=== PATIENT | male | born 1945 | race Caucasian/White ===

== ENCOUNTER 2022-12-25 05:25 | Emergency (ER) | payer OTHER, SELFPAY ==
[2022-12-25 05:34] VITALS: BP 155/67; BP 187/79; PULSE 69; PULSE 74; RESP 18; TEMP 36.8; O2SAT 91; O2SAT 98; BMI 43.5
[2022-12-25 06:15] LABS: MANUAL DIFF FLAG NO
[2022-12-25 06:16] LABS: Basophils Percent Auto 0.4 % (0-2); Eosinophils Absolute Auto 0.1 X10*3/uL (0.0-0.4); Eosinophils Percent Auto 1.3 % (0-4); Hematocrit 43.1 % (42.0-52.0); Hemoglobin 13.7 g/dl (14.0-18.0); Imm Gran Abs Auto 0.03 X10*3/uL (0.00-0.03); Imm Gran Pct Auto 0.3 % (0.0-0.4); Lymphocytes Absolute Auto 0.8 X10*3/uL (1.2-4.9); Lymphocytes Percent Auto 8.9 % (20-40); Mean Corpuscular HGB Conc 31.8 g/dl (31.0-36.0); Mean Corpuscular Hemoglobin 29.6 pg (27.0-33.0); Mean Corpuscular Volume 93.1 fL (80.0-98.0); Mean Platelet Volume 8.8 fL (9.4-12.4); Monocytes Percent Auto 11.1 % (2-11); Neutrophils Absolute Auto 7.2 x10*3/uL (2.0-8.3); Platelet Count 263 X10*3/uL (160-400); Red Blood Count 4.63 X10*6/uL (4.60-5.80); Red Cell Distribution Width 14.1 % (11.0-16.0); White Blood Count 9.3 X10*3/uL (4.8-10.8)
[2022-12-25 06:36] LABS: Anion Gap 13 (12-20); Blood Urea Nitrogen 16 mg/dL (9-16); Calcium 8.7 mg/dL (8.4-10.2); Carbon Dioxide 27 mmol/L (22-29); Chloride 107 mmol/L (96-108); Creatinine Clr Calc Pharmacy 120.9; Estimated Glomerular Filt Rate > 60; Glucose Random 105 mg/dL (60-115); Potassium 4.3 mmol/L (3.3-5.1); Sodium 143 mmol/L (135-145)
--- NOTE | 2022-12-25 07:19 | ED_ITS ---
HPI - General Adult General Chief complaint: General Medical Stated complaint: stool incontinence Time Seen by Provider: 12/25/22 07:18 Source: patient and RN notes reviewed Mode of arrival: EMS Limitations: no limitations History of Present Illness HPI narrative: Patient is a 77-year-old male with history of HLD, HTN to ED from [facility] after 1 episode of fecal incontinence. Patient states that he is m edicated with Colace daily, but that the Colace at his facility comes in 2 different forms-one is a white pill, the other a red capsule and he feels that when he receives the right capsule it is more effective as a stool softener than the white pill. Denies any abdominal pain, any additional episodes of incontinence, any fevers, or any other recent sick symptoms. He denies any BRBPR or dark, tarry stools. He states that after the episode his vital signs were assessed and that the nurse and doctor at his facility wanted him evaluated and to have labs checked. Related Data Allergies Allergy/AdvReac Type Severity Reaction Status Date / Time No Known Allergies Allergy Unverified 05/07/20 14:52 Review of Systems Review of Systems: As per HPI Yes all other systems are reviewed and are negative Constitutional: Constitutional: Reports as per HPI [facility] Social History Social History Alcohol intake: current Alcohol intake frequency: 0-2 drinks per day Alcohol type: beer Smoked in Last 30 Days: No Use of substances other than those prescribed or required for medical reasons: No Advance Directives: No Advance Directives Information Provided: Yes Physical Exam ED Vital Signs: Vital Signs - 24 hr 12/25/22 05:34 Temperature 98.2 F Pulse Rate 69 Respiratory Rate 18 Blood Pressure 155/67 H Pulse Oximetry 98 Oxygen Delivery Method Room Air BMI result Body Mass Index 43.5 Const General: cooperative, healthy appearing and no acute distress Orientation/consciousness: oriented to person, oriented to place, oriented to time and patient oriented x3 Limitations: no limitations HENMT Head: Yes normocephalic and Yes atraumatic Ears: external ears normal General nose exam: Normal external nose present Face and sinus: Yes face symmetric Mouth: oropharynx normal and moist mucous membranes Throat: Yes uvula midline Eyes Pupils: Equal, round and reactive pupils present (left; 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) Neck Neck: Yes normal visual inspection and Yes supple Resp Effort & Inspection: normal respiratory effort and able to speak in complete sentences Auscultation: clear to auscultation bilaterally Cardio Rate: regular rate Rhythm: regular rhythm Heart sounds: S1 normal heart sound present and S2 normal heart sound present GI Inspection: Yes normal to inspection, Yes obesity, No visible herniation and No visible pulsation Palpation (GI): Soft to palpation, nontender, no hernias, no masses, no pulsatile masses and No Rebound tenderness present Auscultation: normoactive bowel sounds General: Yes no CVA tenderness Back/Spine/Pelvis Back: no CVA tenderness Skin General skin exam: elasticity normal and turgor normal Neuro General: oriented to person, oriented to place, oriented to time, patient oriented x3, moves all extremities, no focal motor deficits and CN's II-XI intact bilaterally Cranial nerves: Yes Equal, round and reactive pupils present (left; 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 Medical Decision Making Medical Decision Making [facility] Narrative: Patient is a 77-year-old male with history of HLD, HTN to ED from [facility] after one episode of fecal incontinence. On exam patient is non-toxic appearing, vital signs within normal limits, no focal neurological deficits, abdomen soft and nontender, no guarding, no rebound tenderness, no CVA tenderness. Given reported history and physical exam findings, likely related to use of stool softner. Considered, but think unlikely, electrolyte abnormality, diverticulitis, partial SBO, appendicitis, or other intraabdominal infection. Low suspicion for secondary cause such as hyperadrenergic state, adrenal crisis, hyperthyroidism, or sepsis. Unlikely antibiotic associated diarrhea as patient denies any recent treatment with antibiotics. Plan: Check labs, if WNL will d/c home to [facility]. Please refer to course for remaining clinical decision making. Differential Diagnosis Differential Diagnoses: The differential diagnosis associated with the presentation includes As above Lab Data MDM Lab Attestation statement: I reviewed the patient's lab results. 12/25/22 06:10 12/25/22 06:10 Labs: Lab Results 12/25/22 12/25/22 Range/Units 06:10 06:10 WBC 9.3 (4.8-10.8) X10*3/uL RBC 4.63 (4.60-5.80) X10*6/uL Hgb 13.7 L (14.0-18.0) g/dl Hct 43.1 (42.0-52.0) % MCV 93.1 (80.0-98.0) fL MCH 29.6 (27.0-33.0) pg MCHC 31.8 (31.0-36.0) g/dl RDW 14.1 (11.0-16.0) % Plt Count 263 (160-400) X10*3/uL MPV 8.8 L (9.4-12.4) fL Immature Gran % (Auto) 0.3 (0.0-0.4) % Neut % (Auto) 78.0 H (45-73) % Lymph % (Auto) 8.9 L (20-40) % [place] % (Auto) 11.1 H (2-11) % Eos % (Auto) 1.3 (0-4) % Baso % (Auto) 0.4 (0-2) % Lymph # (Auto) 0.8 L (1.2-4.9) X10*3/uL [place] # (Auto) 1.0 (0.1-1.2) X10*3/uL Eos # (Auto) 0.1 (0.0-0.4) X10*3/uL Baso # (Auto) 0.0 (0.0-0.2) X10*3/uL Abs Immat Gran (auto) 0.03 (0.00-0.03) X10*3/uL Absolute Neuts (auto) 7.2 (2.0-8.3) x10*3/uL Absolute Nucleated RBC 0.000 (0.0-0.012) X10*3/uL Nucleated RBC % (auto) 0.0 (0.0-0.2) /100WBC Sodium 143 (135-145) mmol/L Potassium 4.3 (3.3-5.1) mmol/L Chloride 107 (96-108) mmol/L Carbon Dioxide 27 (22-29) mmol/L Anion Gap 13 (12-20) BUN 16 (9-16) mg/dL Creatinine 0.78 (0.5-1.4) mg/dL Estim Creat Clear Calc 120.9 Estimated GFR > 60 Random Glucose 105 (60-115) mg/dL Calcium 8.7 (8.4-10.2) mg/dL External Record Review External record reviewed: Inpatient record, Office record and Outpatient record Chronic Conditions Patient?s care impacted by: Hypertension Discharge Plan Discharge Clinical Impression: Fecal incontinence Patient Disposition: [facility] Additional Instructions: You were evaluated in the emergency department today for one episode of fecal incontinence. Your evaluation suggests that your symptoms are most likely due to use of a stool softener. Your exam and labs were reassuring and your evaluation has shown no sign of medical conditions requiring emergent intervention at this time. Please follow up with the primary care provider at your facility. Return to the emergency department if you experience worsening or uncontrolled pain, further episodes of fecal incontinence, fevers 100.4 or greater, recurrent vomiting, inability to tolerate food or fluids by mouth, bloody stools or vomit, black or tarry stools, or any other concerning symptoms.
[2022-12-25 08:00] VITALS: BP 140/58; O2SAT 98
== END 2022-12-25 10:44 ==
PROVIDERS: Emergency Provider Emergency Medicine
DX: R15.9 Full incontinence of feces (principal); Z79.899 Other long term (current) drug therapy
CPT/HCPCS: 36415; 80048; 85025; 99284

== ENCOUNTER 2023-01-04 03:57 | Inpatient (IN) | payer OTHER, SELFPAY ==
[2023-01-04] VITALS (11 sets, daily range): BP systolic 145–189; BP diastolic 57–116; PULSE 52–64; RESP 17–20; TEMP 35.8–37.1; O2SAT 92–98; BMI 43.7; BMI 44.0; BMI 30.6
--- NOTE | ~2023-01-04 | XR_ITS ---
EXAMINATION: XR CHEST CLINICAL INFORMATION: Dyspnea. Rule out pneumonia. COMPARISON: 11.27.2015 TECHNIQUE: 2 views of the chest were obtained. FINDINGS: Normal symmetric lung volumes. No parenchymal consolidation. No pleural effusion. No pneumothorax. Cardiomediastinal silhouette and pulmonary vascularity are within normal limits. No acute osseous abnormalities. Healed right-sided rib fractures. XR/XR chest 2V IMPRESSION: No acute findings
--- NOTE | ~2023-01-04 | US_ITS ---
EXAMINATION: US VENOUS ULTRASOUND WITH DOPPLER LOWER EXTREMITY, BILATERAL CLINICAL INFORMATION: Bilateral lower extremity pain and swelling COMPARISON: None available. TECHNIQUE: Ultrasound of the deep veins is performed from the hip to the calf with compression sonography and color and pulse Doppler assessment. Spectral analysis with color-flow imaging is performed. FINDINGS: RIGHT: There is nonocclusive thrombus present in the popliteal vein. The remainder of the right lower extremity is unremarkable with normal venous compression and respiratory variation and augmented flow. The visualized common femoral vein, superficial femoral vein, profunda femoral vein and the trifurcation region shows no evidence of deep venous thrombosis. There is no significant popliteal fossa cyst. LEFT: There is normal venous compression and respiratory variation and augmented flow. The visualized common femoral vein, superficial femoral vein, profunda femoral vein, popliteal vein, and the trifurcation region shows no evidence of deep venous thrombosis. There is no significant popliteal fossa cyst. US/US venous duplex LE BI IMPRESSION: DVT present in the right popliteal vein. The left leg is normal.
--- NOTE | 2023-01-04 04:32 | PC.NURSE ---
pt with oxygen saturation of 86% on room air while awake and resting. Placed on 2L per nasal cannula with good effect to 95-98%
--- NOTE | 2023-01-04 04:35 | ECG_ITS ---
Test Reason : SWELLING Blood Pressure : / mmHG Vent. Rate : 059 BPM Atrial Rate : 059 BPM P-R Int : 160 ms QRS Dur : 086 ms QT Int : 418 ms P-R-T Axes : -09 -05 012 degrees QTc Int : 413 ms Sinus bradycardia Low voltage QRS Cannot rule out Inferior infarct , age undetermined Abnormal ECG When compared with ECG of 27-NOV-2015 16:29, No significant change was found Referred By: Marc Mejia Electronically Signed By:Elia Atkins
--- NOTE | 2023-01-04 04:58 | ED.GENADULT ---
HPI - General Adult General Chief complaint: Wound/Laceration Stated complaint: Fall/ Lac Time Seen by Provider: 01/04/23 04:48 Source: patient Mode of arrival: EMS Limitations: no limitations History of Present Illness HPI narrative: 77-year-old male who presents emergency department for evaluation of bleeding from his left lower extremity. The patient lives at [facility]. He states that he called for his nurse since he had to go to the bathroom. The nurse found the patient lying in his bed with blood coming from his left leg. Patient states that over the last 2-3 days he has had increased swelling of his left lower extremity secondary to edema. He states he has also had pain in the left lower extremity. Patient's left lower extremity is edematous and erythematous and he states he has had cellulitis multiple times in his left leg. He does not recount any injury to his leg but he states that he often weeks fluid from his legs secondary to his edema. He denied fever, chills, rhinorrhea, sore throat, cough. He denied chest pain or shortness of breath. He denied nausea, vomiting or diarrhea. He denied fatigue or weakness. The patient was hypoxic with an O2 saturation of 82% on room air and on 2 L his O2 saturation improved to 92%. Related Data Home Medications Medication Instructions Recorded Confirmed acetaminophen 325 mg tablet 650 mg PO Q4H PRN Pain 01/04/23 01/04/23 amlodipine 5 mg tablet 5 mg PO DAILY 01/04/23 01/04/23 ammonium lactate 12 % topical cream 1 appl topical BID 01/04/23 01/04/23 aspirin 81 mg chewable tablet 81 mg PO DAILY 01/04/23 01/04/23 docusate sodium 100 mg capsule 100 mg PO BID 01/04/23 01/04/23 folic acid 400 mcg tablet 0.4 mg PO DAILY 01/04/23 01/04/23 guaifenesin 100 mg/5 mL oral liquid 200 mg PO Q4H PRN Cough 01/04/23 01/04/23 lactulose 10 gram/15 mL oral 30 ml PO DAILY PRN Constipation 01/04/23 01/04/23 solution lisinopril 10 mg tablet 10 mg PO DAILY 01/04/23 01/04/23 Allergies Allergy/AdvReac Type Severity Reaction Status Date / Time No Known Allergies Allergy Verified 01/04/23 04:36 Review of Systems Review of Systems: Yes all other systems are reviewed and are negative [facility] Past Medical History [facility] Narrative: Past medical history: Hypertension, hyperlipidemia. He denies COPD, asthma, obstructive sleep apnea or coronary artery disease. Social history: He is a resident of a long-term nursing facility. He denies tobacco and alcohol use. Medical History Dyslipidemia Hypertension Surgical History History of enucleation of right eyeball Social History Social History Alcohol intake: never Smoked in Last 30 Days: No Use of substances other than those prescribed or required for medical reasons: No Advance Directives: No Advance Directives Information Provided: No Physical Exam ED Vital Signs: Vital Signs - 24 hr 01/04/23 04:05 01/04/23 06:41 01/04/23 07:12 Temperature 98.8 F 97.6 F Pulse Rate 64 53 57 Respiratory Rate 20 19 18 Blood Pressure 171/81 H 152/67 H 152/68 H Pulse Oximetry 92 97 92 Oxygen Delivery Method Room Air Nasal Cannula Room Air Oxygen Flow Rate 2 01/04/23 08:18 Temperature 97.6 F Pulse Rate 58 Respiratory Rate 18 Blood Pressure 153/64 H Pulse Oximetry Oxygen Delivery Method Room Air Oxygen Flow Rate BMI result Body Mass Index 44.0 Const Other: Awake, alert, male patient, pleasant, cooperative in no distress, answers all questions appropriately [facility] Head: Yes normal to inspection, Yes normocephalic and Yes atraumatic Ears: external ears normal General nose exam: Normal external nose present Face and sinus: Yes normal facial exam Mouth: Normal oral and palatal mucosa present Throat: Yes posterior oropharynx normal Eyes Other: Left eye pupil 4 mm reactive sclera normal, right eye-glass prosthesis Neck Neck: Yes normal visual inspection, Yes no lymphadenopathy, Yes trachea midline and Yes supple Chest Chest palpation & inspection: normal inspection of the chest and normal palpation of entire chest wall Resp Effort & Inspection: normal respiratory effort and able to speak in complete sentences Auscultation: clear to auscultation bilaterally Cardio Rate: regular rate Rhythm: regular rhythm Heart sounds: S1 normal heart sound present, S2 normal heart sound present and no murmurs GI Inspection: Yes normal to inspection Palpation (GI): Soft to palpation, nontender and no guarding Auscultation: normal bowel sounds General: Yes no CVA tenderness Back/Spine/Pelvis Back: no CVA tenderness Skin General skin exam: no rashes or lesions noted Neuro Cranial nerves: Yes CN's II-XII intact bilaterally Cognition (Neuro): normal cognition Motor exam (neuro): 5/5 motor strength present throughout Extrem Other: Patient has 2+ pitting edema of the left lower extremity with patches of dry, crusted, hyperkeratosis, yellow skin, patient has erythema from his ankle to just below his knee, the erythema is warm to the touch. On the posterior aspect of the patient's calf there is a chronic appearing wound which is draining serosanguineous fluid. Psych Appearance: grossly normal Speech and movement: Normal speech and movement present Affect: normal affect Attitude: cooperative Thought process: Normal thought process present Thought content: Normal thought content present Medications Administered Generic Name Dose Route Start Last Admin Trade Name Freq PRN Reason Stop Dose Admin Vancomycin HCl 2,000 mg in 500 mls @ 250 mls/hr 01/04/23 08:15 01/04/23 08:30 Vancomycin/Ns IV 01/04/23 10:14 250 mls/hr ONCE ONE Administration Discontinued Medications Generic Name Dose Route Start Last Admin Trade Name Freq PRN Reason Stop Dose Admin Cefazolin Sodium/Dextrose 2 gm in 50 mls @ 100 mls/hr 01/04/23 05:12 01/04/23 06:17 Ancef IV 01/04/23 05:41 Infused ONCE ONE Infusion Medical Decision Making Medical Decision Making [facility] Narrative: 77-year-old male who was sent to the emergency department for evaluation of bleeding from his left lower extremity. On examination the patient has significant pitting edema to his left lower extremity erythema consistent with cellulitis pain. Patient has a chronic small triangular wound on the posterior calf which is draining serosanguineous fluid. Patient was found to be hypoxic with an O2 saturation of 88% on room air and on 2 L his O2 saturation came up to 94%. I ordered a CBC, CMP, lipase, PT/INR, PTT, BNP, lactic acid, blood cultures x2, chest x-ray two view. EKG will be obtained. I did order Ancef 2 g IV to treat his cellulitis. 0702: My independent interpretation patient's laboratory evaluation as follows: WBCs elevated 11,100. Platelet count elevated 454,000. Bicarb elevated 31 ALT elevated 42. COVID-19 negative. Troponin was detectable but not elevated at 9.2. Chest x-ray revealed no acute disease. 12 EKG was unremarkable. 0729: The patient was taken off oxygen his O2 saturation did decline down to 88% therefore he was placed back on oxygen 2 L via nasal cannula. I did add a D-dimer and bilateral ultrasounds to rule out DVT. 0934: D-dimer was elevated at 753. Ultrasound of the right lower extremity did reveal a right popliteal vein DVT. Differential Diagnosis Differential diagnosis includes was not limited to cellulitis, peripheral edema, congestive heart failure, pneumonia, electrolyte abnormalities, anemia Admission/Observation Consideration of admission/observation: Escalation of care including admission/observation considered Consult Healthcare Provider Management of the patient was discussed with: Hospitalist Lab Data [facility] Lab Attestation statement: I reviewed the patient's lab results. See MDM 01/04/23 05:08 01/04/23 05:08 Labs: Lab Results 01/04/23 01/04/23 01/04/23 Range/Units 05:08 05:08 05:08 WBC 11.1 H (4.8-10.8) X10*3/uL RBC 4.38 L (4.60-5.80) X10*6/uL Hgb 12.9 L (14.0-18.0) g/dl Hct 40.3 L (42.0-52.0) % MCV 92.0 (80.0-98.0) fL MCH 29.5 (27.0-33.0) pg MCHC 32.0 (31.0-36.0) g/dl RDW 13.8 (11.0-16.0) % Plt Count 454 H D (160-400) X10*3/uL MPV 8.7 L (9.4-12.4) fL Immature Gran % (Auto) 0.3 (0.0-0.4) % Neut % (Auto) 82.6 H (45-73) % Lymph % (Auto) 6.7 L (20-40) % [place] % (Auto) 8.4 (2-11) % Eos % (Auto) 1.7 (0-4) % Baso % (Auto) 0.3 (0-2) % Lymph # (Auto) 0.8 L (1.2-4.9) X10*3/uL [place] # (Auto) 0.9 (0.1-1.2) X10*3/uL Eos # (Auto) 0.2 (0.0-0.4) X10*3/uL Baso # (Auto) 0.0 (0.0-0.2) X10*3/uL Abs Immat Gran (auto) 0.03 (0.00-0.03) X10*3/uL Absolute Neuts (auto) 9.2 H (2.0-8.3) x10*3/uL Absolute Nucleated RBC 0.000 (0.0-0.012) X10*3/uL Nucleated RBC % (auto) 0.0 (0.0-0.2) /100WBC PT (10.0-13.1) SEC INR (0.9-1.1) APTT (26.0-36.4) SEC D-Dimer High Sensitivty NG/ML Sodium 145 (135-145) mmol/L Potassium 4.2 (3.3-5.1) mmol/L Chloride 107 (96-108) mmol/L Carbon Dioxide 31 H (22-29) mmol/L Anion Gap 11 L (12-20) BUN 15 (9-16) mg/dL Creatinine 0.77 (0.5-1.4) mg/dL Estim Creat Clear Calc 122.7 Estimated GFR > 60 Random Glucose 105 (60-115) mg/dL Lactic Acid 0.9 (0.5-2.0) mmol/L Calcium 8.8 (8.4-10.2) mg/dL Total Bilirubin 0.6 (0.0-1.0) mg/dL AST 31 (5-37) U/L ALT 42 H (0-40) U/L Alkaline Phosphatase 105 (39-117) U/L Troponin I High Sens (<3.5-35.0) ng/L C-Reactive Protein 15.33 H (< or = 0.50) mg/dL B-Natriuretic Peptide (<100) pg/mL Total Protein 6.1 L (6.5-8.0) g/dL Albumin 3.3 L (3.5-5.0) g/dL Lipase 19 (8-78) U/L COVID-19 ([facility]) (Negative) COVID-19 Clin Com 01/04/23 01/04/23 01/04/23 Range/Units 05:08 05:08 05:08 WBC (4.8-10.8) X10*3/uL RBC (4.60-5.80) X10*6/uL Hgb (14.0-18.0) g/dl Hct (42.0-52.0) % MCV (80.0-98.0) fL MCH (27.0-33.0) pg MCHC (31.0-36.0) g/dl RDW (11.0-16.0) % Plt Count (160-400) X10*3/uL MPV (9.4-12.4) fL Immature Gran % (Auto) (0.0-0.4) % Neut % (Auto) (45-73) % Lymph % (Auto) (20-40) % [place] % (Auto) (2-11) % Eos % (Auto) (0-4) % Baso % (Auto) (0-2) % Lymph # (Auto) (1.2-4.9) X10*3/uL [place] # (Auto) (0.1-1.2) X10*3/uL Eos # (Auto) (0.0-0.4) X10*3/uL Baso # (Auto) (0.0-0.2) X10*3/uL Abs Immat Gran (auto) (0.00-0.03) X10*3/uL Absolute Neuts (auto) (2.0-8.3) x10*3/uL Absolute Nucleated RBC (0.0-0.012) X10*3/uL Nucleated RBC % (auto) (0.0-0.2) /100WBC PT (10.0-13.1) SEC INR (0.9-1.1) APTT (26.0-36.4) SEC D-Dimer High Sensitivty NG/ML Sodium (135-145) mmol/L Potassium (3.3-5.1) mmol/L Chloride (96-108) mmol/L Carbon Dioxide (22-29) mmol/L Anion Gap (12-20) BUN (9-16) mg/dL Creatinine (0.5-1.4) mg/dL Estim Creat Clear Calc Estimated GFR Random Glucose (60-115) mg/dL Lactic Acid (0.5-2.0) mmol/L Calcium (8.4-10.2) mg/dL Total Bilirubin (0.0-1.0) mg/dL AST (5-37) U/L ALT (0-40) U/L Alkaline Phosphatase (39-117) U/L Troponin I High Sens 9.2 (<3.5-35.0) ng/L C-Reactive Protein (< or = 0.50) mg/dL B-Natriuretic Peptide 98 (<100) pg/mL Total Protein (6.5-8.0) g/dL Albumin (3.5-5.0) g/dL Lipase (8-78) U/L COVID-19 ([facility]) Negative (Negative) COVID-19 Clin Com See Note 01/04/23 Range/Units 05:31 WBC (4.8-10.8) X10*3/uL RBC (4.60-5.80) X10*6/uL Hgb (14.0-18.0) g/dl Hct (42.0-52.0) % MCV (80.0-98.0) fL MCH (27.0-33.0) pg MCHC (31.0-36.0) g/dl RDW (11.0-16.0) % Plt Count (160-400) X10*3/uL MPV (9.4-12.4) fL Immature Gran % (Auto) (0.0-0.4) % Neut % (Auto) (45-73) % Lymph % (Auto) (20-40) % [place] % (Auto) (2-11) % Eos % (Auto) (0-4) % Baso % (Auto) (0-2) % Lymph # (Auto) (1.2-4.9) X10*3/uL [place] # (Auto) (0.1-1.2) X10*3/uL Eos # (Auto) (0.0-0.4) X10*3/uL Baso # (Auto) (0.0-0.2) X10*3/uL Abs Immat Gran (auto) (0.00-0.03) X10*3/uL Absolute Neuts (auto) (2.0-8.3) x10*3/uL Absolute Nucleated RBC (0.0-0.012) X10*3/uL Nucleated RBC % (auto) (0.0-0.2) /100WBC PT 13.3 H (10.0-13.1) SEC INR 1.2 H (0.9-1.1) APTT 26.8 (26.0-36.4) SEC D-Dimer High Sensitivty 753 NG/ML Sodium (135-145) mmol/L Potassium (3.3-5.1) mmol/L Chloride (96-108) mmol/L Carbon Dioxide (22-29) mmol/L Anion Gap (12-20) BUN (9-16) mg/dL Creatinine (0.5-1.4) mg/dL Estim Creat Clear Calc Estimated GFR Random Glucose (60-115) mg/dL Lactic Acid (0.5-2.0) mmol/L Calcium (8.4-10.2) mg/dL Total Bilirubin (0.0-1.0) mg/dL AST (5-37) U/L ALT (0-40) U/L Alkaline Phosphatase (39-117) U/L Troponin I High Sens (<3.5-35.0) ng/L C-Reactive Protein (< or = 0.50) mg/dL B-Natriuretic Peptide (<100) pg/mL Total Protein (6.5-8.0) g/dL Albumin (3.5-5.0) g/dL Lipase (8-78) U/L COVID-19 ([facility]) (Negative) COVID-19 Clin Com Independent Interpretation I performed an independent interpretation of an: EKG Interpretation: My interpretation of the patient's 12 EKG done at 05:05 hours is as follows: Sinus bradycardia with a rate of 59, inverted T-wave in lead 3, no ST segment elevation, no ST segment depression, no significant T-wave abnormalities, no PACs, no PVCs Radiology Impression Discussion of test interpretation with radiology: I have reviewed the radiologist's reading. Radiologist Impression: XR chest 2V IMPRESSION: No acute findings Dictated By:Erick Cruz MD US venous duplex LE BI IMPRESSION: DVT present in the right popliteal vein. The left leg is normal. Dictated By:Chicho Mckeon MD Discharge Plan Discharge Clinical Impression: Cellulitis of left lower extremity, Leg edema, left, Hypoxia, Deep vein thrombosis of right lower extremity Patient Disposition: Admitted As Inpatient
[2023-01-04 05:20] LABS: MANUAL DIFF FLAG NO
[2023-01-04 05:21] LABS: Basophils Percent Auto 0.3 % (0-2); Eosinophils Absolute Auto 0.2 X10*3/uL (0.0-0.4); Eosinophils Percent Auto 1.7 % (0-4); Hematocrit 40.3 % (42.0-52.0); Hemoglobin 12.9 g/dl (14.0-18.0); Imm Gran Abs Auto 0.03 X10*3/uL (0.00-0.03); Imm Gran Pct Auto 0.3 % (0.0-0.4); Lymphocytes Absolute Auto 0.8 X10*3/uL (1.2-4.9); Lymphocytes Percent Auto 6.7 % (20-40); Mean Corpuscular Hemoglobin 29.5 pg (27.0-33.0); Mean Platelet Volume 8.7 fL (9.4-12.4); Monocytes Absolute Auto 0.9 X10*3/uL (0.1-1.2); Monocytes Percent Auto 8.4 % (2-11); Neutrophils Absolute Auto 9.2 x10*3/uL (2.0-8.3); Neutrophils Percent Auto 82.6 % (45-73); Platelet Count 454 X10*3/uL (160-400); Red Blood Count 4.38 X10*6/uL (4.60-5.80); Red Cell Distribution Width 13.8 % (11.0-16.0); White Blood Count 11.1 X10*3/uL (4.8-10.8)
[2023-01-04 05:31] LABS: COVID-19 Test Negative (Negative); IDNOW Serial# 6674DD1D
[2023-01-04] MEDS: ceFAZolin Sodium/Dextrose,Iso 2 GM/50 ML PIGGYBACK IV ×3 (05:31→21:46)
[2023-01-04 05:33] LABS: Lactic Acid 0.9 mmol/L (0.5-2.0)
[2023-01-04 05:38] LABS: Alanine Aminotransferase 42 U/L (0-40); Albumin Level 3.3 g/dL (3.5-5.0); Alkaline Phosphatase 105 U/L (39-117); Anion Gap 11 (12-20); Aspartate Amino Transferase 31 U/L (5-37); Bilirubin Total 0.6 mg/dL (0.0-1.0); Blood Urea Nitrogen 15 mg/dL (9-16); Calcium 8.8 mg/dL (8.4-10.2); Carbon Dioxide 31 mmol/L (22-29); Chloride 107 mmol/L (96-108); Creatinine Clr Calc Pharmacy 122.7; Estimated Glomerular Filt Rate > 60; Glucose Random 105 mg/dL (60-115); Lipase 19 U/L (8-78); Potassium 4.2 mmol/L (3.3-5.1); Sodium 145 mmol/L (135-145); Total Protein 6.1 g/dL (6.5-8.0)
[2023-01-04 05:42] LABS: B Type Natriuretic Peptide 98 pg/mL (<100); Troponin-I High Sensitivity 9.2 ng/L (<3.5-35.0)
[2023-01-04 05:43] LABS: INTERNATIONAL NORM RATIO 1.2 (0.9-1.1); Prothrombin Time 13.3 SEC (10.0-13.1)
[2023-01-04 05:46] LABS: Partial Thromboplastin Time 26.8 SEC (26.0-36.4)
--- NOTE | 2023-01-04 07:00 | CA_ITS ---
Transthoracic Echocardiogram Patient (Last, First, Middle): Erick Deleon K Gender: Male Date of : 1945 Age: 77 Procedure Date: 01/04/2023 Procedure Type: Transthoracic Echocardiogram Location: [place] Height: 182.88 cm Weight: 151.05 kg BSA: 2.65 m2 Heart Rate: bpm BP: 153 / 64 mmHg Psychiatric Mental Health Nurse: Referring MD: Almita Lovell MD Symptoms: possib PE check for R heart strain. Leg swelling Study Quality: Fair w Contrast ECG Rhythm: Sinus Conclusions: - Normal left ventricular size and systolic function. There is mildly increased left ventricular wall thickness. The visually estimated ejection fraction is between 55-60%. - There is moderately decreased right ventricular systolic function. RV is mild to moderately dilated. Findings Left Ventricle Normal left ventricular size and systolic function. There is mildly increased left ventricular wall thickness. The visually estimated ejection fraction is between 55-60%. There is no evidence of regional wall motion abnormalities. Diastolic function is indeterminate on the basis of available data. Spectral Doppler is indicative of a pseudonormal filling pattern. E/E prime ratio is between 8 and 15 consistent with indeterminate filling pressures. Right Ventricle There is moderately decreased right ventricular systolic function. RV is mild to moderately dilated. Atria The left atrium is mildly dilated. Aortic Valve Normal aortic valve structure and function. There is no aortic valve stenosis. There is no aortic valve regurgitation. Mitral Valve Normal mitral valve structure and function. There is no mitral valve regurgitation. There is no mitral valve stenosis. Pulmonic Valve The pulmonic valve was not well visualized. Tricuspid Valve Likely normal tricuspid valve structure and function. Tricuspid regurgitation envelope is inadequate for calculation of right ventricular systolic pressure. Indeterminate right atrial pressure. Great Vessels The pulmonary artery was not well visualized. There is mild dilatation of the ascending aorta measuring 3.70 cm. Venous The inferior vena cava was not well visualized. Pericardium/Pleural There is no evidence of pericardial effusion. Prior Study Comparison No prior study available for comparison. Measurements 2D Linear Measurements IVSd: 1.23 0.6-0.9/0.6-1.0 cm LVIDd: 4.65 3.9-5.3/4.2-5.9 cm LVIDd Index: 1.75 2.4-3.2/2.2-3.1 cm/m2 LVIDs: 3.09 2.0-3.6 cm LVPWd: 1.26 0.7-1.1 cm Ao Root: 3.50 2.1-3.5 cm LA Diam: 4.90 2.7-3.8/3.0-4.0 cm LAIDs Index: 1.85 1.5-2.3 cm/m2 LV Mass: 273.99 67-162/88-224 g LV Mass Index: 103.39 43-95/49-115 g/m2 LVOT Diam: 2.10 3.0+(-)1.3 cm Mitral Valve MV Pk E: 0.67 MV PK A: 0.68 MV Decel Time: 155.00 E/A: 1.00 E'Lateral: 4.90 E/E' Lat: 13.70 PHT: 45.00 MVA PHT: 4.89 Decel Bell: 4.33 Aortic Valve AoV Pk Cas: 1.10 AoV Mn Cas: 0.75 AoV VTI: 0.32 AoV Pk Grad: 5.00 Aov Mn Grad: 3.00 SAIMA Cont.VTI: 1.80 LVOT LVOT Pk Cas: 0.59 LVOT Mn Cas: 0.36 LVOT VTI: 0.17 LVOT Pk Grad: 1.00 LVOT Mn Grad: 1.00 LVOT Diam: 2.10 LVOT Area: 3.46 Diastolic Function MV Pk E: 0.67 MV Pk A: 0.68 E/A: 1.00 E' Laterial: 4.90 E/E' Lat: 13.70 Tricuspid Valve TR Pk Cas: 2.00 TR Pk Grad: 16.00 Great Vessels Aorta Ao Root-2D: 3.50 2.0-3.7 cm Ao Asc: 3.70 2.1-3.4 cm Pulmonary Valve PV Pk Cas: 0.90 Peak PV Grad: 3.00 Updated in Other Vendor System with Status of Final Elia Atkins MD electronically signed on 01/06/2023 9:24:18 PM with status of Final
--- NOTE | 2023-01-04 07:43 | PC.NURSE ---
bedside ultrasound is being done.
[2023-01-04 07:45] LABS: D Dimer High Sensitivity 753 NG/ML
[2023-01-04] MEDS: vancomycin/NS 2,000 MG/500 ML PLAST..BAG 250 MG IV (08:30)
--- NOTE | 2023-01-04 08:32 | PC.NURSE ---
2L O2 applied, sats between 89-92% on RA
--- NOTE | 2023-01-04 08:52 | PHA.MEDREC ---
Pharmacy Consult ? Medication Reconciliation Pharmacy has completed the medication reconciliation.
--- NOTE | 2023-01-04 08:53 | PHA.PROG ---
Admission Date/Time: Indication: Cellulitis Weight in k.2 kg Adjusted body weight in K.42 kg Cucumber body weight in K.9 kg Obesity Dosing Indication % IBW: 189% Serum Creatinine - Last 168 Hours 01/04/23 05:08 Creatinine 0.77 Estimated CrCl and GFR - Last 168 Hours 01/04/23 05:08 Estim Creat Clear Calc 122.7 Estimated GFR > 60 Vancomycin Loading Dose: 2000 mg Current Vancomycin Dosing Regimen: 1250 mg Q12H Date and Time for next Vancomycin Level to be drawn: 01/05 @ 1900 Pharmacist Comments on Vancomycin Plan: Patient is morbidly obese therefore vancomycin needs to be carefully monitored due to high volume of distribution Pharmacy received an adequate loading dose on 01/04 @ 0830. Maintenance dose vancomycin 1250 mg Q12H is scheduled to start 01/04 @ 2100. Expected AUC 555 with a trough of 15.5 Level is scheduled for prior to 4th dose Pharmacy will monitor renal function daily. Karen Alex PharmD Vancomycin dosing will take advantage of [employer] as a clinical decision support tool that uses Bayesian modeling to calculate individual patient's pharmacokinetic parameters and forecast the patient's drug concentration time course with the target goal AUC 24 range of 400 - 600 mg/L/hr.
--- NOTE | 2023-01-04 09:13 | PC.NURSE ---
doctor erin at bedside, pt aware he is being admitted.
--- NOTE | 2023-01-04 09:23 | PC.NURSE ---
Pt with extensive skin changes to lower extremities. L lower leg and ankle with very barky skin, weeping serosanguinous drainage, no breakdown to heel. R lower leg with barky skin as well, no drainage, no heel breakdown.
[2023-01-04 09:29] LABS: C Reactive Protein 15.33 mg/dL (< or = 0.50)
--- NOTE | 2023-01-04 09:41 | PM.IMHP ---
History of Present Illness Date of Service: 01/04/23 Chief Complaint: left leg swelling + drainage 77yo long-term resident of [facility] with history of HTN + HLD + morbid obesity with chronic leg swelling with draining wound on left calf who presents with 3 days of worsening pain, redness, and swelling of the left leg below the knee. The wound was draining bloody and clear fluid. No fever, chills, dyspnea, chest pain, nausea, vomiting, abdominal pain, or diarrhea. In the ED he was found to have leukocytosis with WBCs of 11.1 [82% PMNs]. Hs-D-dimer as 753. Duplex US was positive for DVT in the RIGHT popliteal vein. Initial SaO2 was 98% on room air but dropped to 88%, so he was placed on 2L O2 via NC with recovery to 92%. He was given 2g of IV cefazolin. Review of Systems Review of Systems: Yes all other systems are reviewed and are negative [facility] Medical History Dyslipidemia Hypertension Surgical History History of enucleation of right eyeball Social History Alcohol intake: never Smoked in Last 30 Days: No Use of substances other than those prescribed or required for medical reasons: No Advance Directives: No Advance Directives Information Provided: No Meds Allergies Allergy/AdvReac Type Severity Reaction Status Date / Time No Known Allergies Allergy Verified 01/04/23 04:36 Active Medications: Current Medications Docusate Sodium (Docusate Sodium 100 Mg Capsule) 100 mg PO BID JESSICA Enoxaparin Sodium (Enoxaparin Sodium 150 Mg/Ml Syringe) 150 mg 1 mg/kg (150 mg) SUBCUT Q12H JESSICA Guaifenesin (Guaifenesin 100 Mg/5 Ml Liquid) ml PO Q4H PRN PRN Reason: Cough Vancomycin HCl (Vancomycin/Ns) 2,000 mg in 500 mls @ 250 mls/hr IV ONCE ONE Stop: 01/04/23 10:14 Last Admin: 01/04/23 08:30 Dose: 250 mls/hr Vancomycin HCl 1,250 mg/ (Sodium Chloride) 250 mls @ 166.667 mls/hr IV Q12H [facility] Lactulose (Lactulose 20 Gm/30 Ml Solution) 20 gm PO DAILY PRN PRN Reason: Constipation Lisinopril (Lisinopril 10 Mg Tablet) 10 mg PO DAILY [facility]; Protocol Non-Formulary Medication (Folic Acid) 0.4 mg PO DAILY [facility] Pharmacy Consult (Consult Rx Vancomycin Dosing) 1 each MISCELLANE DAILY PRN PRN Reason: Consult order Home Medications Medication Instructions Recorded Confirmed Last Taken Type acetaminophen 325 mg tablet 650 mg PO Q4H PRN Pain 01/04/23 01/04/23 Unknown History amlodipine 5 mg tablet 5 mg PO DAILY 01/04/23 01/04/23 Unknown History ammonium lactate 12 % topical cream 1 appl topical BID 01/04/23 01/04/23 Unknown History aspirin 81 mg chewable tablet 81 mg PO DAILY 01/04/23 01/04/23 Unknown History docusate sodium 100 mg capsule 100 mg PO BID 01/04/23 01/04/23 Unknown History folic acid 400 mcg tablet 0.4 mg PO DAILY 01/04/23 01/04/23 Unknown History guaifenesin 100 mg/5 mL oral liquid 200 mg PO Q4H PRN Cough 01/04/23 01/04/23 Unknown History lactulose 10 gram/15 mL oral 30 ml PO DAILY PRN Constipation 01/04/23 01/04/23 Unknown History solution lisinopril 10 mg tablet 10 mg PO DAILY 01/04/23 01/04/23 Unknown History Physical Exam Vital Signs and Narrative: Vital Signs: Last Vital Signs Temp 97.6 F 01/04/23 08:18 Pulse 58 01/04/23 08:18 Resp 18 01/04/23 08:18 BP 153/64 H 01/04/23 08:18 Pulse Ox 92 01/04/23 07:12 O2 Del Method Room Air 01/04/23 08:18 O2 Flow Rate 2 01/04/23 06:41 BMI result Body Mass Index 44.0 Gen: in no acute distress HEENT: 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 On the L calf is a chronic wound draining a large amount of serosanguinous fluid. Neuro: alert and oriented x3, no focal findings Psych: appropriate affect Results Labs 01/04/23 05:08 01/04/23 05:08 Labs: Laboratory Results - last 24 hr 01/04/23 01/04/23 01/04/23 05:08 05:08 05:08 MCV 92.0 MCH 29.5 MCHC 32.0 RDW 13.8 Plt Count 454 H D MPV 8.7 L Immature Gran % (Auto) 0.3 Neut % (Auto) 82.6 H Lymph % (Auto) 6.7 L [place] % (Auto) 8.4 Eos % (Auto) 1.7 Baso % (Auto) 0.3 Lymph # (Auto) 0.8 L [place] # (Auto) 0.9 Eos # (Auto) 0.2 Baso # (Auto) 0.0 Abs Immat Gran (auto) 0.03 Absolute Neuts (auto) 9.2 H Absolute Nucleated RBC 0.000 Nucleated RBC % (auto) 0.0 PT INR APTT D-Dimer High Sensitivty Anion Gap 11 L Estim Creat Clear Calc 122.7 Estimated GFR > 60 Random Glucose 105 Lactic Acid 0.9 Calcium 8.8 Total Bilirubin 0.6 AST 31 ALT 42 H Alkaline Phosphatase 105 Troponin I High Sens C-Reactive Protein 15.33 H B-Natriuretic Peptide Total Protein 6.1 L Albumin 3.3 L Lipase 19 COVID-19 ([facility]) COVID-19 Clin Com 01/04/23 01/04/23 01/04/23 05:08 05:08 05:08 MCV MCH MCHC RDW Plt Count MPV Immature Gran % (Auto) Neut % (Auto) Lymph % (Auto) [place] % (Auto) Eos % (Auto) Baso % (Auto) Lymph # (Auto) [place] # (Auto) Eos # (Auto) Baso # (Auto) Abs Immat Gran (auto) Absolute Neuts (auto) Absolute Nucleated RBC Nucleated RBC % (auto) PT INR APTT D-Dimer High Sensitivty Anion Gap Estim Creat Clear Calc Estimated GFR Random Glucose Lactic Acid Calcium Total Bilirubin AST ALT Alkaline Phosphatase Troponin I High Sens 9.2 C-Reactive Protein B-Natriuretic Peptide 98 Total Protein Albumin Lipase COVID-19 ([facility]) Negative COVID-19 Clin Com See Note 01/04/23 05:31 MCV MCH MCHC RDW Plt Count MPV Immature Gran % (Auto) Neut % (Auto) Lymph % (Auto) [place] % (Auto) Eos % (Auto) Baso % (Auto) Lymph # (Auto) [place] # (Auto) Eos # (Auto) Baso # (Auto) Abs Immat Gran (auto) Absolute Neuts (auto) Absolute Nucleated RBC Nucleated RBC % (auto) PT 13.3 H INR 1.2 H APTT 26.8 D-Dimer High Sensitivty 753 Anion Gap Estim Creat Clear Calc Estimated GFR Random Glucose Lactic Acid Calcium Total Bilirubin AST ALT Alkaline Phosphatase Troponin I High Sens C-Reactive Protein B-Natriuretic Peptide Total Protein Albumin Lipase COVID-19 ([facility]) COVID-19 Clin Com Imaging Radiologist's Impressions: Impressions Chest X-Ray 01/04/23 04:45 IMPRESSION: No acute findings Venous Duplex 01/04/23 08:30 IMPRESSION: DVT present in the right popliteal vein. The left leg is normal. Assessment and Plan (1) Cellulitis of left lower extremity: Status: Acute (2) Leg edema, left: Status: Acute (3) Hypoxia: Status: Acute Plan 77yo M long-term SN[facility] resident [[facility] with HTN + HLD + morbid obesity + chronic leg swelling presenting with acute worsening of LLE swelling with redness and pain around chronic draining wound concerning for cellulitis. Not septic. Hypoxic and found to have a RLE DVT. # RLE DVT - admit to [facility], give therapeutic enoxaparin, eventual transition to PO apixaban - hypoxia could be due to PE; will spare CT radiation + contrast since would not change anticoagulation but will check TTE to r/o signs of R heart strain; also assess for CHF given chronic edema though BNP only 98 # LLE cellulitis - will continue cefazolin and add vancomycin given long-term care resident status conferring risk of MRSA - wound care consultation regarding management of chronic wound # acute hypoxic resp failure - wean O2 as tolerated; possibility of underlying ASHLEY, will do overnight oximetry # HTN - d/c amlodipine given potential contribution to edema; continue lisinopril and titrate dose as needed # VTE prophylaxis: LMWH # code status: DNR/DNI per [facility], confirmed by pt I anticipate that the patient will stay at least 2 midnights as an inpatient in the hospital due to the above reasons. It is neither reasonable nor safe to care for them in a less acute setting. Time Spent With Patient Time: Total time managing care of this patient today ____ minutes. Quality Stroke Does the patient have a stroke diagnosis?: No VTE Prior VTE?: No VTE Risk Level:: Medical - moderate - high VTE Device Contraindication: N/A - Device Ordered VTE Drug Contraindication: N/A - Med Ordered
--- NOTE | 2023-01-04 09:49 | PC.NURSE ---
incontinent care provided, linens changed. pt repositioned for comfort, cannot tolerate laying on his side due to body habitus
--- NOTE | 2023-01-04 10:01 | MHC.EDTECH ---
Pt changed over and given fresh bedding
[2023-01-04 10:51] LABS: Estimated Average Glucose 108 mg/dL; Hemoglobin A1c % 5.4 %
[2023-01-04 10:51] LABS: INTERNATIONAL NORM RATIO 1.1 (0.9-1.1); Prothrombin Time 12.8 SEC (10.0-13.1)
--- NOTE | 2023-01-04 10:51 | HE.PHANOTE ---
Patient was ordered Lovenox 150 mg (1mg/kg) Q12H. Since patient has BMI of 44, it is recommended to decrease dose of lovenox to 0.7 mg/kg/dose. Discussed with Dr. Lovell. He agreed and dose was decreased to lovenox 100 mg Q12H. Karen Alex, MaydaD
[2023-01-04] MEDS: Enoxaparin Sodium 100 MG/ML SYRINGE SUBCUT ×2 (10:56→23:46)
--- NOTE | 2023-01-04 10:59 | PC.NURSE ---
pt has jennifer area to under katherine breasts and abd fold. aware.
--- NOTE | 2023-01-04 12:45 | PC.NURSE ---
twila (associate spa director for [facility] on [address], ) called [facility] [place] and was updated on pt status.
--- NOTE | 2023-01-04 12:53 | PC.NURSE ---
ATTEMPT TO CALL REPORT AT [phone]
--- NOTE | 2023-01-04 13:15 | PC.NURSE ---
rn to rn report given to logan. pt aware of plan of care for transfer to room 473.
--- NOTE | 2023-01-04 18:20 | PC.NURSE ---
Patient arrived from ED on stretcher slide to bed with staff assist. Oriented to room, call [facility] system and staff. A&OX4 speech clear. SALDIVAR to command BLE generalized weakness. +edema to BLE 2+, left leg calf wound with moderate amount serosanguineous drainage on pad. Seen by wound care on arrival to unit. Denies headache or dizziness. Right eye with prosthesis per patient has not removed for extended period of time. Light green discharge noted surrounding right eye. Dr Lovell notified on unit to see patient new order for eye ointment. LS clear denies shortness of breath or chest pain, SB on tele in 50's. BS+X4 abdomen soft non-tender incontinent of small amount hard stool. Voiding in urinal with assist. Echo completed at bedside this afternoon. HCP at bedside updated on plan. Will continue to monitor and report changes
[2023-01-04] MEDS: Docusate Sodium 100 MG CAPSULE PO (21:46)
[2023-01-04] MEDS: Erythromycin Base 0.5% Oph Oin 1 GM TUBE 1 CM EYE-RIGHT (21:46)
[2023-01-04] MEDS: Nystatin Powder 15 GM BOTTLE 1 APPL TOPICAL (21:46)
[2023-01-04] MEDS: vancomycin HCL 1,250 MG in 0.9 % Sodium Chloride 250 ML 166.67 MG IV (22:31)
[2023-01-04] MEDS: 0.9 % Sodium Chloride Flush 3 ML SYRINGE IVFLUSH (23:44)
[2023-01-05] VITALS (8 sets, daily range): BP systolic 153–190; BP diastolic 59–83; PULSE 53–72; RESP 18–20; TEMP 36.3–37.1; O2SAT 92–97
[2023-01-05] MEDS: lisinopriL 10 MG TABLET PO ×2 (03:32→07:42)
--- NOTE | 2023-01-05 03:38 | PC.NURSE ---
CARE ASSUMED 23;15..AWKE..ALERT..ORIENTED X 2-3..OCASSIONAL VAGUE RESPONSES OR COMMENTS...RESPIRATIONS EASY ON ROOM AIR...PULSE OX STUDY INPROGRESS OVERNIGHT PER RT...SINUS BRADYCARDIA HR 50'S...ASYMPTOMATIC AND MD PREVIOUSLY AWARE PER SHIFT REPORT....BP ELEVATED..190/72...ASYMPTOMATIC...ADMIT 01/05..DID NOT RECEIVE DAILY ZESTRIL 01/05 D/T TIMING OF ADMISSION...DR SUBRAMANIAN UPDATED....AM ZESTRIL GIVEN NOW PER MD...RESTFUL..DENIES/OFFERS NO COMPLAINTS...DRESSING LEFT LOWER LEG PLACED BY WOUND RN 3-11 SHIFT DRY/INTACT
[2023-01-05 05:14] LABS: ABG Base Excess 7.4 mmol/L; ABG HCO3 33 mmol/L (22-26); ABG pCO2 51 mmHg (32-45); ABG pH 7.41 (7.35-7.45); ABG pO2 63 mmHg (83-108)
[2023-01-05] MEDS: ceFAZolin Sodium/Dextrose,Iso 2 GM/50 ML PIGGYBACK IV ×3 (05:17→20:23)
[2023-01-05 05:22] LABS: ABG Refer to POC result
[2023-01-05] MEDS: hydrALAZINE HCl 20 MG/ML VIAL 5 MG IVPUSH (06:20)
[2023-01-05 07:00] LABS: Hematocrit 38.6 % (42.0-52.0); Hemoglobin 12.4 g/dl (14.0-18.0); Mean Corpuscular HGB Conc 32.1 g/dl (31.0-36.0); Mean Corpuscular Hemoglobin 29.7 pg (27.0-33.0); Mean Corpuscular Volume 92.6 fL (80.0-98.0); Mean Platelet Volume 8.9 fL (9.4-12.4); Platelet Count 441 X10*3/uL (160-400); Red Blood Count 4.17 X10*6/uL (4.60-5.80); Red Cell Distribution Width 13.5 % (11.0-16.0); White Blood Count 6.5 X10*3/uL (4.8-10.8)
[2023-01-05 07:28] LABS: Anion Gap 11 (12-20); Blood Urea Nitrogen 16 mg/dL (9-16); Calcium 8.6 mg/dL (8.4-10.2); Carbon Dioxide 26 mmol/L (22-29); Chloride 110 mmol/L (96-108); Creatinine Clr Calc Pharmacy 112.5; Estimated Glomerular Filt Rate > 60; Glucose Random 85 mg/dL (60-115); Potassium 4.4 mmol/L (3.3-5.1); Sodium 143 mmol/L (135-145)
[2023-01-05] MEDS: Erythromycin Base 0.5% Oph Oin 1 GM TUBE 1 CM EYE-RIGHT ×2 (07:42→20:24)
[2023-01-05] MEDS: Docusate Sodium 100 MG CAPSULE PO ×2 (07:42→20:24)
[2023-01-05] MEDS: Folic Acid 1 MG TABLET 0.5 MG PO (07:42)
[2023-01-05] MEDS: 0.9 % Sodium Chloride Flush 3 ML SYRINGE IVFLUSH ×2 (07:43→15:50)
[2023-01-05] MEDS: Nystatin Powder 15 GM BOTTLE 1 APPL TOPICAL ×2 (07:44→15:47)
[2023-01-05] MEDS: vancomycin HCL 1,250 MG in 0.9 % Sodium Chloride 250 ML 166.67 MG IV ×2 (07:57→20:24)
--- NOTE | 2023-01-05 08:12 | HO.WOUND ---
Wound Care Consult Reason for consult: Left posterior calf wound Patient has a wound on the left posterior calf. Wound was open to air at the time of visit. Wound bed appearance was hard to visualize due to wound location, but from what was seen was a deep red, burgundy tissue. Wound edges seemed to be attached. No undermining or tunneling was noted. Surrounding tissue was warm and indurated, no redness. On the anterior aspect of the leg, there was a good amount of dry, plaque build up on the skin. A large amount of thicker serosangineous drainage was expressed from the wound. No odor noted. Wound measured 0.8cm x 0.4cm x 2.3cm. Patients leg was washed down with soap and water to help loosen any of the skin plaque and stock lotion was applied. Wound then was irrigated well with Normal saline. Lightly wicked the wound with a strip of alginate ag. Covered with gauze and secured with bryce wrap and tape. Did ask the patient if he remembered hitting his leg on anything given the appearnace of the wound, he did state he might of when getting out of the bed from the facility he resides in but he did state they looked at the bed rails, but nothing seemed sharp. Recommendation: Wash legs daily with soap and water. If ammonium lactate lotion 12% is available, would apply this daily to lower legs to help with the plaque build up, if not stock lotion would be fine. For the wound irrigate well with normal saline or the Sea cl[place] wound wash, cut strip of alginate ag and lightly pack into depth of wound making sure to leave a cm tail sticking out. Cover with gauze and bryce wrap. Change daily due to the amount of drainage seen. If drainage decreases, can change frequency to every other day.
--- NOTE | 2023-01-05 08:44 | P.CONWO_ITS ---
History of Present Illness Data of Consult Service Date: 01/04/23 Requesting physician: Louie Sahw Primary Care Provider: Arturo Hall MD [facility] Reason for consult: Left leg wound Patient is a 77-year-old male multiple medical problems who comes in from a long care facility with a left leg wound and cellulitis. Workup reveals right-sided DVT not left-sided DVT. He is being treated with IV antibiotics for the cellulitis PMFSH Medical History Dyslipidemia Hypertension Surgical History History of enucleation of right eyeball Social History Household Members: Other Housing: Senior Living Housing Other:: Lives in long-term care Do you presently have visiting nurse or other home services: No Alcohol intake: never Patient Tobacco Use Status: Never used Tobacco e-Cigarette/Vaping Use: Never Used Second Hand Smoke Exposure: No Meds Allergies Allergy/AdvReac Type Severity Reaction Status Date / Time No Known Allergies Allergy Verified 01/04/23 04:36 Active Medications: Current Medications Acetaminophen (Acetaminophen 325 Mg Tablet) 650 mg PO Q6H PRN PRN Reason: Pain, Mild (Pain Scale 1-3) Docusate Sodium (Docusate Sodium 100 Mg Capsule) 100 mg PO BID [facility] Last Admin: 01/05/23 07:42 Dose: 100 mg Enoxaparin Sodium (Enoxaparin Sodium 100 Mg/Ml Syringe) 100 mg SUBCUT Q12H [facility] Last Admin: 01/04/23 23:46 Dose: 100 mg Erythromycin (Erythromycin Base 0.5% Oph Oin 1 Gm Tube) 1 cm EYE-RIGHT BID [facility] Last Admin: 01/05/23 07:42 Dose: 1 cm Folic Acid (Folic Acid 1 Mg Tablet) 0.5 mg PO DAILY [facility] Last Admin: 01/05/23 07:42 Dose: 0.5 mg Guaifenesin (Guaifenesin 100 Mg/5 Ml Liquid) 10 ml PO Q4H PRN PRN Reason: Cough Vancomycin HCl 1,250 mg/ (Sodium Chloride) 250 mls @ 166.667 mls/hr IV Q12H [facility] Last Admin: 01/05/23 07:57 Dose: 166.67 mls/hr Cefazolin Sodium/Dextrose (Ancef) 2 gm in 50 mls @ 100 mls/hr IV Q8H [facility] Last Infusion: 01/05/23 05:55 Dose: Infused Lactulose (Lactulose 20 Gm/30 Ml Solution) 20 gm PO DAILY PRN PRN Reason: Constipation Lisinopril (Lisinopril 10 Mg Tablet) 10 mg PO DAILY [facility]; Protocol Last Admin: 01/05/23 07:42 Dose: 10 mg Nystatin (Nystatin Powder 15 Gm Bottle) 1 appl TOPICAL TID [facility]; Protocol Last Admin: 01/05/23 07:44 Dose: 1 appl Ondansetron HCl (Ondansetron Hcl 4 Mg/2 Ml Vial) 4 mg IVPUSH Q8H PRN PRN Reason: Nausea and Vomiting Oxycodone HCl (Oxycodone Hcl Immed Release 5 Mg Tablet) 5 mg PO Q6H PRN PRN Reason: Pain, Severe (Pain Scale 7-10) Pharmacy Consult (Consult Rx Vancomycin Dosing) 1 each MISCELLANE DAILY PRN PRN Reason: Consult order Sodium Chloride (0.9 % Sodium Chloride Flush 3 Ml Syringe) [address] [facility] Last Admin: 01/05/23 07:43 Dose: 3 ml Home Medications Medication Instructions Recorded Confirmed Last Taken Type acetaminophen 325 mg tablet 650 mg PO Q4H PRN Pain 01/04/23 01/04/23 Unknown History amlodipine 5 mg tablet 5 mg PO DAILY 01/04/23 01/04/23 Unknown History ammonium lactate 12 % topical cream 1 appl topical BID 01/04/23 01/04/23 Unknown History aspirin 81 mg chewable tablet 81 mg PO DAILY 01/04/23 01/04/23 Unknown History docusate sodium 100 mg capsule 100 mg PO BID 01/04/23 01/04/23 Unknown History folic acid 400 mcg tablet 0.4 mg PO DAILY 01/04/23 01/04/23 Unknown History guaifenesin 100 mg/5 mL oral liquid 200 mg PO Q4H PRN Cough 01/04/23 01/04/23 Unknown History lactulose 10 gram/15 mL oral 30 ml PO DAILY PRN Constipation 01/04/23 01/04/23 Unknown History solution lisinopril 10 mg tablet 10 mg PO DAILY 01/04/23 01/04/23 Unknown History Physical Exam Vital Signs and Narrative: Vital Signs: Last Vital Signs Temp 97.9 F 01/05/23 07:28 Pulse 60 01/05/23 07:28 Resp 20 01/05/23 07:28 BP 178/60 H 01/05/23 07:28 Pulse Ox 92 01/05/23 07:28 O2 Del Method Room Air 01/05/23 07:28 O2 Flow Rate 2 01/04/23 14:00 BMI result Body Mass Index 30.6 Skin: Other: Patient has bilateral lower leg edema right side looks maybe worse than the left side. Left posterior calf open wound is present but not as much erythematous changes as described. Patient has palpable left-sided pedal pulse. Results Labs 01/05/23 06:44 01/05/23 06:44 Labs: Laboratory Results - last 24 hr 01/04/23 01/04/23 01/04/23 05:08 05:08 10:20 MCV MCH MCHC RDW Plt Count MPV Absolute Nucleated RBC Nucleated RBC % (auto) PT 12.8 INR 1.1 O2 Saturation ABG pH at Pt Temp ABG pCO2 at Pt Temp ABG pO2 at Pt Temp ABG HCO3 ABG Base Excess (Actual) Anion Gap Estim Creat Clear Calc Estimated GFR Random Glucose Estimat Average Glucose 108 Hemoglobin A1c % 5.4 Calcium C-Reactive Protein 15.33 H 01/05/23 01/05/23 01/05/23 05:04 06:44 06:44 MCV 92.6 MCH 29.7 MCHC 32.1 RDW 13.5 Plt Count 441 H MPV 8.9 L Absolute Nucleated RBC 0.000 Nucleated RBC % (auto) 0.0 PT INR O2 Saturation 90.0 ABG pH at Pt Temp 7.41 ABG pCO2 at Pt Temp 51 H ABG pO2 at Pt Temp 63 L ABG HCO3 33 H ABG Base Excess (Actual) 7.4 Anion Gap 11 L Estim Creat Clear Calc 112.5 Estimated GFR > 60 Random Glucose 85 Estimat Average Glucose Hemoglobin A1c % Calcium 8.6 C-Reactive Protein Imaging Radiologist's Impressions: Impressions Venous Duplex 01/04/23 08:30 IMPRESSION: DVT present in the right popliteal vein. The left leg is normal. Assessment and Plan (1) Cellulitis of left lower extremity: Status: Acute Plan Left lower leg wound in setting probable venous hypertension. Patient with rig ht-sided DVT. Plan to do alginate dressings every other day and p.r.n. to the left lower leg and Jerrell bandage for compression. Eventually the patient should be wearing daily compression at least to the left leg and to the right leg after treatment of DVT as per medical team Time Spent With Patient Time: Total time managing care of this patient today ____ minutes.
[2023-01-05] MEDS: Enoxaparin Sodium 100 MG/ML SYRINGE SUBCUT (11:53)
--- NOTE | 2023-01-05 15:23 | HO.PM.IMPN ---
Subjective Subjective Date of Service: 01/05/23 Interval History: seen and examined this morning follow up for DVT, cellulitis denies sob, chest pain Review of Systems Review of Systems: Yes all other systems are reviewed and are negative Constitutional Constitutional: Denies chills and Denies fever(s) Cardiovascular Cardiovascular: Denies chest pain, Denies palpitations and Denies dyspnea Respiratory Respiratory: Denies cough and Denies dyspnea Gastrointestinal Gastrointestinal: Denies abdominal pain Endocrine Endocrine: Denies palpitations Physical Exam Vital Signs: Vital Signs: Last Vital Signs Temp 98.6 F 01/05/23 15:19 Pulse 61 01/05/23 15:19 Resp 18 01/05/23 15:19 BP 156/69 H 01/05/23 15:19 Pulse Ox 93 01/05/23 15:19 O2 Del Method Room Air 01/05/23 15:19 O2 Flow Rate 2 01/04/23 14:00 BMI result Body Mass Index 30.6 Const: General: cooperative, comfortable, no acute distress, alert and awake Nutritional Appearance: overweight Orientation/consciousness: patient oriented x3 Eyes: Other: s/p right eye enucleation Resp: Effort & Inspection: normal respiratory effort and able to speak in complete sentences Auscultation: not clear to auscultation bilaterally Cardio: Rate: regular rate Heart sounds: S1 normal heart sound present and S2 normal heart sound present GI: Inspection: No distended Palpation (GI): Soft to palpation and nontender Neuro: General: patient oriented x3 Extrem: Other: Objective Data Active Medications Acetaminophen (Acetaminophen 325 Mg Tablet) 650 mg PO Q6H PRN PRN Reason: Pain, Mild (Pain Scale 1-3) Apixaban (Apixaban 5 Mg Tablet) 10 mg PO BID [facility] Stop: 01/11/23 09:01 Docusate Sodium (Docusate Sodium 100 Mg Capsule) 100 mg PO BID [facility] Last Admin: 01/05/23 07:42 Dose: 100 mg Documented By: NAZARIO Erythromycin (Erythromycin Base 0.5% Oph Oin 1 Gm Tube) 1 cm EYE-RIGHT BID [facility] Last Admin: 01/05/23 07:42 Dose: 1 cm Documented By: NAZARIO Folic Acid (Folic Acid 1 Mg Tablet) 0.5 mg PO DAILY [facility] Last Admin: 01/05/23 07:42 Dose: 0.5 mg Documented By: NAZARIO Guaifenesin (Guaifenesin 100 Mg/5 Ml Liquid) 10 ml PO Q4H PRN PRN Reason: Cough Vancomycin HCl 1,250 mg/ (Sodium Chloride) 250 mls @ 166.667 mls/hr IV Q12H [facility] Last Infusion: 01/05/23 09:30 Dose: 0 mls/hr Documented By: NAZARIO Cefazolin Sodium/Dextrose (Ancef) 2 gm in 50 mls @ 100 mls/hr IV Q8H [facility] Last Infusion: 01/05/23 12:30 Dose: 0 mls/hr Documented By: NAZARIO Lactic Acid (Ammonium Lactate 12 % Cream 140 Gm Tube) 1 appl TOPICAL DAILY PRN; Protocol PRN Reason: Dry Skin Lactulose (Lactulose 20 Gm/30 Ml Solution) 20 gm PO DAILY PRN PRN Reason: Constipation Lisinopril (Lisinopril 20 Mg Tablet) 20 mg PO DAILY [facility]; Protocol Nystatin (Nystatin Powder 15 Gm Bottle) 1 appl TOPICAL TID [facility]; Protocol Last Admin: 01/05/23 07:44 Dose: 1 appl Documented By: NAZARIO Ondansetron HCl (Ondansetron Hcl 4 Mg/2 Ml Vial) 4 mg IVPUSH Q8H PRN PRN Reason: Nausea and Vomiting Oxycodone HCl (Oxycodone Hcl Immed Release 5 Mg Tablet) 5 mg PO Q6H PRN PRN Reason: Pain, Severe (Pain Scale 7-10) Pharmacy Consult (Consult Rx Vancomycin Dosing) 1 each MISCELLANE DAILY PRN PRN Reason: Consult order Sodium Chloride (0.9 % Sodium Chloride Flush 3 Ml Syringe) 3 ml IVFLUSH QSHIFT [facility] Last Admin: 01/05/23 07:43 Dose: 3 ml Documented By: NAZARIO Labs 01/05/23 06:44 01/05/23 06:44 Labs: Laboratory Results - last 24 hr 01/05/23 01/05/23 01/05/23 05:04 06:44 06:44 MCV 92.6 MCH 29.7 MCHC 32.1 RDW 13.5 Plt Count 441 H MPV 8.9 L Absolute Nucleated RBC 0.000 Nucleated RBC % (auto) 0.0 O2 Saturation 90.0 ABG pH at Pt Temp 7.41 ABG pCO2 at Pt Temp 51 H ABG pO2 at Pt Temp 63 L ABG HCO3 33 H ABG Base Excess (Actual) 7.4 Anion Gap 11 L Estim Creat Clear Calc 112.5 Estimated GFR > 60 Random Glucose 85 Calcium 8.6 Microbiology Microbiology Results: Microbiology 01/04/23 05:08 Blood Culture - Preliminary Blood - Venous No growth after 24 hours. 01/04/23 05:08 Blood Culture - Preliminary Blood - Venous No growth after 24 hours. Assessment and Plan (1) Deep vein thrombosis of right lower extremity: Status: Acute (2) Cellulitis of left lower extremity: Status: Acute Plan 77yo M long-term SNF resident [[facility]] with HTN + HLD + morbid obesity + chronic leg swelling presenting with acute worsening of LLE swelling with redness and pain around chronic draining wound concerning for cellulitis. Not septic. Hypoxic and found to have a RLE DVT. # Acute RLE DVT initially treated with therapeutic enoxaparin, will transition to Eliquis 10 bid x 6 days, then 5 bid - hypoxia could be due to PE; will spare CT radiation + contrast since would not change anticoagulation but will check TTE to r/o signs of R heart strain; also assess for CHF given chronic edema though BNP only 98 # LLE cellulitis - will continue cefazolin and add vancomycin given long-term care resident status conferring risk of MRSA - seen by wound care consultation regarding management of chronic wound - alginate dressings every other day and prn and ankush bandage for compression Blood cultures negative to date # acute hypoxic resp failure weaned to room air -possibility of underlying ASHLEY, overnight oximetry done - qualifies for noctural oxygen -rec outpatient sleep study # HTN - d/c amlodipine given potential contribution to edema BP elevated increase lisinopril to 20 mg daily # VTE prophylaxis: LMWH # code status: DNR/DNI per [facility], confirmed by pt attending - Dr. Murcia patient requires ongoing inpatient hospitalization for IV antibiotics, blood pressure monitoring, echo Time Spent With Patient Time: Total time managing care of this patient today ____ minutes. Quality Stroke Does the patient have a stroke diagnosis?: No VTE Prior VTE?: No VTE Risk Level:: Medical - moderate - high VTE Device Contraindication: N/A - Device Ordered VTE Drug Contraindication: N/A - Med Ordered
--- NOTE | 2023-01-05 19:34 | HE.PHANOTE ---
vanco trough = 15, auc = 503. keep same dose
[2023-01-05] MEDS: Apixaban 5 MG TABLET 10 MG PO (20:23)
[2023-01-06 03:15] VITALS: BP 150/72; PULSE 59; RESP 20; TEMP 36.6; O2SAT 91
[2023-01-06] MEDS: ceFAZolin Sodium/Dextrose,Iso 2 GM/50 ML PIGGYBACK IV ×3 (06:02→23:03)
[2023-01-06 06:59] LABS: Creatinine Clr Calc Pharmacy 109.3; Estimated Glomerular Filt Rate > 60
[2023-01-06 07:33] VITALS: BP 170/60; PULSE 51; RESP 20; TEMP 36.8; O2SAT 93
--- NOTE | 2023-01-06 07:45 | HE.PHANOTE ---
Vancomycin Dosing Addendum Patient has level due tomorrow 01/07 @0700. Renal function remains stable.
[2023-01-06] MEDS: lisinopriL 20 MG TABLET PO (07:50)
[2023-01-06] MEDS: Apixaban 5 MG TABLET 10 MG PO ×2 (07:50→23:03)
[2023-01-06] MEDS: Erythromycin Base 0.5% Oph Oin 1 GM TUBE 1 CM EYE-RIGHT ×2 (07:51→23:04)
[2023-01-06] MEDS: Folic Acid 1 MG TABLET 0.5 MG PO (07:51)
[2023-01-06] MEDS: Docusate Sodium 100 MG CAPSULE PO ×2 (07:51→23:03)
[2023-01-06] MEDS: Nystatin Powder 15 GM BOTTLE 1 APPL TOPICAL ×3 (07:54→23:04)
[2023-01-06] MEDS: vancomycin HCL 1,250 MG in 0.9 % Sodium Chloride 250 ML 166.67 MG IV (07:58)
[2023-01-06] MEDS: 0.9 % Sodium Chloride Flush 3 ML SYRINGE IVFLUSH ×3 (07:58→23:04)
--- NOTE | 2023-01-06 09:17 | MHC.CM.PN ---
LATE ENTRY FOR 01/05/23 AT [facility] 12:30PM. EMR REVIEWED, CM MET W/PT WHO IS A&O, REPORTS HE LIVES AT [facility] AND WAS RECENTLY TRANSFERRED TO [facility] FOR 10DAYS D/T BEING COVID +, PT REPORTS HE TYPICALLY USES [facility] FOR AMBULATION, [facility] FOR LONG DISTANCE AND A W/C FOR APPT'S, [facility]. PER RESPIRATORY PT WILL NEED O2 AT [facility] AND [facility] HAS BEEN UPDATED VIA [employer]. PT REPORTS HE IS FULLY [facility] FOR COVID 19, HCP AND [facility] ON FILE AND PCP IS ERMA MERRILL. D/C PLAN: RETURN TO LTC AT [facility]
--- NOTE | 2023-01-06 10:43 | MHC.CM.PN ---
PER HOSPITALIST PT MAY BE CLEARED FOR D/C BACK TO LTC AT [facility] LATER TODAY PENDING ECHO, SNF HAS BEEN UPDATED AND CLINICALS SENT, CM TO SET UP TRANSPORT [facility] ONCE DC CONFIRMED.
[2023-01-06 11:14] VITALS: BP 168/70; PULSE 52; RESP 20; TEMP 36.8; O2SAT 93
[2023-01-06 16:00] VITALS: BP 170/60; PULSE 51; RESP 20; TEMP 36.6; O2SAT 93
--- NOTE | 2023-01-06 16:10 | P.PNIM_ITS ---
Subjective Subjective Date of Service: 01/06/23 Interval History: seen and examined this morning follow up for cellulitis/acute DVT pain improving no chest pain, sob Review of Systems Review of Systems: Yes all other systems are reviewed and are negative Constitutional Constitutional: Denies chills and Denies fever(s) ENT Ears, Nose, Mouth, and Throat: Denies dizziness Cardiovascular Cardiovascular: Denies chest pain and Denies dyspnea Respiratory Respiratory: Denies dyspnea Gastrointestinal Gastrointestinal: Denies abdominal pain Neurologic Neurologic: Denies dizziness Physical Exam Vital Signs: Vital Signs: Last Vital Signs Temp 98 F 01/06/23 16:00 Pulse 51 01/06/23 16:00 Resp 20 01/06/23 16:00 BP 170/60 H 01/06/23 16:00 Pulse Ox 93 01/06/23 16:00 O2 Del Method Room Air 01/06/23 16:00 O2 Flow Rate 2 01/04/23 14:00 BMI result Body Mass Index 30.6 Const: General: cooperative, comfortable, no acute distress, alert and awake Nutritional Appearance: overweight Orientation/consciousness: patient oriented x3 Eyes: Other: s/p right eye enucleation Resp: Effort & Inspection: normal respiratory effort and able to speak in complete sentences Auscultation: not clear to auscultation bilaterally Cardio: Rate: regular rate Heart sounds: S1 normal heart sound present and S2 normal heart sound present GI: Inspection: No distended Palpation (GI): Soft to palpation and nontender Neuro: General: patient oriented x3 Extrem: Other: LLE dry scaly skin, erythema improving Objective Data Active Medications Acetaminophen (Acetaminophen 325 Mg Tablet) 650 mg PO Q6H PRN PRN Reason: Pain, Mild (Pain Scale 1-3) Apixaban (Apixaban 5 Mg Tablet) 10 mg PO BID [facility] Stop: 01/11/23 09:01 Last Admin: 01/06/23 07:50 Dose: 10 mg Documented By: NAZARIO Docusate Sodium (Docusate Sodium 100 Mg Capsule) 100 mg PO BID [facility] Last Admin: 01/06/23 07:51 Dose: 100 mg Documented By: NAZARIO Erythromycin (Erythromycin Base 0.5% Oph Oin 1 Gm Tube) 1 cm EYE-RIGHT BID [facility] Last Admin: 01/06/23 07:51 Dose: 1 cm Documented By: NAZARIO Folic Acid (Folic Acid 1 Mg Tablet) 0.5 mg PO DAILY [facility] Last Admin: 01/06/23 07:51 Dose: 0.5 mg Documented By: NAZARIO Guaifenesin (Guaifenesin 100 Mg/5 Ml Liquid) 10 ml PO Q4H PRN PRN Reason: Cough Vancomycin HCl 1,250 mg/ (Sodium Chloride) 250 mls @ 166.667 mls/hr IV Q12H [facility] Last Infusion: 01/06/23 09:30 Dose: 0 mls/hr Documented By: NAZARIO Cefazolin Sodium/Dextrose (Ancef) 2 gm in 50 mls @ 100 mls/hr IV Q8H [facility] Last Infusion: 01/06/23 13:57 Dose: 0 mls/hr Documented By: NAZARIO Lactic Acid (Ammonium Lactate 12 % Cream 140 Gm Tube) 1 appl TOPICAL DAILY PRN; Protocol PRN Reason: Dry Skin Lactulose (Lactulose 20 Gm/30 Ml Solution) 20 gm PO DAILY PRN PRN Reason: Constipation Lisinopril (Lisinopril 20 Mg Tablet) 20 mg PO DAILY [facility]; Protocol Last Admin: 01/06/23 07:50 Dose: 20 mg Documented By: NAZARIO Nystatin (Nystatin Powder 15 Gm Bottle) 1 appl TOPICAL TID [facility]; Protocol Last Admin: 01/06/23 15:56 Dose: 1 appl Documented By: NAZARIO Ondansetron HCl (Ondansetron Hcl 4 Mg/2 Ml Vial) 4 mg IVPUSH Q8H PRN PRN Reason: Nausea and Vomiting Oxycodone HCl (Oxycodone Hcl Immed Release 5 Mg Tablet) 5 mg PO Q6H PRN PRN Reason: Pain, Severe (Pain Scale 7-10) Pharmacy Consult (Consult Rx Vancomycin Dosing) 1 each MISCELLANE DAILY PRN PRN Reason: Consult order Sodium Chloride (0.9 % Sodium Chloride Flush 3 Ml Syringe) [facility] Last Admin: 01/06/23 15:56 Dose: 3 ml Documented By: NAZARIO Labs 01/05/23 06:44 01/06/23 06:10 Labs: Laboratory Results - last 24 hr 01/05/23 01/06/23 18:56 06:10 Estim Creat Clear Calc 109.3 Estimated GFR > 60 Vancomycin Trough 15.0 Microbiology Microbiology Results: Microbiology 01/04/23 05:08 Blood Culture - Preliminary Blood - Venous No growth after 48 hours. 01/04/23 05:08 Blood Culture - Preliminary Blood - Venous No growth after 48 hours. Assessment and Plan (1) Deep vein thrombosis of right lower extremity: Status: Acute (2) Cellulitis of left lower extremity: Status: Acute Plan 77yo M long-term SNF resident [[facility]] with HTN + HLD + morbid obesity + chronic leg swelling presenting with acute worsening of LLE swelling with redness and pain around chronic draining wound concerning for cellulitis. Not septic. Hypoxic and found to have a RLE DVT. # Acute RLE DVT initially treated with therapeutic enoxaparin, will transition to Eliquis 10 bid x 6 days, then 5 bid - hypoxia could be due to PE; will spare CT radiation + contrast since would not change anticoagulation but will check TTE to r/o signs of R heart strain; also assess for CHF given chronic edema though BNP only 98 # LLE cellulitis - will continue cefazolin and add vancomycin given long-term care resident status conferring risk of MRSA- likely d/c on po doxycycline - seen by wound care consultation regarding management of chronic wound - alginate dressings every other day and prn and ankush bandage for compression Blood cultures negative to date # acute hypoxic resp failure weaned to room air -possibility of underlying ASHLEY, overnight oximetry done - qualifies for noctural oxygen -rec outpatient sleep study echo pending # HTN - d/c amlodipine given potential contribution to edema BP elevated increase lisinopril to 20 mg daily # VTE prophylaxis: Eliquis # code status: DNR/DNI per [facility], confirmed by pt attending - Dr. Rodriges patient requires ongoing inpatient hospitalization for IV antibiotics, blood pressure monitoring, echo Time Spent With Patient Time: Total time managing care of this patient today ____ minutes. Quality Stroke Does the patient have a stroke diagnosis?: No VTE Prior VTE?: No VTE Risk Level:: Medical - moderate - high VTE Device Contraindication: N/A - Device Ordered VTE Drug Contraindication: N/A - Med Ordered
--- NOTE | 2023-01-06 16:26 | P.CDIM_ITS ---
PROVIDER RESPONSE TEXT: To clarify, the appropriate diagnosis supported by the clinical indicators: Other (explain): unable to determine QUERY TEXT: PHYSICIAN'S DOCUMENTATION REQUEST Date of Query: 01/06/2023 08:55 AM EDT Patient Name: Erick Deleon Admit Date: 01/04/2023 Dear Danyelle Lira, A review of the medical record indicates additional documentation may be needed. Please review below and update the documentation accordingly. Clinical Indicators: Diagnosis: Left lower extremity Cellulitis The following diagnoses or signs and symptoms were noted in the patient record: Per Hospitalist Progress note 01/05/23: seen by wound care consultation regarding management of chronic wound - alginate dressings every othe r day and prn and ankush bandage for compression Based on the above, could you clarify the type of wound that supports the above abnormalities and add itional evaluation, monitoring, and/or treatment rendered: Arterial wound Venous wound Condition 3 (please specify) Pressure wound traumatic wound Other (explain)Clinically unable to determine (explain)Thank you, Katerina Vines RN Use of terms such as suspected, likely, concern for, or probable (associated with a specific diagnosi s that is being evaluated, monitored, or treated as if it exists) are acceptable and can be coded in the inpatient se tting, when documented at the time of discharge. Please use your independent medical judgment in providing your response. THIS QUERY IS PART OF THE PERMANENT MEDICAL RECORD
[2023-01-06 19:42] VITALS: BP 170/60; PULSE 52; RESP 20; TEMP 36.6; O2SAT 92
[2023-01-06 23:34] VITALS: BP 160/72; PULSE 58; RESP 20; TEMP 36.7; O2SAT 94
[2023-01-07 03:56] VITALS: BP 142/86; PULSE 87; RESP 20; TEMP 36.8; O2SAT 94
[2023-01-07] MEDS: ceFAZolin Sodium/Dextrose,Iso 2 GM/50 ML PIGGYBACK IV ×2 (04:31→12:28)
[2023-01-07 06:49] LABS: Creatinine Clr Calc Pharmacy 106.4; Estimated Glomerular Filt Rate > 60
[2023-01-07 06:57] LABS: Vancomycin Trough 11.4 mcg/mL (10.0-20.0)
[2023-01-07 07:21] VITALS: BP 170/70; PULSE 52; RESP 20; TEMP 36.6; O2SAT 92
[2023-01-07] MEDS: Apixaban 5 MG TABLET 10 MG PO (08:24)
[2023-01-07] MEDS: lisinopriL 20 MG TABLET PO (08:24)
[2023-01-07] MEDS: 0.9 % Sodium Chloride Flush 3 ML SYRINGE IVFLUSH (08:24)
[2023-01-07] MEDS: Erythromycin Base 0.5% Oph Oin 1 GM TUBE 1 CM EYE-RIGHT (08:25)
[2023-01-07] MEDS: Docusate Sodium 100 MG CAPSULE PO (08:25)
[2023-01-07] MEDS: Folic Acid 1 MG TABLET 0.5 MG PO (08:25)
[2023-01-07] MEDS: Nystatin Powder 15 GM BOTTLE 1 APPL TOPICAL (08:31)
[2023-01-07] MEDS: Furosemide 20 MG TABLET PO (10:08)
--- NOTE | 2023-01-07 10:15 | MHC.CM.PN ---
Per Fariha, Patient is medically cleared for dc to LTC today. Patient will return to LTC @ [facility] today at 2PM via a [place] contracted transportation provider (per [place] [facility] @ [phone],Ext. [phone]).
--- NOTE | 2023-01-07 10:19 | PM.DS ---
DS: Providers Provider Date of Service: 01/07/23 Date of admission: 01/04/23 09:38 Date of discharge: 01/07/23 Primary care physician: Arturo Hall MD Consults: 01/04/23 09:48 Consult to Wound Care Routine Consulting Provider: [facility] [place] Management Reason for consultation: chronic wound L calf with cellulitis Attending physician on discharge: Nelda Macedo Discharging clinician: Danyelle Lira DS: Diagnosis Discharge Diagnosis (1) Deep vein thrombosis of right lower extremity: Status: Acute (2) Cellulitis of left lower extremity: Status: Acute DS: Summary Hospital Course Hospital Course: From H&P on day of admission 77yo long-term resident of [facility] with history of HTN + HLD + morbid obesity with chronic leg swelling with draining wound on left calf who presents with 3 days of worsening pain, redness, and swelling of the left leg below the knee.? The wound was draining bloody and clear fluid. ? No fever, chills, dyspnea, chest pain, nausea, vomiting, abdominal pain, or diarrhea. In the ED he was found to have leukocytosis with WBCs of 11.1 [82% PMNs].? Hs-D-dimer as 753.? Duplex US was positive for DVT in the RIGHT popliteal vein.? Initial SaO2 was 98% on room air but dropped to 88%, so he was placed on 2L O2 via NC with recovery to 92%.? He was given 2g of IV cefazolin. Acute RLE DVT. initially treated with therapeutic enoxaparin, transitioned to Eliquis 10 bid for 5 more days, then 5 bid. hypoxia could be due to PE; will spare CT radiation + contrast since would not change anticoagulation. TTE with right side dysfunction. no overt fluid overload. DVt possibly related to sedentary lifestyle, pt states he walks short distances with cane/walking but otherwise gets around with wheelchair. consider outpatient age appropriate malignancy screening. LLE cellulitis. treated with cefazolin and vancomycin given long-term care resident status. will d/c to complete 7 day course of antibiotics. seen by wound care consultation regarding management of chronic wound - alginate dressings every other day and prn and ankush bandage for compression. outpatient follow-up in Wound Care Clinic recommended. Blood cultures negative to date. acute hypoxic resp failure. initially required NC for borderline oxygen saturation. weaned to room air. possibility of underlying ASHLEY, overnight oximetry done - qualifies for noctural oxygen. rec outpatient sleep study to eval for ASHLEY. Right heart dysfunction echo - Normal left ventricular size and systolic function. There is ?mildly increased left ventricular wall thickness.? The visually?estimated ejection fraction is between 55-60%. - There is moderately decreased right ventricular systolic function.? RV is mild to moderately dilated. No overt heart failure. starting low dose lasix for next one week to assist with leg edema. repeat BMP and determine need to continue. recommend outaptient cardiology evaluation. HTN amlodipine discontinued given potential contribution to edema. lisinopril dose increased to 20 mg daily. monitor blood pressure closely Time Spent with Patient Time attestation: Total time managing care of this patient today ____ minutes. Discharge coordination time: Greater than 30 minutes Quality: Safe Use of Opioids Does Pt have an Active Cancer Diagnosis on the Problem List?: No Quality: Stroke Does the patient have a stroke diagnosis?: No Physical Exam Vital Signs: Vital Signs: Last Vital Signs Temp 97.9 F 01/07/23 07:21 Pulse 52 01/07/23 07:21 Resp 20 01/07/23 07:21 BP 170/70 H 01/07/23 07:21 Pulse Ox 92 01/07/23 07:21 O2 Del Method Room Air 01/07/23 07:21 O2 Flow Rate 2 01/07/23 03:56 BMI result Body Mass Index 30.6 Const: General: cooperative, comfortable, no acute distress, alert and awake Nutritional Appearance: overweight Orientation/consciousness: patient oriented x3 Eyes: Other: s/p right eye enucleation Resp: Effort & Inspection: normal respiratory effort and able to speak in complete sentences Auscultation: clear to auscultation bilaterally Cardio: Rate: regular rate Heart sounds: S1 normal heart sound present and S2 normal heart sound present GI: Inspection: No distended Palpation (GI): Soft to palpation and nontender Skin: Other: dry scaly skin LLE Neuro: General: patient oriented x3 Extrem: Other: b/l leg edema 1+ DS: Data Data Completed and Pending Labs on day of discharge: Laboratory Results - last 24 hr 01/07/23 01/07/23 06:25 06:25 Creatinine 0.74 Estim Creat Clear Calc 106.4 Estimated GFR > 60 Vancomycin Trough 11.4 Preliminary micro results at discharge 01/04/23 05:08 Blood Culture - Preliminary Blood - Venous No growth after 48 hours. 01/04/23 05:08 Blood Culture - Preliminary Blood - Venous No growth after 48 hours. Imaging Venous US: Radiologist's impression: ITS Impressions Chest X-Ray 01/04/23 04:45 IMPRESSION: No acute findings Venous Duplex 01/04/23 08:30 IMPRESSION: DVT present in the right popliteal vein. The left leg is normal. Discharge Plan Discharge Anticipated Discharge Date/Time: 01/07/23 15:00 Patient Disposition: Xfer [facility] Discharge Diagnosis: RLE DVT LLE cellulitis Referrals: [facility] [place] [Outside] - 1 Day ([facility]) [facility] [place] [Outside] - 1 Week Arturo Hall MD [Primary Care Provider] - 1 Week Hoa Franco MD [Physician] - 2 Weeks Discharge Medications: New Eliquis 5 mg Tablet 10 mg PO BID Qty: 80 0RF Rx Instructions: take two tabs twice daily for 5 days and then 1 tab twice daily after that lisinopril 20 mg Tablet 20 mg PO DAILY 30 Days Qty: 30 0RF Protocol: Hold for SBP< HOLD for SBP < : 90 furosemide [Lasix] 20 mg tablet 20 mg PO DAILY 7 Days Qty: 7 0RF doxycycline hyclate 100 mg tablet 100 mg PO BID 4 Days Qty: 8 0RF Continued acetaminophen 325 mg Tablet 650 mg PO Q4H PRN (Reason: Pain) folic acid 400 mcg Tablet 0.4 mg PO DAILY guaifenesin 100 mg/5 mL Liquid 200 mg PO Q4H PRN (Reason: Cough) docusate sodium 100 mg Capsule 100 mg PO BID aspirin 81 mg Tablet,Chewable 81 mg PO DAILY ammonium lactate 12 % Cream 1 appl TOPICAL BID lactulose 10 gram/15 mL Solution 30 ml PO DAILY PRN (Reason: Constipation) Discontinued amlodipine 5 mg Tablet 5 mg PO DAILY lisinopril 10 mg Tablet 10 mg PO DAILY Discharge Orders: Discharge Order (Routine); Ordered 01/07/23 Ordered By: Danyelle Lira Activity on Discharge: As tolerated Stand Alone Forms: Patient Portal Discharge page Care Plan Goals: see below Health Concerns: right lower extremity DVT left lower extremity cellulitis/chronic wound Plan of Treatment: stop taking norvasc as it may be contributing to leg edema for elevated blood pressure, dose of lisinopril was increased to 20 mg daily for acute DVT, started on eliquis - loading dose 10 mg bid for 5 more days and then 5mg bid possibly related to sedentary lifestyle. consider age appropriate malignancy screening. take lasix for the next 7 days for leg edema, recheck BNP and then determine need to continue lasix. consider cardiology evaluation left leg: wound care rec - alginate dressings every other day and prn for left leg and ankush bandage for compression. follow up in wound care clinic. keep leg elevated when possible. qualifies for noctural oxygen, 2L overnight - recommend formal sleep study to evaluate for ASHLEY call to schedule follow-up appointment with PCP, Cardiology, Wound Care Clinic Assessment: see discharge summary
[2023-01-07 11:06] LABS: COVID-19 Test Negative (Negative); IDNOW Serial# BCCEAD1C
[2023-01-07 11:14] VITALS: BP 170/60; PULSE 53; RESP 20; TEMP 36.4; O2SAT 96
== END 2023-01-07 14:04 | DRG 299 ==
LOC: HO.ED 07:52 → HO.EDOVER 09:43 → HO.IMC 12:10
PROVIDERS: Admitting Provider Family Medicine; Emergency Provider Emergency Medicine Emergency Medical Services; PCP Internal Medicine; Visit Provider Physician Assistant Medical
DX: I82.431 Acute embolism and thrombosis of right popliteal vein (principal); J96.01 Acute respiratory failure with hypoxia; L03.116 Cellulitis of left lower limb; Z68.41 Body mass index [BMI] 40.0-44.9, adult; I87.312 Chronic venous hypertension (idiopathic) with ulcer of left lower extremity; G47.33 Obstructive sleep apnea (adult) (pediatric); Z66 Do not resuscitate; I11.9 Hypertensive heart disease without heart failure; E66.01 Morbid (severe) obesity due to excess calories; E78.5 Hyperlipidemia, unspecified; I10 Essential (primary) hypertension; Z20.822 Contact with and (suspected) exposure to COVID-19; Z79.82 Long term (current) use of aspirin; Z79.899 Other long term (current) drug therapy
CPT/HCPCS: 36415; 36600; 71046; 80048; 80053; 80202; 82565; 82803; 83036; 83605; 83690; 83880; 84484; 85025; 85027; 85379; 85610; 85730; 86140; 87040; 87635; 93005; 93306; 93970; 99285; J0690; J1650; J3370; J3371; Q9957

== ENCOUNTER 2023-09-13 14:15 | Inpatient (IN) | payer OTHER, SELFPAY ==
[2023-09-13] VITALS (7 sets, daily range): BP systolic 83–133; BP diastolic 34–58; PULSE 47–70; RESP 12–18; TEMP 33.4–35.4; O2SAT 92–98; BMI 53.2
--- NOTE | ~2023-09-13 | CT_ITS ---
EXAMINATION: CT HEAD WITHOUT CONTRAST CLINICAL INFORMATION: Mental status change. COMPARISON: CT scan of the head 10/22/2015. TECHNIQUE: Contiguous axial imaging was performed from the skull base to vertex without intravenous administration of contrast. This CT examination was performed using dose optimization techniques as appropriate, variously including the following: *Automated exposure control *Adjustment of mA and/or kV according to patient size (this includes techniques or standardized protocols for targeted exams where dose is matched to indication/reason for exam; i.e. extremities or head) *Use of iterative reconstruction technique DLP: 1986 mGy-cm FINDINGS: Image quality is degraded by patient factors. The diagnostic accuracy of this examination is therefore somewhat limited. The ventricular volumes are relatively enlarged and there is effacement of the sulcal spaces particularly at the vertex with associated narrowing of the callosal angle. These findings may indicate the presence of underlying normal pressure hydrocephalus. There is no acute intracranial hemorrhage or abnormal extra-axial collection. No intracranial mass effect or midline shift. Scattered nonspecific foci of hypoattenuation visualized within the periventricular white matter. Bennett-white matter differentiation is otherwise preserved and there is no evidence of acute territorial infarct. There are chronic posttraumatic changes. The skull base is grossly intact. Small left mastoid effusion. No active paranasal sinus disease. CT/CT head/brain wo IV con IMPRESSION: Image quality is degraded by patient factors. The diagnostic accuracy of this examination is therefore somewhat limited. There are anatomic characterization indicate the possibility of underlying normal pressure hydrocephalus. Scattered chronic small vessel ischemic changes visualized within the periventricular white matter. Grossly no evidence of acute territorial infarct or hemorrhage.
--- NOTE | ~2023-09-13 | US_ITS ---
EXAMINATION: US VENOUS WITH DOPPLER UPPER EXTREMITY, LEFT CLINICAL INFORMATION: Swelling and erythema. COMPARISON: None available. TECHNIQUE: Ultrasound of the upper extremity is performed using compression sonography and color and pulse Doppler flow with assessment of augmentation of flow. There is also imaging and Doppler assessment of the jugular and subclavian veins. Spectral analysis with color-flow imaging is performed. FINDINGS: Nonocclusive superficial venous thrombosis in the distal aspect of the left cephalic vein. The visualize left internal jugular, axillary, brachial and radial veins demonstrate normal flow and compressibility. The left subclavian, basilic and ulnar veins were not well seen due to overlying subcutaneous swelling. US/US venous duplex UE LT IMPRESSION: 1. Nonocclusive superficial venous thrombosis in the distal aspect of the left cephalic vein. 2. No evidence of left upper extremity deep venous thrombosis with the caveat that the subclavian, basilic and ulnar veins were not well seen due to overlying subcutaneous swelling. If the patient's symptoms progress, a followup ultrasound in 5-7 days might be of value to exclude proximal propagation from a nonvisualized vein.
--- NOTE | ~2023-09-13 | XR_ITS ---
EXAMINATION: XR CHEST CLINICAL INFORMATION: Mental status changes COMPARISON: 01/04/2023 TECHNIQUE: Frontal view of the chest was obtained. FINDINGS: Lungs grossly clear given patient rotation. The left apex is obscured due to the patient's chin. Heart size borderline with normal caliber pulmonary vessels. Old right-sided rib fractures are noted. No change. XR/XR chest 1V IMPRESSION: Limited exam but within normal limits given technical limitations.
--- NOTE | ~2023-09-13 | CT_ITS ---
EXAMINATION: CT ANGIOGRAM OF THE CHEST WITH AND WITHOUT CONTRAST (CT PULMONARY ANGIOGRAM FOR PE) CLINICAL INFORMATION: Reason for Exam Hypoxia COMPARISON: None available. TECHNIQUE: Prior to contrast administration, noncontrast localization images were obtained. Subsequently, multidetector volumetric imaging was performed from the thoracic inlet to below the diaphragms following the administration of 80 mL Omnipaque 350 intravenous contrast. No contrast reaction reported Sagittal, coronal, and MIP oblique sagittal reformatted images were obtained on the CT workstation, uploaded to PACS, and reviewed. This CT examination was performed using dose optimization techniques as appropriate, variously including the following: *Automated exposure control *Adjustment of mA and/or kV according to patient size (this includes techniques or standardized protocols for targeted exams where dose is matched to indication/reason for exam; i.e. extremities or head) *Use of iterative reconstruction technique Total exam dose-length product 341 mGy-cm FINDINGS: QUALITY OF STUDY/CONTRAST BOLUS: Satisfactory. PULMONARY ARTERIES: There is good opacification of pulmonary arteries without any intraluminal filling defect. THORACIC AORTA: There is no evidence of aneurysm or dissection. LUNG: There is compressive atelectatic changes in both lung bases. PLEURA: There are small bilateral pleural effusions minimally larger on the right. MEDIASTINUM: The heart size is mildly enlarged. There is no pericardial effusion suspected. No abnormal size mediastinal or hilar lymph nodes seen. Thyroid gland is not well visualized. No evidence of septal bowing or right heart strain. CORONARY ARTERY CALCIFICATION: None visualized on this study. CHEST WALL/AXILLA: No axillary or internal mammary lymphadenopathy. OSSEOUS STRUCTURES: No aggressive lytic or sclerotic process seen. UPPER ABDOMEN: Visualized liver, spleen, pancreas and bilateral adrenal glands unremarkable. Large radiopaque gallstone is seen. No reflux of contrast into the hepatic veins to suggest elevated right heart pressures. CT/CT angio chest PE protocol IMPRESSION: 1. No evidence of PE. 2. No evidence of aortic dissection or aneurysm. 3. Small bilateral pleural effusions with compressive atelectasis in both lung bases. 4. Cholelithiasis. VTE: negative.
--- NOTE | ~2023-09-13 | XR_ITS ---
EXAMINATION: XR CHEST CLINICAL INFORMATION: Hypothermia COMPARISON: Previous chest x-ray and chest CTA 09/13/2023 TECHNIQUE: Frontal view of the chest was obtained. FINDINGS: The cardiac silhouette is upper normal in size and similar to previous exam. The lung volumes are low. There may be pulmonary venous redistribution. There is increasing loss of left hemidiaphragm questionable for increasing atelectasis or consolidation. Bilateral layering pleural effusions, left greater than right. No pneumothorax. Multiple old right rib fractures. XR/XR chest 1V IMPRESSION: Loss of the left hemidiaphragm questionable for increasing left lower lobe atelectasis/consolidation.
--- NOTE | 2023-09-13 14:35 | ECG_ITS ---
Test Reason : AMS Blood Pressure : / mmHG Vent. Rate : 058 BPM Atrial Rate : 058 BPM P-R Int : 154 ms QRS Dur : 120 ms QT Int : 464 ms P-R-T Axes : 073 173 176 degrees QTc Int : 455 ms suspect limb leads reversal Sinus bradycardia with occasional , and consecutive Premature ventricular complexes Low voltage QRS Left posterior fascicular block Abnormal ECG When compared with ECG of 04-JAN-2023 05:05, Limb leads reversed Referred By: Jayne Krishna Electronically Signed By:Elia Atkins
--- NOTE | 2023-09-13 14:42 | ED.GENADULT ---
HPI - General Adult General Chief complaint: Altered Mental Status Stated complaint: ams,hallucinating,low hr 40's,84 no s/p atropine Time Seen by Provider: 09/13/23 14:26 Source: patient and EMS Mode of arrival: EMS Limitations: no limitations History of Present Illness HPI narrative: This is a 78-year-old male brought in from [facility] with a history of HTN, HLD, morbid obesity, with chronic bilateral leg lymphedema with drainage, patient mostly a wheelchair-bound able to transfer himself from the chair this morning patient could not transfer himself because of generalized weakness patient was sent to the hospital for further evaluation, as reported nursing staff patient is been having change of mental status, patient is able to answer all the questions appropriately during the interview. As reported by EMS patient had a heart rate of 40s was given 1 mg of atropine by EMS patient in room with normal heart rate. Declined any headache, no fever, no chills, no CP, no SOB, no abdominal pain, no nausea, no vomiting. Patient was found to be hypothermic. Related Data Home Medications Medication Instructions Recorded Confirmed acetaminophen 325 mg tablet 650 mg PO Q4H PRN Pain 01/04/23 09/13/23 ammonium lactate 12 % topical cream 1 appl topical BID 01/04/23 09/13/23 aspirin 81 mg chewable tablet 81 mg PO DAILY 01/04/23 09/13/23 docusate sodium 100 mg capsule 100 mg PO BID 01/04/23 09/13/23 guaifenesin 100 mg/5 mL oral liquid 200 mg PO Q4H PRN Cough 01/04/23 09/13/23 lactulose 10 gram/15 mL oral 30 ml PO DAILY PRN Constipation 01/04/23 09/13/23 solution aluminum-mag hydroxide-simethicone 30 ml PO Q6H PRN Heartburn 09/13/23 09/13/23 225 mg-200 mg-25 mg/5 mL oral susp amlodipine 5 mg tablet 5 mg PO DAILY 09/13/23 09/13/23 apixaban 5 mg tablet (Eliquis) 5 mg PO BID 09/13/23 09/13/23 atorvastatin 10 mg tablet 10 mg PO DAILY 09/13/23 09/13/23 folic acid 1 mg tablet 1 mg PO DAILY 09/13/23 09/13/23 lisinopril 10 mg tablet 10 mg PO DAILY 09/13/23 09/13/23 omeprazole 20 mg tablet,delayed 20 mg PO DAILY 09/13/23 09/13/23 release white petrolatum-mineral oil 1 appl topical BEDTIME 09/13/23 09/13/23 topical cream Allergies Allergy/AdvReac Type Severity Reaction Status Date / Time No Known Allergies Allergy Verified 01/04/23 04:36 Review of Systems Review of Systems: All other systems are reviewed and are negative Constitutional: Reports as per HPI and Reports no additional constitutional complaints Eyes: Reports as per HPI and Reports no additional eye complaints Reports system reviewed and no additional complaints, except as documented Cardiovascular: Reports as per HPI and Reports no additional cardiovascular complaints Respiratory: Reports as per HPI and Reports no additional respiratory complaints Gastrointestinal: Reports as per HPI and Reports no additional gastrointestinal complaints Genitourinary: Reports no additional female genitourinary complaints Musculoskeletal: Reports no additional musculoskeletal complaints Skin/Breast: Reports system reviewed and no additional complaints, except as docu Psychiatric: Reports no additional psychiatric complaints Endocrine: Reports no additional endocrine complaints Hematologic/Lymphatic: Reports no additional hematologic/lymphatic complaints Allergic/Immunologic: Reports no additional allergic/immunologic complaints Reports system reviewed and no additional complaints, except as documented and Reports Abnormal speech present [facility] Past Medical History Medical History Dyslipidemia Hypertension Surgical History History of enucleation of right eyeball Social History Social History Household Members: Other Housing: [facility] Housing Other:: 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 Do you presently have visiting nurse or other home services: No Alcohol intake: current Alcohol intake frequency: 0-2 drinks per day Alcohol type: beer Patient Tobacco Use Status: Never used Tobacco Smoked in Last 30 Days: No e-Cigarette/Vaping Use: Never Used Second Hand Smoke Exposure: No Advance Directives: Yes Advance Directives on File: Yes Advance Directives Date on File: 12/26/22 service: No Current occupational status: disabled Physical Exam ED Vital Signs: Vital Signs - 24 hr 09/13/23 14:25 09/13/23 16:07 01/24/24 17:00 Temperature 92.5 F L 92.1 F L 92.1 F L Pulse Rate 67 59 51 Respiratory Rate 16 15 12 Blood Pressure 105/46 L 99/42 L 83/34 L Pulse Oximetry 93 92 96 Oxygen Delivery Method Room Air Room Air Room Air Oxygen Flow Rate 09/13/23 17:35 09/13/23 18:51 09/13/23 19:17 Temperature 92.7 F L 93.7 F L 93.9 F L Pulse Rate 50 47 L 51 Respiratory Rate 12 14 18 Blood Pressure 112/42 L 94/58 L 103/35 L Pulse Oximetry 94 96 98 Oxygen Delivery Method Room Air Room Air Nasal Cannula Oxygen Flow Rate 2 BMI result Body Mass Index 53.2 Vital signs have been reviewed and appear to be correct. Blood pressure elevated. Heart rate normal. Respiratory rate normal. Temperature normal. Oxygen saturation normal. Appearance: Alert. Oriented X2 place and person. No acute distress. Head: Normal external exam. Normocephalic. Atraumatic. No Landa signs noted. No raccoon eyes noted Eyes: PERRLA. EOMI. Conjunctiva and sclera normal. Eyelids normal. ENT: TM's Normal. Pharynx normal. Uvula midline. Moist mucous membranes. No trismus noted. No drooling noted. No muffled voice noted. Neck: Normal inspection. Neck supple. FROM. No adenopathy. Thyroid Normal. No meningeal signs. No neck mass noted. CVS: Normal heart rate and rhythm. Heart sound normal. No murmurs noted. Pulses normal throughout. Respiratory: No respiratory distress. Painless inspiration. Breath sounds normal. No wheezes/rales/rhonchi noted. Chest nontender. No accessory muscle usage noted or decreased air movement noted. Abdomen: Soft and nontender. Bowel sounds normal in all 4 quadrants. No distention noted. No organomegaly noted. No visible injury noted. Back: No CVA tenderness. Full range of motion noted. Skin: Skin warm and dry. Normal skin color. Normal skin turgor. No rashes/lesions/lacerations noted. Extremities: +4 bilateral lower extremity edema. No redness, no hotness, no evidence of cellulitis. Neuro: Oriented X 2. Cranial nerve exam: II-XII are grossly intact No motor deficit. No sensory deficit. Reflexes normal. Medications Administered Discontinued Medications Generic Name Dose Route Start Last Admin Trade Name Freq PRN Reason Stop Dose Admin Sodium Chloride 1,000 mls @ 500 mls/hr 09/13/23 16:55 09/13/23 19:00 Ns IV 09/13/23 18:54 Infused .Q2H ONE Infusion Piperacillin Sod/Tazobactam 50 mls @ 100 mls/hr 09/13/23 16:55 09/13/23 19:00 Sod 3.375 gm/ Sodium Chloride IV 09/13/23 17:24 Infused ONCE ONE Infusion Sodium Chloride 1,000 mls @ 500 mls/hr 09/13/23 18:55 09/13/23 19:15 Ns IV 09/13/23 20:54 500 mls/hr .Q2H ONE Administration Iohexol 100 ml 09/13/23 21:21 09/13/23 21:21 Iohexol 350 Mg/Ml 100 Ml Infus..Btl IV 09/13/23 21:22 100 ml ONCE ONE Administration Medical Decision Making Medical Decision Making [facility] Narrative: This is a 78-year-old male came in from correction for change mental status, patient found to be hypothermic in the emergency department, patient was given 1 mg of atropine by EMS for bradycardia, patient had 1 time hypotension that improved after 500 cc of normal saline. Continue with Dread Hugger external warming, prophylactic Zosyn antibiotic (unclear source of infection). No pneumonia, no UTI, no clinical evidence of cellulitis. Patient became hypoxic on room air patient at risk for pulmonary embolism has a CTA which shows no acute pulmonary embolism. Will admit and continue with the above management. Differential Diagnosis Differential Diagnoses: The differential diagnosis associated with the presentation includes (Hypothermia, intracranial pathology, ACS, UTI, electrolyte abnormality, severe anemia, pneumonia, adrenal insufficiency.) Admission/Observation Consideration of admission/observation: Escalation of care including admission/observation considered Lab Data [facility] Lab Attestation statement: I reviewed the patient's lab results. 09/13/23 15:30 09/13/23 15:29 Labs: Lab Results 09/13/23 09/13/23 09/13/23 Range/Units 15:28 15:29 15:30 WBC 6.2 (4.8-10.8) X10*3/uL RBC 3.54 L (4.60-5.80) X10*6/uL Hgb 10.5 L (14.0-18.0) g/dl Hct 33.2 L (42.0-52.0) % MCV 93.8 (80.0-98.0) fL MCH 29.7 (27.0-33.0) pg MCHC 31.6 (31.0-36.0) g/dl RDW 18.3 H (11.0-16.0) % Plt Count 209 D (160-400) X10*3/uL MPV 10.7 (9.4-12.4) fL Immature Gran % (Auto) 0.5 H (0.0-0.4) % Neut % (Auto) 79.7 H (45-73) % Lymph % (Auto) 8.1 L (20-40) % [place] % (Auto) 7.2 (2-11) % Eos % (Auto) 4.2 H (0-4) % Baso % (Auto) 0.3 (0-2) % Lymph # (Auto) 0.5 L (1.2-4.9) X10*3/uL [place] # (Auto) 0.4 (0.1-1.2) X10*3/uL Eos # (Auto) 0.3 (0.0-0.4) X10*3/uL Baso # (Auto) 0.0 (0.0-0.2) X10*3/uL Abs Immat Gran (auto) 0.03 (0.00-0.03) X10*3/uL Absolute Neuts (auto) 4.9 (2.0-8.3) x10*3/uL Absolute Nucleated RBC 0.020 H (0.0-0.012) X10*3/uL Nucleated RBC % (auto) 0.3 H (0.0-0.2) /100WBC Sodium 148 H (135-145) mmol/L Potassium 4.6 (3.3-5.1) mmol/L Chloride 111 H (96-108) mmol/L Carbon Dioxide 29 (22-29) mmol/L Anion Gap 13 (12-20) BUN 24 H (9-16) mg/dL Creatinine 0.91 (0.5-1.4) mg/dL Estim Creat Clear Calc 98.8 Estimated GFR > 60 Random Glucose 83 (60-115) mg/dL Lactic Acid 1.2 (0.5-2.0) mmol/L Calcium 9.3 D (8.4-10.2) mg/dL Total Bilirubin 0.4 (0.0-1.0) mg/dL Direct Bilirubin 0.2 (0.0-0.5) mg/dL AST 27 (5-37) U/L ALT 20 (0-40) U/L Alkaline Phosphatase 125 H (39-117) U/L Troponin I High Sens 5.2 (<3.5-35.0) ng/L B-Natriuretic Peptide 279 H (<100) pg/mL Total Protein 6.3 L (6.5-8.0) g/dL Albumin 3.2 L (3.5-5.0) g/dL Lipase 31 (8-78) U/L Random Cortisol 11.2 ug/dL Urine Color Yellow Urine Appearance Clear Urine pH 6.0 (5.0-9.0) Ur Specific [place] 1.020 (1.005-1.025) Urine Protein Negative (Neg-Trace) mg/dL Urine Glucose (UA) Negative (Negative) mg/dL Urine Ketones Negative (Negative) mg/dL Urine Blood Negative (Negative) Urine Nitrite Negative (Negative) Ur Leukocyte Esterase Negative (Negative) Influenza Type A (PCR) NEGATIVE (Negative) Influenza Type B (PCR) NEGATIVE (Negative) RSV RNA Qual (PCR) NEGATIVE (Negative) SARS-CoV-2 RNA (RT-PCR) NEGATIVE (Negative) Independent Interpretation I performed an independent interpretation of an: CT Scan (CT angio of the chest:1. No evidence of PE. 2. No evidence of aortic dissection or aneurysm. 3. Small bilateral pleural effusions with compressive atelectasis in both lung bases. 4. Cholelithiasis. VTE:) Radiology Impression Discussion of test interpretation with radiology: I have reviewed the radiologist's reading. Discharge Plan Discharge Clinical Impression: Hypothermia, Acute hypotension, Hypoxia Patient Disposition: Admitted As Inpatient
--- NOTE | 2023-09-13 15:21 | PC.NURSE ---
patient presented to ED with acute altered mental status from snf, patient temp rectal 92.4. placed temp sensing banda patient temp reading 91.8 core. patient had 400ml output of clear yellow urine. patient tolerated well
[2023-09-13 15:38] LABS: MANUAL DIFF FLAG NO
[2023-09-13 15:42] LABS: Appearance Urine Clear; Color Urine Yellow; Glucose Urine UA Negative (Negative); Leukocyte Esterase Urine Negative (Negative); Nitrite Urine Negative (Negative); Urine Blood Negative (Negative); Urine Ketones Negative (Negative); Urine Protein Negative (Neg-Trace)
[2023-09-13 15:44] LABS: Basophils Percent Auto 0.3 % (0-2); Eosinophils Absolute Auto 0.3 X10*3/uL (0.0-0.4); Eosinophils Percent Auto 4.2 % (0-4); Hematocrit 33.2 % (42.0-52.0); Hemoglobin 10.5 g/dl (14.0-18.0); Imm Gran Abs Auto 0.03 X10*3/uL (0.00-0.03); Imm Gran Pct Auto 0.5 % (0.0-0.4); Lymphocytes Absolute Auto 0.5 X10*3/uL (1.2-4.9); Lymphocytes Percent Auto 8.1 % (20-40); Mean Corpuscular HGB Conc 31.6 g/dl (31.0-36.0); Mean Corpuscular Hemoglobin 29.7 pg (27.0-33.0); Mean Corpuscular Volume 93.8 fL (80.0-98.0); Mean Platelet Volume 10.7 fL (9.4-12.4); Monocytes Absolute Auto 0.4 X10*3/uL (0.1-1.2); Monocytes Percent Auto 7.2 % (2-11); NRBC Pct Auto 0.3 /100WBC (0.0-0.2); Neutrophils Absolute Auto 4.9 x10*3/uL (2.0-8.3); Neutrophils Percent Auto 79.7 % (45-73); Platelet Count 209 X10*3/uL (160-400); Red Blood Count 3.54 X10*6/uL (4.60-5.80); Red Cell Distribution Width 18.3 % (11.0-16.0); White Blood Count 6.2 X10*3/uL (4.8-10.8)
[2023-09-13 15:54] LABS: Lactic Acid 1.2 mmol/L (0.5-2.0)
[2023-09-13 16:01] LABS: Alanine Aminotransferase 20 U/L (0-40); Albumin Level 3.2 g/dL (3.5-5.0); Alkaline Phosphatase 125 U/L (39-117); Anion Gap 13 (12-20); Aspartate Amino Transferase 27 U/L (5-37); Bilirubin Direct 0.2 mg/dL (0.0-0.5); Bilirubin Total 0.4 mg/dL (0.0-1.0); Blood Urea Nitrogen 24 mg/dL (9-16); Calcium 9.3 mg/dL (8.4-10.2); Carbon Dioxide 29 mmol/L (22-29); Chloride 111 mmol/L (96-108); Creatinine Clr Calc Pharmacy 98.8; Estimated Glomerular Filt Rate > 60; Glucose Random 83 mg/dL (60-115); Lipase 31 U/L (8-78); Potassium 4.6 mmol/L (3.3-5.1); Sodium 148 mmol/L (135-145); Total Protein 6.3 g/dL (6.5-8.0)
[2023-09-13 16:04] LABS: B Type Natriuretic Peptide 279 pg/mL (<100)
[2023-09-13 16:08] LABS: Troponin-I High Sensitivity 5.2 ng/L (<3.5-35.0)
--- NOTE | 2023-09-13 16:08 | PC.NURSE ---
patient placed on bare hugger, current temp is 92.1 core per banda sensor. patient is awake and alert, respirations equal and unlabored.
[2023-09-13 16:15] LABS: Influenza A PCR NEGATIVE (Negative); Influenza B PCR NEGATIVE (Negative); Resp Syncy Virus RNA Qual PCR NEGATIVE (Negative); SARS COV2 PCR INHOUSE NEGATIVE (Negative)
[2023-09-13] MEDS: 0.9 % Sodium Chloride 1,000 ML 500 ML IV ×2 (17:02→19:15)
[2023-09-13] MEDS: Piperacillin Sodium/Tazobactam 3.375 GM in 0.9 % Sodium Chloride 50 ML IV (17:15)
--- NOTE | 2023-09-13 18:37 | PHA.MEDREC ---
Pharmacy Consult ? Medication Reconciliation Pharmacy has completed the medication reconciliation. Patient came from [facility] with med list. Karen Alex, MaydaD
[2023-09-13 18:40] LABS: Cortisol Random 11.2 ug/dL
--- NOTE | 2023-09-13 18:47 | PM.IMHP ---
History of Present Illness Date of Service: 09/13/23 Attending physician on admission: Matteo Vazquez Chief Complaint: Genearlized weakness, AMS Pt is a 78-year-old male with a PMH significant for?HTN, HLD, chronic bilateral leg lymphedema with drainage, RLE DVT in 2022, and morbid obesity who presents to the ED from [facility] for evaluation of altered mental status?and generalized weakness. Pt is mostly wheelchair-bound but capable of transferring himself at baseline. This morning patient had generalized weakness and was unable to transfer from his wheelchair. SNF staff also note patient had change in mental status, active was lethargic than normal. EMS upon arrival found patient with HR in 40s and was given 1 mg of atropine with improvement to HR. When patient arrived to the ED was found to be hypothermic as low as 92.1, placed in a Dread Hugger. Patient himself is found to be seemingly back to baseline with mentation, answering all questions appropriately, and AOx4. Patient himself with difficulty speaking at baseline, but is able to be understood. States he feels ?okay? and denies any pain. Patient denies lightheadedness or dizziness. No increase in fatigue. Denies chest pain/pressure, palpitations. No shortness of breath. Denies fever, chills, nausea, vomiting, abdominal pain. In the ED pt was hypothermic as low as 92.1, bradycardic as low as 47, and soft BP as low as 83/34, satting at 93% on RA. Labs were significant for H&H 10.5/33.2, sodium 148, chloride 111, alk-phos 125, BNP elevated at 279. No leukocytosis. Tested negative for influenza type a and B, RSV, COVID. CXR without any noted acute cardiopulmonary findings. CT?of head with degraded image quality, however with grossly no evidence of acute territorial infarct or hemorrhage Neurology, but with scattered chronic small-vessel ischemic changes and possible underlying normal pressure hydrocephalus. EKG demonstrated sinus bradycardia with occasional PVCs. Pt was treated with IVF and Zosyn. Pt will be admitted to the hospital for treatment and further evaluation of bradycardia, hypothermia, and hypotension. Review of Systems Review of Systems: Pain denies any acute medical complaints at this time, saying he feels ?fine? [facility] Medical History Dyslipidemia Hypertension Surgical History History of enucleation of right eyeball Social History Household Members: Other Housing: [facility] Other:: Lives in penitentiary care Do you presently have visiting nurse or other home services: No Alcohol intake: current Alcohol intake frequency: 0-2 drinks per day Alcohol type: beer Patient Tobacco Use Status: Never used Tobacco Smoked in Last 30 Days: No e-Cigarette/Vaping Use: Never Used Second Hand Smoke Exposure: No Advance Directives: Yes Advance Directives on File: Yes Advance Directives Date on File: 12/26/22 service: No Current occupational status: disabled Meds Allergies Allergy/AdvReac Type Severity Reaction Status Date / Time No Known Allergies Allergy Verified 01/04/23 04:36 Active Medications: Current Medications Sodium Chloride (Ns) 1,000 mls @ 500 mls/hr IV .Q2H ONE Stop: 09/13/23 18:54 Last Admin: 09/13/23 17:02 Dose: 500 mls/hr Home Medications Medication Instructions Recorded Confirmed Last Taken Type acetaminophen 325 mg tablet 650 mg PO Q4H PRN Pain 01/04/23 09/13/23 Unknown History ammonium lactate 12 % topical cream 1 appl topical BID 01/04/23 09/13/23 Unknown History aspirin 81 mg chewable tablet 81 mg PO DAILY 01/04/23 09/13/23 Unknown History docusate sodium 100 mg capsule 100 mg PO BID 01/04/23 09/13/23 Unknown History guaifenesin 100 mg/5 mL oral liquid 200 mg PO Q4H PRN Cough 01/04/23 09/13/23 Unknown History lactulose 10 gram/15 mL oral 30 ml PO DAILY PRN Constipation 01/04/23 09/13/23 Unknown History solution aluminum-mag hydroxide-simethicone 30 ml PO Q6H PRN Heartburn 09/13/23 09/13/23 Unknown History 225 mg-200 mg-25 mg/5 mL oral susp amlodipine 5 mg tablet 5 mg PO DAILY 09/13/23 09/13/23 Unknown History apixaban 5 mg tablet (Eliquis) 5 mg PO BID 09/13/23 09/13/23 Unknown History atorvastatin 10 mg tablet 10 mg PO DAILY 09/13/23 09/13/23 Unknown History folic acid 1 mg tablet 1 mg PO DAILY 09/13/23 09/13/23 Unknown History lisinopril 10 mg tablet 10 mg PO DAILY 09/13/23 09/13/23 Unknown History omeprazole 20 mg tablet,delayed 20 mg PO DAILY 09/13/23 09/13/23 Unknown History release white petrolatum-mineral oil 1 appl topical BEDTIME 09/13/23 09/13/23 Unknown History topical cream Physical Exam Vital Signs and Narrative: Vital Signs: Last Vital Signs Temp 92.7 F L 09/13/23 17:35 Pulse 50 09/13/23 17:35 Resp 12 09/13/23 17:35 BP 112/42 L 09/13/23 17:35 Pulse Ox 94 09/13/23 17:35 O2 Del Method Room Air 09/13/23 17:35 BMI result Body Mass Index 53.2 Constitutional: Alert, answering appropriately, some dysarthria but capable of being understood. In no acute distress. Mental Status: Oriented to person, place and time. Eyes: S/P right eye enucleation with prosthetic in place Ear, Nose, and Throat: Oropharynx clear, mucous membranes moist. Ears and nose without deformities. Trachea midline. Respiratory: Clear to auscultation bilaterally. No wheezing, rales, or rhonchi. Cardiovascular: S1, S2 regular. No murmurs, rubs, or gallops. Gastrointestinal: Abdomen soft, non-tender, non-distended. Normal bowel sounds. Neurologic: Cranial nerves II-XII are grossly intact bilaterally. No focal neurological deficits. Moves all extremities spontaneously. Skin: Yellow crusted patches on lower legs bilaterally. No erythema or signs of acute infection. Musculoskeletal: No cyanosis or clubbing. Extremities: 3+ bilateral lower leg pitting edema. Psychiatric: Normal mood and affect. Results Labs 09/13/23 15:30 09/13/23 15:29 Labs: Laboratory Results - last 24 hr 09/13/23 09/13/23 09/13/23 15:28 15:29 15:30 MCV 93.8 MCH 29.7 MCHC 31.6 RDW 18.3 H Plt Count 209 D MPV 10.7 Immature Gran % (Auto) 0.5 H Neut % (Auto) 79.7 H Lymph % (Auto) 8.1 L [place] % (Auto) 7.2 Eos % (Auto) 4.2 H Baso % (Auto) 0.3 Lymph # (Auto) 0.5 L [place] # (Auto) 0.4 Eos # (Auto) 0.3 Baso # (Auto) 0.0 Abs Immat Gran (auto) 0.03 Absolute Neuts (auto) 4.9 Absolute Nucleated RBC 0.020 H Nucleated RBC % (auto) 0.3 H Anion Gap 13 Estim Creat Clear Calc 98.8 Estimated GFR > 60 Random Glucose 83 Lactic Acid 1.2 Calcium 9.3 D Total Bilirubin 0.4 Direct Bilirubin 0.2 AST 27 ALT 20 Alkaline Phosphatase 125 H B-Natriuretic Peptide 279 H Total Protein 6.3 L Albumin 3.2 L Lipase 31 Random Cortisol 11.2 Urine Color Yellow Urine Appearance Clear Urine pH 6.0 Ur Specific [place] 1.020 Urine Protein Negative Urine Glucose (UA) Negative Urine Ketones Negative Urine Blood Negative Urine Nitrite Negative Ur Leukocyte Esterase Negative Influenza Type A (PCR) NEGATIVE Influenza Type B (PCR) NEGATIVE RSV RNA Qual (PCR) NEGATIVE SARS-CoV-2 RNA (RT-PCR) NEGATIVE Imaging Radiologist's Impressions: Impressions Chest X-Ray 09/13/23 14:55 IMPRESSION: Limited exam but within normal limits given technical limitations. Head CT 09/13/23 15:54 IMPRESSION: Image quality is degraded by patient factors. The diagnostic accuracy of this examination is therefore somewhat limited. There are anatomic characterization indicate the possibility of underlying normal pressure hydrocephalus. Scattered chronic small vessel ischemic changes visualized within the periventricular white matter. Grossly no evidence of acute territorial infarct or hemorrhage. Assessment and Plan (1) Hypothermia: Status: Acute Plan Pt is a 78-year-old male with a PMH significant for?HTN, HLD, chronic bilateral leg lymphedema with drainage, RLE DVT in 2022, and morbid obesity who presents to the ED from [facility] for evaluation of altered mental status?and generalized weakness. Pt will be admitted to the hospital for treatment and further evaluation of bradycardia, hypothermia, and hypotension. Hypothermia Pt's temperature as low as 92.1 Pt placed in a Dread Hugger with slow improvement to 96.4 Unclear etiology Will follow vitals Bradycardia HR as low as 47 in ED Pt asymptomatic: Denies acute fatigue, lightheadedness, or dizziness Patient not on beta-blockers Will monitor on telemetry Hypotension Pt's BP as low as 83/34 Given IVF in ED with improvement to BP Patient asymptomatic, denies lightheadedness or dizziness Will place on maintenance fluids Hold anti-hypetensives Will follow vitals Hypernatremia Patient's sodium mildly elevated at [address] patient D5 half saline @ 80mls/hr Acute encephalopathy, resolved Patient with apparent AMS at [facility] Currently answering appropriately, AO x4, apparently back to baseline Likely in the setting of hypothermia, hypotension, and bradycardia, not due to sepsis; CT of head negative for acute intracranial pathology No clear source of bacterial infection: UA negative, CXR negative, no leukocytosis, abdominal exam benign Patient given Zosyn in the ED Will hold off on additional antibiotics at this time Follow cultures Hx of DVT Continue Eliquis HLD Continue statin, aspirin GERD Continue PPI Full Code; pt was previously DNR/DNI but signed a new MOLST form in 12/2022 Attending:?Dr. Mayen DVT Prophylaxis: On Eliquis Pt will require a hospitalization of at least two nights for treatment and further evaluation of bradycardia and hypothermia. Given patient's severe comorbidities, patient requires hospital care for close monitoring of labs and vitals to ensure patient is stable enough to return to his shelter facility. Quality Stroke Does the patient have a stroke diagnosis?: No VTE Prior VTE?: Yes Approximate Date of Prior VTE: 01/04/23 VTE Risk Level:: Medical - moderate - high VTE Device Contraindication: Treatment Not Indicated VTE Drug Contraindication: N/A - Med Ordered
--- NOTE | 2023-09-13 19:15 | PC.NURSE ---
patient falling asleep in bed, would desat to 84-88% on room air, patient placed on 2lNC, patient sats now up to 96%
[2023-09-13] MEDS: iohexoL 350 MG/ML 100 ML INFUS..BTL IV (21:21)
[2023-09-13] MEDS: Dextrose 5 % and 0.45 % NaCl 1,000 ML 80 ML IVCONT (22:05)
[2023-09-13 23:11] LABS: Cortisol Random 9.1 ug/dL
[2023-09-14] MEDS: 0.9 % Sodium Chloride Flush 3 ML SYRINGE IVFLUSH (00:06)
[2023-09-14 05:17] VITALS: BP 137/40; PULSE 57; RESP 16; TEMP 35.9; O2SAT 96
--- NOTE | 2023-09-14 05:39 | PC.NURSE ---
Pt moved into hospital bed. Noted urine color change from yellow to [id number] in color. MD Felipe notified and ordered UA. Tech sent UA.
[2023-09-14 05:40] LABS: Appearance Urine Turbid; Glucose Urine UA Negative (Negative); Leukocyte Esterase Urine Trace (Negative); Nitrite Urine Negative (Negative); PH 5.5 (5.0-9.0); Specific Gravity - Urine >= 1.030 (1.005-1.025); UMIC TRIGGER UA YES; Urine Blood Large (3+) (Negative); Urine Ketones Negative (Negative); Urine Protein 30 (1+) mg/dL (Neg-Trace)
[2023-09-14 05:41] LABS: Bacteria Urine None Seen (None Seen); Color Urine Brown; Hyaline Casts Urine 0-2 /LPF (0-2); RBC Urine >20 /HPF (0-2); Squamous Epithelial Cell Urine 0-2 /HPF (0-2)
[2023-09-14 07:01] VITALS: BMI 51.4
[2023-09-14 07:02] LABS: Hematocrit 31.1 % (42.0-52.0); Hemoglobin 9.7 g/dl (14.0-18.0); Mean Corpuscular HGB Conc 31.2 g/dl (31.0-36.0); Mean Corpuscular Hemoglobin 29.3 pg (27.0-33.0); Mean Platelet Volume 11.2 fL (9.4-12.4); NRBC Pct Auto 0.5 /100WBC (0.0-0.2); Platelet Count 217 X10*3/uL (160-400); Red Blood Count 3.31 X10*6/uL (4.60-5.80); Red Cell Distribution Width 18.6 % (11.0-16.0); White Blood Count 4.3 X10*3/uL (4.8-10.8)
[2023-09-14 07:12] LABS: Anion Gap 10 (12-20); Blood Urea Nitrogen 21 mg/dL (9-16); Calcium 8.7 mg/dL (8.4-10.2); Carbon Dioxide 28 mmol/L (22-29); Chloride 114 mmol/L (96-108); Creatinine Clr Calc Pharmacy 96.8; Estimated Glomerular Filt Rate > 60; Glucose Random 74 mg/dL (60-115); Potassium 3.9 mmol/L (3.3-5.1); Sodium 148 mmol/L (135-145)
[2023-09-14 07:30] VITALS: BP 122/59; PULSE 56; RESP 22; TEMP 36.6; O2SAT 94
--- NOTE | 2023-09-14 08:41 | MHC.CM.PN ---
Goal is for Patient to return to [facility]. HCP is Leilani and a copy of the HCP is on the chart.
--- NOTE | 2023-09-14 08:45 | MHC.CM.PN ---
Patient is LTC @ [facility] and [facility] bed [facility].
[2023-09-14 12:09] VITALS: TEMP 36.4
[2023-09-14 13:13] VITALS: BP 151/67; PULSE 68; RESP 18; O2SAT 94
[2023-09-14] MEDS: Dextrose 5 % and 0.45 % NaCl 1,000 ML 80 ML IVCONT (13:46)
--- NOTE | 2023-09-14 14:58 | HO.PM.IMPN ---
Subjective Subjective Date of Service: 09/14/23 Interval History: Seen and evaluated this morning Denies any fever, feels warm now denies any chest pain or palpitations Tele overnight showed Harris but no pauses No other events Review of Systems Review of Systems: Yes all other systems are reviewed and are negative Physical Exam Vital Signs: Vital Signs: Last Vital Signs Temp 97.5 F 09/14/23 12:09 Pulse 68 09/14/23 13:13 Resp 18 09/14/23 13:13 BP 151/67 H 09/14/23 13:13 Pulse Ox 94 09/14/23 13:13 O2 Del Method Nasal Cannula 09/14/23 13:13 O2 Flow Rate 2 09/14/23 13:13 BMI result Body Mass Index 51.4 Const: Other: Constitutional : Awake, interactive, obese, not in distress Neck : Normal inspection, Supple Cardiovascular : RRR, no JVP, no lower extremity edema Respiratory : good bilateral air entry, no crackles, wheezes or rhonchi Gastrointestinal: soft, lax, Normal bowel sounds, Non tender Skin : Warm, Dry skin in lower extremities with scaling Neurological : Alert & oriented x3, No focal deficit , Objective Data Active Medications Acetaminophen (Acetaminophen 325 Mg Tablet) 650 mg PO Q6H PRN PRN Reason: Pain, Mild (Pain Scale 1-3) Apixaban (Apixaban 5 Mg Tablet) 5 mg PO BID [facility] Last Admin: 09/14/23 11:04 Dose: Not Given Documented By: DONNA Non-Admin Reason: Patient Refused Aspirin (Aspirin 81 Mg Tab.Chew) 81 mg PO DAILY [facility] Atorvastatin Calcium (Atorvastatin Calcium 10 Mg Tablet) 10 mg PO DAILY [facility] Benzonatate (Benzonatate 100 Mg Capsule) 100 mg PO TID PRN PRN Reason: Cough Docusate Sodium (Docusate Sodium 100 Mg Capsule) 100 mg PO DAILY PRN PRN Reason: Constipation Docusate Sodium (Docusate Sodium 100 Mg Capsule) 100 mg PO BID [facility] Folic Acid (Folic Acid 1 Mg Tablet) 1 mg PO DAILY [facility] Guaifenesin (Guaifenesin 100 Mg/5 Ml Liquid) 5 ml PO Q4H PRN PRN Reason: Cough Dextrose/Sodium Chloride (D51/2ns) 1,000 mls @ 80 mls/hr IVCONT .[id number] [facility] Last Admin: 09/14/23 13:46 Dose: 80 mls/hr Documented By: DONNA Lactic Acid (Ammonium Lactate 12 % Lotion 226 Gm Bottle) 1 appl TOPICAL BID JESSICA; Protocol Last Admin: 09/14/23 10:58 Dose: Not Given Documented By: DONNA Non-Admin Reason: Patient Refused Lactulose (Lactulose 20 Gm/30 Ml Solution) 20 gm PO DAILY PRN PRN Reason: Constipation Lisinopril (Lisinopril 10 Mg Tablet) 10 mg PO DAILY [facility]; Protocol Melatonin (Melatonin 3 Mg Tablet) 6 mg PO BEDTIME PRN PRN Reason: Insomnia Omeprazole (Omeprazole 20 Mg Capsule.Dr) 20 mg PO DAILY@0630 JESSICA Ondansetron HCl (Ondansetron Hcl 4 Mg/2 Ml Vial) 4 mg IVPUSH Q8H PRN PRN Reason: Nausea and Vomiting Sodium Chloride (0.9 % Sodium Chloride Flush 3 Ml Syringe) 3 ml IVFLUSH QSHIFT JESSICA Last Admin: 09/14/23 10:37 Dose: Not Given Documented By: DONNA Non-Admin Reason: continuous IVF Labs 09/14/23 05:45 09/14/23 05:45 Labs: Laboratory Results - last 24 hr 09/13/23 09/13/23 09/13/23 15:28 15:29 15:30 MCV 93.8 MCH 29.7 MCHC 31.6 RDW 18.3 H Plt Count 209 D MPV 10.7 Immature Gran % (Auto) 0.5 H Neut % (Auto) 79.7 H Lymph % (Auto) 8.1 L Millard % (Auto) 7.2 Eos % (Auto) 4.2 H Baso % (Auto) 0.3 Lymph # (Auto) 0.5 L Millard # (Auto) 0.4 Eos # (Auto) 0.3 Baso # (Auto) 0.0 Abs Immat Gran (auto) 0.03 Absolute Neuts (auto) 4.9 Absolute Nucleated RBC 0.020 H Nucleated RBC % (auto) 0.3 H Anion Gap 13 Estim Creat Clear Calc 98.8 Estimated GFR > 60 Random Glucose 83 Lactic Acid 1.2 Calcium 9.3 D Total Bilirubin 0.4 Direct Bilirubin 0.2 AST 27 ALT 20 Alkaline Phosphatase 125 H B-Natriuretic Peptide 279 H Total Protein 6.3 L Albumin 3.2 L Lipase 31 Random Cortisol 11.2 Urine Color Yellow Urine Appearance Clear Urine pH 6.0 Ur Specific [place] 1.020 Urine Protein Negative Urine Glucose (UA) Negative Urine Ketones Negative Urine Blood Negative Urine Nitrite Negative Ur Leukocyte Esterase Negative Urine RBC Urine WBC Ur Squamous Epith Cells Urine Bacteria Hyaline Casts Influenza Type A (PCR) NEGATIVE Influenza Type B (PCR) NEGATIVE RSV RNA Qual (PCR) NEGATIVE SARS-CoV-2 RNA (RT-PCR) NEGATIVE 09/13/23 09/14/23 09/14/23 22:24 05:32 05:45 MCV 94.0 MCH 29.3 MCHC 31.2 RDW 18.6 H Plt Count 217 MPV 11.2 Immature Gran % (Auto) Neut % (Auto) Lymph % (Auto) Millard % (Auto) Eos % (Auto) Baso % (Auto) Lymph # (Auto) Millard # (Auto) Eos # (Auto) Baso # (Auto) Abs Immat Gran (auto) Absolute Neuts (auto) Absolute Nucleated RBC 0.020 H Nucleated RBC % (auto) 0.5 H Anion Gap 10 L Estim Creat Clear Calc 96.8 Estimated GFR > 60 Random Glucose 74 Lactic Acid Calcium 8.7 D Total Bilirubin Direct Bilirubin AST ALT Alkaline Phosphatase B-Natriuretic Peptide Total Protein Albumin Lipase Random Cortisol 9.1 Urine Color Brown A Urine Appearance Turbid Urine pH 5.5 Ur Specific [place] >= 1.030 H Urine Protein 30 (1+) H Urine Glucose (UA) Negative Urine Ketones Negative Urine Blood Large (3+) H Urine Nitrite Negative Ur Leukocyte Esterase Trace H Urine RBC >20 H Urine WBC 6-10 H Ur Squamous Epith Cells 0-2 Urine Bacteria None Seen Hyaline Casts 0-2 Influenza Type A (PCR) Influenza Type B (PCR) RSV RNA Qual (PCR) SARS-CoV-2 RNA (RT-PCR) Assessment and Plan (1) Hypoxia: Status: Acute (2) Acute hypotension: Status: Acute (3) Hypothermia: Status: Acute (4) Acute hypernatremia: Status: Acute Plan Pt is a 78-year-old male with a PMH significant for?HTN, HLD, chronic bilateral leg lymphedema with drainage, RLE DVT in 2022, and morbid obesity who presents to the ED from [facility] for evaluation of altered mental status?and generalized weakness. Pt will be admitted to the hospital for treatment and further evaluation of bradycardia, hypothermia, and hypotension. Hypothermia resolved from Unclear etiology REsolved by using Bear hugger cultures pending Negative Flu\RSV\Covid Bradycardia Improved bu still on the lower end. Patient Asymptomatic Likely 2/2 hypothermia Patient not on beta-blockers monitor on telemetry Hypotension not due to sepsis Resolved by IVF and hold BP meds normal Cortisol level follow vitals Acute Hypernatremia sodium elevated at [address] patient D5W follow BMP Acute encephalopathy, resolved Likely in the setting of hypothermia, hypotension, and bradycardia, not due to sepsis CT of head negative for acute intracranial pathology No clear source of infection: UA negative, CXR negative, no leukocytosis hold off on additional antibiotics Follow cultures Hx of DVT Continue Eliquis HLD Continue statin, aspirin GERD Continue PPI Full Code; pt was previously DNR/DNI but signed a new MOLST form in 12/2022 DVT Prophylaxis: On Eliquis Pt will require a hospitalization overnight for monitoring and evaluation of bradycardia and hypothermia. Given patient's severe comorbidities, patient requires hospital care for close monitoring of labs and vitals to ensure patient is stable enough to return to [facility]. Quality Stroke Does the patient have a stroke diagnosis?: No VTE Prior VTE?: Yes Approximate Date of Prior VTE: 01/04/23 VTE Risk Level:: Medical - moderate - high VTE Device Contraindication: Treatment Not Indicated VTE Drug Contraindication: N/A - Med Ordered
[2023-09-14 15:25] VITALS: BP 150/67; PULSE 58; RESP 20; TEMP 36.2; O2SAT 91
[2023-09-14] MEDS: Dextrose 5 % 1,000 ML 100 ML IVCONT (16:55)
[2023-09-14 19:32] VITALS: BP 144/65; PULSE 55; RESP 20; TEMP 36.1; O2SAT 94
--- NOTE | 2023-09-14 19:48 | PC.NURSE ---
Patient noted to be alert and oriented this am, calm and cooperative on first assessment. Around 1030 am after visit from friend, patient became very agitated and restless. He pulled off his monitoring manager and refused to put it back on. 3 or 4 staff members responded to help him and he was yelling for us to get away and not to touch him that he knew his rights. We we unsuccessful to deesculate the situation but patient was safe in bed. MD was notified and instructed to give him some time and reassess. Patient continued to be agitated for a few more hours, refusing care and medications. Later on in the shift he allowed me to take some vitals, O2 86% on room air. 2 liters nasal cannula applied. Left arm IV seemed to be infiltrated, removed IV and elevated on pillow. Patient allowed a left hand IV to be placed. Through out shift patient became more compliant with care. Friend revisited in the evening and stated that his mental status was much better. D5W infusing at 100 ml/hr. No further behavioral issues. hypothermia and hypotension has resolved. Report given to night RN.
[2023-09-14] MEDS: Apixaban 5 MG TABLET PO (20:15)
[2023-09-14] MEDS: Docusate Sodium 100 MG CAPSULE PO (20:15)
[2023-09-14] MEDS: Ammonium Lactate 12 % Lotion 226 GM BOTTLE 1 APPL TOPICAL (20:15)
[2023-09-15] VITALS (13 sets, daily range): BP systolic 119–164; BP diastolic 58–79; PULSE 51–67; RESP 14–22; TEMP 34.7–38; O2SAT 88–93
[2023-09-15] MEDS: Dextrose 5 % 1,000 ML 100 ML IVCONT ×3 (02:39→22:14)
[2023-09-15 07:59] LABS: Anion Gap 11 (12-20); Blood Urea Nitrogen 18 mg/dL (9-16); Calcium 9.1 mg/dL (8.4-10.2); Carbon Dioxide 28 mmol/L (22-29); Chloride 112 mmol/L (96-108); Creatinine Clr Calc Pharmacy 106.2; Estimated Glomerular Filt Rate > 60; Glucose Random 76 mg/dL (60-115); Potassium 3.8 mmol/L (3.3-5.1); Sodium 147 mmol/L (135-145)
[2023-09-15] MEDS: Apixaban 5 MG TABLET PO ×2 (09:56→22:14)
[2023-09-15] MEDS: Omeprazole 20 MG CAPSULE.DR PO (09:56)
[2023-09-15] MEDS: lisinopriL 10 MG TABLET PO (09:56)
[2023-09-15] MEDS: 0.9 % Sodium Chloride Flush 3 ML SYRINGE IVFLUSH ×2 (09:56→15:20)
[2023-09-15] MEDS: Aspirin 81 MG TAB.CHEW PO (09:56)
[2023-09-15] MEDS: Folic Acid 1 MG TABLET PO (09:56)
[2023-09-15] MEDS: Atorvastatin Calcium 10 MG TABLET PO (09:56)
[2023-09-15] MEDS: Docusate Sodium 100 MG CAPSULE PO ×2 (09:57→22:14)
[2023-09-15] MEDS: Ammonium Lactate 12 % Lotion 226 GM BOTTLE 1 APPL TOPICAL ×2 (10:03→21:00)
--- NOTE | 2023-09-15 11:20 | P.PNIM_ITS ---
Subjective Subjective Date of Service: 09/15/23 Interval History: Seen and evaluated this morning Denies any fever, was injury/safety hazard assessment the morning, developed incident of kris and hypothermia before noon time denies any chest pain or palpitations Tele showed Kris but no pauses No other events Review of Systems Review of Systems: Yes all other systems are reviewed and are negative Physical Exam 2 Vital Signs: Vital Signs: Last Vital Signs Temp 94.5 F L 09/15/23 10:50 Pulse 51 09/15/23 10:50 Resp 14 09/15/23 10:50 BP 119/73 09/15/23 10:50 Pulse Ox 91 L 09/15/23 11:19 O2 Del Method Nasal Cannula 09/15/23 11:19 O2 Flow Rate 2 09/15/23 11:19 BMI result Body Mass Index 51.4 Const: Other: Constitutional : Awake, interactive, obese, not in distress Neck : Normal inspection, Supple Cardiovascular : RRR, no JVP, no lower extremity edema Respiratory : good bilateral air entry, no crackles, wheezes or rhonchi Gastrointestinal: soft, lax, Normal bowel sounds, Non tender Skin : Warm, Dry skin in lower extremities with scaling Neurological : Alert & oriented x3, No focal deficit , Objective Data Active Medications Acetaminophen (Acetaminophen 325 Mg Tablet) 650 mg PO Q6H PRN PRN Reason: Pain, Mild (Pain Scale 1-3) Apixaban (Apixaban 5 Mg Tablet) 5 mg PO BID [facility] Last Admin: 09/15/23 09:56 Dose: 5 mg Documented By: URSZULA Aspirin (Aspirin 81 Mg Tab.Chew) 81 mg PO DAILY [facility] Last Admin: 09/15/23 09:56 Dose: 81 mg Documented By: URSZULA Atorvastatin Calcium (Atorvastatin Calcium 10 Mg Tablet) 10 mg PO DAILY [facility] Last Admin: 09/15/23 09:56 Dose: 10 mg Documented By: URSZULA Benzonatate (Benzonatate 100 Mg Capsule) 100 mg PO TID PRN PRN Reason: Cough Docusate Sodium (Docusate Sodium 100 Mg Capsule) 100 mg PO DAILY PRN PRN Reason: Constipation Docusate Sodium (Docusate Sodium 100 Mg Capsule) 100 mg PO BID [facility] Last Admin: 09/15/23 09:57 Dose: 100 mg Documented By: URSZULA Folic Acid (Folic Acid 1 Mg Tablet) 1 mg PO DAILY [facility] Last Admin: 09/15/23 09:56 Dose: 1 mg Documented By: URSZULA Guaifenesin (Guaifenesin 100 Mg/5 Ml Liquid) 5 ml PO Q4H PRN PRN Reason: Cough Dextrose (D5w) 1,000 mls @ 100 mls/hr IVCONT .Q10H [facility] Last Admin: 09/15/23 02:39 Dose: 100 mls/hr Documented By: SIMIN Ceftriaxone Sodium 1 gm/ (Sodium Chloride) 50 mls @ 100 mls/hr IV Q24H [facility] Doxycycline Hyclate 100 mg/ (Sodium Chloride) 250 mls @ 166.67 mls/hr IV Q12H [facility] Lactic Acid (Ammonium Lactate 12 % Lotion 226 Gm Bottle) 1 appl TOPICAL BID [facility]; Protocol Last Admin: 09/15/23 10:03 Dose: 1 appl Documented By: URSZULA Lactulose (Lactulose 20 Gm/30 Ml Solution) 20 gm PO DAILY PRN PRN Reason: Constipation Lisinopril (Lisinopril 10 Mg Tablet) 10 mg PO DAILY [facility]; Protocol Last Admin: 09/15/23 09:56 Dose: 10 mg Documented By: URSZUAL Melatonin (Melatonin 3 Mg Tablet) 6 mg PO BEDTIME PRN PRN Reason: Insomnia Omeprazole (Omeprazole 20 Mg Capsule.Dr) 20 mg PO DAILY@0630 [facility] Last Admin: 09/15/23 09:56 Dose: 20 mg Documented By: URSZULA Ondansetron HCl (Ondansetron Hcl 4 Mg/2 Ml Vial) 4 mg IVPUSH Q8H PRN PRN Reason: Nausea and Vomiting Sodium Chloride (0.9 % Sodium Chloride Flush 3 Ml Syringe) 3 ml IVFLUSH QSHIFT [facility] Last Admin: 09/15/23 09:56 Dose: 3 ml Documented By: URSZULA Labs 09/14/23 05:45 09/15/23 06:21 Labs: Laboratory Results - last 24 hr 09/15/23 06:21 Hold Purple Top SEE NOTE Anion Gap 11 L Estim Creat Clear Calc 106.2 Estimated GFR > 60 Random Glucose 76 Calcium 9.1 TSH 5.50 H Microbiology Microbiology Results: Microbiology 09/14/23 Unknown Urine Culture - Final Urine clean catch - Urine strauss top No growth. 09/13/23 15:28 Blood Culture - Preliminary Blood - Venous No growth after 24 hours. 09/13/23 15:28 Blood Culture - Preliminary Blood - Venous No growth after 24 hours. Assessment and Plan (1) Acute hypernatremia: Status: Acute (2) Hypoxia: Status: Acute (3) Acute hypotension: Status: Acute (4) Hypothermia: Status: Acute Plan Pt is a 78-year-old male with a PMH significant for?HTN, HLD, chronic bilateral leg lymphedema with drainage, RLE DVT in 2022, and morbid obesity who presents to the ED from [facility] for evaluation of altered mental status?and generalized weakness. Pt will be admitted to the hospital for treatment and further evaluation of bradycardia, hypothermia, and hypotension. Hypothermia likely a result of infection, work up on admission was negative, developed 2nd incident of hypothermia today place a Bear hugger cultures pending Negative Flu\RSV\Covid check Resp Panel , UA, CXR start empirical Abx of Doxy and Ceftriaxone monitor response Bradycardia Improved, Asymptomatic Likely 2/2 hypothermia Patient not on beta-blockers monitor on telemetry Hypotension not due to sepsis, Resolved by IVF and holding BP meds normal Cortisol level follow vitals Acute Hypernatremia sodium elevated at 147 Continue D5W follow BMP Acute encephalopathy, resolved Likely in the setting of hypothermia, hypotension, and bradycardia CT of head negative for acute intracranial pathology Follow cultures Hx of DVT Continue Eliquis HLD Continue statin, aspirin GERD Continue PPI Full Code; pt was previously DNR/DNI but signed a new MOLST form in 12/2022 DVT Prophylaxis: On Eliquis Pt will require a hospitalization overnight for monitoring and evaluation of bradycardia and hypothermia. Given patient's severe comorbidities, patient requires hospital care for close monitoring of labs and vitals to ensure patient is stable enough to return to his [facility] facility. Quality Stroke Does the patient have a stroke diagnosis?: No VTE Prior VTE?: Yes Approximate Date of Prior VTE: 01/04/23 VTE Risk Level:: Medical - moderate - high VTE Device Contraindication: Treatment Not Indicated VTE Drug Contraindication: N/A - Med Ordered
[2023-09-15] MEDS: cefTRIAXone sodium 1 GM in 0.9 % Sodium Chloride 50 ML IV (11:22)
[2023-09-15] MEDS: Doxycycline Hyclate 100 MG in 0.9 % Sodium Chloride 250 ML 166.67 MG IV ×2 (11:44→23:56)
[2023-09-15 15:01] LABS: T4 Thyroxine 7.6 ug/dL (4.5-12.0)
[2023-09-15 15:50] LABS: Appearance Urine Turbid; Color Urine Orange; Glucose Urine UA Negative (Negative); Leukocyte Esterase Urine Small (1+) (Negative); Nitrite Urine Negative (Negative); Specific Gravity - Urine 1.025 (1.005-1.025); UMIC TRIGGER UACC YES; Urine Blood Large (3+) (Negative); Urine Ketones Negative (Negative); Urine Protein 100 (2+) mg/dL (Neg-Trace)
[2023-09-15 15:51] LABS: Bacteria Urine None Seen (None Seen); Hyaline Casts Urine 0-2 /LPF (0-2); RBC Urine >20 /HPF (0-2); Squamous Epithelial Cell Urine 0-2 /HPF (0-2); UACC Culture Trigger YES
--- NOTE | 2023-09-15 18:36 | PC.NURSE ---
Assumed care of patient 0700 Pt A+Ox4, restless at times, mostly calm and cooperative. Pt has avasys tele sitter and high fall precautions in place. 10:34 Pt had more frequent sinus bradycardia on tele. Temperature checked - axillary 94.4F LOW 10:50 RN and HEAD OF ETHICS AND COMPLIANCE checked rectal temp for pt. Temp 94.5 F LOW. MD notified of bradycardia on tele as low as HR 35, decreased temperature, concern for sepsis criteria. New orders for IV ceftriaxone, IV Doxycycline, contine D5W @100. 12:00 T 94.6F, HR 52 13:00 patient became very agitated, throwing food tray, aggressive, hitting and kicking staff. notified of mental status change. MD to bedside. per okay to use b/l soft wrist restraints for IV line pulling. new orders for prn zyprexa.
[2023-09-16] VITALS (13 sets, daily range): BP systolic 100–144; BP diastolic 42–64; PULSE 65–88; RESP 17–20; TEMP 35.8–36.8; O2SAT 91–97
--- NOTE | 2023-09-16 03:22 | ECG_ITS ---
Test Reason : ?afib Blood Pressure : / mmHG Vent. Rate : 088 BPM Atrial Rate : 000 BPM P-R Int : 000 ms QRS Dur : 094 ms QT Int : 364 ms P-R-T Axes : 000 007 002 degrees QTc Int : 440 ms Atrial fibrillation Low voltage QRS Cannot rule out Anterior infarct (cited on or before 16-SEP-2023) Abnormal ECG When compared with ECG of 13-SEP-2023 15:06, Atrial fibrillation has replaced Sinus rhythm Vent. rate has increased BY 30 BPM Left posterior fascicular block is no longer Present Criteria for Inferior infarct are no longer Present Serial changes of Anterior infarct Present Referred By: Matteo Vazquez Electronically Signed By:Elia Atkins
--- NOTE | 2023-09-16 05:28 | PM.EVENT ---
Event Note Date of Service: 09/16/23 Event Note: 3:15 AM - contacted to notified patient's telemetry showing atrial fibrillation with seems to be new for the patient. EKG done and confirmed atrial fibrillation with normal heart rate. His temperature was found to be 96.2 (96.6 rectally). Blood pressure is normal. Patient was evaluated. He is in no distress. Alert x3. Cooperative. Denies acute symptoms. Indwelling Ngo catheter in place (urine in bag is dark, bloody urine noted inside the tubing). Sitter stated that patient was pulling his urinary catheter before. He was in restraints. Left forearm noted to be swollen and erythematous. Not convinced this a DVT. Patient on Eliquis and aspirin as well as antibiotics. Recommend elevate extremities. Time Spent With Patient Time: Total time managing care of this patient today ____ minutes.
[2023-09-16] MEDS: Omeprazole 20 MG CAPSULE.DR PO (06:08)
--- NOTE | 2023-09-16 07:00 | CA_ITS ---
Transthoracic Echocardiogram Patient (Last, First, Middle): Erick Deleon K Gender: Male Date of : 1945 Age: 78 Procedure Date: 09/16/2023 Procedure Type: Transthoracic E[place]ocardi[place] [facility] [place]: 172.72 cm Weight: 153.32 kg BSA: 2.55 m2 Heart Rate: 59 bpm BP: 116 / 51 mmHg Special Diet Cook: CATHERINE Referring MD: Nelda Macedo MD Symptoms: New onset A.Fib Study Quality: Technically Difficult ECG Rhythm: Atrial Fibrillation Conclusions: - Very limited study technically. - Normal left ventricular size and systolic function. There is mildly increased left ventricular wall thickness. The visually estimated ejection fraction is between 55-60%. Findings Procedure Information Contrast agent, definity, is being given per protocol without apparent complications. The quality of the study was technically difficult. The study quality is limited by patients body habitus. Left Ventricle Normal left ventricular size and systolic function. There is mildly increased left ventricular wall thickness. The visually estimated ejection fraction is between 55-60%. There is no evidence of regional wall motion abnormalities. Diastolic function is indeterminate on the basis of available data. Right Ventricle The right ventricle was not well visualized. Atria The left atrium was not well visualized. The right atrium was not well visualized. Aortic Valve Normal aortic valve structure and function. There is no aortic valve stenosis. Mitral Valve The mitral valve was not well visualized. Pulmonic Valve The pulmonic valve was not well visualized. Tricuspid Valve Normal tricuspid valve structure. There is no tricuspid valve regurgitation. Tricuspid regurgitation envelope is inadequate for calculation of right ventricular systolic pressure. Normal right atrial pressure. Great Vessels All visible segments of the aorta are normal in size. Venous The inferior vena cava was not well visualized. Pericardium/Pleural The pericardium was not well visualized. Measurements 2D Linear Measurements IVSd: 1.18 0.6-0.9/0.6-1.0 cm LVIDd: 5.02 3.9-5.3/4.2-5.9 cm LVIDd Index: 1.97 2.4-3.2/2.2-3.1 cm/m2 LVIDs: 2.90 2.0-3.6 cm LVPWd: 1.05 0.7-1.1 cm LA Diam: 4.70 2.7-3.8/3.0-4.0 cm LAIDs Index: 1.84 1.5-2.3 cm/m2 LV Mass: 264.76 67-162/88-224 g LV Mass Index: 103.83 43-95/49-115 g/m2 LVOT Diam: 2.10 3.0+(-)1.3 cm 2D Systolic Function EF 4C: 53.20 >55% EF 2C: 51.50 >55% EF BiP: 49.90 >55% Mitral Valve MV Pk E: 1.07 MV Decel Time: 147.00 PHT: 43.00 MVA PHT: 5.12 Decel Cuming: 7.38 Aortic Valve AoV Pk Cas: 1.18 AoV Mn Cas: 0.85 AoV VTI: 0.27 AoV Pk Grad: 6.00 Aov Mn Grad: 3.00 SAIMA Cont.VTI: 2.09 LVOT LVOT Pk Cas: 0.72 LVOT Mn Cas: 0.51 LVOT VTI: 0.16 LVOT Pk Grad: 2.00 LVOT Mn Grad: 1.00 LVOT Diam: 2.10 LVOT Area: 3.46 Diastolic Function MV Pk E: 1.07 Right Ventricle TVS' Cas: 9.25 Tricuspid Valve TR Pk Cas: 1.59 TR Pk Grad: 10.00 Great Vessels Aorta Sinus of Valsalva: 3.50 2.0-3.5 cm Ao Asc: 3.40 2.1-3.4 cm Pulmonary Valve PV Pk Cas: 0.75 Peak PV Grad: 2.00 Updated in Other Vendor System with Status of Final Elia Atkins MD electronically signed on 09/16/2023 6:17:39 PM with status of Final
[2023-09-16] MEDS: Dextrose 5 % 1,000 ML 100 ML IVCONT ×2 (08:49→18:50)
[2023-09-16] MEDS: Ammonium Lactate 12 % Lotion 226 GM BOTTLE 1 APPL TOPICAL ×2 (08:50→20:21)
[2023-09-16] MEDS: lisinopriL 10 MG TABLET PO (08:50)
[2023-09-16] MEDS: Folic Acid 1 MG TABLET PO (08:50)
[2023-09-16] MEDS: Apixaban 5 MG TABLET PO ×2 (08:50→20:20)
[2023-09-16] MEDS: Docusate Sodium 100 MG CAPSULE PO ×2 (08:51→20:20)
[2023-09-16] MEDS: Atorvastatin Calcium 10 MG TABLET PO (08:51)
[2023-09-16] MEDS: Aspirin 81 MG TAB.CHEW PO (08:51)
--- NOTE | 2023-09-16 08:56 | HO.PM.IMPN ---
Subjective Subjective Date of Service: 09/16/23 Interval History: Seen and evaluated this morning developed incident of kris and hypothermia later yesterday, resolved overnight Became also confused and agitated , now calm and cooperative denies any chest pain or palpitations No other events Review of Systems Review of Systems: Yes all other systems are reviewed and are negative Physical Exam Vital Signs: Vital Signs: Last Vital Signs Temp 97.9 F 09/16/23 07:23 Pulse 75 09/16/23 07:23 Resp 18 09/16/23 07:23 BP 124/60 09/16/23 07:23 Pulse Ox 94 09/16/23 07:23 O2 Del Method Nasal Cannula 09/16/23 07:23 O2 Flow Rate 2 09/16/23 07:23 BMI result Body Mass Index 51.4 Const: Other: Constitutional : Awake, interactive, obese, not in distress Neck : Normal inspection, Supple Cardiovascular : RRR, no JVP, no lower extremity edema Respiratory : good bilateral air entry, no crackles, wheezes or rhonchi Gastrointestinal: soft, lax, Normal bowel sounds, Non tender Skin : Warm, Dry skin in lower extremities with scaling Neurological : Alert & oriented x3, No focal deficit Objective Data Active Medications Acetaminophen (Acetaminophen 325 Mg Tablet) 650 mg PO Q6H PRN PRN Reason: Pain, Mild (Pain Scale 1-3) Apixaban (Apixaban 5 Mg Tablet) 5 mg PO BID [facility] Last Admin: 09/15/23 22:14 Dose: 5 mg Documented By: IZA Aspirin (Aspirin 81 Mg Tab.Chew) 81 mg PO DAILY [facility] Last Admin: 09/15/23 09:56 Dose: 81 mg Documented By: URSZULA Atorvastatin Calcium (Atorvastatin Calcium 10 Mg Tablet) 10 mg PO DAILY [facility] Last Admin: 09/15/23 09:56 Dose: 10 mg Documented By: URSZULA Benzonatate (Benzonatate 100 Mg Capsule) 100 mg PO TID PRN PRN Reason: Cough Docusate Sodium (Docusate Sodium 100 Mg Capsule) 100 mg PO DAILY PRN PRN Reason: Constipation Docusate Sodium (Docusate Sodium 100 Mg Capsule) 100 mg PO BID [facility] Last Admin: 09/15/23 22:14 Dose: 100 mg Documented By: IZA Folic Acid (Folic Acid 1 Mg Tablet) 1 mg PO DAILY [facility] Last Admin: 09/15/23 09:56 Dose: 1 mg Documented By: URSZULA Guaifenesin (Guaifenesin 100 Mg/5 Ml Liquid) 5 ml PO Q4H PRN PRN Reason: Cough Dextrose (D5w) 1,000 mls @ 100 mls/hr IVCONT .Q10H [facility] Last Admin: 09/15/23 22:14 Dose: 100 mls/hr Documented By: IZA Ceftriaxone Sodium 1 gm/ (Sodium Chloride) 50 mls @ 100 mls/hr IV Q24H [facility] Last Infusion: 09/15/23 12:23 Dose: Infused Documented By: URSZULA Doxycycline Hyclate 100 mg/ (Sodium Chloride) 250 mls @ 166.67 mls/hr IV Q12H [facility] Last Infusion: 09/16/23 01:57 Dose: Infused Documented By: IZA Lactic Acid (Ammonium Lactate 12 % Lotion 226 Gm Bottle) 1 appl TOPICAL BID [facility]; Protocol Last Admin: 09/15/23 21:00 Dose: 1 appl Documented By: IZA Lactulose (Lactulose 20 Gm/30 Ml Solution) 20 gm PO DAILY PRN PRN Reason: Constipation Lisinopril (Lisinopril 10 Mg Tablet) 10 mg PO DAILY [facility]; Protocol Last Admin: 09/15/23 09:56 Dose: 10 mg Documented By: URSZULA Melatonin (Melatonin 3 Mg Tablet) 6 mg PO BEDTIME PRN PRN Reason: Insomnia Olanzapine (Olanzapine 10 Mg Vial) 5 mg IM ONCE PRN PRN Reason: anxiety/restlessness Omeprazole (Omeprazole 20 Mg Capsule.Dr) 20 mg PO DAILY@0630 [facility] Last Admin: 09/16/23 06:08 Dose: 20 mg Documented By: IZA Ondansetron HCl (Ondansetron Hcl 4 Mg/2 Ml Vial) 4 mg IVPUSH Q8H PRN PRN Reason: Nausea and Vomiting Sodium Chloride (0.9 % Sodium Chloride Flush 3 Ml Syringe) 3 ml IVFLUSH QSHIFT [facility] Last Admin: 09/16/23 03:49 Dose: Not Given Documented By: IZA Non-Admin Reason: IV Running Labs 09/14/23 05:45 09/15/23 06:21 Labs: Laboratory Results - last 24 hr 09/15/23 09/15/23 06:21 15:30 Thyroxine (T4) 7.6 Urine Color [place] A Urine Appearance Turbid Urine pH 5.0 Ur Specific [place] 1.025 Urine Protein 100 (2+) H Urine Glucose (UA) Negative Urine Ketones Negative Urine Blood Large (3+) H Urine Nitrite Negative Ur Leukocyte Esterase Small (1+) H Urine RBC >20 H Urine WBC 6-10 H Ur Squamous Epith Cells 0-2 Urine Bacteria None Seen Hyaline Casts 0-2 Microbiology Microbiology Results: Microbiology 09/13/23 15:28 Blood Culture - Preliminary Blood - Venous No growth after 48 hours. 09/13/23 15:28 Blood Culture - Preliminary Blood - Venous No growth after 48 hours. 09/14/23 Unknown Urine Culture - Final Urine clean catch - Urine strauss top No growth. Assessment and Plan (1) Acute hypernatremia: Status: Acute (2) Hypoxia: Status: Acute (3) Acute hypotension: Status: Acute Plan Pt is a 78-year-old male with a PMH significant for?HTN, HLD, chronic bilateral leg lymphedema with drainage, RLE DVT in 2022, and morbid obesity who presents to the ED from [facility] for evaluation of altered mental status?and generalized weakness. Pt will be admitted to the hospital for treatment and further evaluation of bradycardia, hypothermia, and hypotension. Hypothermia likely a result of infection, work up on admission was negative, developed 2nd incident of hypothermia yesterday cultures pending , negative at 48 hours TSH and T4 acceptable, Cortisol normal Negative Flu\RSV\Covid, pending check Resp Panel Negative UA CXR concerning for possible Pneumonia LLL Continuel Abx of Doxy and Ceftriaxone monitor response Bradycardia Improved, Asymptomatic Likely 2/2 hypothermia, no pauses Patient not on beta-blockers monitor on telemetry Hypotension not due to sepsis, Resolved by IVF and holding BP meds normal Cortisol level follow vitals Acute Hypernatremia sodium elevated at 146 Continue D5W follow BMP Acute encephalopathy, resolved Likely in the setting of hypothermia, hypotension, and bradycardia CT of head negative for acute intracranial pathology Follow cultures Hx of DVT Continue Eliquis HLD Continue statin, aspirin GERD Continue PPI Full Code; pt was previously DNR/DNI but signed a new MOLST form in 12/2022 DVT Prophylaxis: On Eliquis Pt will require a hospitalization overnight for monitoring and evaluation of bradycardia and hypothermia. Given patient's severe comorbidities, patient requires hospital care for close monitoring of labs and vitals to ensure patient is stable enough to return to his custodial facility. Quality Stroke Does the patient have a stroke diagnosis?: No VTE Prior VTE?: Yes Approximate Date of Prior VTE: 01/04/23 VTE Risk Level:: Medical - moderate - high VTE Device Contraindication: Treatment Not Indicated VTE Drug Contraindication: N/A - Med Ordered
[2023-09-16] MEDS: 0.9 % Sodium Chloride Flush 3 ML SYRINGE IVFLUSH ×2 (09:03→23:27)
[2023-09-16 09:14] LABS: Hematocrit 31.7 % (42.0-52.0); Hemoglobin 10.3 g/dl (14.0-18.0); Mean Corpuscular HGB Conc 32.5 g/dl (31.0-36.0); Mean Corpuscular Hemoglobin 30.2 pg (27.0-33.0); Mean Platelet Volume 10.6 fL (9.4-12.4); Platelet Count 240 X10*3/uL (160-400); Red Blood Count 3.41 X10*6/uL (4.60-5.80); Red Cell Distribution Width 18.6 % (11.0-16.0)
[2023-09-16 09:25] LABS: Anion Gap 13 (12-20); Blood Urea Nitrogen 14 mg/dL (9-16); Calcium 8.7 mg/dL (8.4-10.2); Carbon Dioxide 27 mmol/L (22-29); Chloride 110 mmol/L (96-108); Creatinine Clr Calc Pharmacy 101.3; Estimated Glomerular Filt Rate > 60; Glucose Random 95 mg/dL (60-115); Potassium 3.7 mmol/L (3.3-5.1); Sodium 146 mmol/L (135-145)
[2023-09-16] MEDS: cefTRIAXone sodium 1 GM in 0.9 % Sodium Chloride 50 ML IV (11:22)
[2023-09-16] MEDS: Doxycycline Hyclate 100 MG in 0.9 % Sodium Chloride 250 ML 166.67 MG IV (11:26)
[2023-09-16 12:10] LABS: Adenovirus PCR Not Detected (Not Detect.); Bordetella parapertussis PCR Not Detected (Not Detect.); Bordetella pertussis PCR Not Detected (Not Detect.); Chlamydia pneumoniae PCR Not Detected (Not Detect.); Coronavirus 229E PCR Not Detected (Not Detect.); Coronavirus HKU1 PCR Not Detected (Not Detect.); Coronavirus NL63 PCR Not Detected (Not Detect.); Coronavirus OC43 PCR Not Detected (Not Detect.); Human metapneumovirus PCR Not Detected (Not Detect.); Influenza A PCR Not Detected (Not Detect.); Influenza B PCR Not Detected (Not Detect.); Mycoplasma pneumoniae PCR Not Detected (Not Detect.); Parainfluenza 1 PCR Not Detected (Not Detect.); Parainfluenza 2 PCR Not Detected (Not Detect.); Parainfluenza 3 PCR Not Detected (Not Detect.); Parainfluenza 4 PCR Not Detected (Not Detect.); RSV PCR Not Detected (Not Detect.); Rhino/Enterovirus PCR Not Detected (Not Detect.)
[2023-09-16 12:26] LABS: SARS-CoV-2 PCR Not Detected (Not Detect.)
--- NOTE | 2023-09-16 13:14 | PM.CNCAR ---
History of Present Illness History of Present Illness Date of Service: 09/16/23 Requesting physician: Nelda Macedo Chief complaint: Bradycardia,hypothermia Narrative: 78-year-old gentleman who has been asked to see for bradycardia leading to presenting with change in mental status. He has been noticed to be hypothermic. He was initially in sinus rhythm but currently in atrial fibrillation with slow ventricular response. The patient is quite somnolent and is unable to answer any questions currently. History is very limited. Reviewing telemetry has been atrial fibrillation. Also clearly has sleep apnea. It appears he is on Eliquis at home. Workup for hypothermia so far has been negative. He is on empiric antibiotics. 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 Do you presently have visiting nurse or other home services: No Alcohol intake: current Alcohol intake frequency: 0-2 drinks per day Alcohol type: beer Comment: 1:1 sitter Patient Tobacco Use Status: Never used Tobacco e-Cigarette/Vaping Use: Never Used Second Hand Smoke Exposure: No Advance Directives Date on File: 12/26/22 service: Yes Current occupational status: disabled Meds Allergies Allergy/AdvReac Type Severity Reaction Status Date / Time No Known Allergies Allergy Verified 01/04/23 04:36 Active Medications: Current Medications Acetaminophen (Acetaminophen 325 Mg Tablet) 650 mg PO Q6H PRN PRN Reason: Pain, Mild (Pain Scale 1-3) Apixaban (Apixaban 5 Mg Tablet) 5 mg PO BID [facility] Last Admin: 09/16/23 08:50 Dose: 5 mg Aspirin (Aspirin 81 Mg Tab.Chew) 81 mg PO DAILY [facility] Last Admin: 09/16/23 08:51 Dose: 81 mg Atorvastatin Calcium (Atorvastatin Calcium 10 Mg Tablet) 10 mg PO DAILY [facility] Last Admin: 09/16/23 08:51 Dose: 10 mg Benzonatate (Benzonatate 100 Mg Capsule) 100 mg PO TID PRN PRN Reason: Cough Docusate Sodium (Docusate Sodium 100 Mg Capsule) 100 mg PO DAILY PRN PRN Reason: Constipation Docusate Sodium (Docusate Sodium 100 Mg Capsule) 100 mg PO BID [facility] Last Admin: 09/16/23 08:51 Dose: 100 mg Folic Acid (Folic Acid 1 Mg Tablet) 1 mg PO DAILY [facility] Last Admin: 09/16/23 08:50 Dose: 1 mg Guaifenesin (Guaifenesin 100 Mg/5 Ml Liquid) 5 ml PO Q4H PRN PRN Reason: Cough Dextrose (D5w) 1,000 mls @ 100 mls/hr IVCONT .Q10H [facility] Last Admin: 09/16/23 08:49 Dose: 100 mls/hr Ceftriaxone Sodium 1 gm/ (Sodium Chloride) 50 mls @ 100 mls/hr IV Q24H [facility] Last Infusion: 09/16/23 11:51 Dose: Infused Doxycycline Hyclate 100 mg/ (Sodium Chloride) 250 mls @ 166.67 mls/hr IV Q12H [facility] Last Infusion: 09/16/23 13:00 Dose: Infused Lactic Acid (Ammonium Lactate 12 % Lotion 226 Gm Bottle) 1 appl TOPICAL BID [facility]; Protocol Last Admin: 09/16/23 08:50 Dose: 1 appl Lactulose (Lactulose 20 Gm/30 Ml Solution) 20 gm PO DAILY PRN PRN Reason: Constipation Lisinopril (Lisinopril 10 Mg Tablet) 10 mg PO DAILY [facility]; Protocol Last Admin: 09/16/23 08:50 Dose: 10 mg Melatonin (Melatonin 3 Mg Tablet) 6 mg PO BEDTIME PRN PRN Reason: Insomnia Olanzapine (Olanzapine 10 Mg Vial) 5 mg IM ONCE PRN PRN Reason: anxiety/restlessness Omeprazole (Omeprazole 20 Mg Capsule.Dr) 20 mg PO DAILY@0630 [facility] Last Admin: 09/16/23 06:08 Dose: 20 mg Ondansetron HCl (Ondansetron Hcl 4 Mg/2 Ml Vial) 4 mg IVPUSH Q8H PRN PRN Reason: Nausea and Vomiting Sodium Chloride (0.9 % Sodium Chloride Flush 3 Ml Syringe) 3 ml IVFLUSH QSHIFT [facility] Last Admin: 09/16/23 09:03 Dose: 3 ml Home Medications Medication Instructions Recorded Confirmed Last Taken Type acetaminophen 325 mg tablet 650 mg PO Q4H PRN Pain 01/04/23 09/13/23 Unknown History ammonium lactate 12 % topical cream 1 appl topical BID 01/04/23 09/13/23 Unknown History aspirin 81 mg chewable tablet 81 mg PO DAILY 01/04/23 09/13/23 Unknown History docusate sodium 100 mg capsule 100 mg PO BID 01/04/23 09/13/23 Unknown History guaifenesin 100 mg/5 mL oral liquid 200 mg PO Q4H PRN Cough 01/04/23 09/13/23 Unknown History lactulose 10 gram/15 mL oral 30 ml PO DAILY PRN Constipation 01/04/23 09/13/23 Unknown History solution aluminum-mag hydroxide-simethicone 30 ml PO Q6H PRN Heartburn 09/13/23 09/13/23 Unknown History 225 mg-200 mg-25 mg/5 mL oral susp amlodipine 5 mg tablet 5 mg PO DAILY 09/13/23 09/13/23 Unknown History apixaban 5 mg tablet (Eliquis) 5 mg PO BID 09/13/23 09/13/23 Unknown History atorvastatin 10 mg tablet 10 mg PO DAILY 09/13/23 09/13/23 Unknown History folic acid 1 mg tablet 1 mg PO DAILY 09/13/23 09/13/23 Unknown History lisinopril 10 mg tablet 10 mg PO DAILY 09/13/23 09/13/23 Unknown History omeprazole 20 mg tablet,delayed 20 mg PO DAILY 09/13/23 09/13/23 Unknown History release white petrolatum-mineral oil 1 appl topical BEDTIME 09/13/23 09/13/23 Unknown History topical cream Physical Exam Vital Signs: Vital Signs: Last Vital Signs Temp 96.9 F 09/16/23 10:00 Pulse 65 09/16/23 10:00 Resp 18 09/16/23 10:00 BP 126/58 L 09/16/23 10:00 Pulse Ox 97 09/16/23 10:00 O2 Del Method Room Air 09/16/23 10:00 O2 Flow Rate 2 09/16/23 07:23 BMI result Body Mass Index 51.4 GENERAL APPEARANCE: Morbidly obese, somnolent. SKIN: no suspicious lesions, warm and dry. HEART: no murmurs, irregular rate and rhythm. LUNGS: clear to auscultation anteriorly. ABDOMEN: soft, nontender. EXTREMITIES: no edema. PERIPHERAL PULSES: equal. NEUROLOGIC: Somnolent. Objective Labs and Meds 09/16/23 08:40 09/16/23 08:40 Lab results: Laboratory Results - last 24 hr 09/15/23 09/15/23 09/16/23 06:21 15:30 08:40 WBC 6.0 RBC 3.41 L Hgb 10.3 L Hct 31.7 L MCV 93.0 MCH 30.2 MCHC 32.5 RDW 18.6 H Plt Count 240 MPV 10.6 Absolute Nucleated RBC 0.000 Nucleated RBC % (auto) 0.0 Sodium 146 H Potassium 3.7 Chloride 110 H Carbon Dioxide 27 Anion Gap 13 BUN 14 Creatinine 0.87 Estim Creat Clear Calc 101.3 Estimated GFR > 60 Random Glucose 95 Calcium 8.7 Thyroxine (T4) 7.6 Urine Color [place] A Urine Appearance Turbid Urine pH 5.0 Ur Specific [place] 1.025 Urine Protein 100 (2+) H Urine Glucose (UA) Negative Urine Ketones Negative Urine Blood Large (3+) H Urine Nitrite Negative Ur Leukocyte Esterase Small (1+) H Urine RBC >20 H Urine WBC 6-10 H Ur Squamous Epith Cells 0-2 Urine Bacteria None Seen Hyaline Casts 0-2 Respiratory Panel [place] See Note Adenovirus (Rapid PCR) Not Detected B.pert (TEM-PCR) Not Detected B.parapertussis DNA PCR Not Detected C. pneumoniae DNA (PCR) Not Detected Coronavirus OC43 (PCR) Not Detected Coronavirus HKU1 (PCR) Not Detected Coronavirus 229E (PCR) Not Detected Coronavirus NL63 (PCR) Not Detected Human Metapneumovir PCR Not Detected Influenza A (RT-PCR) Not Detected Influenza B (RT-PCR) Not Detected M. pneumoniae (PCR) Not Detected Parainfluenza 1 (PCR) Not Detected Parainfluenza 2 (PCR) Not Detected Parainfluenza 3 (PCR) Not Detected Parainfluenza 4 (PCR) Not Detected RSV (PCR) Not Detected Entero/Rhino (PCR) Not Detected SARS-CoV-2 RNA (RT-PCR) Not Detected Assessment and Plan (1) Hypothermia: Status: Acute (2) Bradycardia: Status: Acute (3) Atrial fibrillation: Status: Acute Plan 78-year-old gentleman presenting his somnolence and confusion. He has been noticed to be hypothermic and bradycardic. Hypothermia will lead to bradycardia. Workup for underlying cause for hypothermia has not revealed any cause so far. On empiric antibiotics. On apixaban for atrial fibrillation. Currently he is in AFib and is rate controlled. He is somnolent and sleepy and has sleep apnea. With sleep apnea, he probably will have a higher vagal tone is see which can lead bradycardic episodes. Currently no indication for pacemaker placement or any aggressive measures. Thank you for allowing me to participate in the care of your patient. Please feel free to contact me if you have any questions. Procedures Date of Service Date of Service: 09/16/23
--- NOTE | 2023-09-16 15:03 | PC.NURSE ---
1315- Pt has episode of bradycardia. A fib with rate in the 30s for less than 30 seconds with self resolution. pt was sleeping, a symptomatic. vss by time of assessment. temp 97.4 Provider made aware.
[2023-09-16] MEDS: Doxycycline Hyclate 100 MG in 0.9 % Sodium Chloride 250 ML 166.7 MG IV (23:19)
[2023-09-17] VITALS (7 sets, daily range): BP systolic 99–132; BP diastolic 55–76; PULSE 57–78; RESP 16–94; TEMP 34.3–36.2; O2SAT 92–97
[2023-09-17] MEDS: Omeprazole 20 MG CAPSULE.DR PO (05:58)
[2023-09-17] MEDS: Dextrose 5 % 1,000 ML 100 ML IVCONT ×2 (05:59→15:56)
[2023-09-17 06:47] LABS: Anion Gap 14 (12-20); Blood Urea Nitrogen 13 mg/dL (9-16); Calcium 9.2 mg/dL (8.4-10.2); Carbon Dioxide 25 mmol/L (22-29); Chloride 108 mmol/L (96-108); Creatinine Clr Calc Pharmacy 110.2; Estimated Glomerular Filt Rate > 60; Glucose Random 78 mg/dL (60-115); Potassium 3.7 mmol/L (3.3-5.1); Sodium 143 mmol/L (135-145)
[2023-09-17] MEDS: Docusate Sodium 100 MG CAPSULE PO ×2 (09:19→21:11)
[2023-09-17] MEDS: Aspirin 81 MG TAB.CHEW PO (09:19)
[2023-09-17] MEDS: Folic Acid 1 MG TABLET PO (09:20)
[2023-09-17] MEDS: lisinopriL 10 MG TABLET PO (09:20)
[2023-09-17] MEDS: Atorvastatin Calcium 10 MG TABLET PO (09:20)
[2023-09-17] MEDS: Apixaban 5 MG TABLET PO ×2 (09:20→21:11)
[2023-09-17] MEDS: Ammonium Lactate 12 % Lotion 226 GM BOTTLE 1 APPL TOPICAL ×2 (09:25→21:12)
--- NOTE | 2023-09-17 11:06 | P.DS_ITS ---
DS: Providers Provider Date of admission: 09/13/23 20:41 Primary care physician: Arturo Hall MD Consults: 09/16/23 07:16 Consult to Cardiology Routine Consulting Provider: [facility] [place] Cardiovascular Services Reason for consultation: New onset Afib, Episodes of bradycardia DS: Diagnosis Discharge Diagnosis (1) Hypothermia: Status: Acute (2) Bradycardia: Status: Acute (3) Atrial fibrillation: Status: Acute (4) Acute hypernatremia: Status: Acute (5) Acute hypotension: Status: Acute (6) Pneumonia: Status: Acute DS: Summary Hospital Course Hospital Course: Admission note HPI Pt is a 78-year-old male with a PMH significant for?HTN, HLD, chronic bilateral leg lymphedema with drainage, RLE DVT in 2022, and morbid obesity who presents to the ED from [facility] for evaluation of altered mental status?and generalized weakness. Pt is mostly wheelchair-bound but capable of transferring himself at baseline. This morning patient had generalized weakness and was unable to transfer from his wheelchair. SNF staff also note patient had change in mental status, active was lethargic than normal. EMS upon arrival found patient with HR in 40s and was given 1 mg of atropine with improvement to HR. When patient arrived to the ED was found to be hypothermic as low as 92.1, placed in a Dread Hugger. Patient himself is found to be seemingly back to baseline with mentation, answering all questions appropriately, and AOx4. Patient himself with difficulty speaking at baseline, but is able to be understood. States he feels ?okay? and denies any pain. Patient denies lightheadedness or dizziness. No increase in fatigue. Denies chest pain/pressure, palpitations. No shortness of breath. Denies fever, chills, nausea, vomiting, abdominal pain. In the ED pt was hypothermic as low as 92.1, bradycardic as low as 47, and soft BP as low as 83/34, satting at 93% on RA. Labs were significant for H&H 10.5/33.2, sodium 148, chloride 111, alk-phos 125, BNP elevated at 279. No leukocytosis. Tested negative for influenza type a and B, RSV, COVID. CXR without any noted acute cardiopulmonary findings. CT?of head with degraded image quality, however with grossly no evidence of acute territorial infarct or hemorrhage Neurology, but with scattered chronic small-vessel ischemic changes and possible underlying normal pressure hydrocephalus. EKG demonstrated sinus bradycardia with occasional PVCs. Pt was treated with IVF and Zosyn. Pt will be admitted to the hospital for treatment and further evaluation of bradycardia, hypothermia, and hypotension. Hospital course The patient presented with Altered mentation in the setting of Hypothermia associated with bradycardia. likely a result of infection, work up on admission was negative, developed 2nd incident of hypothermia with repeated CXR and UA showing evidence of pneumonia in LLL. blood cultures negative at 48 hours. TSH and T4 acceptable, Cortisol normal. Negative Flu\RSV\Covid, negative Resp Panel. Negative UA. CXR concerning for possible Pneumonia LLL . Treated with IV Abx of Doxy and Ceftriaxone. to be discharged on Doxycycline and Ceftine for [address] of head negative for acute intracranial pathology as his mental status improved back to baseline. Bradycardia was evaluated by EKG showing slow Afib which is a new dagnosis. evaluation by Planer Tailer who felt it is related to hypothermia and increased vagal stimulation. he is on blood thinners. to follow outpatient with dr Atkins as needed. He was monitored on telemetry with no evidence of pauses or other arrythmias. Hypotension believed to be a result of HTN medications and decrease PO intake along with bradycardia. improved with IVF and holding BP meds. Acute Hypernatremia was treated with D5W with good response as Sodium normalized prior to discharge and his oral intake improved. Noted to have LUE swelling. Duplex US was done showing partial superficial vein thrombosis. he is on Eliquis. To keep LUE elevated and apply warm compressors. To repeat US in 1 week to assess progression. Continue antibiotics for 1 more week Will need to repeat US duplex of Left upper extremity in 1 week to rule out any transformation to DVT Keep left arm elevated, apply warm compressors Physical Exam Vital Signs: Vital Signs: Last Vital Signs Temp 96.8 F 09/17/23 08:00 Pulse 57 09/17/23 08:00 Resp 18 09/17/23 08:00 BP 126/57 L 09/17/23 08:00 Pulse Ox 95 09/17/23 08:00 O2 Del Method Room Air 09/17/23 08:00 O2 Flow Rate 2 09/17/23 04:00 BMI result Body Mass Index 51.4 Const: Other: Constitutional : Awake, interactive, morbidly obese, not in distress Neck : Normal inspection, Supple, Cardiovascular : RRR, no JVP, no lower extremity edema Respiratory : good bilateral air entry, no crackles, wheezes or rhonchi Gastrointestinal: soft, lax, Normal bowel sounds, Non tender Skin : Warm, Dry skin in lower extremities with scaling , LUE swollen with erythema and mild warmth. no tenderness Neurological : Alert & oriented to self and place otherwise easily distracted DS: Data Data Completed and Pending Labs on day of discharge: Laboratory Results - last 24 hr 09/15/23 09/17/23 15:30 05:36 Hold Purple Top SEE NOTE Sodium 143 Potassium 3.7 Chloride 108 Carbon Dioxide 25 Anion Gap 14 BUN 13 Creatinine 0.80 Estim Creat Clear Calc 110.2 Estimated GFR > 60 Random Glucose 78 Calcium 9.2 Respiratory Panel [place] See Note Adenovirus (Rapid PCR) Not Detected B.pert (TEM-PCR) Not Detected B.parapertussis DNA PCR Not Detected C. pneumoniae DNA (PCR) Not Detected Coronavirus OC43 (PCR) Not Detected Coronavirus HKU1 (PCR) Not Detected Coronavirus 229E (PCR) Not Detected Coronavirus NL63 (PCR) Not Detected Human Metapneumovir PCR Not Detected Influenza A (RT-PCR) Not Detected Influenza B (RT-PCR) Not Detected M. pneumoniae (PCR) Not Detected Parainfluenza 1 (PCR) Not Detected Parainfluenza 2 (PCR) Not Detected Parainfluenza 3 (PCR) Not Detected Parainfluenza 4 (PCR) Not Detected RSV (PCR) Not Detected Entero/Rhino (PCR) Not Detected SARS-CoV-2 RNA (RT-PCR) Not Detected Preliminary micro results at discharge 09/13/23 15:28 Blood Culture - Preliminary Blood - Venous No growth after 48 hours. 09/13/23 15:28 Blood Culture - Preliminary Blood - Venous No growth after 48 hours. Imaging Chest x-ray: Radiologist's impression: ITS Impressions Chest X-Ray 09/13/23 14:55 IMPRESSION: Limited exam but within normal limits given technical limitations. Head CT 09/13/23 15:54 IMPRESSION: Image quality is degraded by patient factors. The diagnostic accuracy of this examination is therefore somewhat limited. There are anatomic characterization indicate the possibility of underlying normal pressure hydrocephalus. Scattered chronic small vessel ischemic changes visualized within the periventricular white matter. Grossly no evidence of acute territorial infarct or hemorrhage. Chest CTA 09/13/23 21:23 IMPRESSION: 1. No evidence of PE. 2. No evidence of aortic dissection or aneurysm. 3. Small bilateral pleural effusions with compressive atelectasis in both lung bases. 4. Cholelithiasis. VTE: negative. Chest X-Ray 09/15/23 12:00 IMPRESSION: Loss of the left hemidiaphragm questionable for increasing left lower lobe atelectasis/consolidation. Venous Duplex 09/17/23 10:31 IMPRESSION: 1. Nonocclusive superficial venous thrombosis in the distal aspect of the left cephalic vein. 2. No evidence of left upper extremity deep venous thrombosis with the caveat that the subclavian, basilic and ulnar veins were not well seen due to overlying subcutaneous swelling. If the patient's symptoms progress, a followup ultrasound in 5-7 days might be of value to exclude proximal propagation from a nonvisualized vein. Discharge Plan Discharge Anticipated Discharge Date/Time: 09/17/23 11:00 Patient Disposition: [facility] Discharge Diagnosis: Pneumonia Superficial vein thrombosis Left arm Atrial fibrillation Referrals: Physician,Unknown J [Physician] - 1 Week Discharge Medications: New doxycycline monohydrate 100 mg capsule 100 mg PO BID Qty: 14 0RF cefuroxime axetil 500 mg tablet 500 mg PO BID Qty: 14 0RF Continued acetaminophen 325 mg Tablet 650 mg PO Q4H PRN (Reason: Pain) guaifenesin 100 mg/5 mL Liquid 200 mg PO Q4H PRN (Reason: Cough) docusate sodium 100 mg Capsule 100 mg PO BID aspirin 81 mg Tablet,Chewable 81 mg PO DAILY ammonium lactate 12 % Cream 1 appl TOPICAL BID lactulose 10 gram/15 mL Solution 30 ml PO DAILY PRN (Reason: Constipation) alum-mag hydroxide-simeth 225-200-25 mg/5 mL Suspension 30 ml PO Q6H PRN (Reason: Heartburn) atorvastatin 10 mg Tablet 10 mg PO DAILY lisinopril 10 mg Tablet 10 mg PO DAILY folic acid 1 mg Tablet 1 mg PO DAILY white petrolatum-mineral oil Cream 1 appl TOPICAL BEDTIME omeprazole 20 mg Tablet,Delayed Release (Dr/Ec) 20 mg PO DAILY Eliquis 5 mg tablet 5 mg PO BID Held amlodipine 5 mg Tablet 5 mg PO DAILY Hold Instructions: Monitor blood pressure for 1 week and then decide if needed to restart or not Discharge Orders: Discharge Order (Routine); Ordered 09/17/23 Ordered By: Nelda Macedo Diet: Advance to usual diet Activity on Discharge: As tolerated Stand Alone Forms: Patient Portal Discharge page Care Plan Goals: Read below Health Concerns: Read below Plan of Treatment: Read below Assessment: You presented with low blood pressure, tempreture and slow heart. found to have an evidence of pneumonia and superficial vein thrombosis. Evaluated by machine operator general for new onset atrial fibrillation. Continue antibiotics for 1 more week Will need to repeat US duplex of Left upper extremity in 1 week to rule out any transformation to DVT Keep left arm elevated, apply warm compressors
[2023-09-17] MEDS: cefTRIAXone sodium 1 GM in 0.9 % Sodium Chloride 50 ML IV (11:46)
[2023-09-17] MEDS: Doxycycline Hyclate 100 MG in 0.9 % Sodium Chloride 250 ML 166.67 MG IV ×2 (12:44→23:22)
--- NOTE | 2023-09-17 15:10 | HO.PM.IMPN ---
Subjective Subjective Date of Service: 09/17/23 Interval History: Seen and evaluated this morning alert and interactive calm and cooperative denies any chest pain or palpitations No other events Review of Systems Review of Systems: Yes all other systems are reviewed and are negative Physical Exam Vital Signs: Vital Signs: Last Vital Signs Temp 96.8 F 09/17/23 11:56 Pulse 58 09/17/23 11:56 Resp 18 09/17/23 11:56 BP 120/67 09/17/23 11:56 Pulse Ox 92 09/17/23 11:56 O2 Del Method Room Air 09/17/23 11:56 O2 Flow Rate 2 09/17/23 04:00 BMI result Body Mass Index 51.4 Const: Other: Constitutional : Awake, interactive, morbidly obese, not in distress Neck : Normal inspection, Supple, Cardiovascular : RRR, no JVP, no lower extremity edema Respiratory : good bilateral air entry, no crackles, wheezes or rhonchi Gastrointestinal: soft, lax, Normal bowel sounds, Non tender Skin : Warm, Dry skin in lower extremities with scaling , LUE swollen with erythema and mild warmth. no tenderness Neurological : Alert & oriented to self and place otherwise easily distracted Objective Data Active Medications Acetaminophen (Acetaminophen 325 Mg Tablet) 650 mg PO Q6H PRN PRN Reason: Pain, Mild (Pain Scale 1-3) Apixaban (Apixaban 5 Mg Tablet) 5 mg PO BID [facility] Last Admin: 09/17/23 09:20 Dose: 5 mg Documented By: RAGHAV Aspirin (Aspirin 81 Mg Tab.Chew) 81 mg PO DAILY [facility] Last Admin: 09/17/23 09:19 Dose: 81 mg Documented By: RAGHAV Atorvastatin Calcium (Atorvastatin Calcium 10 Mg Tablet) 10 mg PO DAILY [facility] Last Admin: 09/17/23 09:20 Dose: 10 mg Documented By: RAGHAV Benzonatate (Benzonatate 100 Mg Capsule) 100 mg PO TID PRN PRN Reason: Cough Docusate Sodium (Docusate Sodium 100 Mg Capsule) 100 mg PO DAILY PRN PRN Reason: Constipation Docusate Sodium (Docusate Sodium 100 Mg Capsule) 100 mg PO BID [facility] Last Admin: 09/17/23 09:19 Dose: 100 mg Documented By: RAGHAV Folic Acid (Folic Acid 1 Mg Tablet) 1 mg PO DAILY [facility] Last Admin: 09/17/23 09:20 Dose: 1 mg Documented By: RAGHAV Guaifenesin (Guaifenesin 100 Mg/5 Ml Liquid) 5 ml PO Q4H PRN PRN Reason: Cough Dextrose (D5w) 1,000 mls @ 100 mls/hr IVCONT .Q10H [facility] Last Admin: 09/17/23 05:59 Dose: 100 mls/hr Documented By: CHRISTI Ceftriaxone Sodium 1 gm/ (Sodium Chloride) 50 mls @ 100 mls/hr IV Q24H [facility] Last Infusion: 09/17/23 12:16 Dose: Infused Documented By: RAGHAV Doxycycline Hyclate 100 mg/ (Sodium Chloride) 250 mls @ 166.67 mls/hr IV Q12H [facility] Last Infusion: 09/17/23 14:16 Dose: Infused Documented By: RAGHAV Lactic Acid (Ammonium Lactate 12 % Lotion 226 Gm Bottle) 1 appl TOPICAL BID [facility]; Protocol Last Admin: 09/17/23 09:25 Dose: 1 appl Documented By: RAGHAV Lactulose (Lactulose 20 Gm/30 Ml Solution) 20 gm PO DAILY PRN PRN Reason: Constipation Lisinopril (Lisinopril 10 Mg Tablet) 10 mg PO DAILY [facility]; Protocol Last Admin: 09/17/23 09:20 Dose: 10 mg Documented By: RAGHAV Melatonin (Melatonin 3 Mg Tablet) 6 mg PO BEDTIME PRN PRN Reason: Insomnia Olanzapine (Olanzapine 10 Mg Vial) 5 mg IM ONCE PRN PRN Reason: anxiety/restlessness Omeprazole (Omeprazole 20 Mg Capsule.Dr) 20 mg PO DAILY@0630 [facility] Last Admin: 09/17/23 05:58 Dose: 20 mg Documented By: CHRISTI Ondansetron HCl (Ondansetron Hcl 4 Mg/2 Ml Vial) 4 mg IVPUSH Q8H PRN PRN Reason: Nausea and Vomiting Sodium Chloride (0.9 % Sodium Chloride Flush 3 Ml Syringe) 3 ml IVFLUSH QSHIFT [facility] Last Admin: 09/17/23 07:40 Dose: Not Given Documented By: RAGHAV Non-Admin Reason: IV Running Labs 09/16/23 08:40 09/17/23 05:36 Labs: Laboratory Results - last 24 hr 09/17/23 05:36 Hold Purple Top SEE NOTE Anion Gap 14 Estim Creat Clear Calc 110.2 Estimated GFR > 60 Random Glucose 78 Calcium 9.2 Assessment and Plan (1) Pneumonia: Status: Acute (2) Atrial fibrillation: Status: Acute (3) Bradycardia: Status: Acute (4) Acute hypernatremia: Status: Acute Plan Pt is a 78-year-old male with a PMH significant for?HTN, HLD, chronic bilateral leg lymphedema with drainage, RLE DVT in 2022, and morbid obesity who presents to the ED from [facility] for evaluation of altered mental status?and generalized weakness. Pt will be admitted to the hospital for treatment and further evaluation of bradycardia, hypothermia, and hypotension. Hypothermia 2/2 Pneumonia CXR concerning for possible Pneumonia LLL cultures negative at 48 hours TSH and T4 acceptable, Cortisol normal Negative Flu\RSV\Covid, pending check Resp Panel Negative UA Continuel Abx of Doxy and Ceftriaxone monitor response LUE superficial DVT US duplex showed partial cephalic v thrombosis on Eliquis repeat study in 1 week Bradycardia Improved, Asymptomatic Likely 2/2 hypothermia, no pauses Patient not on beta-blockers monitor on telemetry Hypotension resolved normal Cortisol level follow vitals Acute Hypernatremia resolved follow BMP Acute encephalopathy, resolved Likely in the setting of hypothermia, hypotension, and bradycardia CT of head negative for acute intracranial pathology Follow cultures Hx of DVT Continue Eliquis HLD Continue statin, aspirin GERD Continue PPI Full Code; pt was previously DNR/DNI but signed a new MOLST form in 12/2022 DVT Prophylaxis: On Eliquis Pt will require a hospitalization overnight for monitoring and evaluation of bradycardia and hypothermia. Given patient's severe comorbidities, patient requires hospital care for close monitoring of labs and vitals to ensure patient is stable enough to return to his [facility] facility. Quality Stroke Does the patient have a stroke diagnosis?: No VTE Prior VTE?: Yes Approximate Date of Prior VTE: 01/04/23 VTE Risk Level:: Medical - moderate - high VTE Device Contraindication: Treatment Not Indicated VTE Drug Contraindication: N/A - Med Ordered
--- NOTE | 2023-09-17 15:23 | MHC.CM.PN ---
PT MEDICALLY CLEARED TO DC BACK TO [facility] TODAY HOWEVER SNF HAS REQUESTED PT BE HELD UNTIL TOMORROW DUE TO RESTRAINTS ENDING ON 09/16/23 AND PTS CURRENT TEMP PT WILL DC BACK TO [facility] TOMORROW MORNING VIA AMBULANCE
[2023-09-17] MEDS: 0.9 % Sodium Chloride Flush 3 ML SYRINGE IVFLUSH (20:54)
[2023-09-17 23:15] LABS: MANUAL DIFF FLAG NO
[2023-09-17 23:16] LABS: Basophils Percent Auto 0.3 % (0-2); Eosinophils Absolute Auto 0.6 X10*3/uL (0.0-0.4); Eosinophils Percent Auto 16.8 % (0-4); Hematocrit 30.2 % (42.0-52.0); Hemoglobin 9.7 g/dl (14.0-18.0); Imm Gran Abs Auto 0.01 X10*3/uL (0.00-0.03); Imm Gran Pct Auto 0.3 % (0.0-0.4); Lymphocytes Absolute Auto 0.6 X10*3/uL (1.2-4.9); Lymphocytes Percent Auto 15.1 % (20-40); Mean Corpuscular HGB Conc 32.1 g/dl (31.0-36.0); Mean Corpuscular Hemoglobin 29.9 pg (27.0-33.0); Mean Corpuscular Volume 93.2 fL (80.0-98.0); Mean Platelet Volume 10.2 fL (9.4-12.4); Monocytes Absolute Auto 0.4 X10*3/uL (0.1-1.2); Monocytes Percent Auto 11.6 % (2-11); Neutrophils Absolute Auto 2.1 x10*3/uL (2.0-8.3); Neutrophils Percent Auto 55.9 % (45-73); Platelet Count 240 X10*3/uL (160-400); Red Blood Count 3.24 X10*6/uL (4.60-5.80); Red Cell Distribution Width 18.5 % (11.0-16.0); White Blood Count 3.7 X10*3/uL (4.8-10.8)
[2023-09-17 23:40] LABS: B Type Natriuretic Peptide 455 pg/mL (<100); Troponin-I High Sensitivity 3.6 ng/L (<3.5-35.0)
[2023-09-17 23:41] LABS: Alanine Aminotransferase 12 U/L (0-40); Albumin Level 2.4 g/dL (3.5-5.0); Alkaline Phosphatase 94 U/L (39-117); Anion Gap 8 (12-20); Aspartate Amino Transferase 18 U/L (5-37); Bilirubin Total 0.3 mg/dL (0.0-1.0); Blood Urea Nitrogen 14 mg/dL (9-16); Calcium 8.2 mg/dL (8.4-10.2); Carbon Dioxide 27 mmol/L (22-29); Chloride 110 mmol/L (96-108); Creatinine Clr Calc Pharmacy 111.6; Estimated Glomerular Filt Rate > 60; Glucose Random 108 mg/dL (60-115); Lipase 22 U/L (8-78); Magnesium 1.7 mg/dL (1.6-2.6); Phosphorus 2.8 mg/dL (2.7-4.5); Potassium 3.8 mmol/L (3.3-5.1); Sodium 141 mmol/L (135-145); Total Protein 4.8 g/dL (6.5-8.0)
[2023-09-17 23:54] LABS: Cortisol Random 4.6 ug/dL; TSH reflex Free T4 5.46 uIU/mL (0.32-4.0)
[2023-09-18] VITALS (9 sets, daily range): BP systolic 105–137; BP diastolic 55–64; PULSE 28–81; RESP 18–23; TEMP 33.9–37.1; O2SAT 93–97
[2023-09-18 01:23] LABS: Lactic Acid 0.7 mmol/L (0.5-2.0)
[2023-09-18] MEDS: Omeprazole 20 MG CAPSULE.DR PO (05:33)
--- NOTE | 2023-09-18 06:38 | PC.NURSE ---
Assumed care of patient at 19:00 (09/17). Remains in afib. HR primarily 50-60's which frequent short dips into 30's and 40's in the evening. RN to bedside. Pt denied dizziness and chest pain. Mentation maintained. Pt skin was noted to be cool to the touch. Temp obtained 93.8 t-min. Bairhugger applied and covering Dr. Faheem Vazquez notified. Stat labs ordered, results discussed with MD; D5W D/C'd as Na now back WNL; bnp elevated. Pt HR improved with Temp improvemnt, now normothermic and HR 60-70's. Continues on 2L nc to maintain spo2. MD order is in place. Breathing is even and unlabored without distress. Denies sob. F/c remains patent, pericare provided. See shift assessments for full details. In room camera in place, high falls measures in place. Handoff report given 06:45.
[2023-09-18 08:15] LABS: C Reactive Protein 2.29 mg/dL (< or = 0.50)
[2023-09-18 08:24] LABS: Lactate Dehydrogenase 190 U/L (118-273)
[2023-09-18] MEDS: 0.9 % Sodium Chloride Flush 3 ML SYRINGE IVFLUSH ×3 (08:40→22:33)
[2023-09-18] MEDS: Ammonium Lactate 12 % Lotion 226 GM BOTTLE 1 APPL TOPICAL (08:41)
[2023-09-18] MEDS: lisinopriL 10 MG TABLET PO (08:41)
[2023-09-18] MEDS: Aspirin 81 MG TAB.CHEW PO (08:41)
[2023-09-18] MEDS: Apixaban 5 MG TABLET PO ×2 (08:41→22:32)
[2023-09-18] MEDS: Docusate Sodium 100 MG CAPSULE PO ×2 (08:41→22:33)
[2023-09-18] MEDS: Folic Acid 1 MG TABLET PO (08:41)
[2023-09-18] MEDS: Atorvastatin Calcium 10 MG TABLET PO (08:41)
[2023-09-18 09:03] LABS: Erythrocyte Sedimentation Rate 37 MM/HR (0-15)
--- NOTE | 2023-09-18 11:02 | MHC.CM.PN ---
Per ROUNDS discussion, Patient had a brief episode of Hypothermia last night and is not yet medically cleared today to return to LTC at [facility]. CM will follow.
[2023-09-18] MEDS: cefTRIAXone sodium 1 GM in 0.9 % Sodium Chloride 50 ML IV (12:11)
[2023-09-18] MEDS: Doxycycline Hyclate 100 MG in 0.9 % Sodium Chloride 250 ML 166.67 MG IV (12:38)
--- NOTE | 2023-09-18 12:39 | HO.PM.IMPN ---
Subjective Subjective Date of Service: 09/18/23 Interval History: Seen and evaluated this morning alert and interactive Had hypothermia event overnight responded quickly to Dread pickering No other events Review of Systems Review of Systems: Yes all other systems are reviewed and are negative Physical Exam Vital Signs: Vital Signs: Last Vital Signs Temp 97.0 F 09/18/23 11:44 Pulse 76 09/18/23 11:44 Resp 19 09/18/23 11:44 BP 137/60 09/18/23 11:44 Pulse Ox 94 09/18/23 11:44 O2 Del Method Nasal Cannula 09/18/23 11:44 O2 Flow Rate 2 09/18/23 03:27 BMI result Body Mass Index 51.4 Const: Other: Constitutional : Awake, interactive, morbidly obese, not in distress Neck : Normal inspection, Supple, Cardiovascular : RRR, no JVP, no lower extremity edema Respiratory : good bilateral air entry, no crackles, wheezes or rhonchi Gastrointestinal: soft, lax, Normal bowel sounds, Non tender Skin : Warm, Dry skin in lower extremities with scaling , LUE swollen with erythema and mild warmth. no tenderness Neurological : Alert & oriented to self and place otherwise easily distracted Objective Data Active Medications Acetaminophen (Acetaminophen 325 Mg Tablet) 650 mg PO Q6H PRN PRN Reason: Pain, Mild (Pain Scale 1-3) Apixaban (Apixaban 5 Mg Tablet) 5 mg PO BID [facility] Last Admin: 09/18/23 08:41 Dose: 5 mg Documented By: DURAN Aspirin (Aspirin 81 Mg Tab.Chew) 81 mg PO DAILY [facility] Last Admin: 09/18/23 08:41 Dose: 81 mg Documented By: DURAN Atorvastatin Calcium (Atorvastatin Calcium 10 Mg Tablet) 10 mg PO DAILY [facility] Last Admin: 09/18/23 08:41 Dose: 10 mg Documented By: DURAN Benzonatate (Benzonatate 100 Mg Capsule) 100 mg PO TID PRN PRN Reason: Cough Docusate Sodium (Docusate Sodium 100 Mg Capsule) 100 mg PO DAILY PRN PRN Reason: Constipation Docusate Sodium (Docusate Sodium 100 Mg Capsule) 100 mg PO BID [facility] Last Admin: 09/18/23 08:41 Dose: 100 mg Documented By: DURAN Folic Acid (Folic Acid 1 Mg Tablet) 1 mg PO DAILY [facility] Last Admin: 09/18/23 08:41 Dose: 1 mg Documented By: DURAN Guaifenesin (Guaifenesin 100 Mg/5 Ml Liquid) 5 ml PO Q4H PRN PRN Reason: Cough Ceftriaxone Sodium 1 gm/ (Sodium Chloride) 50 mls @ 100 mls/hr IV Q24H [facility] Last Admin: 09/18/23 12:11 Dose: 100 mls/hr Documented By: DURAN Doxycycline Hyclate 100 mg/ (Sodium Chloride) 250 mls @ 166.67 mls/hr IV Q12H [facility] Last Admin: 09/18/23 12:38 Dose: 166.67 mls/hr Documented By: JAMISON Lactic Acid (Ammonium Lactate 12 % Lotion 226 Gm Bottle) 1 appl TOPICAL BID [facility]; Protocol Last Admin: 09/18/23 08:41 Dose: 1 appl Documented By: DURAN Lactulose (Lactulose 20 Gm/30 Ml Solution) 20 gm PO DAILY PRN PRN Reason: Constipation Lisinopril (Lisinopril 10 Mg Tablet) 10 mg PO DAILY [facility]; Protocol Last Admin: 09/18/23 08:41 Dose: 10 mg Documented By: DURAN Melatonin (Melatonin 3 Mg Tablet) 6 mg PO BEDTIME PRN PRN Reason: Insomnia Olanzapine (Olanzapine 10 Mg Vial) 5 mg IM ONCE PRN PRN Reason: anxiety/restlessness Omeprazole (Omeprazole 20 Mg Capsule.Dr) 20 mg PO DAILY@0630 [facility] Last Admin: 09/18/23 05:33 Dose: 20 mg Documented By: MANOLO Ondansetron HCl (Ondansetron Hcl 4 Mg/2 Ml Vial) 4 mg IVPUSH Q8H PRN PRN Reason: Nausea and Vomiting Sodium Chloride (0.9 % Sodium Chloride Flush 3 Ml Syringe) 3 ml IVFLUSH QSHIFT [facility] Last Admin: 09/18/23 08:40 Dose: 3 ml Documented By: DURAN Labs 09/17/23 23:01 09/17/23 23:01 Labs: Laboratory Results - last 24 hr 09/17/23 09/17/23 09/18/23 23:01 23:03 01:07 MCV 93.2 MCH 29.9 MCHC 32.1 RDW 18.5 H Plt Count 240 MPV 10.2 Immature Gran % (Auto) 0.3 Neut % (Auto) 55.9 Lymph % (Auto) 15.1 L [place] % (Auto) 11.6 H Eos % (Auto) 16.8 H Baso % (Auto) 0.3 Lymph # (Auto) 0.6 L [place] # (Auto) 0.4 Eos # (Auto) 0.6 H Baso # (Auto) 0.0 Abs Immat Gran (auto) 0.01 Absolute Neuts (auto) 2.1 Absolute Nucleated RBC 0.000 Nucleated RBC % (auto) 0.0 ESR 37 H Anion Gap 8 L Estim Creat Clear Calc 111.6 Estimated GFR > 60 Random Glucose 108 Lactic Acid 0.7 Calcium 8.2 L D Phosphorus 2.8 Magnesium 1.7 Total Bilirubin 0.3 AST 18 ALT 12 Alkaline Phosphatase 94 Lactate Dehydrogenase 190 Total Creatine Kinase 60 C-Reactive Protein 2.29 H B-Natriuretic Peptide 455 H Total Protein 4.8 L Albumin 2.4 L Lipase 22 Cancelled TSH 5.46 H Free T4 0.90 Random Cortisol 4.6 Assessment and Plan (1) Pneumonia: Status: Acute (2) Acute hypernatremia: Status: Acute (3) Acute hypotension: Status: Acute (4) Hypothermia: Status: Acute Plan Pt is a 78-year-old male with a PMH significant for?HTN, HLD, chronic bilateral leg lymphedema with drainage, RLE DVT in 2022, and morbid obesity who presents to the ED from [facility] for evaluation of altered mental status?and generalized weakness. Pt will be admitted to the hospital for treatment and further evaluation of bradycardia, hypothermia, and hypotension. Hypothermia 2/2 Pneumonia Not septic CXR concerning for possible Pneumonia LLL cultures negative at 48 hours TSH and T4 acceptable, Cortisol normal Negative Flu\RSV\Covid, pending check Resp Panel , Negative UA Elevated CRP, ESR Continue Abx of Doxy and Ceftriaxone Keep room warm night time, monitor response LUE superficial DVT US duplex showed partial cephalic v thrombosis on Eliquis repeat study in 1 week Bradycardia Improved, Asymptomatic Likely 2/2 hypothermia, no pauses Patient not on beta-blockers monitor on telemetry Hypotension resolved normal Cortisol level follow vitals Acute Hypernatremia resolved follow BMP Acute encephalopathy, resolved Likely in the setting of hypothermia, hypotension, and bradycardia CT of head negative for acute intracranial pathology Follow cultures Hx of DVT Continue Eliquis HLD Continue statin, aspirin GERD Continue PPI Full Code; pt was previously DNR/DNI but signed a new MOLST form in 12/2022 DVT Prophylaxis: On Eliquis Pt will require a hospitalization overnight for monitoring and evaluation of bradycardia and hypothermia. Given patient's severe comorbidities, patient requires hospital care for close monitoring of labs and vitals to ensure patient is stable enough to return to his [facility] facility. Quality Stroke Does the patient have a stroke diagnosis?: No VTE Prior VTE?: Yes Approximate Date of Prior VTE: 01/04/23 VTE Risk Level:: Medical - moderate - high VTE Device Contraindication: Treatment Not Indicated VTE Drug Contraindication: N/A - Med Ordered
--- NOTE | 2023-09-18 12:42 | HE.PHANOTE ---
CHANGED DOXYCYCLINE IV TO PO PER POLICY OK WITH DR SALOMON
--- NOTE | 2023-09-18 13:08 | P.CDIM_ITS ---
PROVIDER RESPONSE TEXT: To clarify, the appropriate diagnosis supported by the clinical indicators: Metabolic QUERY TEXT: PHYSICIAN'S DOCUMENTATION REQUEST Date of Query: 09/15/2023 01:49 PM EST Patient Name: Erick Deleon Admit Date: 09/14/2023 Dear Nelda Macedo, A review of the medical record indicates additional documentation may be needed. Please review below and update the documentation accordingly. Clinical Indicators: Per Hospitalist progress note 09/15/23: Acute encephalopathy, resolved Likely in the setting of hypothermia, hypotension, and bradycardia CT of head negative for acute intracranial pathology Follow cultures Based on the above, please further specify, in the Progress Notes, the known or suspected type of the documented encephalopathy: Metabolic Toxic Toxic metabolic Other (explain) Clinically unable to determine (explain) Thank you, Katerina Vines RN Use of terms such as suspected, likely, concern for, or probable (associated with a specific diagnosi s that is being evaluated, monitored, or treated as if it exists) are acceptable and can be coded in the inpatient se tting, when documented at the time of discharge. Please use your independent medical judgment in providing your response. THIS QUERY IS PART OF THE PERMANENT MEDICAL RECORD
[2023-09-18] MEDS: Furosemide 20 MG/2 ML VIAL IVPUSH (15:56)
[2023-09-18] MEDS: Doxycycline Monohydrate 100 MG CAPSULE PO (22:32)
[2023-09-19 03:22] VITALS: BP 108/53; PULSE 81; RESP 19; TEMP 36.7; O2SAT 96
[2023-09-19] MEDS: Omeprazole 20 MG CAPSULE.DR PO (05:51)
--- NOTE | 2023-09-19 06:38 | PC.NURSE ---
CARE ASSUMED 7PM..ALERT...CONVERSES..VAGUE RESPONSES AT TIMES..ATRIAL FIB WITH CONTROLLED HR...TEMPERATURE REMAINS STABLE...WARMING BLANKET D/C'D...JEFFRIES LORETTA URINE...DENIES DISCOMFORT
[2023-09-19 07:12] VITALS: BP 111/53; PULSE 73; RESP 20; TEMP 36.7; O2SAT 94
[2023-09-19] MEDS: Docusate Sodium 100 MG CAPSULE PO ×2 (09:01→21:19)
[2023-09-19] MEDS: 0.9 % Sodium Chloride Flush 3 ML SYRINGE IVFLUSH ×3 (09:02→21:19)
[2023-09-19] MEDS: Apixaban 5 MG TABLET PO ×2 (09:02→21:19)
[2023-09-19] MEDS: lisinopriL 10 MG TABLET PO (09:02)
[2023-09-19] MEDS: Aspirin 81 MG TAB.CHEW PO (09:02)
[2023-09-19] MEDS: Atorvastatin Calcium 10 MG TABLET PO (09:02)
[2023-09-19] MEDS: Folic Acid 1 MG TABLET PO (09:02)
[2023-09-19] MEDS: Ammonium Lactate 12 % Lotion 226 GM BOTTLE 1 APPL TOPICAL ×2 (09:03→21:19)
--- NOTE | 2023-09-19 10:33 | P.PNIM_ITS ---
Subjective Subjective Date of Service: 09/19/23 Interval History: no complaints, was hypothermic again yesterday afternoon Physical Exam 2 Vital Signs: Vital Signs: Last Vital Signs Temp 98.1 F 09/19/23 07:12 Pulse 73 09/19/23 07:12 Resp 20 09/19/23 07:12 BP 111/53 L 09/19/23 07:12 Pulse Ox 94 09/19/23 07:12 O2 Del Method Nasal Cannula 09/19/23 07:12 O2 Flow Rate 2 09/19/23 03:22 BMI result Body Mass Index 51.4 Const: Other: Constitutional : Awake, interactive, morbidly obese, not in distress Neck : Normal inspection, Supple, Cardiovascular : RRR, no JVP, no lower extremity edema Respiratory : good bilateral air entry, no crackles, wheezes or rhonchi Gastrointestinal: soft, lax, Normal bowel sounds, Non tender Skin : Warm, Dry skin in lower extremities with scaling , LUE swollen with erythema and mild warmth. no tenderness Neurological : Alert & oriented to self and place otherwise easily distracted Objective Data Active Medications Acetaminophen (Acetaminophen 325 Mg Tablet) 650 mg PO Q6H PRN PRN Reason: Pain, Mild (Pain Scale 1-3) Apixaban (Apixaban 5 Mg Tablet) 5 mg PO BID [facility] Last Admin: 09/19/23 09:02 Dose: 5 mg Documented By: ARTUR Aspirin (Aspirin 81 Mg Tab.Chew) 81 mg PO DAILY [facility] Last Admin: 09/19/23 09:02 Dose: 81 mg Documented By: ARTUR Atorvastatin Calcium (Atorvastatin Calcium 10 Mg Tablet) 10 mg PO DAILY [facility] Last Admin: 09/19/23 09:02 Dose: 10 mg Documented By: ARTUR Benzonatate (Benzonatate 100 Mg Capsule) 100 mg PO TID PRN PRN Reason: Cough Docusate Sodium (Docusate Sodium 100 Mg Capsule) 100 mg PO DAILY PRN PRN Reason: Constipation Docusate Sodium (Docusate Sodium 100 Mg Capsule) 100 mg PO BID [facility] Last Admin: 09/19/23 09:01 Dose: 100 mg Documented By: ARTUR Doxycycline Monohydrate (Doxycycline Monohydrate 100 Mg Capsule) 100 mg PO Q12H [facility] Last Admin: 09/18/23 22:32 Dose: 100 mg Documented By: DEONTE Folic Acid (Folic Acid 1 Mg Tablet) 1 mg PO DAILY [facility] Last Admin: 09/19/23 09:02 Dose: 1 mg Documented By: ARTUR Guaifenesin (Guaifenesin 100 Mg/5 Ml Liquid) 5 ml PO Q4H PRN PRN Reason: Cough Ceftriaxone Sodium 1 gm/ (Sodium Chloride) 50 mls @ 100 mls/hr IV Q24H [facility] Last Infusion: 09/18/23 12:56 Dose: Infused Documented By: JAMISON Lactic Acid (Ammonium Lactate 12 % Lotion 226 Gm Bottle) 1 appl TOPICAL BID [facility]; Protocol Last Admin: 09/19/23 09:03 Dose: 1 appl Documented By: ARTUR Lactulose (Lactulose 20 Gm/30 Ml Solution) 20 gm PO DAILY PRN PRN Reason: Constipation Lisinopril (Lisinopril 10 Mg Tablet) 10 mg PO DAILY [facility]; Protocol Last Admin: 09/19/23 09:02 Dose: 10 mg Documented By: ARTUR Melatonin (Melatonin 3 Mg Tablet) 6 mg PO BEDTIME PRN PRN Reason: Insomnia Olanzapine (Olanzapine 10 Mg Vial) 5 mg IM ONCE PRN PRN Reason: anxiety/restlessness Omeprazole (Omeprazole 20 Mg Capsule.Dr) 20 mg PO DAILY@0630 [facility] Last Admin: 09/19/23 05:51 Dose: 20 mg Documented By: DEONTE Ondansetron HCl (Ondansetron Hcl 4 Mg/2 Ml Vial) 4 mg IVPUSH Q8H PRN PRN Reason: Nausea and Vomiting Sodium Chloride (0.9 % Sodium Chloride Flush 3 Ml Syringe) 3 ml IVFLUSH QSHIFT [facility] Last Admin: 09/19/23 09:02 Dose: 3 ml Documented By: ARTUR Labs 09/17/23 23:01 09/17/23 23:01 Microbiology Microbiology Results: Microbiology 09/13/23 15:28 Blood Culture - Final Blood - Venous No growth after 5 days. 09/13/23 15:28 Blood Culture - Final Blood - Venous No growth after 5 days. Assessment and Plan (1) Pneumonia: Status: Acute (2) Acute hypernatremia: Status: Acute (3) Acute hypotension: Status: Acute (4) Hypothermia: Status: Acute Plan 78M PMH HTN, HLD, chronic bilateral leg lymphedema with drainage, RLE DVT in 2022, and morbid obesity who presented to the ED from [facility] for evaluation of altered mental status?and generalized weakness. found to have episodic bradycardia, hypothermia, and hypotension. episodic, transient Hypothermia, bradycardia, hpyotension Not septic no evidence of adrenal insuffiency no evidence of cva ? thermodysregulation ? discrete aspiration events continue to monitor COLUMNIST eval CXR concerning for possible Pneumonia LLL cultures negative at 48 hours Continue Abx of Doxy and Ceftriaxone LUE superficial DVT US duplex showed partial cephalic v thrombosis on Eliquis repeat study in 1 week Acute Hypernatremia resolved follow BMP Acute metabolic encephalopathy, resolved Likely in the setting of hypothermia, hypotension, and bradycardia CT of head negative for acute intracranial pathology Follow cultures Hx of DVT Continue Eliquis HLD Continue statin, aspirin GERD Continue PPI Full Code; pt was previously DNR/DNI but signed a new MOLST form in 12/2022 DVT Prophylaxis: On Eliquis reason for continued hospitalization:monitor for recurrent hypothermia episodes Quality Stroke Does the patient have a stroke diagnosis?: No VTE Prior VTE?: Yes Approximate Date of Prior VTE: 01/04/23 VTE Risk Level:: Medical - moderate - high VTE Device Contraindication: Treatment Not Indicated VTE Drug Contraindication: N/A - Med Ordered
[2023-09-19] MEDS: cefTRIAXone sodium 1 GM in 0.9 % Sodium Chloride 50 ML IV (11:05)
[2023-09-19] MEDS: Doxycycline Monohydrate 100 MG CAPSULE PO (11:05)
[2023-09-19 11:34] VITALS: BP 119/56; PULSE 68; RESP 19; TEMP 36.2; O2SAT 96
--- NOTE | 2023-09-19 14:02 | MHC.SL.SWA ---
Speech Pathologist Impression: Risk of Aspiration Due to: Reduced Cognition Dysphasia Diet Status: Liquid Consistency and Strategies for Safe Swallow: Liquid Intake Recommendation: Thin Liquid Intake Strategies: Unrestricted Solid Food Consistency: Dietary Recommendations: Chopped/Advanced (NDD3) Additional Modifications to Solid Foods: Oral Medication Intake: Whole with Puree Please contact the pharmacy regarding appropriate crushable or liquid drug formulations that are available whenever modified delivery is recommended. Compensatory Strategies and Precautions to be Taken for Safe Swallow: Sitting Upright (90 deg) Small Bites and Sips Alternate Liquids/Solids Rate of Ingestion Change Oral Check Supervision While Eating and Drinking for Safe Swallow: Total Assistance (1:1) Foods to Avoid: Swallowing Recommended Treatments: Compens. Strategy Educat. Recommendation for Speech: Inpatient Speech Therapy Comment: Frequency/Duration: x1-2 follow-up Date Range for Service Req: Timeline to reassess: PRN Laserist Clinican/Clinical Fellow: No Supervisory Statement: I have reviewed and agree with the student/clinical fellow's documentation: N/A Speech Language Pathologist: Bertram Santos M.A., CCC-GI TECHNICIAN
[2023-09-19 15:37] VITALS: BP 130/61; PULSE 61; RESP 20; TEMP 36.2; O2SAT 97
[2023-09-19 19:37] VITALS: BP 110/56; PULSE 55; RESP 21; TEMP 35.9; O2SAT 98
--- NOTE | 2023-09-19 23:16 | PC.RT ---
Pt placed on overnight sleep study 3551, sats 95% on room air. RN aware
[2023-09-20] VITALS: BP 131/62; PULSE 66; RESP 16; TEMP 35.9; O2SAT 93
[2023-09-20] MEDS: Doxycycline Monohydrate 100 MG CAPSULE PO ×2 (00:33→11:35)
[2023-09-20 03:20] VITALS: BP 141/61; PULSE 82; RESP 17; TEMP 36.1; O2SAT 93
[2023-09-20] MEDS: Omeprazole 20 MG CAPSULE.DR PO (05:29)
[2023-09-20 07:26] VITALS: BP 121/77; PULSE 70; RESP 18; TEMP 36; O2SAT 97
--- NOTE | 2023-09-20 08:49 | P.DS_ITS ---
DS: Providers Provider Date of Service: 09/20/23 Date of admission: 09/13/23 20:41 Primary care physician: Arturo Hall MD Consults: 09/16/23 07:16 Consult to Cardiology Routine Consulting Provider[place] [facility] Reason for consultation: New onset Afib, Episodes of bradycardia 09/18/23 07:56 Consult to Infectious Diseases Routine Consulting Provider: [facility] Reason for consultation: HYpothermia, bradycardia DS: Diagnosis Discharge Diagnosis (1) Pneumonia: Status: Acute (2) Acute hypernatremia: Status: Acute (3) Acute hypotension: Status: Acute (4) Hypothermia: Status: Acute DS: Summary Hospital Course Hospital Course: Admission note HPI Pt is a 78-year-old male with a PMH significant for?HTN, HLD, chronic bilateral leg lymphedema with drainage, RLE DVT in 2022, and morbid obesity who presents to the ED from [facility] for evaluation of altered mental status?and generalized weakness. Pt is mostly wheelchair-bound but capable of transferring himself at baseline. This morning patient had generalized weakness and was unable to transfer from his wheelchair. SNF staff also note patient had change in mental status, active was lethargic than normal. EMS upon arrival found patient with HR in 40s and was given 1 mg of atropine with improvement to HR. When patient arrived to the ED was found to be hypothermic as low as 92.1, placed in a Dread Hugger. Patient himself is found to be seemingly back to baseline with mentation, answering all questions appropriately, and AOx4. Patient himself with difficulty speaking at baseline, but is able to be understood. States he feels ?okay? and denies any pain. Patient denies lightheadedness or dizziness. No increase in fatigue. Denies chest pain/pressure, palpitations. No shortness of breath. Denies fever, chills, nausea, vomiting, abdominal pain. In the ED pt was hypothermic as low as 92.1, bradycardic as low as 47, and soft BP as low as 83/34, satting at 93% on RA. Labs were significant for H&H 10.5/33.2, sodium 148, chloride 111, alk-phos 125, BNP elevated at 279. No leukocytosis. Tested negative for influenza type a and B, RSV, COVID. CXR without any noted acute cardiopulmonary findings. CT?of head with degraded image quality, however with grossly no evidence of acute territorial infarct or hemorrhage Neurology, but with scattered chronic small-vessel ischemic changes and possible underlying normal pressure hydrocephalus. EKG demonstrated sinus bradycardia with occasional PVCs. Pt was treated with IVF and Zosyn. Pt will be admitted to the hospital for treatment and further evaluation of bradycardia, hypothermia, and hypotension. Hospital course The patient presented with Altered mentation in the setting of Hypothermia associated with bradycardia. likely a result of infection, work up on admission was negative, developed 2nd incident of hypothermia with repeated CXR and UA showing evidence of pneumonia in LLL. blood cultures negative at 48 hours. TSH and T4 acceptable, Cortisol normal. Negative Flu\RSV\Covid, negative Resp Panel. Negative UA. CXR concerning for possible Pneumonia LLL . Treated with IV Abx of Doxy and Ceftriaxone. to be discharged on Doxycycline and Ceftine for [address] of head negative for acute intracranial pathology as his mental status improved back to baseline. Bradycardia was evaluated by EKG showing slow Afib which is a new dagnosis. evaluation by Relay Dispatcher who felt it is related to hypothermia and increased vagal stimulation. he is on blood thinners. to follow outpatient with dr Atkins as needed. He was monitored on telemetry with no evidence of pauses or other arrythmias. Hypotension believed to be a result of HTN medications and decrease PO intake along with bradycardia. improved with IVF and holding BP meds. Acute Hypernatremia was treated with D5W with good response as Sodium normalized prior to discharge and his oral intake improved. Noted to have LUE swelling. Duplex US was done showing partial superficial vein thrombosis. he is on Eliquis. To keep LUE elevated and apply warm compressors. To repeat US in 1 week to assess progression. Continue antibiotics for 1 more week Will need to repeat US duplex of Left upper extremity in 1 week to rule out any transformation to DVT Keep left arm elevated, apply warm compressors Time Attestation Discharge coordination time: Greater than 30 minutes Quality: Safe Use of Opioids Does Pt have an Active Cancer Diagnosis on the Problem List?: No Quality: Stroke Does the patient have a stroke diagnosis?: No Physical Exam Vital Signs: Vital Signs: Last Vital Signs Temp 96.8 F 09/20/23 07:26 Pulse 70 09/20/23 07:26 Resp 18 09/20/23 07:26 BP 121/77 09/20/23 07:26 Pulse Ox 97 09/20/23 07:26 O2 Del Method Nasal Cannula 09/20/23 07:26 O2 Flow Rate 2 09/20/23 07:26 BMI result Body Mass Index 51.4 Const: Other: Constitutional : Awake, interactive, morbidly obese, not in distress Neck : Normal inspection, Supple, Cardiovascular : RRR, no JVP, no lower extremity edema Respiratory : good bilateral air entry, no crackles, wheezes or rhonchi Gastrointestinal: soft, lax, Normal bowel sounds, Non tender Skin : Warm, Dry skin in lower extremities with scaling , LUE swollen with erythema and mild warmth. no tenderness Neurological : Alert & oriented to self and place otherwise easily distracted Discharge Plan Discharge Patient Disposition: [facility] Discharge Diagnosis: Pneumonia Superficial vein thrombosis Left arm Atrial fibrillation Referrals: Miladys [facility] [place] [Outside] - 1 Week Physician,Unknown J [Physician] - 1 Week Discharge Medications: New doxycycline monohydrate 100 mg capsule 100 mg PO BID Qty: 14 0RF cefuroxime axetil 500 mg tablet 500 mg PO BID Qty: 14 0RF Continued acetaminophen 325 mg Tablet 650 mg PO Q4H PRN (Reason: Pain) guaifenesin 100 mg/5 mL Liquid 200 mg PO Q4H PRN (Reason: Cough) docusate sodium 100 mg Capsule 100 mg PO BID aspirin 81 mg Tablet,Chewable 81 mg PO DAILY ammonium lactate 12 % Cream 1 appl TOPICAL BID lactulose 10 gram/15 mL Solution 30 ml PO DAILY PRN (Reason: Constipation) alum-mag hydroxide-simeth 225-200-25 mg/5 mL Suspension 30 ml PO Q6H PRN (Reason: Heartburn) atorvastatin 10 mg Tablet 10 mg PO DAILY lisinopril 10 mg Tablet 10 mg PO DAILY folic acid 1 mg Tablet 1 mg PO DAILY white petrolatum-mineral oil Cream 1 appl TOPICAL BEDTIME omeprazole 20 mg Tablet,Delayed Release (Dr/Ec) 20 mg PO DAILY Eliquis 5 mg tablet 5 mg PO BID Held amlodipine 5 mg Tablet 5 mg PO DAILY Hold Instructions: Monitor blood pressure for 1 week and then decide if needed to restart or not Discharge Orders: Discharge Order (Routine); Ordered 09/17/23 Ordered By: Nelda Macedo Diet: NDD3 solids Activity on Discharge: As tolerated Stand Alone Forms: Patient Portal Discharge page Care Plan Goals: Read below Health Concerns: Read below Plan of Treatment: Read below Assessment: You presented with low blood pressure, tempreture and slow heart. found to have an evidence of pneumonia and superficial vein thrombosis. Evaluated by optometric technician for new onset atrial fibrillation. Continue antibiotics for 1 more week Will need to repeat US duplex of Left upper extremity in 1 week to rule out any transformation to DVT Keep left arm elevated, apply warm compressors
[2023-09-20] MEDS: Ammonium Lactate 12 % Lotion 226 GM BOTTLE 1 APPL TOPICAL (09:09)
[2023-09-20] MEDS: Aspirin 81 MG TAB.CHEW PO (09:09)
[2023-09-20] MEDS: Apixaban 5 MG TABLET PO (09:09)
[2023-09-20] MEDS: Atorvastatin Calcium 10 MG TABLET PO (09:09)
[2023-09-20] MEDS: Docusate Sodium 100 MG CAPSULE PO (09:09)
[2023-09-20] MEDS: Folic Acid 1 MG TABLET PO (09:09)
[2023-09-20] MEDS: 0.9 % Sodium Chloride Flush 3 ML SYRINGE IVFLUSH (09:09)
[2023-09-20] MEDS: lisinopriL 10 MG TABLET PO (09:10)
[2023-09-20 10:04] LABS: Hematocrit 34.1 % (42.0-52.0); Hemoglobin 11.1 g/dl (14.0-18.0); Mean Corpuscular HGB Conc 32.6 g/dl (31.0-36.0); Mean Corpuscular Hemoglobin 30.2 pg (27.0-33.0); Mean Corpuscular Volume 92.9 fL (80.0-98.0); Mean Platelet Volume 10.1 fL (9.4-12.4); Platelet Count 325 X10*3/uL (160-400); Red Blood Count 3.67 X10*6/uL (4.60-5.80); Red Cell Distribution Width 18.9 % (11.0-16.0); White Blood Count 6.3 X10*3/uL (4.8-10.8)
[2023-09-20 10:22] LABS: Anion Gap 10 (12-20); Blood Urea Nitrogen 21 mg/dL (9-16); Calcium 8.6 mg/dL (8.4-10.2); Carbon Dioxide 25 mmol/L (22-29); Chloride 112 mmol/L (96-108); Creatinine Clr Calc Pharmacy 117.5; Estimated Glomerular Filt Rate > 60; Glucose Fasting 107 mg/dL (60-99); Potassium 4.2 mmol/L (3.3-5.1); Sodium 143 mmol/L (135-145)
[2023-09-20 11:23] VITALS: BP 126/64; PULSE 73; RESP 18; TEMP 36.2; O2SAT 92
[2023-09-20] MEDS: cefTRIAXone sodium 1 GM in 0.9 % Sodium Chloride 50 ML IV (11:35)
--- NOTE | 2023-09-20 11:57 | MHC.CM.PN ---
Patient has been medically cleared for dc to return to LT @ [facility] today at 1PM, via [facility] at 1 PM ([facility]anged by [facility]).
--- NOTE | 2023-09-20 12:21 | PC.NURSE ---
Ngo removed today at 1000. Due to Void at 1600. Pt is being DC and returning SNF. Per Dr Shaw pt is ok to leave before voiding time is due. This Rn called Miladys Andersen [facility] [place] and notified the recieving RN of the voiding trial time, today 09/20/2023 at 1600.
[2023-09-22 17:43] LABS: Vitamin B1 <6 nmol/L (8-30)
[2023-09-25 13:54] LABS: Cortisol, Free 0.28 mcg/dL
== END 2023-09-20 13:28 | DRG 947 ==
LOC: HO.ED 17:47 → HO.EDOVER 20:46 → HO.IMC 09-14 05:53
PROVIDERS: Internal Medicine; Student in an Organized Health Care Education/Training Program; Admitting Provider Student in an Organized Health Care Education/Training Program; Emergency Provider Emergency Medicine; PCP Internal Medicine; Referring Provider Internal Medicine; Visit Provider Internal Medicine
DX: R68.0 Hypothermia, not associated with low environmental temperature (principal); G93.41 Metabolic encephalopathy; J18.9 Pneumonia, unspecified organism; Z68.43 Body mass index [BMI] 50.0-59.9, adult; E87.0 Hyperosmolality and hypernatremia; I82.612 Acute embolism and thrombosis of superficial veins of left upper extremity; I95.2 Hypotension due to drugs; T46.5X5A Adverse effect of other antihypertensive drugs, initial encounter; E78.5 Hyperlipidemia, unspecified; R00.1 Bradycardia, unspecified; E66.01 Morbid (severe) obesity due to excess calories; Z99.3 Dependence on wheelchair; Z20.822 Contact with and (suspected) exposure to COVID-19; Z86.718 Personal history of other venous thrombosis and embolism; Z79.82 Long term (current) use of aspirin; Z79.01 Long term (current) use of anticoagulants; Z79.899 Other long term (current) drug therapy
CPT/HCPCS: 0241U; 36415; 70450; 71045; 71275; 80048; 80053; 80076; 81001; 81003; 82530; 82533; 82550; 83605; 83615; 83690; 83735; 83880; 84100; 84425; 84436; 84439; 84443; 84484; 85025; 85027; 85652; 86140; 87040; 87086; 87633; 92610; 93005; 93306; 93971; 99285; C1758; J0696; J1940; J2543; Q9957; Q9967

== ENCOUNTER → 2023-09-13 14:35 | Outpatient (BNV) | payer OTHER, SELFPAY | PROVIDERS: Admitting Provider Student in an Organized Health Care Education/Training Program; Emergency Provider Emergency Medicine; PCP Internal Medicine; Visit Provider Internal Medicine Cardiovascular Disease | DX: R00.1 Bradycardia, unspecified (principal); I44.7 Left bundle-branch block, unspecified | CPT/HCPCS: 93010 ==

== ENCOUNTER 2023-09-13 20:41 | Outpatient (BNV) | payer OTHER, SELFPAY | END 2023-09-16 07:00 | PROVIDERS: Admitting Provider Student in an Organized Health Care Education/Training Program; Emergency Provider Emergency Medicine; PCP Internal Medicine; Visit Provider Internal Medicine Cardiovascular Disease | DX: I48.91 Unspecified atrial fibrillation (principal); R94.31 Abnormal electrocardiogram [ECG] [EKG] | CPT/HCPCS: 93010; 93306 ==

== ENCOUNTER → 2023-09-13 20:41 | Outpatient (BNV) | payer OTHER, SELFPAY | PROVIDERS: Admitting Provider Student in an Organized Health Care Education/Training Program; Emergency Provider Emergency Medicine; PCP Internal Medicine; Visit Provider Internal Medicine Cardiovascular Disease | DX: T68.XXXA Hypothermia, initial encounter (principal); R00.1 Bradycardia, unspecified; I48.91 Unspecified atrial fibrillation | CPT/HCPCS: 99222 ==

== ENCOUNTER → 2023-09-13 20:41 | Outpatient (BNV) | payer OTHER, SELFPAY | PROVIDERS: Admitting Provider Student in an Organized Health Care Education/Training Program; Emergency Provider Emergency Medicine; Visit Provider Student in an Organized Health Care Education/Training Program | DX: J18.9 Pneumonia, unspecified organism (principal); E87.0 Hyperosmolality and hypernatremia; I95.9 Hypotension, unspecified; T68.XXXA Hypothermia, initial encounter | CPT/HCPCS: 99223; 99232; 99233; 99239; 99499 ==

== ENCOUNTER 2023-10-14 22:27 | Inpatient (IN) | payer OTHER, SELFPAY ==
--- NOTE | ~2023-10-14 | XR_ITS ---
EXAMINATION: XR CHEST CLINICAL INFORMATION: Shortness of breath COMPARISON: CT chest from 10/14/2023 TECHNIQUE: Frontal view of the chest was obtained. FINDINGS: Heart is enlarged. Central vascular congestion with bilateral groundglass airspace opacities are seen. More dense consolidation/opacity seen in the left lung base. This appears increased compared to the prior exam. XR/XR chest 1V IMPRESSION: Increasing diffuse groundglass opacities and dense consolidation in the left lower lobe
--- NOTE | ~2023-10-14 | CT_ITS ---
EXAMINATION: CT CHEST WITHOUT CONTRAST CLINICAL INFORMATION: Cough. Shortness of breath. Hypoxia. COMPARISON: 09/13/2023 TECHNIQUE: Multidetector volumetric CT imaging of the chest was done. Axial MIP volume rendering provided. Sagittal and coronal reformatted images were obtained. This CT examination was performed using dose optimization techniques as appropriate, variously including the following: *Automated exposure control *Adjustment of mA and/or kV according to patient size (this includes techniques or standardized protocols for targeted exams where dose is matched to indication/reason for exam; i.e. extremities or head) *Use of iterative reconstruction technique DLP: 762 mGy-cm FINDINGS: LUNGS: There is increased airspace consolidation in the left lower lobe posteriorly with air bronchograms, potentially corresponding to pneumonia. Volume loss is also present in this region, indicating a significant degree of atelectasis. Patchy consolidation or atelectasis are also present within the right lower lobe. Pulmonary assessment is somewhat limited by motion artifact. Additional foci of perihilar atelectasis are noted in the upper lobes, including the lingula, and in the right middle lobe. No focal mass lesions are identified on these images. The central airways are clear. MEDIASTINUM: Mild cardiomegaly. No appreciable mediastinal adenopathy. No pericardial effusion. There are vascular is normal in caliber. Minimal calcific atherosclerosis in the thoracic aorta. CORONARY ARTERY CALCIFICATION: None visualized on this study. PLEURA: Small to moderate-sized bilateral pleural effusions are not significantly changed as compared to prior. AXILLA: No lymphadenopathy. UPPER ABDOMEN: Cholelithiasis. Multiple hepatic hypodensities are not well assessed on these images, favored to correspond to simple hepatic cysts or hemangiomas. No acute abnormalities are identified in the upper abdomen. OSSEOUS STRUCTURES: Diffuse ankylosis in the thoracic spine with hyperkyphosis. Degenerative spondylosis is also present in the cervical spine. No acute fractures are identified. CT/CT chest wo IV con IMPRESSION: 1. Increased airspace consolidation in the left lower lobe with associated volume loss, potentially corresponding to pneumonia. Additional foci of atelectasis are present in the perihilar regions of the upper lobes and right middle lobe. 2. Small to moderate-sized bilateral pleural effusions are not significantly changed as compared to prior. 3. Mild cardiomegaly. 4. Cholelithiasis without evidence of acute cholecystitis. Fleischner guidelines were followed.
--- NOTE | ~2023-10-14 | US_ITS ---
EXAMINATION: US VENOUS WITH DOPPLER UPPER EXTREMITY, LEFT CLINICAL INFORMATION: Left upper extremity pain and swelling COMPARISON: None available. TECHNIQUE: Ultrasound of the upper extremity is performed using compression sonography and color and pulse Doppler flow with assessment of augmentation of flow. There is also imaging and Doppler assessment of the jugular and subclavian veins. Spectral analysis with color-flow imaging is performed. FINDINGS: Respiratory variation, normal compression, and augmented flow are noted throughout the upper extremity including the axillary, brachial, cubital, and radial and ulnar veins. There is normal flow in the internal jugular and subclavian veins. There is no visible deep or superficial thrombophlebitis. If the patient's symptoms progress, a followup ultrasound in 5 -7 days might be of value to exclude proximal propagation from a nonvisualized distal arm vein. US/US venous duplex UE LT IMPRESSION: No DVT demonstrated in the left upper extremity with limitations due to limited technique.
--- NOTE | ~2023-10-14 | US_ITS ---
EXAMINATION: US VENOUS WITH DOPPLER UPPER EXTREMITY, LEFT CLINICAL INFORMATION: Left upper extremity swelling COMPARISON: Ultrasound from 10/15/2023 TECHNIQUE: Ultrasound of the upper extremity is performed using compression sonography and color and pulse Doppler flow with assessment of augmentation of flow. There is also imaging and Doppler assessment of the jugular and subclavian veins. Spectral analysis with color-flow imaging is performed. FINDINGS: Respiratory variation, normal compression, and augmented flow are noted throughout the upper extremity including the axillary, brachial, cubital, and radial and ulnar veins. There is normal flow in the internal jugular and subclavian veins. There is no visible deep or superficial thrombophlebitis. Subcutaneous edema seen within the left upper extremity. US/US venous duplex UE LT IMPRESSION: No DVT demonstrated in the left upper extremity. No significant change compared to the prior exam
--- NOTE | 2023-10-14 22:31 | ED.SOB ---
HPI - SOB/Dyspnea General Chief Complaint: Upper Respiratory Symptoms Stated Complaint: Cough,SOB Time Seen by Provider: 10/14/23 22:30 Source: patient and old records reviewed Mode of arrival: EMS Limitations: other (poor historian) History of Present Illness HPI Narrative: 78 yo male with PMH of HTN, HLD, chronic bilateral leg lymphedema, DVT in 2022 on eliquis, HTN, obesity, WC bound, recent LLL pneumonia back in August resulting in sepsis and hypothermia had episode of slow afib as well, comes in today from SNF with c/o worsening congested cough for 3 days. He notes they put him on Augmentin this AM. He states he doesn't normally wear O2 and that this AM they put him on 2L NC - he has a PRN O2 order for nighttime for ASHLEY on his med recc. He notes no change in his chronic swelling. No nausea vomiting. He has diffuse body aches. He states he cannot get sputum up. Arrived 89% on 2L NC up to 94% on 4L NC. MD elicited complaint: shortness of breath and cough Pertinent past history: pneumonia Onset (ago): day(s) (2) Context: recent illness Timing: progressively worsening Severity: moderate Exacerbating factors: lying flat, exertion and coughing Relieving factors: oxygen, rest and upright position Known history of: recurrent pneumonia Associated symptoms: cough, chest congestion and other (body aches. ) Treatment prior to arrival: oxygen and other (given dose of augmentin) Related Data Home Medications Medication Instructions Recorded Confirmed acetaminophen 325 mg tablet 650 mg PO Q4H PRN Pain 01/04/23 09/13/23 ammonium lactate 12 % topical cream 1 appl topical BID 01/04/23 09/13/23 aspirin 81 mg chewable tablet 81 mg PO DAILY 01/04/23 09/13/23 docusate sodium 100 mg capsule 100 mg PO BID 01/04/23 09/13/23 guaifenesin 100 mg/5 mL oral liquid 200 mg PO Q4H PRN Cough 01/04/23 09/13/23 lactulose 10 gram/15 mL oral 30 ml PO DAILY PRN Constipation 01/04/23 09/13/23 solution aluminum-mag hydroxide-simethicone 30 ml PO Q6H PRN Heartburn 09/13/23 09/13/23 225 mg-200 mg-25 mg/5 mL oral susp amlodipine 5 mg tablet 5 mg PO DAILY 09/13/23 09/13/23 apixaban 5 mg tablet (Eliquis) 5 mg PO BID 09/13/23 09/13/23 atorvastatin 10 mg tablet 10 mg PO DAILY 09/13/23 09/13/23 folic acid 1 mg tablet 1 mg PO DAILY 09/13/23 09/13/23 lisinopril 10 mg tablet 10 mg PO DAILY 09/13/23 09/13/23 omeprazole 20 mg tablet,delayed 20 mg PO DAILY 09/13/23 09/13/23 release white petrolatum-mineral oil 1 appl topical BEDTIME 09/13/23 09/13/23 topical cream Previous Rx's Medication Instructions Recorded cefuroxime axetil 500 mg tablet 500 mg PO BID #14 tabs 09/17/23 doxycycline monohydrate 100 mg 100 mg PO BID #14 caps 09/17/23 capsule Allergies Allergy/AdvReac Type Severity Reaction Status Date / Time No Known Allergies Allergy Verified 01/04/23 04:36 Review of Systems Review of Systems: Constitutional : No Fever, pos Chills ENT/Mouth : No sore throat, No Rhinorrhea, No Swallowing Difficulty Eyes: No Eye Pain, No Swelling, No Redness Cardiovascular : No Chest Pain, positive SOB, No Orthopnea, positive Edema Respiratory : pos Cough, No Sputum, No Wheezing, positive dyspnea Gastrointestinal : No Nausea, No Vomiting, No Diarrhea, No abdominal Pain, No Hematochezia, No Melena Genitourinary : No Dysuria, No Urinary Frequency, No Hematuria Musculoskeletal : No joint pain, pos Myalgias Skin : No Skin Lesions, No rash Neuro :pos Weakness, No Numbness, No Dizziness, No Headache Psych : No Anxiety/Panic, No Depression Heme/Lymph: No Bruising, No Lymphadenopathy Endocrine : No Polyuria, No Polydipsia All other systems reviewed and are negative [facility] Past Medical History Attestation statement: The following information was validated with the patient. 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 Do you presently have visiting nurse or other home services: No Alcohol intake: former Comment: sitter at bedside Patient Tobacco Use Status: Never used Tobacco Smoked in Last 30 Days: No e-Cigarette/Vaping Use: Never Used Second Hand Smoke Exposure: No Use of substances other than those prescribed or required for medical reasons: No Advance Directives: Yes Advance Directives on File: Yes Advance Directives Date on File: 12/26/22 service: Yes Current occupational status: disabled Physical Exam Vital Signs: Vital Signs: Last Vital Signs Temp 99.3 F 10/14/23 22:39 Pulse 101 H 10/14/23 22:39 Resp 30 H 10/14/23 22:39 BP 126/64 10/14/23 22:39 Pulse Ox 94 10/14/23 22:46 O2 Del Method Nasal Cannula 10/14/23 22:46 Oxygen Flow Rate 4 10/14/23 22:46 BMI result Body Mass Index 43.7 Appearance: Alert. Oriented X3. No acute distress. Eyes: Pupils equal, round and reactive to light. ENT: Pharynx normal. Neck: Normal inspection. Neck supple. CVS: Normal heart rate and rhythm. Pulses normal. Respiratory: No respiratory distress. Breath sounds very coarse both bases diminished and rales heard in the base Abdomen: Soft and nontender. Obese Skin: Skin warm and dry. pale skin color. Extremities: bilateral 3+ pitting lower extremity edema. thickened scaled skin on lower legs. L arm is swollen and edematous with pink scaling shiny skin - distal NV intact Neuro: Oriented X 3. No motor deficit. No sensory deficit. Medications Administered Discontinued Medications Generic Name Dose Route Start Last Admin Trade Name Freq PRN Reason Stop Dose Admin Piperacillin Sod/Tazobactam 50 mls @ 100 mls/hr 10/14/23 22:46 10/15/23 00:22 Sod 3.375 gm/ Sodium Chloride IV 10/14/23 23:15 Infused ONCE ONE Infusion Medical Decision Making Medical Decision Making MDM Narrative: 78 yo male with PMH of HTN, HLD, chronic bilateral leg lymphedema, DVT in 2022 on eliquis, HTN, obesity, WC bound, recent LLL pneumonia back in August who presents today from SNF with c/o cough, congestion, low O2 sats with new O2 use and low grade temps. At this time will need basic labs, cultures, BNP, IV zosyn empirically. Viral panel. Suspect more infectious etiology given the chills and body aches. He is already on eliquis so VTE unlikely. Had CXR as outpatient with low lung volumes and no overt consolidation at this time I have ordered CT scan for better evaluation given obesity to evaluate for pneumonia. Differential Diagnosis Differential Diagnoses: The differential diagnosis associated with the presentation includes viral infection, pneumonia, effusion, RSV Admission/Observation Consideration of admission/observation: Escalation of care including admission/observation considered given new O2 demands worsening CT scan will admit neg procalcitonin and WBC count will hold vancomycin until MRSA screen is back Consult Healthcare Provider Management of the patient was discussed with: Hospitalist (will admit) Lab Data MDM Lab Attestation statement: I reviewed the patient's lab results. 10/14/23 23:04 10/14/23 23:04 Labs: Lab Results 10/14/23 10/14/23 10/15/23 Range/Units 23:04 23:13 00:32 WBC 7.0 (4.8-10.8) X10*3/uL RBC 3.61 L (4.60-5.80) X10*6/uL Hgb 10.8 L (14.0-18.0) g/dl Hct 33.7 L (42.0-52.0) % MCV 93.4 (80.0-98.0) fL MCH 29.9 (27.0-33.0) pg MCHC 32.0 (31.0-36.0) g/dl RDW 18.6 H (11.0-16.0) % Plt Count 185 D (160-400) X10*3/uL MPV 10.0 (9.4-12.4) fL Immature Gran % (Auto) 0.1 (0.0-0.4) % Neut % (Auto) 77.1 H (45-73) % Lymph % (Auto) 6.8 L (20-40) % [place] % (Auto) 15.2 H (2-11) % Eos % (Auto) 0.7 (0-4) % Baso % (Auto) 0.1 (0-2) % Lymph # (Auto) 0.5 L (1.2-4.9) X10*3/uL [place] # (Auto) 1.1 (0.1-1.2) X10*3/uL Eos # (Auto) 0.1 (0.0-0.4) X10*3/uL Baso # (Auto) 0.0 (0.0-0.2) X10*3/uL Abs Immat Gran (auto) 0.01 (0.00-0.03) X10*3/uL Absolute Neuts (auto) 5.4 (2.0-8.3) x10*3/uL Absolute Nucleated RBC 0.000 (0.0-0.012) X10*3/uL Nucleated RBC % (auto) 0.0 (0.0-0.2) /100WBC VBG pH 7.40 (7.32-7.43) VBG pCO2 46 mmHg VBG pO2 48 mmHg VBG HCO3 29 H (22-26) mmol/L VBG O2 Saturation 77.0 % VBG Base Excess 3.9 mmol/L Sodium 143 (135-145) mmol/L Potassium 4.3 (3.3-5.1) mmol/L Chloride 107 (96-108) mmol/L Carbon Dioxide 27 (22-29) mmol/L Anion Gap 13 (12-20) BUN 16 (9-16) mg/dL Creatinine 0.85 (0.5-1.4) mg/dL Estim Creat Clear Calc 109.3 Estimated GFR > 60 Random Glucose 85 (60-115) mg/dL Lactic Acid 0.9 (0.5-2.0) mmol/L Calcium 8.7 (8.4-10.2) mg/dL Magnesium 1.8 (1.6-2.6) mg/dL Total Bilirubin 0.5 (0.0-1.0) mg/dL Direct Bilirubin 0.2 (0.0-0.5) mg/dL AST 18 (5-37) U/L ALT 16 (0-40) U/L Alkaline Phosphatase 124 H (39-117) U/L Troponin I High Sens 12.9 D (<3.5-35.0) ng/L B-Natriuretic Peptide 410 H (<100) pg/mL Total Protein 5.5 L (6.5-8.0) g/dL Albumin 2.9 L (3.5-5.0) g/dL Procalcitonin 0.09 ng/mL Urine Color Yellow Urine Appearance Clear Urine pH 6.0 (5.0-9.0) Ur Specific [place] 1.020 (1.005-1.025) Urine Protein Negative (Neg-Trace) mg/dL Urine Glucose (UA) Negative (Negative) mg/dL Urine Ketones Trace (Negative) mg/dL Urine Blood Negative (Negative) Urine Nitrite Negative (Negative) Ur Leukocyte Esterase Negative (Negative) Influenza Type A (PCR) NEGATIVE (Negative) Influenza Type B (PCR) NEGATIVE (Negative) RSV RNA Qual (PCR) POSITIVE A (Negative) SARS-CoV-2 RNA (RT-PCR) NEGATIVE (Negative) Independent Interpretation I performed an independent interpretation of an: EKG and CT Scan (worsening pneumonia) Interpretation: Rate: 88 Rhythm: afib Yulan: normal Normal QRS complex. ST T wave : no KARLIE, nonspecific ST T wave changes qTC: 418 prior studies: no sig change The study has been interpreted contemporaneously by me. . Radiology Impression Discussion of test interpretation with radiology: I have reviewed the radiologist's reading. Independent Historian Clinical information obtained from an independent historian. History obtained from or confirmed by: EMS External Record Review External record reviewed: Inpatient record Discharge Plan Discharge Clinical Impression: Respiratory syncytial virus (RSV) infection, Hypoxia Pneumonia Qualifiers: Pneumonia type: due to unspecified organism Laterality: left Lung location: lower lobe of lung Qualified Code(s): J18.9 - Pneumonia, unspecified organism Patient Disposition: Admitted As Inpatient Prescriptions: No Action acetaminophen 325 mg Tablet 650 mg PO Q4H PRN (Reason: Pain) guaifenesin 100 mg/5 mL Liquid 200 mg PO Q4H PRN (Reason: Cough) docusate sodium 100 mg Capsule 100 mg PO BID aspirin 81 mg Tablet,Chewable 81 mg PO DAILY ammonium lactate 12 % Cream 1 appl TOPICAL BID lactulose 10 gram/15 mL Solution 30 ml PO DAILY PRN (Reason: Constipation) alum-mag hydroxide-simeth 225-200-25 mg/5 mL Suspension 30 ml PO Q6H PRN (Reason: Heartburn) atorvastatin 10 mg Tablet 10 mg PO DAILY amlodipine 5 mg Tablet 5 mg PO DAILY Hold Instructions: Monitor blood pressure for 1 week and then decide if needed to restart or not lisinopril 10 mg Tablet 10 mg PO DAILY folic acid 1 mg Tablet 1 mg PO DAILY white petrolatum-mineral oil Cream 1 appl TOPICAL BEDTIME omeprazole 20 mg Tablet,Delayed Release (Dr/Ec) 20 mg PO DAILY Eliquis 5 mg tablet 5 mg PO BID doxycycline monohydrate 100 mg capsule 100 mg PO BID Qty: 14 0RF cefuroxime axetil 500 mg tablet 500 mg PO BID Qty: 14 0RF
[2023-10-14 22:37] VITALS: BP 126/54; BP 178/72; PULSE 103; PULSE 99; RESP 21; TEMP 37.3; O2SAT 89; O2SAT 94; BMI 43.7
[2023-10-14 22:39] VITALS: BP 126/64; PULSE 101; RESP 30; TEMP 37.4; O2SAT 99
--- NOTE | 2023-10-14 22:45 | ECG_ITS ---
Test Reason : UPER RESP Blood Pressure : / mmHG Vent. Rate : 088 BPM Atrial Rate : 000 BPM P-R Int : 000 ms QRS Dur : 090 ms QT Int : 346 ms P-R-T Axes : 000 015 074 degrees QTc Int : 418 ms Atrial fibrillation with a competing junctional pacemaker Low voltage QRS Abnormal ECG When compared with ECG of 16-SEP-2023 03:17, No significant change was found Referred By: Ema Borjas Electronically Signed By:BAO PINK MD
[2023-10-14 22:46] VITALS: PULSE 105; O2SAT 94
[2023-10-14 23:11] LABS: MANUAL DIFF FLAG NO
[2023-10-14 23:13] LABS: Basophils Percent Auto 0.1 % (0-2); Eosinophils Absolute Auto 0.1 X10*3/uL (0.0-0.4); Eosinophils Percent Auto 0.7 % (0-4); Hematocrit 33.7 % (42.0-52.0); Hemoglobin 10.8 g/dl (14.0-18.0); Imm Gran Abs Auto 0.01 X10*3/uL (0.00-0.03); Imm Gran Pct Auto 0.1 % (0.0-0.4); Lymphocytes Absolute Auto 0.5 X10*3/uL (1.2-4.9); Lymphocytes Percent Auto 6.8 % (20-40); Mean Corpuscular Hemoglobin 29.9 pg (27.0-33.0); Mean Corpuscular Volume 93.4 fL (80.0-98.0); Monocytes Absolute Auto 1.1 X10*3/uL (0.1-1.2); Monocytes Percent Auto 15.2 % (2-11); Neutrophils Absolute Auto 5.4 x10*3/uL (2.0-8.3); Neutrophils Percent Auto 77.1 % (45-73); Platelet Count 185 X10*3/uL (160-400); Red Blood Count 3.61 X10*6/uL (4.60-5.80); Red Cell Distribution Width 18.6 % (11.0-16.0)
[2023-10-14 23:18] LABS: Venous Blood Gas Refer to POC result
[2023-10-14 23:20] LABS: VBG Base Excess 3.9 mmol/L; VBG HCO3 29 mmol/L (22-26); VBG pCO2 46 mmHg; VBG pO2 48 mmHg
[2023-10-14 23:25] LABS: Lactic Acid 0.9 mmol/L (0.5-2.0)
[2023-10-14 23:36] LABS: B Type Natriuretic Peptide 410 pg/mL (<100)
[2023-10-14 23:37] LABS: Alanine Aminotransferase 16 U/L (0-40); Albumin Level 2.9 g/dL (3.5-5.0); Alkaline Phosphatase 124 U/L (39-117); Anion Gap 13 (12-20); Aspartate Amino Transferase 18 U/L (5-37); Bilirubin Direct 0.2 mg/dL (0.0-0.5); Bilirubin Total 0.5 mg/dL (0.0-1.0); Blood Urea Nitrogen 16 mg/dL (9-16); Calcium 8.7 mg/dL (8.4-10.2); Carbon Dioxide 27 mmol/L (22-29); Chloride 107 mmol/L (96-108); Creatinine Clr Calc Pharmacy 109.3; Estimated Glomerular Filt Rate > 60; Glucose Random 85 mg/dL (60-115); Magnesium 1.8 mg/dL (1.6-2.6); Potassium 4.3 mmol/L (3.3-5.1); Sodium 143 mmol/L (135-145); Total Protein 5.5 g/dL (6.5-8.0); Troponin-I High Sensitivity 12.9 ng/L (<3.5-35.0)
[2023-10-14 23:49] LABS: Influenza A PCR NEGATIVE (Negative); Influenza B PCR NEGATIVE (Negative); Resp Syncy Virus RNA Qual PCR POSITIVE (Negative); SARS COV2 PCR INHOUSE NEGATIVE (Negative)
[2023-10-14 23:51] LABS: Procalcitonin 0.09 ng/mL
[2023-10-14] MEDS: Piperacillin Sodium/Tazobactam 3.375 GM in 0.9 % Sodium Chloride 50 ML IV (23:52)
[2023-10-15] VITALS (22 sets, daily range): BP systolic 87–143; BP diastolic 38–76; PULSE 65–95; RESP 18–26; TEMP 36.1–37.1; O2SAT 94–99; BMI 43.3
--- NOTE | 2023-10-15 00:41 | PC.NURSE ---
Patient BIBA from [facility] for evaluation of worsening cough for 2-3 days. Patient reports he doesn't wear O2 at baseline and that this morning O2 was applied at 2L NC at facility. Patient also endorses generalized body aches and chronic edema. Patient's O2 Sat increased to 4 LPM NC, patient has been saturating 94% on supplemental O2. 20 G IV line established in R AC, EKG completed, labs drawn and sent to lab for processing. Call arcos placed within patient's reach.
[2023-10-15 00:44] LABS: Appearance Urine Clear; Color Urine Yellow; Glucose Urine UA Negative (Negative); Leukocyte Esterase Urine Negative (Negative); Nitrite Urine Negative (Negative); Urine Blood Negative (Negative); Urine Ketones Trace mg/dL (Negative); Urine Protein Negative (Neg-Trace)
[2023-10-15] MEDS: Azithromycin 500 MG in 0.9 % Sodium Chloride 250 ML 125 MG IV ×2 (01:42→22:22)
[2023-10-15] MEDS: Albuterol/Iprat 2.5/0.5MG 3 ML AMPUL.NEB INHALE ×7 (02:13→23:30)
--- NOTE | 2023-10-15 02:50 | P.HPHOSP_ITS ---
History of Present Illness Date of Service: 10/15/23 Attending physician on admission: Matteo Vazquez Chief Complaint: Pneumonia Erick Deleon 78 years old man with past medical history significant for morbid obese, hyperlipidemia, atrial fibrillation on Eliquis, obstructive sleep apnea -on oxygen as needed) essential hypertension and recent hospitalization due to pneumonia + sepsis was brought to the emergency department from his nursing facility after he started to develop worsening cough over the last couple of days. He also had shortness on breath. Patient is a vague historian. He was recently hospitalized with diagnosis of left lower lobe pneumonia and sepsis. Patient did not report abdominal pain, nausea, vomiting or diarrhea. He was started on Augmentin today. In the ED, he was found to have mild tachycardia and tachypnea. There is no hypotension or fever. He was placed on supplemental oxygen and currently on 4 L/min supplemental oxygen via nasal cannula. Blood workup showed no leukocytosis. There are no electrolyte imbalances. Renal function, LFTs and lactic acid are normal. Procalcitonin. Viral testing is positive for RSV. Urinalysis showed no evidence of urinary tract infection. CXR showed increased consolidation in the left lower lobe likely pneumonia, small to moderate size bilateral pleural effusion similar to prior, mild cardiomegaly and cholelithiasis without cholecystitis. ECG showed atrial fibrillation, heart rate 88 beats per minute, low voltages no acute ischemic changes. ED tx: Zosyn 3.375 g IV, azithromycin 500 mg IV Review of Systems 2 Review of Systems: Yes Unobtainable due to mental condition [facility] Medical History Atrial fibrillation Dyslipidemia Hypertension Surgical History History of enucleation of right eyeball Social History Household Members: Other Housing: Assisted Living Facility Housing Other:: Lives in prison care Do you presently have visiting nurse or other home services: No Alcohol intake: former Comment: sitter at bedside Patient Tobacco Use Status: Never used Tobacco Smoked in Last 30 Days: No e-Cigarette/Vaping Use: Never Used Second Hand Smoke Exposure: No Use of substances other than those prescribed or required for medical reasons: No Advance Directives: Yes Advance Directives on File: Yes Advance Directives Date on File: 12/26/22 Nutrition Risks: No Nutritional Risk service: Yes Current occupational status: disabled Meds Allergies Allergy/AdvReac Type Severity Reaction Status Date / Time No Known Allergies Allergy Verified 01/04/23 04:36 Active Medications: Current Medications Albuterol/Ipratropium (Albuterol/Iprat 2.5/0.5mg 3 Ml Ampul.Neb) 3 ml INHALE Q4H [facility] Apixaban (Apixaban 5 Mg Tablet) 5 mg PO Q12H [facility] Guaifenesin (Guaifenesin La 600 Mg Tab.Er.12h) 1,200 mg PO Q12H [facility] Azithromycin 500 mg/ Sodium (Chloride) 250 mls @ 125 mls/hr IV ONCE ONE Stop: 10/15/23 03:20 Last Admin: 10/15/23 01:42 Dose: 125 mls/hr Piperacillin Sod/Tazobactam (Sod 3.375 gm/ Sodium Chloride) 50 mls @ 100 mls/hr IV Q6H [facility] Vancomycin HCl 1,000 mg/ (Sodium Chloride) 270 mls @ 270 mls/hr IV Q1H [facility] Stop: 10/15/23 04:29 Lactulose (Lactulose 20 Gm/30 Ml Solution) 20 gm PO DAILY PRN PRN Reason: Constipation Lisinopril (Lisinopril 10 Mg Tablet) 10 mg PO DAILY [facility]; Protocol Magnesium Hydroxide (Milk Of Magnesia 30 Ml Oral.Susp) 30 ml PO BEDTIME PRN PRN Reason: Constipation Pharmacy Consult (Consult Rx Vancomycin Dosing) 1 each MISCELLANE DAILY PRN PRN Reason: Consult order Sodium Chloride (0.9 % Sodium Chloride Flush 3 Ml Syringe) 3 ml IVFLUSH QSHIFT [facility] Zinc Oxide (Zinc Oxide 20% Ointment 28.35 Gm Tube) 1 appl TOPICAL BID PRN; Protocol PRN Reason: Rash Home Medications Medication Instructions Recorded Confirmed Last Taken Type acetaminophen 325 mg tablet 650 mg PO Q4H PRN Pain 01/04/23 09/13/23 Unknown History ammonium lactate 12 % topical cream 1 appl topical BID 01/04/23 09/13/23 Unknown History aspirin 81 mg chewable tablet 81 mg PO DAILY 01/04/23 10/15/23 Unknown History docusate sodium 100 mg capsule 100 mg PO BID 01/04/23 10/15/23 Unknown History guaifenesin 100 mg/5 mL oral liquid 200 mg PO Q4H PRN Cough 01/04/23 09/13/23 Unknown History lactulose 10 gram/15 mL oral 30 ml PO DAILY PRN Constipation 01/04/23 09/13/23 Unknown History solution aluminum-mag hydroxide-simethicone 30 ml PO Q6H PRN Heartburn 09/13/23 10/15/23 Unknown History 225 mg-200 mg-25 mg/5 mL oral susp amlodipine 5 mg tablet 5 mg PO DAILY 09/13/23 09/13/23 Unknown History apixaban 5 mg tablet (Eliquis) 5 mg PO BID 09/13/23 09/13/23 Unknown History atorvastatin 10 mg tablet 10 mg PO DAILY 09/13/23 10/15/23 Unknown History folic acid 1 mg tablet 1 mg PO DAILY 09/13/23 09/13/23 Unknown History lisinopril 10 mg tablet 10 mg PO DAILY 09/13/23 09/13/23 Unknown History omeprazole 20 mg tablet,delayed 20 mg PO DAILY 09/13/23 09/13/23 Unknown History release white petrolatum-mineral oil 1 appl topical BEDTIME 09/13/23 09/13/23 Unknown History topical cream Physical Exam 2 Vital Signs and Narrative: Vital Signs: Last Vital Signs Temp 99.3 F 10/14/23 22:39 Pulse 91 10/15/23 02:15 Resp 24 H 10/15/23 02:15 BP 126/64 10/14/23 22:39 Pulse Ox 94 10/14/23 22:46 O2 Del Method Nasal Cannula 10/14/23 22:46 Oxygen Flow Rate 4 10/14/23 22:46 BMI result Body Mass Index 43.7 Constitutional - Awake and Alert. Obese. Coughing. No respiratory distress. Afebrile. HEENT - No icteric sclerae. Dry oral mucosa. Heart - Irregular rhythm. Normal rate. No murmur. Lungs- Normal lung expansion, poor respiratory effort, tachypneic, bilateral rhonchi, no wheezing Abdomen - obese NT / ND; +BS; No rebound or guarding - No CVA tenderness Extremities - Left upper extremity is quite edematous and erythematous. Distal pulses present. Bilateral lower extremities with chronic skin changes. Skin - Warm/Dry Neurological - Alert & oriented x3. No gross focal weakness. No facial droop. Psychological - Depressed affect Results Labs 10/14/23 23:04 10/14/23 23:04 Labs: Laboratory Results - last 24 hr 10/14/23 10/14/23 10/15/23 23:04 23:13 00:32 MCV 93.4 MCH 29.9 MCHC 32.0 RDW 18.6 H Plt Count 185 D MPV 10.0 Immature Gran % (Auto) 0.1 Neut % (Auto) 77.1 H Lymph % (Auto) 6.8 L [place] % (Auto) 15.2 H Eos % (Auto) 0.7 Baso % (Auto) 0.1 Lymph # (Auto) 0.5 L [place] # (Auto) 1.1 Eos # (Auto) 0.1 Baso # (Auto) 0.0 Abs Immat Gran (auto) 0.01 Absolute Neuts (auto) 5.4 Absolute Nucleated RBC 0.000 Nucleated RBC % (auto) 0.0 VBG pH 7.40 VBG pCO2 46 VBG pO2 48 VBG HCO3 29 H VBG O2 Saturation 77.0 VBG Base Excess 3.9 Anion Gap 13 Estim Creat Clear Calc 109.3 Estimated GFR > 60 Random Glucose 85 Lactic Acid 0.9 Calcium 8.7 Magnesium 1.8 Total Bilirubin 0.5 Direct Bilirubin 0.2 AST 18 ALT 16 Alkaline Phosphatase 124 H Troponin I High Sens 12.9 D B-Natriuretic Peptide 410 H Total Protein 5.5 L Albumin 2.9 L Procalcitonin 0.09 Urine Color Yellow Urine Appearance Clear Urine pH 6.0 Ur Specific [place] 1.020 Urine Protein Negative Urine Glucose (UA) Negative Urine Ketones Trace Urine Blood Negative Urine Nitrite Negative Ur Leukocyte Esterase Negative Influenza Type A (PCR) NEGATIVE Influenza Type B (PCR) NEGATIVE RSV RNA Qual (PCR) POSITIVE A SARS-CoV-2 RNA (RT-PCR) NEGATIVE Imaging Radiologist's Impressions: Impressions Chest CT 10/14/23 23:38 IMPRESSION: 1. Increased airspace consolidation in the left lower lobe with associated volume loss, potentially corresponding to pneumonia. Additional foci of atelectasis are present in the perihilar regions of the upper lobes and right middle lobe. 2. Small to moderate-sized bilateral pleural effusions are not significantly changed as compared to prior. 3. Mild cardiomegaly. 4. Cholelithiasis without evidence of acute cholecystitis. Fleischner guidelines were followed. Assessment and Plan (1) Hypoxia: Status: Acute (2) Pneumonia: Qualifiers: Laterality: left Lung location: lower lobe of lung Pneumonia type: due to unspecified organism Qualified Code(s): J18.9 - Pneumonia, unspecified organism Status: Acute (3) Respiratory syncytial virus (RSV) infection: Status: Acute (4) Deep vein thrombosis of right lower extremity: Qualifiers: Affected thrombotic vein of extremity: popliteal Chronicity: acute Qualified Code(s): I82.431 - Acute embolism and thrombosis of right popliteal vein Status: Acute Plan Erick Deleon 78 years old man admitted with: * Hypoxic respiratory failure likely secondary to acute RSV infection and worsening pneumonia in the setting of obstructive sleep apnea, ? Aspiration component. Admit to hospitalist service. Droplet and aspiration precautions. Pulse oximetry. Telemetry. Continue supplemental oxygen to keep oxygen saturation > 90%. Continue empiric IV antibiotic therapy with Zosyn and vancomycin. Start bronchodilator therapy. Mucinex b.i.d. a speech and swallow evaluation. MRSA nasal pending. Check Legionella Ag urine. Check sputum culture. Blood cultured obtained -will follow results. Pulmonology consult. * Left upper extremity superficial venous thrombosis (left arm looks significantly swollen and erythematous). Right UE venous US (September 17): Nonocclusive superficial venous thrombosis in the distal aspect of the left cephalic vein. Continue Eliquis. Repeat right UE venous ultrasound. * Hyperlipidemia. Continue statin. * Chronic atrial fibrillation, currently rate-controlled. Telemetry. Continue Eliquis in the aspirin. * Essential hypertension. Continue lisinopril. * Constipation. Milk of magnesia and Fleet enema as needed. Dulcolax. * GERD. PPI IV * Obesity. BMI 43.7 kg/m2. Weight loss. DVT prophylaxis: Eliquis GI prophylaxis: PPI IV Patient will need hospitalization for at least 2 midnights for hypoxic respiratory failure and pneumonia treatment with supplemental oxygen, empiric IV antibiotic therapy and bronchodilator therapy. Quality Stroke Does the patient have a stroke diagnosis?: No VTE Prior VTE?: No VTE Risk Level:: Medical - moderate - high VTE Device Contraindication: Treatment Not Indicated VTE Drug Contraindication: N/A - Med Ordered
[2023-10-15] MEDS: guaiFENesin LA 600 MG TAB.ER.12H 1200 MG PO (03:33)
[2023-10-15] MEDS: vancomycin HCL 1,000 MG in 0.9 % Sodium Chloride 250 ML 270 MG IV ×3 (03:34→16:11)
[2023-10-15] MEDS: Piperacillin Sodium/Tazobactam 3.375 GM in 0.9 % Sodium Chloride 50 ML IV ×3 (06:32→18:20)
--- NOTE | 2023-10-15 07:11 | PC.NURSE ---
This RN assumed care. Pt is alert and oriented, breathing slightly elevated and audible congestion/ mucus heard in throat. Pt able to cough and clear his own secretions, reports he is able to bring them up and swallow them. SPO2 95-96% on 4L O2, vss. Pt denies any pain.
--- NOTE | 2023-10-15 07:28 | PC.NURSE ---
Spoke with nurse at [facility], per nurse patient is on a mechanical soft diet with thin liquids. Consult placed for speech to see patient this morning
[2023-10-15 08:13] LABS: MANUAL DIFF FLAG NO
[2023-10-15 08:14] LABS: Basophils Percent Auto 0.4 % (0-2); Eosinophils Percent Auto 0.1 % (0-4); Hematocrit 34.4 % (42.0-52.0); Imm Gran Abs Auto 0.03 X10*3/uL (0.00-0.03); Imm Gran Pct Auto 0.3 % (0.0-0.4); Lymphocytes Absolute Auto 0.4 X10*3/uL (1.2-4.9); Lymphocytes Percent Auto 3.6 % (20-40); Mean Corpuscular Hemoglobin 30.5 pg (27.0-33.0); Mean Corpuscular Volume 95.3 fL (80.0-98.0); Mean Platelet Volume 9.9 fL (9.4-12.4); Monocytes Absolute Auto 1.4 X10*3/uL (0.1-1.2); Monocytes Percent Auto 13.4 % (2-11); Neutrophils Absolute Auto 8.4 x10*3/uL (2.0-8.3); Neutrophils Percent Auto 82.2 % (45-73); Platelet Count 181 X10*3/uL (160-400); Red Blood Count 3.61 X10*6/uL (4.60-5.80); Red Cell Distribution Width 18.4 % (11.0-16.0); White Blood Count 10.2 X10*3/uL (4.8-10.8)
[2023-10-15 08:35] LABS: Alanine Aminotransferase 14 U/L (0-40); Albumin Level 2.7 g/dL (3.5-5.0); Alkaline Phosphatase 109 U/L (39-117); Anion Gap 14 (12-20); Aspartate Amino Transferase 15 U/L (5-37); Bilirubin Total 0.7 mg/dL (0.0-1.0); Blood Urea Nitrogen 17 mg/dL (9-16); Calcium 8.3 mg/dL (8.4-10.2); Carbon Dioxide 26 mmol/L (22-29); Chloride 109 mmol/L (96-108); Creatinine Clr Calc Pharmacy 108.1; Estimated Glomerular Filt Rate > 60; Glucose Random 80 mg/dL (60-115); Potassium 4.1 mmol/L (3.3-5.1); Sodium 145 mmol/L (135-145); Total Protein 5.2 g/dL (6.5-8.0)
--- NOTE | 2023-10-15 08:42 | PHA.MEDREC ---
Pharmacy Consult ? Medication Reconciliation Pharmacy has completed the medication reconciliation. Med list from Milad[facility].
[2023-10-15] MEDS: lisinopriL 10 MG TABLET PO (08:56)
[2023-10-15] MEDS: Apixaban 5 MG TABLET PO ×2 (08:56→22:26)
[2023-10-15] MEDS: Aspirin Enteric Coated 81 MG TABLET.DR PO (08:56)
[2023-10-15] MEDS: Folic Acid 1 MG TABLET PO (08:56)
[2023-10-15] MEDS: Pantoprazole Sodium 40 MG/10 ML VIAL IVPUSH (08:56)
[2023-10-15] MEDS: 0.9 % Sodium Chloride Flush 3 ML SYRINGE IVFLUSH ×2 (08:57→16:11)
--- NOTE | 2023-10-15 09:07 | PC.NURSE ---
Meds crushed in pudding tolerated well, no cough before or after swallow
--- NOTE | 2023-10-15 09:37 | PM.EVENT ---
Event Note Date of Service: 10/15/23 Event Note: Seen and evaluated this morning Complaining of cough Has edema in LE LUE swelling and erythema Continue IV Antibiotics monitor respiratory status Wean O2 down as tolerated Time Spent With Patient Time: Total time managing care of this patient today ____ minutes.
--- NOTE | 2023-10-15 09:52 | PHA.PROG ---
Admission Date/Time: October 15, 2023 02:01 Indication: respiratory infection Weight in k.1 kg Adjusted body weight in K.98 [place] body weight in Kg: Obesity Dosing Indication % IBW: Serum Creatinine - Last 168 Hours 10/14/23 10/15/23 23:04 08:02 Creatinine 0.85 0.86 Estimated CrCl and GFR - Last 168 Hours 10/14/23 10/15/23 23:04 08:02 Estim Creat Clear Calc 109.3 108.1 Estimated GFR > 60 > 60 Vancomycin Loading Dose: 2000 mg Current Vancomycin Dosing Regimen: 1000 mg Q12H Vancomycin Monitoring using AUC goal of 400 - 600 range with trough as surrogate marker: 433 Date and Time for next Vancomycin Level to be drawn: 10/16 @1300 Pharmacist Comments on Vancomycin Plan: Vancomycin dosing will take advantage of [employer] as a clinical decision support tool that uses Bayesian modeling to calculate individual patient's pharmacokinetic parameters and forecast the patient's drug concentration time course with the target goal AUC 24 range of 400 - 600 mg/L/hr.
[2023-10-15] MEDS: Atorvastatin Calcium 10 MG TABLET PO (10:14)
[2023-10-15] MEDS: Furosemide 40 MG/4 ML VIAL IVPUSH (10:14)
[2023-10-15] MEDS: Docusate Sodium 100 MG CAPSULE PO ×2 (10:14→22:27)
--- NOTE | 2023-10-15 10:27 | PC.NURSE ---
seen by speech , diet changed to nectar thick liquids and mechanical soft diet
--- NOTE | 2023-10-15 10:47 | MHC.SL.SWA ---
Speech Pathologist Impression: Risk of aspiration, oropharyngeal dysphagia Risk of Aspiration Due to: History of Pneumonia Dysphasia Diet Status: Downgrade to NDD2/NTL Liquid Consistency and Strategies for Safe Swallow: Liquid Intake Recommendation: [place] Thick Liquid Intake Strategies: Small Sips No Straws Solid Food Consistency: Dietary Recommendations: Grnd/Mech Altered (NDD2) Additional Modifications to Solid Foods: Pt seen this morning for bedside dysphagia eval. Pt produced immediate wet cough on thin liquids. Pt is edentulous, with slowed oral phase. Recommend downgrade to GROUND/MECH ALTERED (NDD2) solids for ease of mastication, NECTAR THICK liquids (no straws), pills CRUSHED in PUREE. Pt is able to feed himself, but may need assistance with set up of meal tray. Pt to be closely monitored by nursing staff during meals. Discontinue feeding if pt exhibits any overt signs of aspiration. Oral Medication Intake: Crushed with Puree Please contact the pharmacy regarding appropriate crushable or liquid drug formulations that are available whenever modified delivery is recommended. Compensatory Strategies and Precautions to be Taken for Safe Swallow: Sitting Upright (90 deg) Double Swallow No Straw Small Bites and Sips Alternate Liquids/Solids Rate of Ingestion Change Oral Check Avoid Specific Foods Supervision While Eating and Drinking for Safe Swallow: Total Supervision (1:1) Foods to Avoid: Hard, dry, or crunchy foods; mixed textures Swallowing Recommended Treatments: Compens. Strategy Educat. Recommendation for Speech: Inpatient Speech Therapy Speech Therapy through Rehab Facility Comment: Pt produced immediate wet cough on thin liquids. Pt is edentulous, with slowed oral phase. Recommend downgrade to GROUND/MECH ALTERED (NDD2) solids for ease of mastication, NECTAR THICK liquids (no straws), pills CRUSHED in PUREE. Pt is able to feed himself, but may need assistance with set up of meal tray. Pt to be closely monitored by nursing staff during meals. Discontinue feeding if pt exhibits any overt signs of aspiration. Frequency/Duration: M-F PRN Date Range for Service Req: Timeline to reassess: Package Line Operator Clinican/Clinical Fellow: No Supervisory Statement: I have reviewed and agree with the student/clinical fellow's documentation: N/A Speech Language Pathologist: Andreia Page M.A., CCC-MANAGER ADOBE
[2023-10-15 11:29] LABS: MRSA Nasal PCR NEGATIVE (Negative); SA Nasal PCR NEGATIVE (Negative)
[2023-10-15] MEDS: Midodrine HCl 5 MG TABLET PO (11:42)
[2023-10-15] MEDS: 0.9 % Sodium Chloride 500 ML IV (11:45)
--- NOTE | 2023-10-15 11:47 | PC.NURSE ---
Provider notified of low bp, new orders obtained. Patient without dizziness or lightheadedness. Voided small amount of clear yellow urine into urinal. fluids running per order
--- NOTE | 2023-10-15 12:41 | PC.NURSE ---
PEDRO [facility] can be reached at [phone], states will be in tomorrow to speak to case mangement regarding patients molst form
--- NOTE | 2023-10-15 13:19 | PC.NURSE ---
Alert and oriented, continues to deny feeling dizzy or lightheaded, provider notified of hypotension
--- NOTE | 2023-10-15 13:38 | PC.NURSE ---
Patient seen by provider, aware of hypotension
[2023-10-15] MEDS: Albumin Human 25 % 100 ML IV ×2 (13:54→14:52)
[2023-10-15] MEDS: guaiFENesin 200 MG/10 ML 10 ML LIQUID PO ×2 (14:30→22:26)
--- NOTE | 2023-10-15 15:06 | PC.NURSE ---
Alert and oriented, albumin infusing per order, denies pain or discomfort. Using call arcos to ask for urinal as needed.
--- NOTE | 2023-10-15 21:15 | PM.EVENT ---
Event Note Date of Service: 10/15/23 Event Note: Contacted by nursing to notify patient scored 8 on audit alcohol admission report. It seems like patient drinks 16 oz of blue ribbon beer at his nursing facility. Patient reported auditory and visual hallucinations. Patient has been alert and oriented x4 without other concering symptoms or signs of withdrawal. I feel will need to contact facility and investigate more about this. I went to see patient and he is sleeping soundly. His lungs are quite congested, however, this is not worse than admission. We will perform CIWA for now. Time Spent With Patient Time: Total time managing care of this patient today ____ minutes.
[2023-10-16] VITALS (11 sets, daily range): BP systolic 101–125; BP diastolic 51–59; PULSE 66–115; RESP 16–98; TEMP 36.3–36.9; O2SAT 18–100
[2023-10-16] MEDS: Piperacillin Sodium/Tazobactam 3.375 GM in 0.9 % Sodium Chloride 50 ML IV ×4 (00:36→16:43)
[2023-10-16] MEDS: guaiFENesin 200 MG/10 ML 10 ML LIQUID PO ×4 (02:31→22:43)
[2023-10-16] MEDS: vancomycin HCL 1,000 MG in 0.9 % Sodium Chloride 250 ML 270 MG IV ×2 (02:31→15:08)
[2023-10-16] MEDS: Albuterol/Iprat 2.5/0.5MG 3 ML AMPUL.NEB INHALE ×6 (03:20→23:48)
[2023-10-16] MEDS: Omeprazole 20 MG CAPSULE.DR PO (05:31)
[2023-10-16 05:58] LABS: Hematocrit 30.8 % (42.0-52.0); Hemoglobin 9.8 g/dl (14.0-18.0); Mean Corpuscular HGB Conc 31.8 g/dl (31.0-36.0); Mean Corpuscular Hemoglobin 29.9 pg (27.0-33.0); Mean Corpuscular Volume 93.9 fL (80.0-98.0); Platelet Count 162 X10*3/uL (160-400); Red Blood Count 3.28 X10*6/uL (4.60-5.80); Red Cell Distribution Width 18.5 % (11.0-16.0); White Blood Count 5.4 X10*3/uL (4.8-10.8)
[2023-10-16 06:17] LABS: Anion Gap 11 (12-20); Blood Urea Nitrogen 18 mg/dL (9-16); Calcium 8.3 mg/dL (8.4-10.2); Carbon Dioxide 27 mmol/L (22-29); Chloride 109 mmol/L (96-108); Creatinine Clr Calc Pharmacy 105.1; Estimated Glomerular Filt Rate > 60; Glucose Random 106 mg/dL (60-115); Potassium 3.4 mmol/L (3.3-5.1); Sodium 144 mmol/L (135-145)
[2023-10-16 06:18] LABS: B Type Natriuretic Peptide 259 pg/mL (<100)
[2023-10-16] MEDS: Atorvastatin Calcium 10 MG TABLET PO (08:47)
[2023-10-16] MEDS: Docusate Sodium 100 MG CAPSULE PO ×2 (08:47→22:43)
[2023-10-16] MEDS: Aspirin 81 MG TAB.CHEW PO (08:47)
[2023-10-16] MEDS: 0.9 % Sodium Chloride Flush 3 ML SYRINGE IVFLUSH ×2 (08:47→15:08)
[2023-10-16] MEDS: Apixaban 5 MG TABLET PO ×2 (08:47→22:43)
[2023-10-16] MEDS: Furosemide 40 MG/4 ML VIAL IVPUSH (08:47)
[2023-10-16] MEDS: Folic Acid 1 MG TABLET PO (08:47)
--- NOTE | 2023-10-16 08:56 | MHC.CM.PN ---
Patient is from [facility] and a [facility] bed [facility]. Returning to [facility] is the goal and CM has initiated and will follow for dc planning.HCP is Leilani @ [phone] Arturo Hall.
--- NOTE | 2023-10-16 09:06 | MHC.CM.PN ---
Patient is LTC and a 10 day VA bed hold at [facility].
--- NOTE | 2023-10-16 10:30 | HO.PM.IMPN ---
Subjective Subjective Date of Service: 10/16/23 Interval History: Seen and evaluated this morning Denies fever or chills on O2 supplement , sounds wet Started on CIWA protocol Review of Systems Review of Systems: Yes all other systems are reviewed and are negative Physical Exam Vital Signs: Vital Signs: Last Vital Signs Temp 98.2 F 10/16/23 07:04 Pulse 87 10/16/23 07:31 Resp 20 10/16/23 07:31 BP 103/58 L 10/16/23 07:04 Pulse Ox 97 10/16/23 07:04 O2 Del Method Nasal Cannula 10/16/23 07:04 O2 Flow Rate 3 10/16/23 03:22 Oxygen Flow Rate 4 10/14/23 22:46 BMI result Body Mass Index 43.3 Const: Other: Constitutional : Awake, interactive, morbidly obese, not in distress Neck : Normal inspection, Supple, right eye chronicly closed Cardiovascular : RRR, no JVP, no lower extremity edema Respiratory : good bilateral air entry, no crackles, wheezes or rhonchi Gastrointestinal: soft, lax, Normal bowel sounds, Non tender Skin : Warm, Dry skin in lower extremities with scaling , LUE swollen with erythema and mild warmth. no tenderness Neurological : Alert & oriented to self and place otherwise easily distracted Objective Data Active Medications Acetaminophen (Acetaminophen 325 Mg Tablet) 650 mg PO Q4H PRN PRN Reason: Fever Or Pain Albuterol/Ipratropium (Albuterol/Iprat 2.5/0.5mg 3 Ml Ampul.Neb) 3 ml INHALE Q4H [facility] Last Admin: 10/16/23 07:29 Dose: 3 ml Documented By: TRICE Apixaban (Apixaban 5 Mg Tablet) 5 mg PO BID [facility] Last Admin: 10/16/23 08:47 Dose: 5 mg Documented By: CAMACHO Aspirin (Aspirin 81 Mg Tab.Chew) 81 mg PO DAILY [facility] Last Admin: 10/16/23 08:47 Dose: 81 mg Documented By: CAMACHO Atorvastatin Calcium (Atorvastatin Calcium 10 Mg Tablet) 10 mg PO DAILY [facility] Last Admin: 10/16/23 08:47 Dose: 10 mg Documented By: CAMACHO Bisacodyl (Bisacodyl 10 Mg Supp.Rect) 10 mg AL DAILY PRN PRN Reason: Constipation Docusate Sodium (Docusate Sodium 100 Mg Capsule) 100 mg PO BID [facility] Last Admin: 10/16/23 08:47 Dose: 100 mg Documented By: CAMACHO Folic Acid (Folic Acid 1 Mg Tablet) 1 mg PO DAILY [facility] Last Admin: 10/16/23 08:47 Dose: 1 mg Documented By: CAMACHO Furosemide (Furosemide 40 Mg/4 Ml Vial) 40 mg IVPUSH DAILY [facility]; Protocol Last Admin: 10/16/23 08:47 Dose: 40 mg Documented By: CAMACHO Guaifenesin (Guaifenesin 200 Mg/10 Ml 10 Ml Liquid) 10 ml PO Q6H [facility] Last Admin: 10/16/23 08:47 Dose: 10 ml Documented By: CAMACHO Piperacillin Sod/Tazobactam (Sod 3.375 gm/ Sodium Chloride) 50 mls @ 100 mls/hr IV Q6H [facility] Last Infusion: 10/16/23 06:05 Dose: Infused Documented By: CHELY Azithromycin 500 mg/ Sodium (Chloride) 250 mls @ 125 mls/hr IV Q24H [facility] Last Infusion: 10/16/23 00:43 Dose: Infused Documented By: CHELY Vancomycin HCl 1,000 mg/ (Sodium Chloride) 270 mls @ 270 mls/hr IV Q12H [facility] Last Infusion: 10/16/23 04:47 Dose: Infused Documented By: CHELY Lactic Acid (Ammonium Lactate 12 % Cream 140 Gm Tube) 1 appl TOPICAL BID [facility]; Protocol Last Admin: 10/16/23 08:48 Dose: Not Given Documented By: CAMACHO Non-Admin Reason: Med Not Available Lactulose (Lactulose 20 Gm/30 Ml Solution) 20 gm PO DAILY PRN PRN Reason: Constipation Magnesium Hydroxide (Milk Of Magnesia 30 Ml Oral.Susp) 30 ml PO BEDTIME PRN PRN Reason: Constipation Omeprazole (Omeprazole 20 Mg Capsule.Dr) 20 mg PO DAILY@0630 [facility] Last Admin: 10/16/23 05:31 Dose: 20 mg Documented By: CHELY Pharmacy Consult (Consult Rx Vancomycin Dosing) 1 each MISCELLANE DAILY PRN PRN Reason: Consult order Sodium Biphosphate/Sodium Phosphate (Sodium Phosphate,[place]-Dibasic 133 Ml Enema) 133 ml AL DAILY PRN PRN Reason: Constipation Sodium Chloride (0.9 % Sodium Chloride Flush 3 Ml Syringe) 3 ml IVFLUSH QSHIFT [facility] Last Admin: 10/16/23 08:47 Dose: 3 ml Documented By: CAMACHO Zinc Oxide (Zinc Oxide 20% Ointment 28.35 Gm Tube) 1 appl TOPICAL BID PRN; Protocol PRN Reason: Rash Zinc Oxide (Zinc Oxide (Triple Paste) 56.7 Gm Oint) 1 appl TOPICAL BID [facility] Last Admin: 10/16/23 08:54 Dose: Not Given Documented By: CAMACHO Non-Admin Reason: Med Not Available Labs 10/16/23 05:29 10/16/23 05:29 Labs: Laboratory Results - last 24 hr 10/15/23 10/16/23 01:54 05:29 MCV 93.9 MCH 29.9 MCHC 31.8 RDW 18.5 H Plt Count 162 MPV 10.0 Absolute Nucleated RBC 0.000 Nucleated RBC % (auto) 0.0 Anion Gap 11 L Estim Creat Clear Calc 105.1 Estimated GFR > 60 Random Glucose 106 Calcium 8.3 L B-Natriuretic Peptide 259 H Nasal Screen MRSA (PCR) NEGATIVE Nasal S. aureus Screen NEGATIVE Nasal MRSA/S.aureus Interp SEE NOTE Microbiology Microbiology Results: Microbiology 10/15/23 07:47 Gram Stain - Final Sputum - Suctioned Sputum Culture - Preliminary Culture in progress. 10/14/23 23:50 Blood Culture - Preliminary Blood - Venous No growth after 24 hours. 10/14/23 23:09 Blood Culture - Preliminary Blood - Venous No growth after 24 hours. Assessment and Plan (1) Pneumonia: Status: Acute (2) Hypoxia: Status: Acute (3) Respiratory syncytial virus (RSV) infection: Status: Acute Plan Erick Mancerajoycesherwin 78 years old man admitted with: # Acute Hypoxic respiratory failure likely secondary to RSV infection and aspiration pneumonia in the setting of ASHLEY Droplet and aspiration precautions. Continue supplemental oxygen, wean as tolerated Blood cultured pending IV antibiotic Zosyn and vancomycin. bronchodilator therapy. Mucinex speech and swallow evaluation Check Legionella Ag urine, sputum culture. # Left upper extremity superficial venous thrombosis ( Lt UE venous US (September 17): Nonocclusive superficial venous thrombosis in the distal aspect of the left cephalic vein. Continue Eliquis. Repeated Lt UE venous ultrasound did not show any DVT at this point # Alcohol abuse on CIND protocol # Hyperlipidemia. Continue statin. # Chronic atrial fibrillation, currently rate-controlled. Continue Eliquis in the aspirin. # Essential hypertension. Continue lisinopril. # Constipation. Milk of magnesia and Fleet enema as needed. Dulcolax. # GERD. PPI IV # Obesity. BMI 43.7 kg/m2. Weight loss. DVT prophylaxis: Eliquis GI prophylaxis: PPI IV Patient will need hospitalization overnight for hypoxic respiratory failure and pneumonia treatment with supplemental oxygen, IV antibiotic therapy and bronchodilator therapy. Quality Stroke Does the patient have a stroke diagnosis?: No VTE Prior VTE?: No VTE Risk Level:: Medical - moderate - high VTE Device Contraindication: Treatment Not Indicated VTE Drug Contraindication: N/A - Med Ordered
--- NOTE | 2023-10-16 11:10 | MHC.SL.SWA ---
Speech Pathologist Impression: Risk of aspiration, Oropharyngeal dysphagia Risk of Aspiration Due to: History of pneumonia Dysphasia Diet Status: No changes Liquid Consistency and Strategies for Safe Swallow: Liquid Intake Recommendation: [place] Thick Liquid Intake Strategies: Small Sips No Straws Solid Food Consistency: Dietary Recommendations: Grnd/Mech Altered (NDD2) Additional Modifications to Solid Foods: Continue on GROUND/MECH ALTERED (NDD2) solids and NECTAR THICK liquids (no straws), pills CRUSHED in PUREE. Pt is able to feed himself, but may need assistance with set up of meal tray. Pt to be closely monitored by nursing staff during meals. Discontinue feeding if pt exhibits any overt signs of aspiration. Oral Medication Intake: Crushed with Puree Please contact the pharmacy regarding appropriate crushable or liquid drug formulations that are available whenever modified delivery is recommended. Compensatory Strategies and Precautions to be Taken for Safe Swallow: Sitting Upright (90 deg) Double Swallow No Straw Small Bites and Sips Alternate Liquids/Solids Rate of Ingestion Change Oral Check Avoid Specific Foods Supervision While Eating and Drinking for Safe Swallow: Total Supervision (1:1) Foods to Avoid: Hard, dry, or crunchy foods; mixed textures Swallowing Recommended Treatments: Compens. Strategy Educat. Recommendation for Speech: Inpatient Speech Therapy Speech Therapy through Rehab Facility Frequency/Duration: M-F PRN Date Range for Service Req: Timeline to reassess: Material Lister Clinican/Clinical Fellow: No Supervisory Statement: I have reviewed and agree with the student/clinical fellow's documentation: N/A Speech Language Pathologist: Andreia Page M.A., CCC-CAR REPAIRMAN
--- NOTE | 2023-10-16 12:19 | MHC.RECOVRN ---
AUDIT-C Brief Intervention Pt had positive screen for unhealthy alcohol use on admission. Pt declined meeting with Addiction Consult Service.
--- NOTE | 2023-10-16 12:51 | HO.WOUND ---
Wound Consult: Initial 78yr old?M admitted to [facility] on 10/15/23 - See progress notes and H&P for detailed history.? Wound consult placed for Buttocks and Scrotum POA.? Patient agreeable to assessment and photo documentation.? Bilateral Lower Legs - Venous Dermatitis Thick adherent scaling dry tissue - lifting revealing intact tissue underneath. no open wounds at this time - Provider ordered topical cream from pharmacy - will be applied by direct care team when arrives to unit. Goal is to soften thick scaling tissue. Right Heel Etiology: Deep Tissue Injury ??Present on Admission Measurements: see charting for detailed measurement Wound Bed: intact nonblanchable purple tissue Drainage / Odor: none Edges: ? defined Ayesha wound: Intact? No Induration, Fluctuance or Warmth noted Pain: denies Goals of Treatment: ? off load pressure - protect from friction with foam Coccyx and Right Buttocks Etiology: ?Stage 2 Pressure Injuries - Present on Admission Measurements: see charting for detailed measurements Wound Bed: pink nonblanchable tissue with partial thickness tissue loss Drainage / Odor: none noted Edges: ? well defined Ayesha wound: ?MASD-IAD (Moisture Associated Skin Damage - Incontinence Associated Dermatitis) No Induration, Fluctuance or Warmth noted Pain: Denies Goals of Treatment: ? Triad or zinc application to protect from moisture and friction Right Ischium Etiology: ?Stage 2 Pressure Injury - Present on Admission Measurements: see charting for detailed measurements Wound Bed: pink nonblanchable tissue with partial thickness tissue loss Drainage / Odor: none noted Edges: ? well defined macerated edges Ayesha wound: ?MASD-IAD (Moisture Associated Skin Damage - Incontinence Associated Dermatitis) No Induration, Fluctuance or Warmth noted Pain: Denies Goals of Treatment: ? Triad or zinc application to protect from moisture and friction Left Ischium Etiology: ?Deep Tissue Injury - Present on Admission Measurements: see charting for detailed measurements Wound Bed: maroon purple intact nonblanchable tissue Drainage / Odor: none noted Edges: ?irregular Ayesha wound: ?MASD-IAD (Moisture Associated Skin Damage - Incontinence Associated Dermatitis) No Induration, Fluctuance or Warmth noted Pain: Denies Goals of Treatment: ? Triad or zinc application to protect from moisture and friction Recommendations: 1. Turn and Reposition every 2 hours and as needed for patient comfort.? Use pillows or wedges to support off loading positions. 2. Off Load all bony prominences with use of pillows and heel boots if needed.? Apply Preventative foams where needed. ? 3. Monitor for incontinence and moisture control, use barrier creams when needed for prevention and treatment. 4. Provide adequate and supplemental nutrition.? 5. Order low air loss mattress. 6. Coccyx, Buttock, Bilateral Ischium, Scrotum and Bilateral Inner Thighs - Off Load Pressure - Cleanse with PH balance spray or wipes, pat dry. ?Apply thin layer of Triad to wound bed - only pat and dab no scrub and rub when soiling occurs. Reapply thin layer PRN after each episode of incontinence. 7. Right Heel - Elevate heels off of bed surface with use of pillows - apply foam dressing - peel back and assess Q shift , change every 3 days and PRN. 8. Bilateral Lower Legs - Cleanse with Cydney spray (White and Purple bottle) allow to penetrate and cover with warm cloth to soften dry scaling tissue, Pat dry.? Apply Lac-hydrin lotion per provider order or vaseline to both legs. Re-consult wound care Nurse for wound deterioration or wound changes.
[2023-10-16 13:51] LABS: Vancomycin Trough 13.4 mcg/mL (10.0-20.0)
--- NOTE | 2023-10-16 14:03 | HE.PHANOTE ---
VANCOMYCIN BASED ON SCR AND TROUGH OF 13.4 DOSE CONTINUED AT 1000 Q 12H. NEXT LEVEL AT 10/17@1300
[2023-10-16] MEDS: Azithromycin 500 MG in 0.9 % Sodium Chloride 250 ML 125 MG IV (22:40)
[2023-10-16] MEDS: Ammonium Lactate 12 % Lotion 226 GM BOTTLE 1 APPL TOPICAL (22:43)
[2023-10-16] MEDS: Zinc Oxide 20% Ointment 28.35 GM TUBE 1 APPL TOPICAL (22:44)
[2023-10-16] MEDS: Zinc Oxide (Triple Paste) 56.7 GM OINT 1 APPL TOPICAL (22:55)
[2023-10-17] VITALS (15 sets, daily range): BP systolic 94–131; BP diastolic 50–63; PULSE 68–97; RESP 18–24; TEMP 35.5–37.7; O2SAT 91–98; BMI 43.3
[2023-10-17] MEDS: Piperacillin Sodium/Tazobactam 3.375 GM in 0.9 % Sodium Chloride 50 ML IV ×4 (02:54→16:11)
[2023-10-17] MEDS: guaiFENesin 200 MG/10 ML 10 ML LIQUID PO ×4 (02:59→21:18)
[2023-10-17] MEDS: Albuterol/Iprat 2.5/0.5MG 3 ML AMPUL.NEB INHALE ×6 (03:12→23:36)
[2023-10-17] MEDS: vancomycin HCL 1,000 MG in 0.9 % Sodium Chloride 250 ML 270 MG IV (04:20)
[2023-10-17 06:34] LABS: Hematocrit 30.2 % (42.0-52.0); Hemoglobin 9.6 g/dl (14.0-18.0); Mean Corpuscular HGB Conc 31.8 g/dl (31.0-36.0); Mean Corpuscular Hemoglobin 29.4 pg (27.0-33.0); Mean Corpuscular Volume 92.6 fL (80.0-98.0); Mean Platelet Volume 10.1 fL (9.4-12.4); Platelet Count 165 X10*3/uL (160-400); Red Blood Count 3.26 X10*6/uL (4.60-5.80); Red Cell Distribution Width 18.3 % (11.0-16.0); White Blood Count 4.4 X10*3/uL (4.8-10.8)
[2023-10-17] MEDS: Omeprazole 20 MG CAPSULE.DR PO (06:36)
[2023-10-17 06:47] LABS: Creatinine Clr Calc Pharmacy 121.7; Estimated Glomerular Filt Rate > 60
[2023-10-17 06:51] LABS: Anion Gap 10 (12-20); Blood Urea Nitrogen 15 mg/dL (9-16); Calcium 8.1 mg/dL (8.4-10.2); Carbon Dioxide 29 mmol/L (22-29); Chloride 109 mmol/L (96-108); Creatinine Clr Calc Pharmacy 123.3; Estimated Glomerular Filt Rate > 60; Glucose Random 73 mg/dL (60-115); Potassium 3.4 mmol/L (3.3-5.1); Sodium 145 mmol/L (135-145)
[2023-10-17] MEDS: Ammonium Lactate 12 % Lotion 226 GM BOTTLE 1 APPL TOPICAL ×2 (08:26→21:21)
[2023-10-17] MEDS: Aspirin 81 MG TAB.CHEW PO (08:26)
[2023-10-17] MEDS: Apixaban 5 MG TABLET PO ×2 (08:26→21:18)
[2023-10-17] MEDS: Furosemide 40 MG/4 ML VIAL IVPUSH (08:26)
[2023-10-17] MEDS: Folic Acid 1 MG TABLET PO (08:26)
[2023-10-17] MEDS: 0.9 % Sodium Chloride Flush 3 ML SYRINGE IVFLUSH ×3 (08:26→21:19)
[2023-10-17] MEDS: Atorvastatin Calcium 10 MG TABLET PO (08:26)
[2023-10-17] MEDS: Docusate Sodium 100 MG CAPSULE PO ×2 (08:26→21:18)
[2023-10-17] MEDS: Zinc Oxide (Triple Paste) 56.7 GM OINT 1 APPL TOPICAL (08:28)
--- NOTE | 2023-10-17 09:57 | HO.PM.IMPN ---
Subjective Subjective Date of Service: 10/17/23 Interval History: Seen and evaluated this morning Denies fever or chills on O2 supplement , sounds wet and congested still not scoring on CIWA protocol Review of Systems Review of Systems: Yes all other systems are reviewed and are negative Physical Exam Vital Signs: Vital Signs: Last Vital Signs Temp 97.0 F 10/17/23 07:44 Pulse 81 10/17/23 07:44 Resp 24 H 10/17/23 07:44 BP 108/63 10/17/23 07:44 Pulse Ox 98 10/17/23 07:44 O2 Del Method Nasal Cannula 10/17/23 07:44 O2 Flow Rate 2 10/17/23 07:44 Oxygen Flow Rate 4 10/14/23 22:46 BMI result Body Mass Index 43.3 Const: Other: Constitutional : Awake, interactive, morbidly obese, not in distress Neck : Normal inspection, Supple, right eye chronicly closed Cardiovascular : RRR, no JVP, +1 lower extremity edema Respiratory : good bilateral air entry, basal fine crackles, wheezes or rhonchi Gastrointestinal: soft, lax, Normal bowel sounds, Non tender Skin : Warm, Dry skin in lower extremities with scaling , LUE swollen with erythema and mild warmth. no tenderness Neurological : Alert & oriented to self and place otherwise easily distracted Objective Data Active Medications Acetaminophen (Acetaminophen 325 Mg Tablet) 650 mg PO Q4H PRN PRN Reason: Fever Or Pain Albuterol/Ipratropium (Albuterol/Iprat 2.5/0.5mg 3 Ml Ampul.Neb) 3 ml INHALE Q4H [facility] Last Admin: 10/17/23 07:36 Dose: 3 ml Documented By: LOS Apixaban (Apixaban 5 Mg Tablet) 5 mg PO BID [facility] Last Admin: 10/17/23 08:26 Dose: 5 mg Documented By: CAMACHO Aspirin (Aspirin 81 Mg Tab.Chew) 81 mg PO DAILY [facility] Last Admin: 10/17/23 08:26 Dose: 81 mg Documented By: CAMACHO Atorvastatin Calcium (Atorvastatin Calcium 10 Mg Tablet) 10 mg PO DAILY [facility] Last Admin: 10/17/23 08:26 Dose: 10 mg Documented By: CAMACHO Bisacodyl (Bisacodyl 10 Mg Supp.Rect) 10 mg ME DAILY PRN PRN Reason: Constipation Docusate Sodium (Docusate Sodium 100 Mg Capsule) 100 mg PO BID [facility] Last Admin: 10/17/23 08:26 Dose: 100 mg Documented By: CAMACHO Folic Acid (Folic Acid 1 Mg Tablet) 1 mg PO DAILY [facility] Last Admin: 10/17/23 08:26 Dose: 1 mg Documented By: CAMACHO Furosemide (Furosemide 40 Mg/4 Ml Vial) 40 mg IVPUSH DAILY [facility]; Protocol Last Admin: 10/17/23 08:26 Dose: 40 mg Documented By: CAMACHO Guaifenesin (Guaifenesin 200 Mg/10 Ml 10 Ml Liquid) 10 ml PO Q6H [facility] Last Admin: 10/17/23 08:26 Dose: 10 ml Documented By: CAMACHO Piperacillin Sod/Tazobactam (Sod 3.375 gm/ Sodium Chloride) 50 mls @ 100 mls/hr IV Q6H [facility] Last Infusion: 10/17/23 07:16 Dose: Infused Documented By: LIZETTE Azithromycin 500 mg/ Sodium (Chloride) 250 mls @ 125 mls/hr IV Q24H [facility] Last Infusion: 10/17/23 02:00 Dose: Infused Documented By: LIZETTE Lactic Acid (Ammonium Lactate 12 % Lotion 226 Gm Bottle) 1 appl TOPICAL BID [facility]; Protocol Last Admin: 10/17/23 08:26 Dose: 1 appl Documented By: CAMACHO Lactulose (Lactulose 20 Gm/30 Ml Solution) 20 gm PO DAILY PRN PRN Reason: Constipation Magnesium Hydroxide (Milk Of Magnesia 30 Ml Oral.Susp) 30 ml PO BEDTIME PRN PRN Reason: Constipation Omeprazole (Omeprazole 20 Mg Capsule.Dr) 20 mg PO DAILY@0630 [facility] Last Admin: 10/17/23 06:36 Dose: 20 mg Documented By: BRAXTON Pharmacy Consult (Consult Rx Vancomycin Dosing) 1 each MISCELLANE DAILY PRN PRN Reason: Consult order Sodium Biphosphate/Sodium Phosphate (Sodium Phosphate,[place]-Dibasic 133 Ml Enema) 133 ml ME DAILY PRN PRN Reason: Constipation Sodium Chloride (0.9 % Sodium Chloride Flush 3 Ml Syringe) 3 ml IVFLUSH QSHIFT [facility] Last Admin: 10/17/23 08:26 Dose: 3 ml Documented By: CAMACHO Zinc Oxide (Zinc Oxide 20% Ointment 28.35 Gm Tube) 1 appl TOPICAL BID PRN; Protocol PRN Reason: Rash Last Admin: 10/16/23 22:44 Dose: 1 appl Documented By: LIZETTE Zinc Oxide (Zinc Oxide (Triple Paste) 56.7 Gm Oint) 1 appl TOPICAL BID [facility] Last Admin: 10/17/23 08:28 Dose: 1 appl Documented By: CAMACHO Labs 10/17/23 06:22 10/17/23 06:22 Labs: Laboratory Results - last 24 hr 10/16/23 10/17/23 10/17/23 13:15 06:22 06:22 MCV 92.6 MCH 29.4 MCHC 31.8 RDW 18.3 H Plt Count 165 MPV 10.1 Absolute Nucleated RBC 0.000 Nucleated RBC % (auto) 0.0 Anion Gap 10 L Estim Creat Clear Calc 121.7 123.3 Estimated GFR > 60 Random Glucose Calcium Vancomycin Trough 13.4 10/17/23 06:22 MCV MCH MCHC RDW Plt Count MPV Absolute Nucleated RBC Nucleated RBC % (auto) Anion Gap Estim Creat Clear Calc Estimated GFR > 60 Random Glucose 73 Calcium 8.1 L Vancomycin Trough Microbiology Microbiology Results: Microbiology 10/15/23 07:47 Gram Stain - Final Sputum - Suctioned Sputum Culture - Final 10/14/23 23:50 Blood Culture - Preliminary Blood - Venous No growth after 48 hours. 10/14/23 23:09 Blood Culture - Preliminary Blood - Venous No growth after 48 hours. Assessment and Plan (1) Pneumonia: Status: Acute (2) Hypoxia: Status: Acute (3) Respiratory syncytial virus (RSV) infection: Status: Acute Plan Erick Mancerajoycesherwin 78 years old man admitted with: # Acute Hypoxic respiratory failure likely secondary to RSV infection and aspiration pneumonia in the setting of ASHLEY improving slowly pending Legionella Ag urine, sputum culture. Continue supplemental oxygen, wean as tolerated Blood cultured pending IV antibiotic Zosyn and vancomycin. bronchodilator therapy. Mucinex Incentive spirometry speech and swallow evaluation # Left upper extremity superficial venous thrombosis ( Lt UE venous US (September 17): Nonocclusive superficial venous thrombosis in the distal aspect of the left cephalic vein. Continue Eliquis. Repeated Lt UE venous ultrasound did not show any DVT at this point # Hx Alcohol abuse on [facility] protocol # Hyperlipidemia. Continue statin. # Chronic atrial fibrillation, currently rate-controlled. Continue Eliquis in the aspirin. # Essential hypertension. Continue lisinopril. # Constipation. Milk of magnesia and Fleet enema as needed. Dulcolax. # GERD. PPI IV # Obesity. BMI 43.7 kg/m2. Weight loss. DVT prophylaxis: Eliquis GI prophylaxis: PPI IV Patient will need hospitalization overnight for hypoxic respiratory failure and pneumonia treatment with supplemental oxygen, IV antibiotic therapy and bronchodilator therapy. Quality Stroke Does the patient have a stroke diagnosis?: No VTE Prior VTE?: No VTE Risk Level:: Medical - moderate - high VTE Device Contraindication: Treatment Not Indicated VTE Drug Contraindication: N/A - Med Ordered
--- NOTE | 2023-10-17 10:22 | MHC.CLN ---
RE: CONSULT PT WITH INCREASED NUTRITION RISK R/T PRESSURE INJURIES DIET RX: CARDIAC GRD M/S WITH NT LIQ-RECOMMEND LIBERALIZING TO INCREASE PO WILL CHANGE TO 2GM NA DIET RESTRICTION RECOMMEND ADDING ENSURE PLUS HP TID TO PROMOTE WOUND HEALING SUPP TO PROVIDE 1050KCALS, 60G PROTEIN MONITOR PO INTAKE CLOSELY AND ENCOURAGE SUPPLEMENT SEE ALSO FULL CLINICAL NUTRITION ASSESSMENT
--- NOTE | 2023-10-17 11:50 | MHC.SL.DTX ---
Dysphagia Diet modifications: Last documented Solid diet consistencies: Grnd/Mech Altered (NDD2) Last documented Liquid consistency: Rheems Thick Changes made to current diet?: No: No Changes Liquid Consistency and Strategies: Liquid Intake Recommendation: Rheems Thick Compensatory Strategies for Safe Swallow: Small Sips No Straws Compensatory Strategies for Safe Swallow(b): Sitting Upright (90 deg) Double Swallow No Straw Small Bites and Sips Alternate Liquids/Solids Rate of Ingestion Change Oral Check Avoid Specific Foods Solid Food Consistency: Dietary Recommendations: Additional Modifications to Solids: Oral Medication Intake: Crushed with Puree Strategies and Precautions to be Taken for Safe Swallow: Sitting Upright (90 deg) Double Swallow No Straw Small Bites and Sips Alternate Liquids/Solids Rate of Ingestion Change Oral Check Avoid Specific Foods Supervision While Eating and/Drinking: Total Supervision (1:1) Foods to Avoid: Hard, dry, or crunchy foods; mixed textures Swallowing Recommended Treatments: Compens. Strategy Educat. Recommendation for Speech: Inpatient Speech Therapy Speech Therapy through Rehab Facility Frequency/Duration: M-F PRN Treatment: Pt tolerated Thin Liquid via Ice Chips, however after administration via Straw resulted in delayed throat clearing and cough. Tolerated Rheems-Thick Liquids via Spoon and Straw with no overt s/s of aspiration. He tolerated bites of Puree Solids with no overt s/s of aspiration and adequate oral clearance. He tolerated Ground and Chopped/Advanced Solids with mildly delayed oral preparation, but adequate collection and clearance with no overt s/s of aspiration. In consideration of aspiration risk v pressure wound injuries, recommend trialing upgrade of solids to Chopped/Advanced (NDD3) today. Assessment: Preparer Samples And Repairs Clinican/Clinical Fellow: No Supervisory Statement: I have reviewed and agree with the student/clinical fellow's documentation: N/A Speech Language Pathologist: Bertram Santos M.A., CCC-FERRYBOAT OPERATOR HELPER
[2023-10-17] MEDS: Acetaminophen 325 MG TABLET 650 MG PO (13:32)
[2023-10-17] MEDS: Azithromycin 500 MG in 0.9 % Sodium Chloride 250 ML 125 MG IV (21:18)
[2023-10-17] MEDS: Zinc Oxide 20% Ointment 28.35 GM TUBE 1 APPL TOPICAL (21:21)
[2023-10-18] VITALS (11 sets, daily range): BP systolic 109–132; BP diastolic 57–65; PULSE 76–99; RESP 18–20; TEMP 36.1–36.5; O2SAT 92–99
[2023-10-18] MEDS: Piperacillin Sodium/Tazobactam 3.375 GM in 0.9 % Sodium Chloride 50 ML IV ×4 (03:42→20:31)
[2023-10-18] MEDS: guaiFENesin 200 MG/10 ML 10 ML LIQUID PO ×3 (03:43→15:31)
[2023-10-18] MEDS: Albuterol/Iprat 2.5/0.5MG 3 ML AMPUL.NEB INHALE ×5 (04:28→19:38)
[2023-10-18] MEDS: Omeprazole 20 MG CAPSULE.DR PO (05:34)
[2023-10-18] MEDS: Acetaminophen 325 MG TABLET 650 MG PO (05:34)
[2023-10-18 06:09] LABS: Hematocrit 29.6 % (42.0-52.0); Hemoglobin 9.5 g/dl (14.0-18.0); Mean Corpuscular HGB Conc 32.1 g/dl (31.0-36.0); Mean Corpuscular Hemoglobin 29.5 pg (27.0-33.0); Mean Corpuscular Volume 91.9 fL (80.0-98.0); Mean Platelet Volume 9.9 fL (9.4-12.4); Platelet Count 183 X10*3/uL (160-400); Red Blood Count 3.22 X10*6/uL (4.60-5.80); Red Cell Distribution Width 18.2 % (11.0-16.0); White Blood Count 4.4 X10*3/uL (4.8-10.8)
[2023-10-18 06:26] LABS: Anion Gap 12 (12-20); Blood Urea Nitrogen 16 mg/dL (9-16); Calcium 8.4 mg/dL (8.4-10.2); Carbon Dioxide 28 mmol/L (22-29); Chloride 107 mmol/L (96-108); Creatinine Clr Calc Pharmacy 91.6; Creatinine Clr Calc Pharmacy 94.4; Estimated Glomerular Filt Rate > 60; Glucose Random 83 mg/dL (60-115); Potassium 3.4 mmol/L (3.3-5.1); Sodium 144 mmol/L (135-145)
[2023-10-18] MEDS: 0.9 % Sodium Chloride Flush 3 ML SYRINGE IVFLUSH ×2 (09:33→19:05)
[2023-10-18] MEDS: Furosemide 40 MG/4 ML VIAL IVPUSH (09:33)
[2023-10-18] MEDS: Docusate Sodium 100 MG CAPSULE PO ×2 (09:34→20:32)
[2023-10-18] MEDS: Folic Acid 1 MG TABLET PO (09:34)
[2023-10-18] MEDS: Aspirin 81 MG TAB.CHEW PO (09:34)
[2023-10-18] MEDS: Atorvastatin Calcium 10 MG TABLET PO (09:34)
[2023-10-18] MEDS: Apixaban 5 MG TABLET PO ×2 (09:34→20:32)
[2023-10-18] MEDS: Zinc Oxide 20% Ointment 28.35 GM TUBE 1 APPL TOPICAL ×2 (09:34→20:33)
[2023-10-18] MEDS: Ammonium Lactate 12 % Lotion 226 GM BOTTLE 1 APPL TOPICAL ×2 (09:34→20:32)
--- NOTE | 2023-10-18 10:18 | MHC.CM.PN ---
Per ROUNDS discussion, Patient is not yet medically cleared for dc (2 IV ABT & IV Lasix); returning to LTC is the goal and CM will continue to follow.
[2023-10-18] MEDS: Zinc Oxide (Triple Paste) 56.7 GM OINT 1 APPL TOPICAL (10:38)
--- NOTE | 2023-10-18 10:43 | HO.PM.IMPN ---
Subjective Subjective Date of Service: 10/18/23 Interval History: overall improved, still not at baseline sob Physical Exam Vital Signs: Vital Signs: Last Vital Signs Temp 97.6 F 10/18/23 07:28 Pulse 90 10/18/23 07:31 Resp 18 10/18/23 07:31 BP 114/60 10/18/23 07:28 Pulse Ox 98 10/18/23 07:28 O2 Del Method Nasal Cannula 10/18/23 07:28 O2 Flow Rate 4 10/18/23 07:28 Oxygen Flow Rate 4 10/14/23 22:46 BMI result Body Mass Index 43.3 Const: Other: Constitutional : Awake, interactive, morbidly obese, not in distress Neck : Normal inspection, Supple, right eye chronicly closed Cardiovascular : RRR, no JVP, +1 lower extremity edema Respiratory : good bilateral air entry, basal fine crackles, wheezes or rhonchi Gastrointestinal: soft, lax, Normal bowel sounds, Non tender Skin : Warm, Dry skin in lower extremities with scaling , LUE swollen with erythema and mild warmth. no tenderness Neurological : Alert & oriented to self and place otherwise easily distracted Objective Data Active Medications Acetaminophen (Acetaminophen 325 Mg Tablet) 650 mg PO Q4H PRN PRN Reason: Fever Or Pain Last Admin: 10/18/23 05:34 Dose: 650 mg Documented By: BRAXTON Albuterol/Ipratropium (Albuterol/Iprat 2.5/0.5mg 3 Ml Ampul.Neb) 3 ml INHALE Q4H [facility] Last Admin: 10/18/23 07:31 Dose: 3 ml Documented By: LOS Apixaban (Apixaban 5 Mg Tablet) 5 mg PO BID [facility] Last Admin: 10/18/23 09:34 Dose: 5 mg Documented By: PAT Aspirin (Aspirin 81 Mg Tab.Chew) 81 mg PO DAILY [facility] Last Admin: 10/18/23 09:34 Dose: 81 mg Documented By: PAT Atorvastatin Calcium (Atorvastatin Calcium 10 Mg Tablet) 10 mg PO DAILY [facility] Last Admin: 10/18/23 09:34 Dose: 10 mg Documented By: PAT Bisacodyl (Bisacodyl 10 Mg Supp.Rect) 10 mg [place] DAILY PRN PRN Reason: Constipation Docusate Sodium (Docusate Sodium 100 Mg Capsule) 100 mg PO BID [facility] Last Admin: 10/18/23 09:34 Dose: 100 mg Documented By: PAT Folic Acid (Folic Acid 1 Mg Tablet) 1 mg PO DAILY [facility] Last Admin: 10/18/23 09:34 Dose: 1 mg Documented By: PAT Furosemide (Furosemide 40 Mg/4 Ml Vial) 40 mg IVPUSH DAILY [facility]; Protocol Last Admin: 10/18/23 09:33 Dose: 40 mg Documented By: PAT Guaifenesin (Guaifenesin 200 Mg/10 Ml 10 Ml Liquid) 10 ml PO Q6H [facility] Last Admin: 10/18/23 09:34 Dose: 10 ml Documented By: PAT Azithromycin 500 mg/ Sodium (Chloride) 250 mls @ 125 mls/hr IV Q24H [facility] Last Infusion: 10/18/23 01:15 Dose: Infused Documented By: BRAXTON Piperacillin Sod/Tazobactam (Sod 3.375 gm/ Sodium Chloride) 50 mls @ 100 mls/hr IV Q6H [facility] Last Infusion: 10/18/23 10:38 Dose: Infused Documented By: ZARINA Lactic Acid (Ammonium Lactate 12 % Lotion 226 Gm Bottle) 1 appl TOPICAL BID [facility]; Protocol Last Admin: 10/18/23 09:34 Dose: 1 appl Documented By: PAT Lactulose (Lactulose 20 Gm/30 Ml Solution) 20 gm PO DAILY PRN PRN Reason: Constipation Magnesium Hydroxide (Milk Of Magnesia 30 Ml Oral.Susp) 30 ml PO BEDTIME PRN PRN Reason: Constipation Omeprazole (Omeprazole 20 Mg Capsule.) 20 mg PO DAILY@0630 [facility] Last Admin: 10/18/23 05:34 Dose: 20 mg Documented By: BRAXTON Pharmacy Consult (Consult Rx Vancomycin Dosing) 1 each MISCELLANE DAILY PRN PRN Reason: Consult order Sodium Biphosphate/Sodium Phosphate (Sodium Phosphate,[place]-Dibasic 133 Ml Enema) 133 ml [place] DAILY PRN PRN Reason: Constipation Sodium Chloride (0.9 % Sodium Chloride Flush 3 Ml Syringe) 3 ml IVFLUSH QSHIFT [facility] Last Admin: 10/18/23 09:33 Dose: 3 ml Documented By: ZARINA Zinc Oxide (Zinc Oxide 20% Ointment 28.35 Gm Tube) 1 appl TOPICAL BID PRN; Protocol PRN Reason: Rash Last Admin: 10/18/23 09:34 Dose: 1 appl Documented By: VANTEKJames Zinc Oxide (Zinc Oxide (Triple Paste) 56.7 Gm Oint) 1 appl TOPICAL BID [facility] Last Admin: 10/18/23 10:38 Dose: 1 appl Documented By: JOSELITOAC Labs 10/18/23 05:52 10/18/23 05:52 Labs: Laboratory Results - last 24 hr 10/17/23 10/18/23 10/18/23 13:10 05:52 05:52 MCV 91.9 MCH 29.5 MCHC 32.1 RDW 18.2 H Plt Count 183 MPV 9.9 Absolute Nucleated RBC 0.000 Nucleated RBC % (auto) 0.0 Anion Gap 12 Estim Creat Clear Calc 94.4 91.6 Estimated GFR > 60 Random Glucose Calcium Random Vancomycin 13.0 L 10/18/23 05:52 MCV MCH MCHC RDW Plt Count MPV Absolute Nucleated RBC Nucleated RBC % (auto) Anion Gap Estim Creat Clear Calc Estimated GFR > 60 Random Glucose 83 Calcium 8.4 Random Vancomycin Microbiology Microbiology Results: Microbiology 10/17/23 11:57 Gram Stain - Final Sputum - Suctioned Sputum Culture - Preliminary Culture in progress. 10/15/23 07:47 Gram Stain - Final Sputum - Suctioned Sputum Culture - Final Assessment and Plan (1) Pneumonia: Status: Acute (2) Hypoxia: Status: Acute (3) Respiratory syncytial virus (RSV) infection: Status: Acute Plan 78M PMH morbid obesity, left upper extremity superficial venous thrombosis, chronic atrial fibrillation, hyperlipidemia, alcohol dependence, ASHLEY, chronic diastolic CHF on p.r.n. O2, hypertension, presented with shortness of breath Acute Hypoxic respiratory failure likely secondary to RSV infection and aspiration pneumonia in the setting of ASHLEY and acute on chronic diastolic chf improving slowly pending Legionella Ag urine, sputum culture. Continue supplemental oxygen, wean as tolerated Blood cultured pending IV antibiotic Zosyn bronchodilator therapy. 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 Chronic atrial fibrillation, currently rate-controlled. Continue Eliquis hypertension Continue lisinopril. morbid Obesity. BMI 43.7 kg/m2. Weight loss. DVT prophylaxis: Eliquis full code reason for continued hospitalization:hypoxia Quality Stroke Does the patient have a stroke diagnosis?: No VTE Prior VTE?: No VTE Risk Level:: Medical - moderate - high VTE Device Contraindication: Treatment Not Indicated VTE Drug Contraindication: N/A - Med Ordered
--- NOTE | 2023-10-18 11:46 | MHC.CLN ---
F/U PO INTAKE 25% X 2 MEALS DIET RX: 2GM NA CHOPPED WITH NT LIQ-APPROPRIATE PT RECEIVING ENSURE PLUS HP TID TO PROMOTE WOUND HEALING SUPP PROVIDES 1050KCALS, 60G PROTEIN MONITOR PO INTAKE CLOSELY AND ENCOURAGE SUPPLEMENT
--- NOTE | 2023-10-18 11:48 | P.CDIM_ITS ---
PROVIDER RESPONSE TEXT: To clarify, the appropriate diagnosis supported by the clinical indicators: Pressure Injury right buttock Stage 2, present on arrival QUERY TEXT: PHYSICIAN'S DOCUMENTATION REQUEST Date of Query: 10/18/2023 11:38 AM EST Patient Name: Erick Deleon Admit Date: 10/15/2023 Dear Louie Shaw, A review of the medical record indicates additional documentation may be needed. Please review below and update the documentation accordingly. Clinical Indicators: Wound care assessment notes dated 10/16/23 - Right buttock, Stage 2 pressure injury - present on arriv al. Triad or zinc application to protect from moisture and friction. Based on the above, could you please provide further information regarding the ulcer/wound/injury: Pressure Injury right buttock Stage 2, present on arrival Other please specify Other (explain) Clinically unable to determine (explain) Thank you, Marycruz Kelly, CCS, CDIS Use of terms such as suspected, likely, concern for, or probable (associated with a specific diagnosi s that is being evaluated, monitored, or treated as if it exists) are acceptable and can be coded in the inpatient se tting, when documented at the time of discharge. Please use your independent medical judgment in providing your response. THIS QUERY IS PART OF THE PERMANENT MEDICAL RECORD
--- NOTE | 2023-10-18 12:03 | P.CDIM_ITS ---
PROVIDER RESPONSE TEXT: To clarify, the appropriate diagnosis supported by the clinical indicators: Deep tissue injury Right heel, present on arrival QUERY TEXT: PHYSICIAN'S DOCUMENTATION REQUEST Date of Query: 10/18/2023 11:44 AM EST Patient Name: Erick Deleon Admit Date: 10/15/2023 Dear Louie Shaw, A review of the medical record indicates additional documentation may be needed. Please review below and update the documentation accordingly. Clinical Indicators: Wound care assessment notes dated 10/16/23 - Right heel deep tissue injury - present on arrival. Off load pressure, protect from friction with foam. Based on the above, could you please provide further information regarding the ulcer/wound/injury: Deep tissue injury Right heel, present on arrival Other please specify Other (explain) Clinically unable to determine (explain) Thank you, Marycruz Kelly, CCS, CDIS Use of terms such as suspected, likely, concern for, or probable (associated with a specific diagnosi s that is being evaluated, monitored, or treated as if it exists) are acceptable and can be coded in the inpatient se tting, when documented at the time of discharge. Please use your independent medical judgment in providing your response. THIS QUERY IS PART OF THE PERMANENT MEDICAL RECORD
--- NOTE | 2023-10-18 12:03 | P.CDIM_ITS ---
PROVIDER RESPONSE TEXT: To clarify, the appropriate diagnosis supported by the clinical indicators: Pressure Injury Stage 2 Right Ischium, present on arrival QUERY TEXT: PHYSICIAN'S DOCUMENTATION REQUEST Date of Query: 10/18/2023 11:42 AM EST Patient Name: Erick Deleon Admit Date: 10/15/2023 Dear Louie Shaw, A review of the medical record indicates additional documentation may be needed. Please review below and update the documentation accordingly. Clinical Indicators: Wound care assessment notes dated 10/16/23 - Pressure Injury Stage 2 Right Ischium, present on arrival . Triad or zinc application to protect from moisture and friction. Based on the above, could you please provide further information regarding the ulcer/wound/injury: Pressure Injury Stage 2 Right Ischium, present on arrival Other please specify Other (explain) Clinically unable to determine (explain) Thank you, Marycruz Kelly, CCS, CDIS Use of terms such as suspected, likely, concern for, or probable (associated with a specific diagnosi s that is being evaluated, monitored, or treated as if it exists) are acceptable and can be coded in the inpatient se tting, when documented at the time of discharge. Please use your independent medical judgment in providing your response. THIS QUERY IS PART OF THE PERMANENT MEDICAL RECORD
--- NOTE | 2023-10-18 16:59 | MHC.SL.SWA ---
Risk of Aspiration Due to: History of Pneumonia Dysphasia Diet Status: No change Liquid Consistency and Strategies for Safe Swallow: Liquid Intake Recommendation: [place] Thick Liquid Intake Strategies: Small Sips No Straws Solid Food Consistency: Dietary Recommendations: Chopped/Advanced (NDD3) Oral Medication Intake: Crushed with Puree Please contact the pharmacy regarding appropriate crushable or liquid drug formulations that are available whenever modified delivery is recommended. Compensatory Strategies and Precautions to be Taken for Safe Swallow: Sitting Upright (90 deg) Small Bites and Sips Alternate Liquids/Solids Rate of Ingestion Change Oral Check Avoid Specific Foods Supervision While Eating and Drinking for Safe Swallow: Total Supervision (1:1) Foods to Avoid: Hard, dry, or crunchy foods; mixed textures Swallowing Recommended Treatments: Compens. Strategy Educat. Recommendation for Speech: Inpatient Speech Therapy Speech Therapy through Rehab Facility Recommend continue with CHOPPED/ADVANCED (NDD3) SOLIDS and NECTAR-THICK liquids (NO STRAWS). MEDS WHOLE with PUREE. Water via teaspoon BETWEEN MEALS (1 hour+ before/after food) OK with nursing supervision. Ensure patient is in upright position for all PO. Avoid left leaning position as much as possible. Aspiration precautions apply. Head of bed to remain 30 degrees minimum to minimize risk of microaspiration. Head Banquet Waitress Clinican/Clinical Fellow: No Supervisory Statement: I have reviewed and agree with the student/clinical fellow's documentation: N/A Speech Language Pathologist: Hoda Woods M.A., CCC-CHAIRMAN & CHIEF EXECUTIVE OFFICER
[2023-10-18] MEDS: Azithromycin 500 MG in 0.9 % Sodium Chloride 250 ML 125 MG IV (22:07)
[2023-10-19] VITALS (11 sets, daily range): BP systolic 111–137; BP diastolic 56–72; PULSE 54–102; RESP 16–24; TEMP 35.7–36.6; O2SAT 94–99
[2023-10-19] MEDS: guaiFENesin 200 MG/10 ML 10 ML LIQUID PO ×4 (01:22→20:22)
[2023-10-19] MEDS: 0.9 % Sodium Chloride Flush 3 ML SYRINGE IVFLUSH ×4 (01:23→20:22)
[2023-10-19] MEDS: Piperacillin Sodium/Tazobactam 3.375 GM in 0.9 % Sodium Chloride 50 ML IV ×4 (01:23→20:22)
[2023-10-19 03:29] LABS: Legionella Ag Urine Not Detected (Not Detected)
[2023-10-19] MEDS: Albuterol/Iprat 2.5/0.5MG 3 ML AMPUL.NEB INHALE ×5 (04:01→20:38)
[2023-10-19] MEDS: Omeprazole 20 MG CAPSULE.DR PO (05:41)
[2023-10-19 06:28] LABS: Hematocrit 31.5 % (42.0-52.0); Hemoglobin 10.2 g/dl (14.0-18.0); Mean Corpuscular HGB Conc 32.4 g/dl (31.0-36.0); Mean Corpuscular Hemoglobin 30.5 pg (27.0-33.0); Mean Corpuscular Volume 94.3 fL (80.0-98.0); Mean Platelet Volume 9.4 fL (9.4-12.4); Platelet Count 200 X10*3/uL (160-400); Red Blood Count 3.34 X10*6/uL (4.60-5.80); White Blood Count 5.2 X10*3/uL (4.8-10.8)
[2023-10-19 06:44] LABS: Anion Gap 11 (12-20); Blood Urea Nitrogen 17 mg/dL (9-16); Calcium 8.7 mg/dL (8.4-10.2); Carbon Dioxide 30 mmol/L (22-29); Chloride 110 mmol/L (96-108); Creatinine Clr Calc Pharmacy 110.1; Estimated Glomerular Filt Rate > 60; Glucose Fasting 80 mg/dL (60-99); Potassium 3.7 mmol/L (3.3-5.1); Sodium 147 mmol/L (135-145)
[2023-10-19 06:50] LABS: B Type Natriuretic Peptide 166 pg/mL (<100)
--- NOTE | 2023-10-19 08:41 | P.PNIM_ITS ---
Subjective Subjective Date of Service: 10/19/23 Interval History: overall improved, still not at baseline sob Physical Exam 2 Vital Signs: Vital Signs: Last Vital Signs Temp 97.9 F 10/19/23 07:49 Pulse 86 10/19/23 08:06 Resp 16 10/19/23 08:06 BP 111/56 L 10/19/23 07:49 Pulse Ox 97 10/19/23 07:49 O2 Del Method Nasal Cannula 10/19/23 07:49 O2 Flow Rate 3 10/19/23 07:49 Oxygen Flow Rate 4 10/14/23 22:46 BMI result Body Mass Index 43.3 Const: Other: Constitutional : Awake, interactive, morbidly obese, not in distress Neck : Normal inspection, Supple, right eye chronicly closed Cardiovascular : RRR, no JVP, +1 lower extremity edema Respiratory : good bilateral air entry, basal fine crackles, wheezes or rhonchi Gastrointestinal: soft, lax, Normal bowel sounds, Non tender Skin : Warm, Dry skin in lower extremities with scaling , LUE swollen with erythema and mild warmth. no tenderness Neurological : Alert & oriented to self and place otherwise easily distracted Objective Data Active Medications Acetaminophen (Acetaminophen 325 Mg Tablet) 650 mg PO Q4H PRN PRN Reason: Fever Or Pain Last Admin: 10/18/23 05:34 Dose: 650 mg Documented By: BRAXTON Albuterol/Ipratropium (Albuterol/Iprat 2.5/0.5mg 3 Ml Ampul.Neb) 3 ml INHALE Q4H [facility] Last Admin: 10/19/23 08:06 Dose: 3 ml Documented By: LOS Apixaban (Apixaban 5 Mg Tablet) 5 mg PO BID [facility] Last Admin: 10/18/23 20:32 Dose: 5 mg Documented By: HOLLY Aspirin (Aspirin 81 Mg Tab.Chew) 81 mg PO DAILY [facility] Last Admin: 10/18/23 09:34 Dose: 81 mg Documented By: PAT Atorvastatin Calcium (Atorvastatin Calcium 10 Mg Tablet) 10 mg PO DAILY [facility] Last Admin: 10/18/23 09:34 Dose: 10 mg Documented By: PAT Bisacodyl (Bisacodyl 10 Mg Supp.Rect) 10 mg [place] DAILY PRN PRN Reason: Constipation Docusate Sodium (Docusate Sodium 100 Mg Capsule) 100 mg PO BID [facility] Last Admin: 10/18/23 20:32 Dose: 100 mg Documented By: HOLLY Folic Acid (Folic Acid 1 Mg Tablet) 1 mg PO DAILY [facility] Last Admin: 10/18/23 09:34 Dose: 1 mg Documented By: PAT Furosemide (Furosemide 40 Mg/4 Ml Vial) 40 mg IVPUSH DAILY [facility]; Protocol Last Admin: 10/18/23 09:33 Dose: 40 mg Documented By: PAT Guaifenesin (Guaifenesin 200 Mg/10 Ml 10 Ml Liquid) 10 ml PO Q6H [facility] [place] Last Admin: 10/19/23 01:22 Dose: 10 ml Documented By: AYAAN Azithromycin 500 mg/ Sodium (Chloride) 250 mls @ 125 mls/hr IV Q24H [facility] [place] Last Infusion: 10/19/23 00:20 Dose: Infused Documented By: AYAAN Piperacillin Sod/Tazobactam (Sod 3.375 gm/ Sodium Chloride) 50 mls @ 100 mls/hr IV Q6H [facility] Last Infusion: 10/19/23 01:56 Dose: Infused Documented By: AYAAN Dextrose (D5w) 1,000 mls @ 100 mls/hr IVCONT .Q10H [facility] Lactic Acid (Ammonium Lactate 12 % Lotion 226 Gm Bottle) 1 appl TOPICAL BID [facility]; Protocol Last Admin: 10/18/23 20:32 Dose: 1 appl Documented By: HOLLY Lactulose (Lactulose 20 Gm/30 Ml Solution) 20 gm PO DAILY PRN PRN Reason: Constipation Magnesium Hydroxide (Milk Of Magnesia 30 Ml Oral.Susp) 30 ml PO BEDTIME PRN PRN Reason: Constipation Omeprazole (Omeprazole 20 Mg Capsule.Dr) 20 mg PO DAILY@0630 [facility] [place] Last Admin: 10/19/23 05:41 Dose: 20 mg Documented By: AYAAN Sodium Biphosphate/Sodium Phosphate (Sodium Phosphate,[place]-Dibasic 133 Ml Enema) 133 ml [place] DAILY PRN PRN Reason: Constipation Sodium Chloride (0.9 % Sodium Chloride Flush 3 Ml Syringe) 3 ml IVFLUSH QSHIFT [facility] [place] Last Admin: 10/19/23 01:23 Dose: 3 ml Documented By: AYAAN Zinc Oxide (Zinc Oxide 20% Ointment 28.35 Gm Tube) 1 appl TOPICAL BID PRN; Protocol PRN Reason: Rash Last Admin: 10/18/23 20:33 Dose: 1 appl Documented By: HOLLY Zinc Oxide (Zinc Oxide (Triple Paste) 56.7 Gm Oint) 1 appl TOPICAL BID [facility] Last Admin: 10/18/23 20:33 Dose: Not Given Documented By: HOLLY Non-Admin Reason: Previously Administered Labs 10/19/23 06:11 10/19/23 06:11 Labs: Laboratory Results - last 24 hr 10/15/23 10/19/23 07:38 06:11 MCV 94.3 MCH 30.5 MCHC 32.4 RDW 18.0 H Plt Count 200 MPV 9.4 Absolute Nucleated RBC 0.000 Nucleated RBC % (auto) 0.0 Anion Gap 11 L Estim Creat Clear Calc 110.1 Estimated GFR > 60 Fasting Glucose 80 Calcium 8.7 B-Natriuretic Peptide 166 H Ur L.pneumophila Ag Not Detected Microbiology Microbiology Results: Microbiology 10/17/23 11:57 Gram Stain - Final Sputum - Suctioned Sputum Culture - Preliminary Culture in progress. Assessment and Plan (1) Pneumonia: Status: Acute (2) Hypoxia: Status: Acute (3) Respiratory syncytial virus (RSV) infection: Status: Acute Plan 78M PMH morbid obesity, left upper extremity superficial venous thrombosis, chronic atrial fibrillation, hyperlipidemia, alcohol dependence, ASHLEY, chronic diastolic CHF on p.r.n. O2, hypertension, presented with shortness of breath Acute Hypoxic respiratory failure likely secondary to RSV infection and aspiration pneumonia in the setting of ASHLEY and acute on chronic diastolic chf improving slowly pending Legionella Ag urine, sputum culture. Continue supplemental oxygen, wean as tolerated Blood cultured pending IV antibiotic Zosyn bronchodilator therapy. Mucinex Incentive spirometry DIGITAL MARKETING PROGRAM MANAGER - NDD2, nectar thick lasix 40mg daily iv acute hypernatremia will start d5w, monitor recent Left upper extremity superficial venous thrombosis resolved on eliquis for chronic afib Hx Alcohol dependence on CIWA protocol, no withdrawal symptoms Hyperlipidemia Continue statin. Chronic atrial fibrillation, currently rate-controlled. Continue Eliquis hypertension Continue lisinopril. morbid Obesity. BMI 43.7 kg/m2. Weight loss. DVT prophylaxis: Eliquis full code reason for continued hospitalization:hypoxia, hypernatremia Quality Stroke Does the patient have a stroke diagnosis?: No VTE Prior VTE?: No VTE Risk Level:: Medical - moderate - high VTE Device Contraindication: Treatment Not Indicated VTE Drug Contraindication: N/A - Med Ordered
[2023-10-19] MEDS: Docusate Sodium 100 MG CAPSULE PO ×2 (08:49→20:22)
[2023-10-19] MEDS: Furosemide 40 MG/4 ML VIAL IVPUSH (08:49)
[2023-10-19] MEDS: Apixaban 5 MG TABLET PO ×2 (08:49→20:22)
[2023-10-19] MEDS: Folic Acid 1 MG TABLET PO (08:49)
[2023-10-19] MEDS: Aspirin 81 MG TAB.CHEW PO (08:49)
[2023-10-19] MEDS: Atorvastatin Calcium 10 MG TABLET PO (08:49)
[2023-10-19] MEDS: Dextrose 5 % 1,000 ML 100 ML IVCONT ×2 (09:03→20:23)
[2023-10-19] MEDS: Zinc Oxide 20% Ointment 28.35 GM TUBE 1 APPL TOPICAL ×2 (10:29→21:25)
[2023-10-19] MEDS: Zinc Oxide (Triple Paste) 56.7 GM OINT 1 APPL TOPICAL (10:30)
[2023-10-19] MEDS: Ammonium Lactate 12 % Lotion 226 GM BOTTLE 1 APPL TOPICAL ×2 (13:14→21:25)
--- NOTE | 2023-10-19 17:18 | MHC.SL.SWA ---
Speech Pathologist Impression: Risk of Aspiration Due to: History of Pneumonia Dysphasia Diet Status: Recommend continue with CHOPPED/ADVANCED (NDD3) SOLIDS and NECTAR-THICK liquids (NO STRAWS). MEDS WHOLE with PUREE. Liquid Consistency and Strategies for Safe Swallow: Liquid Intake Recommendation: [place] Thick Liquid Intake Strategies: Small Sips No Straws Solid Food Consistency: Dietary Recommendations: Chopped/Advanced (NDD3) Additional Modifications to Solid Foods: Oral Medication Intake: Crushed with Puree Please contact the pharmacy regarding appropriate crushable or liquid drug formulations that are available whenever modified delivery is recommended. Compensatory Strategies and Precautions to be Taken for Safe Swallow: Sitting Upright (90 deg) Small Bites and Sips Alternate Liquids/Solids Rate of Ingestion Change Oral Check Avoid Specific Foods Supervision While Eating and Drinking for Safe Swallow: Total Supervision (1:1) Foods to Avoid: Hard, dry, or crunchy foods; mixed textures Swallowing Recommended Treatments: Compens. Strategy Educat. Recommendation for Speech: Inpatient Speech Therapy Speech Therapy through Rehab Facility Comment: Patient was awake and lying in bed at onset, very amenable to trials of water which was the focus of treatment today. Patient stated water, water everywhere, but not a drop to drink and then identified the poet who wrote these lines, and continued to quote and recite poetry throughout the session. Patient cooperated with oral care, which was provided before water trials. Patient was initially given ice chips which he dissolved in mouth and swallowed the residual with no difficulty. Patient was then given tsps water, with patient noted to hold water in mouth briefly, then propel to swallow, then evidenced a mild delay before initiating swallow. This pattern was also noted on cup sips of water. After several cup sips of water, patient was noted to have mildly increased vocal wetness. Patient also intermittently coughed, but not directly on swallow. Patient took about half a cup of water during the treatment session. Recommend further trials of thin consistency at this time, no change to current diet, continue on Chopped/Advanced with NECTAR THICK liquids, meds whole with puree. Frequency/Duration: M-F PRN Date Range for Service Req: Timeline to reassess: Oil Dispatcher Clinican/Clinical Fellow: No Supervisory Statement: I have reviewed and agree with the student/clinical fellow's documentation: N/A Speech Language Pathologist: Hoda Woods M.A., [facility])-INTEGRATION CONSULTANT
[2023-10-19] MEDS: Azithromycin 500 MG in 0.9 % Sodium Chloride 250 ML 125 MG IV (20:28)
[2023-10-20] VITALS (13 sets, daily range): BP systolic 120–141; BP diastolic 57–72; PULSE 75–97; RESP 18–24; TEMP 35.8–36.1; O2SAT 94–100
[2023-10-20] MEDS: Albuterol/Iprat 2.5/0.5MG 3 ML AMPUL.NEB INHALE ×7 (00:33→23:21)
[2023-10-20] MEDS: guaiFENesin 200 MG/10 ML 10 ML LIQUID PO ×4 (02:34→21:31)
[2023-10-20] MEDS: Piperacillin Sodium/Tazobactam 3.375 GM in 0.9 % Sodium Chloride 50 ML IV ×4 (02:34→21:19)
[2023-10-20] MEDS: Omeprazole 20 MG CAPSULE.DR PO (05:50)
--- NOTE | 2023-10-20 05:53 | PC.NURSE ---
after treatment duo [id number] his lung sounds improved, very little of expiratory wheezing to right side. will continue to monitor.
[2023-10-20 06:10] LABS: Hematocrit 33.1 % (42.0-52.0); Hemoglobin 10.5 g/dl (14.0-18.0); Mean Corpuscular HGB Conc 31.7 g/dl (31.0-36.0); Mean Corpuscular Hemoglobin 29.8 pg (27.0-33.0); Mean Platelet Volume 9.7 fL (9.4-12.4); Platelet Count 220 X10*3/uL (160-400); Red Blood Count 3.52 X10*6/uL (4.60-5.80); Red Cell Distribution Width 17.7 % (11.0-16.0); White Blood Count 6.2 X10*3/uL (4.8-10.8)
[2023-10-20 06:24] LABS: Anion Gap 9 (12-20); Blood Urea Nitrogen 16 mg/dL (9-16); Calcium 8.6 mg/dL (8.4-10.2); Carbon Dioxide 32 mmol/L (22-29); Chloride 105 mmol/L (96-108); Creatinine Clr Calc Pharmacy 114.2; Estimated Glomerular Filt Rate > 60; Glucose Fasting 100 mg/dL (60-99); Potassium 3.4 mmol/L (3.3-5.1); Sodium 143 mmol/L (135-145)
[2023-10-20] MEDS: Dextrose 5 % 1,000 ML 100 ML IVCONT (06:40)
--- NOTE | 2023-10-20 08:29 | HO.PM.IMPN ---
Subjective Subjective Date of Service: 10/20/23 Interval History: worsening sob today, worsening lue swelling erythema Physical Exam Vital Signs: Vital Signs: Last Vital Signs Temp 97.0 F 10/20/23 07:12 Pulse 97 10/20/23 07:59 Resp 20 10/20/23 07:59 BP 127/61 10/20/23 07:12 Pulse Ox 94 10/20/23 07:12 O2 Del Method Nasal Cannula 10/20/23 07:12 O2 Flow Rate 2 10/20/23 07:12 FiO2 96.4 10/19/23 23:56 Oxygen Flow Rate 4 10/14/23 22:46 BMI result Body Mass Index 43.3 Const: Other: Constitutional : Awake, interactive, morbidly obese, not in distress Neck : Normal inspection, Supple, right eye chronicly closed Cardiovascular : RRR, no JVP, +1 lower extremity edema Respiratory : good bilateral air entry, basal fine crackles, wheezes or rhonchi Gastrointestinal: soft, lax, Normal bowel sounds, Non tender Skin : Warm, Dry skin in lower extremities with scaling , LUE swollen with erythema and mild warmth. no tenderness Neurological : Alert & oriented to self and place otherwise easily distracted Objective Data Active Medications Acetaminophen (Acetaminophen 325 Mg Tablet) 650 mg PO Q4H PRN PRN Reason: Fever Or Pain Last Admin: 10/18/23 05:34 Dose: 650 mg Documented By: BRAXTON Albuterol/Ipratropium (Albuterol/Iprat 2.5/0.5mg 3 Ml Ampul.Neb) 3 ml INHALE Q4H [facility] Last Admin: 10/20/23 07:55 Dose: 3 ml Documented By: DARYL Apixaban (Apixaban 5 Mg Tablet) 5 mg PO BID [facility] Last Admin: 10/19/23 20:22 Dose: 5 mg Documented By: TRACE Aspirin (Aspirin 81 Mg Tab.Chew) 81 mg PO DAILY [facility] Last Admin: 10/19/23 08:49 Dose: 81 mg Documented By: JAISON Atorvastatin Calcium (Atorvastatin Calcium 10 Mg Tablet) 10 mg PO DAILY [facility] Last Admin: 10/19/23 08:49 Dose: 10 mg Documented By: JAISON Bisacodyl (Bisacodyl 10 Mg Supp.Rect) 10 mg IA DAILY PRN PRN Reason: Constipation Docusate Sodium (Docusate Sodium 100 Mg Capsule) 100 mg PO BID [facility] Last Admin: 10/19/23 20:22 Dose: 100 mg Documented By: TRACE Folic Acid (Folic Acid 1 Mg Tablet) 1 mg PO DAILY [facility] Last Admin: 10/19/23 08:49 Dose: 1 mg Documented By: JAISON Furosemide (Furosemide 40 Mg/4 Ml Vial) 40 mg IVPUSH DAILY [facility]; Protocol Last Admin: 10/19/23 08:49 Dose: 40 mg Documented By: JAISON Guaifenesin (Guaifenesin 200 Mg/10 Ml 10 Ml Liquid) 10 ml PO Q6H [facility] Last Admin: 10/20/23 02:34 Dose: 10 ml Documented By: TRACE Azithromycin 500 mg/ Sodium (Chloride) 250 mls @ 125 mls/hr IV Q24H [facility] Last Infusion: 10/19/23 22:38 Dose: Infused Documented By: TRACE Piperacillin Sod/Tazobactam (Sod 3.375 gm/ Sodium Chloride) 50 mls @ 100 mls/hr IV Q6H [facility] Last Infusion: 10/20/23 03:07 Dose: Infused Documented By: TRACE Vancomycin HCl 1,000 mg/ (Sodium Chloride) 270 mls @ 270 mls/hr IV ONCE ONE Stop: 10/20/23 09:25 Lactic Acid (Ammonium Lactate 12 % Lotion 226 Gm Bottle) 1 appl TOPICAL BID [facility]; Protocol Last Admin: 10/19/23 21:25 Dose: 1 appl Documented By: TRACE Lactulose (Lactulose 20 Gm/30 Ml Solution) 20 gm PO DAILY PRN PRN Reason: Constipation Magnesium Hydroxide (Milk Of Magnesia 30 Ml Oral.Susp) 30 ml PO BEDTIME PRN PRN Reason: Constipation Omeprazole (Omeprazole 20 Mg Capsule.Dr) 20 mg PO DAILY@0630 [facility] Last Admin: 10/20/23 05:50 Dose: 20 mg Documented By: TRACE Sodium Biphosphate/Sodium Phosphate (Sodium Phosphate,[place]-Dibasic 133 Ml Enema) 133 ml IA DAILY PRN PRN Reason: Constipation Sodium Chloride (0.9 % Sodium Chloride Flush 3 Ml Syringe) 3 ml IVFLUSH QSHIFT [facility] Last Admin: 10/19/23 20:22 Dose: 3 ml Documented By: TRACE Zinc Oxide (Zinc Oxide 20% Ointment 28.35 Gm Tube) 1 appl TOPICAL BID PRN; Protocol PRN Reason: Rash Last Admin: 10/19/23 21:25 Dose: 1 appl Documented By: TRACE Zinc Oxide (Zinc Oxide (Triple Paste) 56.7 Gm Oint) 1 appl TOPICAL BID JESSICA Last Admin: 10/19/23 22:38 Dose: Not Given Documented By: TRACE Non-Admin Reason: Duplicate Order Labs 10/20/23 05:50 10/20/23 05:50 Labs: Laboratory Results - last 24 hr 10/20/23 05:50 MCV 94.0 MCH 29.8 MCHC 31.7 RDW 17.7 H Plt Count 220 MPV 9.7 Absolute Nucleated RBC 0.000 Nucleated RBC % (auto) 0.0 Anion Gap 9 L Estim Creat Clear Calc 114.2 Estimated GFR > 60 Fasting Glucose 100 H Calcium 8.6 Microbiology Microbiology Results: Microbiology 10/14/23 23:50 Blood Culture - Final Blood - Venous No growth after 5 days. 10/14/23 23:09 Blood Culture - Final Blood - Venous No growth after 5 days. 10/17/23 11:57 Gram Stain - Final Sputum - Suctioned Sputum Culture - Final Assessment and Plan (1) Pneumonia: Status: Acute (2) Hypoxia: Status: Acute (3) Respiratory syncytial virus (RSV) infection: Status: Acute Plan 78M PMH morbid obesity, left upper extremity superficial venous thrombosis, chronic atrial fibrillation, hyperlipidemia, alcohol dependence, ASHLEY, chronic diastolic CHF on p.r.n. O2, hypertension, presented with shortness of breath Acute Hypoxic respiratory failure likely secondary to RSV infection and aspiration pneumonia in the setting of ASHLEY and acute on chronic diastolic chf improving slowly Continue supplemental oxygen, wean as tolerated IV antibiotic Zosyn bronchodilator therapy. 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 Chronic atrial fibrillation, currently rate-controlled. Continue Eliquis hypertension Continue lisinopril. morbid Obesity. BMI 43.7 kg/m2. Weight loss. DVT prophylaxis: Eliquis full code reason for continued hospitalization:hypoxia, sob Quality Stroke Does the patient have a stroke diagnosis?: No VTE Prior VTE?: No VTE Risk Level:: Medical - moderate - high VTE Device Contraindication: Treatment Not Indicated VTE Drug Contraindication: N/A - Med Ordered
[2023-10-20] MEDS: 0.9 % Sodium Chloride Flush 3 ML SYRINGE IVFLUSH ×3 (08:57→21:21)
[2023-10-20] MEDS: Furosemide 40 MG/4 ML VIAL IVPUSH (08:57)
[2023-10-20] MEDS: Aspirin 81 MG TAB.CHEW PO (09:00)
[2023-10-20] MEDS: Atorvastatin Calcium 10 MG TABLET PO (09:00)
[2023-10-20] MEDS: Apixaban 5 MG TABLET PO ×2 (09:00→21:21)
[2023-10-20] MEDS: Folic Acid 1 MG TABLET PO (09:00)
[2023-10-20] MEDS: Docusate Sodium 100 MG CAPSULE PO ×2 (09:00→21:20)
[2023-10-20] MEDS: Zinc Oxide 20% Ointment 28.35 GM TUBE 1 APPL TOPICAL ×2 (09:08→11:36)
[2023-10-20] MEDS: Ammonium Lactate 12 % Lotion 226 GM BOTTLE 1 APPL TOPICAL ×2 (09:08→21:35)
[2023-10-20] MEDS: vancomycin HCL 1,000 MG in 0.9 % Sodium Chloride 250 ML 270 MG IV (09:15)
--- NOTE | 2023-10-20 10:17 | MHC.CM.PN ---
Per ROUNDS discussion, Patient is not yet medically cleared for dc (worsening respiratory status); returning to LTC @ [facility] is the goal and CM will continue to follow.
--- NOTE | 2023-10-20 11:32 | MHC.CLN ---
F/U PO INTAKE 25-50% DIET RX: 2GM NA CHOPPED WITH NT LIQ-APPROPRIATE PT RECEIVING ENSURE PLUS HP TID TO PROMOTE WOUND HEALING SUPP PROVIDES 1050KCALS, 60G PROTEIN WOUNDS SHOWING SLOW IMPROVEMENT PER NSG MONITOR PO INTAKE CLOSELY AND ENCOURAGE SUPPLEMENT
[2023-10-20] MEDS: Zinc Oxide (Triple Paste) 56.7 GM OINT 1 APPL TOPICAL ×2 (11:57→21:31)
--- NOTE | 2023-10-20 12:50 | MHC.SL.SWA ---
Speech Pathologist Impression: Risk of aspiration, oropharyngeal dysphagia Risk of Aspiration Due to: History of Pneumonia Dysphasia Diet Status: Recommend continue with CHOPPED/ADVANCED (NDD3) SOLIDS and UPGRADE to THIN liquids (NO STRAWS). MEDS WHOLE with PUREE. Supervise directly and monitor for any overt s/s of aspiration. Liquid Consistency and Strategies for Safe Swallow: Liquid Intake Recommendation: Thin Liquid Intake Strategies: Small Sips No Straws Solid Food Consistency: Dietary Recommendations: Chopped/Advanced (NDD3) Oral Medication Intake: Whole with Puree Please contact the pharmacy regarding appropriate crushable or liquid drug formulations that are available whenever modified delivery is recommended. Compensatory Strategies and Precautions to be Taken for Safe Swallow: Sitting Upright (90 deg) No Straw Small Bites and Sips Alternate Liquids/Solids Rate of Ingestion Change Oral Check Avoid Specific Foods Supervision While Eating and Drinking for Safe Swallow: Total Supervision (1:1) Foods to Avoid: Hard, dry, or crunchy foods; mixed textures Swallowing Recommended Treatments: Compens. Strategy Educat. Recommendation for Speech: Inpatient Speech Therapy Speech Therapy through Rehab Facility Frequency/Duration: M-F PRN Date Range for Service Req: Timeline to reassess: Supervisor Hardboard Clinican/Clinical Fellow: No Supervisory Statement: I have reviewed and agree with the student/clinical fellow's documentation: N/A Speech Language Pathologist: Andreia Page M.A., CCC-BRIDGE TOLL COLLECTOR
[2023-10-20] MEDS: Acetaminophen 325 MG TABLET 650 MG PO (21:19)
[2023-10-20] MEDS: Azithromycin 500 MG in 0.9 % Sodium Chloride 250 ML 125 MG IV (22:07)
[2023-10-21] VITALS (15 sets, daily range): BP systolic 120–141; BP diastolic 57–74; PULSE 75–96; RESP 16–20; TEMP 34.1–36.4; O2SAT 95–100
[2023-10-21] MEDS: Piperacillin Sodium/Tazobactam 3.375 GM in 0.9 % Sodium Chloride 50 ML IV ×4 (02:43→20:22)
[2023-10-21] MEDS: Albuterol/Iprat 2.5/0.5MG 3 ML AMPUL.NEB INHALE ×6 (03:42→23:23)
[2023-10-21] MEDS: Omeprazole 20 MG CAPSULE.DR PO (05:43)
[2023-10-21 06:11] LABS: Hematocrit 34.3 % (42.0-52.0); Hemoglobin 11.1 g/dl (14.0-18.0); Mean Corpuscular HGB Conc 32.4 g/dl (31.0-36.0); Mean Corpuscular Hemoglobin 29.5 pg (27.0-33.0); Mean Corpuscular Volume 91.2 fL (80.0-98.0); Mean Platelet Volume 9.5 fL (9.4-12.4); Platelet Count 232 X10*3/uL (160-400); Red Blood Count 3.76 X10*6/uL (4.60-5.80); Red Cell Distribution Width 17.5 % (11.0-16.0); White Blood Count 5.3 X10*3/uL (4.8-10.8)
[2023-10-21 06:28] LABS: Alanine Aminotransferase 8 U/L (0-40); Albumin Level 2.6 g/dL (3.5-5.0); Alkaline Phosphatase 76 U/L (39-117); Anion Gap 10 (12-20); Aspartate Amino Transferase 13 U/L (5-37); Bilirubin Direct 0.1 mg/dL (0.0-0.5); Bilirubin Total 0.3 mg/dL (0.0-1.0); Blood Urea Nitrogen 18 mg/dL (9-16); Calcium 8.6 mg/dL (8.4-10.2); Carbon Dioxide 32 mmol/L (22-29); Chloride 107 mmol/L (96-108); Creatinine Clr Calc Pharmacy 118.6; Estimated Glomerular Filt Rate > 60; Glucose Fasting 99 mg/dL (60-99); Potassium 3.7 mmol/L (3.3-5.1); Sodium 145 mmol/L (135-145); Total Protein 5.1 g/dL (6.5-8.0)
[2023-10-21] MEDS: Ammonium Lactate 12 % Lotion 226 GM BOTTLE 1 APPL TOPICAL ×2 (09:46→20:30)
[2023-10-21] MEDS: Aspirin 81 MG TAB.CHEW PO (09:47)
[2023-10-21] MEDS: Atorvastatin Calcium 10 MG TABLET PO (09:47)
[2023-10-21] MEDS: Docusate Sodium 100 MG CAPSULE PO ×2 (09:47→20:22)
[2023-10-21] MEDS: Apixaban 5 MG TABLET PO ×2 (09:48→20:22)
[2023-10-21] MEDS: Folic Acid 1 MG TABLET PO (09:48)
[2023-10-21] MEDS: 0.9 % Sodium Chloride Flush 3 ML SYRINGE IVFLUSH ×3 (09:48→20:23)
[2023-10-21] MEDS: guaiFENesin 200 MG/10 ML 10 ML LIQUID PO ×3 (09:49→20:22)
[2023-10-21] MEDS: Zinc Oxide (Triple Paste) 56.7 GM OINT 1 APPL TOPICAL ×2 (09:56→20:30)
[2023-10-21] MEDS: Furosemide 40 MG/4 ML VIAL IVPUSH (09:56)
--- NOTE | 2023-10-21 10:08 | HO.PM.IMPN ---
Subjective Subjective Date of Service: 10/21/23 Interval History: hypothermia sob improved Physical Exam Vital Signs: Vital Signs: Last Vital Signs Temp 97.1 F 10/21/23 07:41 Pulse 91 10/21/23 07:41 Resp 18 10/21/23 07:41 BP 128/67 10/21/23 07:41 Pulse Ox 96 10/21/23 07:41 O2 Del Method Non-Rebreather Ma sk 10/21/23 07:41 O2 Flow Rate 3 10/21/23 07:41 FiO2 96.4 10/19/23 23:56 Oxygen Flow Rate 4 10/14/23 22:46 BMI result Body Mass Index 43.3 Const: Other: Constitutional : Awake, interactive, morbidly obese, not in distress Neck : Normal inspection, Supple, right eye chronicly closed Cardiovascular : RRR, no JVP, +1 lower extremity edema Respiratory : good bilateral air entry, basal fine crackles, wheezes or rhonchi Gastrointestinal: soft, lax, Normal bowel sounds, Non tender Skin : Warm, Dry skin in lower extremities with scaling , LUE swollen with erythema and mild warmth. no tenderness Neurological : Alert & oriented to self and place otherwise easily distracted Objective Data Active Medications Acetaminophen (Acetaminophen 325 Mg Tablet) 650 mg PO Q4H PRN PRN Reason: Fever Or Pain Last Admin: 10/20/23 21:19 Dose: 650 mg Documented By: CHELY Albuterol/Ipratropium (Albuterol/Iprat 2.5/0.5mg 3 Ml Ampul.Neb) 3 ml INHALE Q4H [facility] Last Admin: 10/21/23 07:37 Dose: 3 ml Documented By: [place] Apixaban (Apixaban 5 Mg Tablet) 5 mg PO BID [facility] Last Admin: 10/21/23 09:48 Dose: 5 mg Documented By: REYES Aspirin (Aspirin 81 Mg Tab.Chew) 81 mg PO DAILY [facility] Last Admin: 10/21/23 09:47 Dose: 81 mg Documented By: REYES Atorvastatin Calcium (Atorvastatin Calcium 10 Mg Tablet) 10 mg PO DAILY [facility] Last Admin: 10/21/23 09:47 Dose: 10 mg Documented By: REYES Bisacodyl (Bisacodyl 10 Mg Supp.Rect) 10 mg ND DAILY PRN PRN Reason: Constipation Docusate Sodium (Docusate Sodium 100 Mg Capsule) 100 mg PO BID [facility] Last Admin: 10/21/23 09:47 Dose: 100 mg Documented By: REYES Folic Acid (Folic Acid 1 Mg Tablet) 1 mg PO DAILY [facility] Last Admin: 10/21/23 09:48 Dose: 1 mg Documented By: REYES Furosemide (Furosemide 40 Mg/4 Ml Vial) 40 mg IVPUSH DAILY [facility]; Protocol Last Admin: 10/21/23 09:56 Dose: 40 mg Documented By: REYES Guaifenesin (Guaifenesin 200 Mg/10 Ml 10 Ml Liquid) 10 ml PO Q6H [facility] Last Admin: 10/21/23 09:49 Dose: 10 ml Documented By: REYES Azithromycin 500 mg/ Sodium (Chloride) 250 mls @ 125 mls/hr IV Q24H [facility] Last Infusion: 10/21/23 01:14 Dose: Infused Documented By: CHELY Piperacillin Sod/Tazobactam (Sod 3.375 gm/ Sodium Chloride) 50 mls @ 100 mls/hr IV Q6H [facility] Last Admin: 10/21/23 09:55 Dose: 100 mls/hr Documented By: REYES Lactic Acid (Ammonium Lactate 12 % Lotion 226 Gm Bottle) 1 appl TOPICAL BID [facility]; Protocol Last Admin: 10/21/23 09:46 Dose: 1 appl Documented By: REYES Lactulose (Lactulose 20 Gm/30 Ml Solution) 20 gm PO DAILY PRN PRN Reason: Constipation Magnesium Hydroxide (Milk Of Magnesia 30 Ml Oral.Susp) 30 ml PO BEDTIME PRN PRN Reason: Constipation Omeprazole (Omeprazole 20 Mg Capsule.Dr) 20 mg PO DAILY@0630 [facility] Last Admin: 10/21/23 05:43 Dose: 20 mg Documented By: CHELY Sodium Biphosphate/Sodium Phosphate (Sodium Phosphate,[place]-Dibasic 133 Ml Enema) 133 ml ND DAILY PRN PRN Reason: Constipation Sodium Chloride (0.9 % Sodium Chloride Flush 3 Ml Syringe) 3 ml IVFLUSH QSHIFT [facility] Last Admin: 10/21/23 09:48 Dose: 3 ml Documented By: REYES Zinc Oxide (Zinc Oxide 20% Ointment 28.35 Gm Tube) 1 appl TOPICAL BID PRN; Protocol PRN Reason: Rash Last Admin: 10/20/23 11:36 Dose: 1 appl Documented By: JAISON Zinc Oxide (Zinc Oxide (Triple Paste) 56.7 Gm Oint) 1 appl TOPICAL BID JESSICA Last Admin: 10/21/23 09:56 Dose: 1 appl Documented By: REYES Labs 10/21/23 05:43 10/21/23 05:43 Labs: Laboratory Results - last 24 hr 10/21/23 05:43 MCV 91.2 MCH 29.5 MCHC 32.4 RDW 17.5 H Plt Count 232 MPV 9.5 Absolute Nucleated RBC 0.000 Nucleated RBC % (auto) 0.0 Anion Gap 10 L Estim Creat Clear Calc 118.6 Estimated GFR > 60 Fasting Glucose 99 Calcium 8.6 Magnesium 2.0 Total Bilirubin 0.3 Direct Bilirubin 0.1 AST 13 ALT 8 Alkaline Phosphatase 76 Total Protein 5.1 L Albumin 2.6 L Assessment and Plan (1) Pneumonia: Status: Acute (2) Hypoxia: Status: Acute (3) Respiratory syncytial virus (RSV) infection: Status: Acute Plan 78M PMH morbid obesity, left upper extremity superficial venous thrombosis, chronic atrial fibrillation, hyperlipidemia, alcohol dependence, ASHLEY, chronic diastolic CHF on p.r.n. O2, hypertension, presented with shortness of breath Acute Hypoxic respiratory failure likely secondary to RSV infection and aspiration pneumonia in the setting of ASHLEY and acute on chronic diastolic chf improving slowly Continue supplemental oxygen, wean as tolerated IV antibiotic Zosyn bronchodilator therapy. 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 Chronic atrial fibrillation, currently rate-controlled. Continue Eliquis hypertension Continue lisinopril. morbid Obesity. BMI 43.7 kg/m2. Weight loss. DVT prophylaxis: Eliquis full code reason for continued hospitalization:hypothemia Quality Stroke Does the patient have a stroke diagnosis?: No VTE Prior VTE?: No VTE Risk Level:: Medical - moderate - high VTE Device Contraindication: Treatment Not Indicated VTE Drug Contraindication: N/A - Med Ordered
--- NOTE | 2023-10-21 19:05 | HO.SKINPHOTO ---
Location: Coccyx/buttocks Category: Stage: Length: Width: Depth: cm Location: Category: Stage: Length: Width: Depth: cm Location: Category: Stage: Length: Width: Depth: cm Location: Category: Stage: Length: Width: Depth: cm Location: Category: Stage: Length: Width: Depth: cm Location: Category: Stage: Length: Width: Depth: cm
[2023-10-21] MEDS: Azithromycin 500 MG in 0.9 % Sodium Chloride 250 ML 125 MG IV (21:13)
[2023-10-22] MEDS: Piperacillin Sodium/Tazobactam 3.375 GM in 0.9 % Sodium Chloride 50 ML IV ×2 (02:21→09:18)
[2023-10-22 02:58] VITALS: BP 145/64; PULSE 80; RESP 20; TEMP 36; O2SAT 93
[2023-10-22 04:22] VITALS: PULSE 80; RESP 20; O2SAT 94
[2023-10-22] MEDS: Omeprazole 20 MG CAPSULE.DR PO (05:03)
[2023-10-22 06:38] LABS: Hematocrit 34.6 % (42.0-52.0); Mean Corpuscular HGB Conc 31.8 g/dl (31.0-36.0); Mean Corpuscular Hemoglobin 29.6 pg (27.0-33.0); Mean Corpuscular Volume 93.3 fL (80.0-98.0); Mean Platelet Volume 9.9 fL (9.4-12.4); Platelet Count 296 X10*3/uL (160-400); Red Blood Count 3.71 X10*6/uL (4.60-5.80); Red Cell Distribution Width 17.2 % (11.0-16.0); White Blood Count 6.7 X10*3/uL (4.8-10.8)
[2023-10-22 06:49] LABS: Anion Gap 10 (12-20); Blood Urea Nitrogen 18 mg/dL (9-16); Calcium 8.6 mg/dL (8.4-10.2); Carbon Dioxide 32 mmol/L (22-29); Chloride 106 mmol/L (96-108); Creatinine Clr Calc Pharmacy 108.8; Estimated Glomerular Filt Rate > 60; Glucose Fasting 87 mg/dL (60-99); Potassium 3.7 mmol/L (3.3-5.1); Sodium 144 mmol/L (135-145)
[2023-10-22 07:39] VITALS: BP 136/61; PULSE 81; RESP 17; TEMP 36.1; O2SAT 94
[2023-10-22] MEDS: Ammonium Lactate 12 % Lotion 226 GM BOTTLE 1 APPL TOPICAL (09:05)
[2023-10-22] MEDS: Zinc Oxide (Triple Paste) 56.7 GM OINT 1 APPL TOPICAL (09:05)
[2023-10-22] MEDS: Atorvastatin Calcium 10 MG TABLET PO (09:06)
[2023-10-22] MEDS: Furosemide 40 MG/4 ML VIAL IVPUSH (09:06)
[2023-10-22] MEDS: Folic Acid 1 MG TABLET PO (09:07)
[2023-10-22] MEDS: Aspirin 81 MG TAB.CHEW PO (09:07)
[2023-10-22] MEDS: Docusate Sodium 100 MG CAPSULE PO (09:07)
[2023-10-22] MEDS: Apixaban 5 MG TABLET PO (09:07)
[2023-10-22] MEDS: 0.9 % Sodium Chloride Flush 3 ML SYRINGE IVFLUSH (09:08)
--- NOTE | 2023-10-22 09:23 | P.DS_ITS ---
DS: Providers Provider Date of Service: 10/22/23 Date of admission: 10/15/23 02:01 Primary care physician: Arturo Hall MD Consults: 10/15/23 18:55 Addiction Medicine Routine Consulting Provider: Addiction Covering Reason for consultation: ETOH - 16 ounce beer daily Consult to Wound Care Routine Reason for consultation: tons of stuff, see initial admission assessment DS: Diagnosis Discharge Diagnosis (1) Pneumonia: Status: Acute (2) Hypoxia: Status: Acute (3) Respiratory syncytial virus (RSV) infection: Status: Acute DS: Summary Hospital Course Hospital Course: from initial hpi: 78 years old man with past medical history significant for morbid obese, hyperlipidemia, atrial fibrillation on Eliquis, obstructive sleep apnea -on oxygen as needed) essential hypertension and recent hospitalization due to pneumonia + sepsis was brought to the emergency department from his nursing facility after he started to develop worsening cough over the last couple of days. He also had shortness on breath. Patient is a vague historian. He was recently hospitalized with diagnosis of left lower lobe pneumonia and sepsis. Patient did not report abdominal pain, nausea, vomiting or diarrhea. He was started on Augmentin today. In the ED, he was found to have mild tachycardia and tachypnea. There is no hypotension or fever. He was placed on supplemental oxygen and currently on 4 L/min supplemental oxygen via nasal cannula. Blood workup showed no leukocytosis. There are no electrolyte imbalances. Renal function, LFTs and lactic acid are normal. Procalcitonin. Viral testing is positive for RSV. Urinalysis showed no evidence of urinary tract infection. CXR showed increased consolidation in the left lower lobe likely pneumonia, small to moderate size bilateral pleural effusion similar to prior, mild cardiomegaly and cholelithiasis without cholecystitis. ECG showed atrial fibrillation, heart rate 88 beats per minute, low voltages no acute ischemic changes. ED tx: Zosyn 3.375 g IV, azithromycin 500 mg IV hospital course: Patient was admitted for acute on chronic hypoxic respiratory failure secondary to RSV infection and aspiration pneumonia in the setting of obstructive sleep apnea and acute on chronic diastolic CHF. He was treated with IV Zosyn and azithromycin, IV Lasix, incentive spirometry, bronchodilators. His oxygen was weaned to 2-3 L and can continue to wean as outpatient. He was seen by speech therapy who recommended NDD3 solids and thin liquids. Patient continues to be at risk for aspiration and aspiration precaution should be continued. Patient did have episodic hypothermia, likely due to recurrent aspiration versus autonomic dysfunction. Symptomatic management was provided and hypothermia resolved. Patient likely to continue to have episodes, TSH and cortisol were normal. Course complicated by acute hypernatremia which resolved with D5W. For patient's recent left upper extremity superficial venous thrombosis he was continued on Eliquis. He appeared to have some stasis dermatitis, repeat venous Doppler did not reveal any thrombosis. Patient does have history of alcohol dependence but displayed no withdrawal symptoms. For hyperlipidemia was continue on statin. For chronic atrial fibrillation he remained rate controlled and was continued on Eliquis. For hypertension was continued on lisinopril. For morbid obesity weight loss is recommended. Patient is feeling much better will be discharged back to [facility]. He will continue 5 more days of Augmentin. Time Attestation Discharge coordination time: Greater than 30 minutes Quality: Safe Use of Opioids Does Pt have an Active Cancer Diagnosis on the Problem List?: No Quality: Stroke Does the patient have a stroke diagnosis?: No Physical Exam Vital Signs: Vital Signs: Last Vital Signs Temp 96.9 F 10/22/23 07:39 Pulse 81 10/22/23 07:39 Resp 17 10/22/23 07:39 BP 136/61 10/22/23 07:39 Pulse Ox 94 10/22/23 07:39 O2 Del Method Nasal Cannula 10/22/23 07:39 O2 Flow Rate 3 10/22/23 07:39 FiO2 96.4 10/19/23 23:56 Oxygen Flow Rate 4 10/14/23 22:46 BMI result Body Mass Index 43.3 Const: Other: Constitutional : Awake, interactive, morbidly obese, not in distress Neck : Normal inspection, Supple, right eye chronicly closed Cardiovascular : RRR, no JVP, +1 lower extremity edema Respiratory : good bilateral air entry, basal fine crackles, wheezes or rhonchi Gastrointestinal: soft, lax, Normal bowel sounds, Non tender Skin : Warm, Dry skin in lower extremities with scaling , LUE swollen with erythema and mild warmth. no tenderness Neurological : Alert & oriented to self and place otherwise easily distracted DS: Data Data Completed and Pending Labs on day of discharge: Laboratory Results - last 24 hr 10/22/23 05:52 WBC 6.7 RBC 3.71 L Hgb 11.0 L Hct 34.6 L MCV 93.3 MCH 29.6 MCHC 31.8 RDW 17.2 H Plt Count 296 D MPV 9.9 Absolute Nucleated RBC 0.000 Nucleated RBC % (auto) 0.0 Sodium 144 Potassium 3.7 Chloride 106 Carbon Dioxide 32 H Anion Gap 10 L BUN 18 H Creatinine 0.85 Estim Creat Clear Calc 108.8 Estimated GFR > 60 Fasting Glucose 87 Calcium 8.6 Discharge Plan Discharge Anticipated Discharge Date/Time: 10/22/23 09:12 Patient Disposition: Xfer SNF Discharge Diagnosis: aspiratoin, rsv Referrals: Arturo Hall MD [Primary Care Provider] - 1 Week Discharge Medications: New furosemide 40 mg tablet 40 mg PO DAILY Qty: 30 0RF Continued acetaminophen 325 mg Tablet 650 mg PO Q4H PRN (Reason: Fever Or Pain) Rx Instructions: DNE 3 G / 24 HRS guaifenesin 100 mg/5 mL Liquid 200 mg PO Q4H PRN (Reason: Cough) docusate sodium 100 mg Capsule 100 mg PO BID aspirin 81 mg Tablet,Chewable 81 mg PO DAILY ammonium lactate 12 % Cream 1 appl TOPICAL BID lactulose 10 gram/15 mL Solution 30 ml PO DAILY PRN (Reason: Constipation) alum-mag hydroxide-simeth 225-200-25 mg/5 mL Suspension 30 ml PO Q6H PRN (Reason: Heartburn) atorvastatin 10 mg Tablet 10 mg PO DAILY folic acid 1 mg Tablet 1 mg PO DAILY white petrolatum-mineral oil Cream 1 appl TOPICAL BEDTIME Rx Instructions: APPLY TO BILATERAL LOWER EXTREMITIES omeprazole 20 mg Tablet,Delayed Release (Dr/Ec) 20 mg PO DAILY@0630 magnesium hydroxide [Milk of Magnesia] 400 mg/5 mL Suspension 30 ml PO DAILY PRN (Reason: Constipation) bisacodyl 10 mg Suppository 10 mg LA DAILY PRN (Reason: Constipation) Fleet Enema 19-7 gram/118 mL Enema 118 ml LA DAILY PRN (Reason: Constipation) zinc oxide 10 % Ointment 1 appl TOPICAL BID zinc oxide 10 % Ointment 1 appl TOPICAL DAILY PRN (Reason: MASD) Eliquis 5 mg Tablet 5 mg PO BID amoxicillin-pot clavulanate 875-125 mg Tablet 1 tab PO Q12H Qty: 10 0RF Rx Instructions: END DATE: 10/21/23 Discontinued lisinopril 10 mg Tablet 10 mg PO DAILY Discharge Orders: Discharge Order (Routine); Ordered 10/22/23 Ordered By: Louie Shaw Diet: NDD3 solids, thin liq. Activity on Discharge: As tolerated Stand Alone Forms: Patient Portal Discharge page Care Plan Goals: reocvery Health Concerns: aspiratoin, episodic hypothermia, chronic hypoxia, recent LUE dvt Plan of Treatment: aspiratoin precautions, wean o2 as tolerated, 5 more days augmentin Assessment: see above
--- NOTE | 2023-10-22 09:31 | MHC.CM.PN ---
Addendum entered by Nina Moore 10/22/23 12:57: [facility] READ[facility] TO ACCEPT [facility] AFTER 1300 HOURS CM ATTEMPTED TO CONTACT PTS HCP X 2 TO INFORM HER OF DC CM WAS ABLE TO LEAVE A VM MESSAGE AND PROVIDED CM CONTACT INFO FOR RETURN CALL Original Note: PT CLEARED TO DC BACK TO SNF TODAY UPDATES SENT TO [facility] AWAITING RESPONSE/CONFIRMATION OF ACCEPTANCE
[2023-10-22 11:44] VITALS: BP 136/61; PULSE 77; TEMP 36.4; O2SAT 96
== END 2023-10-22 13:35 | disposition skilled nursing facility (03) | DRG 177 ==
LOC: HO.ED 10-15 01:24 → HO.EDOVER 10-15 02:13 → HO.IMC 10-15 17:14
PROVIDERS: Student in an Organized Health Care Education/Training Program; Admitting Provider Internal Medicine; Emergency Provider Emergency Medicine; PCP Internal Medicine; Visit Provider Internal Medicine
DX: J69.0 Pneumonitis due to inhalation of food and vomit (principal); I50.33 Acute on chronic diastolic (congestive) heart failure; J96.01 Acute respiratory failure with hypoxia; I48.20 Chronic atrial fibrillation, unspecified; Z68.41 Body mass index [BMI] 40.0-44.9, adult; E87.0 Hyperosmolality and hypernatremia; L03.114 Cellulitis of left upper limb; E66.01 Morbid (severe) obesity due to excess calories; B97.4 Respiratory syncytial virus as the cause of diseases classified elsewhere; Z86.72 Personal history of thrombophlebitis; L89.312 Pressure ulcer of right buttock, stage 2; L89.616 Pressure-induced deep tissue damage of right heel; I87.2 Venous insufficiency (chronic) (peripheral); R68.0 Hypothermia, not associated with low environmental temperature; F10.20 Alcohol dependence, uncomplicated; I10 Essential (primary) hypertension; E78.5 Hyperlipidemia, unspecified; K59.00 Constipation, unspecified; K21.9 Gastro-esophageal reflux disease without esophagitis; G47.33 Obstructive sleep apnea (adult) (pediatric); Z20.822 Contact with and (suspected) exposure to COVID-19; Z99.3 Dependence on wheelchair; Z79.82 Long term (current) use of aspirin; Z79.01 Long term (current) use of anticoagulants; Z79.899 Other long term (current) drug therapy
CPT/HCPCS: 0241U; 36415; 71045; 71250; 80048; 80053; 80076; 80202; 81003; 82565; 82803; 83605; 83735; 83880; 84145; 84484; 85025; 85027; 87040; 87070; 87205; 87449; 87640; 87641; 92526; 92610; 93005; 93971; 94640; 99285; C9113; J0456; J1940; J2543; J3370; P9047

== ENCOUNTER → 2023-10-14 22:45 | Outpatient (BNV) | payer OTHER, SELFPAY | PROVIDERS: Admitting Provider Internal Medicine; Emergency Provider Emergency Medicine; PCP Internal Medicine; Visit Provider Internal Medicine Cardiovascular Disease | DX: I48.91 Unspecified atrial fibrillation (principal) | CPT/HCPCS: 93010 ==

== ENCOUNTER → 2023-10-15 02:01 | Outpatient (BNV) | payer OTHER, SELFPAY | PROVIDERS: Admitting Provider Internal Medicine; Emergency Provider Emergency Medicine; PCP Internal Medicine; Visit Provider Internal Medicine | DX: J96.01 Acute respiratory failure with hypoxia (principal); I50.33 Acute on chronic diastolic (congestive) heart failure; J18.9 Pneumonia, unspecified organism; B33.8 Other specified viral diseases; T68.XXXA Hypothermia, initial encounter | CPT/HCPCS: 99223; 99233; 99238; 99499 ==

== ENCOUNTER 2023-11-22 18:29 | Inpatient (IN) | payer OTHER, SELFPAY ==
--- NOTE | ~2023-11-22 | CT_ITS ---
EXAMINATION: CT HEAD WITHOUT CONTRAST CT CERVICAL SPINE WITHOUT CONTRAST CLINICAL INFORMATION: Fall. COMPARISON: 11/28/2023. TECHNIQUE: Contiguous axial imaging was performed through the head and cervical spine without intravenous administration of contrast. Sagittal and coronal reformatted images also obtained. This CT examination was performed using dose optimization techniques as appropriate, variously including the following: *Automated exposure control *Adjustment of mA and/or kV according to patient size (this includes techniques or standardized protocols for targeted exams where dose is matched to indication/reason for exam; i.e. extremities or head) *Use of iterative reconstruction technique DLP: 1743 mGy-cm FINDINGS: There is again seen stable enlargement of the lateral third and fourth ventricles. There is mild widening of the cortical sulci and cerebellar folia. The basal cisterns are normally outlined. There is moderate bilateral periventricular and central white matter diminished attenuation similar to previous. There is no acute territorial defect, hemorrhage or midline shift. Extra-axial spaces are unremarkable. Calvarium: Right temporal craniotomy is noted. Maxillofacial sinuses and mastoids: Clear as visualized. There is cerumen within both external ear canals. Cervical spine: There is some limitation related to body habitus and patient positioning. Mild curvature of the cervical spine to the right. The sagittal alignment is within normal limits. There is diffuse [id number] cervical disc degenerative change with loss of disc space, endplate change as well as prominent anterior and mild posterior osteophytes associated with diffuse facet osteoarthritic hypertrophic change with minimal multilevel spinal canal and neuroforaminal narrowing. The bony structures are heterogeneous/osteopenic. No fracture is seen. The soft tissues are unremarkable. The visualized upper lung dow are clear.. CT/CT cervical spine wo IV con IMPRESSION: CT HEAD: 1. No acute intracranial finding. 2. Stable moderate ventriculomegaly. 3. Moderate chronic white matter microangiopathic changes and mild cerebral and cerebellar atrophy. CT CERVICAL SPINE: 1. No acute abnormality seen. 2. Diffuse cervical spondylosis.
--- NOTE | ~2023-11-22 | CT_ITS ---
EXAMINATION: CT HEAD WITHOUT CONTRAST CT CERVICAL SPINE WITHOUT CONTRAST CLINICAL INFORMATION: Fall. COMPARISON: 11/28/2023. TECHNIQUE: Contiguous axial imaging was performed through the head and cervical spine without intravenous administration of contrast. Sagittal and coronal reformatted images also obtained. This CT examination was performed using dose optimization techniques as appropriate, variously including the following: *Automated exposure control *Adjustment of mA and/or kV according to patient size (this includes techniques or standardized protocols for targeted exams where dose is matched to indication/reason for exam; i.e. extremities or head) *Use of iterative reconstruction technique DLP: 1743 mGy-cm FINDINGS: There is again seen stable enlargement of the lateral third and fourth ventricles. There is mild widening of the cortical sulci and cerebellar folia. The basal cisterns are normally outlined. There is moderate bilateral periventricular and central white matter diminished attenuation similar to previous. There is no acute territorial defect, hemorrhage or midline shift. Extra-axial spaces are unremarkable. Calvarium: Right temporal craniotomy is noted. Maxillofacial sinuses and mastoids: Clear as visualized. There is cerumen within both external ear canals. Cervical spine: There is some limitation related to body habitus and patient positioning. Mild curvature of the cervical spine to the right. The sagittal alignment is within normal limits. There is diffuse orob-oe-ppekzezu cervical disc degenerative change with loss of disc space, endplate change as well as prominent anterior and mild posterior osteophytes associated with diffuse facet osteoarthritic hypertrophic change with minimal multilevel spinal canal and neuroforaminal narrowing. The bony structures are heterogeneous/osteopenic. No fracture is seen. The soft tissues are unremarkable. The visualized upper lung dow are clear.. CT/CT head/brain wo IV con IMPRESSION: CT HEAD: 1. No acute intracranial finding. 2. Stable moderate ventriculomegaly. 3. Moderate chronic white matter microangiopathic changes and mild cerebral and cerebellar atrophy. CT CERVICAL SPINE: 1. No acute abnormality seen. 2. Diffuse cervical spondylosis.
--- NOTE | ~2023-11-22 | XR_ITS ---
EXAMINATION: XR CHEST CLINICAL INFORMATION: SIRS COMPARISON: 11/22/2023 TECHNIQUE: Frontal view of the chest was obtained. FINDINGS: Low lung volumes, more pronounced as compared to prior. Associated opacities at the lung bases, left greater than right, are more pronounced as compared to prior and likely correspond to a combination of pleural effusions, atelectasis and consolidation. No pneumothorax. Cardiac silhouette is unchanged. No new pulmonary edema. No acute osseous findings. Multiple old healed right-sided rib fractures are noted. XR/XR chest 1V IMPRESSION: Low lung volumes, more pronounced as compared to prior. Increased opacities at the lung bases, likely corresponding to a combination of pleural effusions, atelectasis and consolidation.
--- NOTE | ~2023-11-22 | CT_ITS ---
EXAMINATION: CT HEAD WITHOUT CONTRAST CLINICAL INFORMATION: Altered mentation. COMPARISON: Head CT from 10/22/2015 and 09/13/2023. TECHNIQUE: Contiguous axial imaging was performed from the skull base to vertex without intravenous administration of contrast. This CT examination was performed using dose optimization techniques as appropriate, variously including the following: *Automated exposure control *Adjustment of mA and/or kV according to patient size (this includes techniques or standardized protocols for targeted exams where dose is matched to indication/reason for exam; i.e. extremities or head) *Use of iterative reconstruction technique DLP: 3805 mGy-cm FINDINGS: No evidence of intracranial hemorrhage, extra-axial surface collection, focal mass effect or midline shift. The strauss-white matter differentiation is maintained. No acute major vascular territory infarction. The chronic subtle areas of decreased attenuation in periventricular white matter are likely sequela of chronic mild microangiopathy. 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 The ventricles are chronically dilated out of proportion to the sulcal prominence. This could be a manifestation of normal pressure hydrocephalus. The third ventricle is 1.5 cm transverse diameter. The bifrontal diameter is 6.2 cm, unchanged compared to 10/22/2015 and 09/13/2023. Chronic moderate atrophy of cerebellar hemispheres and mild volume loss of cerebral hemispheres. Noted is the old right frontal craniotomy defect. No suspicious calvarial lesion. The visualized paranasal sinuses are well aerated and without air-fluid levels. There is a small left mastoid effusion. There is is streak artifact from metallic clips in the region of the right cavernous sinus and right carotid terminus. There is a right globe prosthesis. CT/CT head/brain wo IV con IMPRESSION: * No intracranial hemorrhage or other acute intracranial pathology compared to 09/13/2023. * There is stable appearance of the chronic ventriculomegaly.
--- NOTE | ~2023-11-22 | XR_ITS ---
EXAMINATION: XR CHEST CLINICAL INFORMATION: Cough and weakness COMPARISON: Chest x-ray 10/20/2023 TECHNIQUE: Frontal view of the chest was obtained. FINDINGS: The lungs are hypoexpanded with mild haziness in left lung base question effusion/atelectasis/infiltrate. Rest lungs are clear. The heart size is enlarged. Pulmonary vascularity is normal. There are multiple right posterior lateral old healed rib fractures involving fifth, sixth and seventh ribs. Rest the visualized bones are grossly unremarkable. XR/XR chest 1V IMPRESSION: 1. Hypoexpanded lungs with mild haziness in left lung base question effusion/atelectasis/infiltrate. 2. Multiple old healed right rib fractures.
--- NOTE | ~2023-11-22 | US_ITS ---
EXAMINATION: US VENOUS WITH DOPPLER UPPER EXTREMITY, LEFT CLINICAL INFORMATION: Swelling, rule out DVT COMPARISON: Left upper extremity duplex on 10/20/2023 TECHNIQUE: Ultrasound of the upper extremity is performed using compression sonography and color and pulse Doppler flow with assessment of augmentation of flow. There is also imaging and Doppler assessment of the jugular and subclavian veins. Spectral analysis with color-flow imaging is performed. FINDINGS: Respiratory variation, normal compression, and augmented flow are noted throughout the upper extremity including the axillary, brachial, cubital, and radial and ulnar veins. There is normal flow in the internal jugular and subclavian veins. There is no visible deep or superficial thrombophlebitis. Mild subcutaneous edema. US/US venous duplex UE LT IMPRESSION: No DVT demonstrated in the left upper extremity
[2023-11-22 18:43] VITALS: BP 129/76; PULSE 50; O2SAT 100
--- NOTE | 2023-11-22 18:49 | ED.WEAKNESS ---
HPI - Weakness General Chief complaint: General Medical Stated complaint: FROM SNF, AMS X1DAY Time Seen by Provider: 11/22/23 18:37 Source: patient and old records reviewed Mode of arrival: EMS Limitations: no limitations History of Present Illness HPI Narrative: 78 yo male with PMH of afib on eliquis, pneumonia, HLD, morbid obesity, ASHLEY on PRN O2, HTN, chronic leg edema on lasix daily comes from SNF after not being himself today they felt he was more weak. He is alert and oriented x 3 with us and EMS. He admits he doesn't have much of an appetite today and is feeling down. He denies pain, difficulty breathing, headaches, confusion. He refuses labs but allows swab and CXR. MD Complaint: generalized weakness Onset (ago): day(s) (this AM) Duration: intermittent Location: generalized Migration: none Severity: mild Relieving factors: rest Exacerbating factors: none Context: recent illness Associated symptoms: loss of appetite Related Data Home Medications Medication Instructions Recorded Confirmed acetaminophen 325 mg tablet 650 mg PO Q4H PRN Fever Or Pain 01/04/23 11/22/23 ammonium lactate 12 % topical cream 1 appl topical TID 01/04/23 11/22/23 aspirin 81 mg chewable tablet 81 mg PO DAILY 01/04/23 11/22/23 docusate sodium 100 mg capsule 100 mg PO BID 01/04/23 11/22/23 guaifenesin 100 mg/5 mL oral liquid 200 mg PO Q4H PRN Cough 01/04/23 11/22/23 lactulose 10 gram/15 mL oral 30 ml PO DAILY PRN Constipation 01/04/23 11/22/23 solution aluminum-mag hydroxide-simethicone 30 ml PO Q6H PRN Heartburn 09/13/23 11/22/23 225 mg-200 mg-25 mg/5 mL oral susp atorvastatin 10 mg tablet 10 mg PO DAILY 09/13/23 11/22/23 folic acid 1 mg tablet 1 mg PO DAILY 09/13/23 11/22/23 omeprazole 20 mg tablet,delayed 20 mg PO DAILY@0630 09/13/23 11/22/23 release white petrolatum-mineral oil 1 appl topical BEDTIME 09/13/23 11/22/23 topical cream apixaban 5 mg tablet (Eliquis) 5 mg PO BID 10/15/23 11/22/23 bisacodyl 10 mg rectal suppository 10 mg NJ DAILY PRN Constipation 10/15/23 11/22/23 magnesium hydroxide 400 mg/5 mL 30 ml PO DAILY PRN Constipation 10/15/23 11/22/23 oral suspension (Milk of Magnesia) sodium phosphates 19 gram-7 118 ml NJ DAILY PRN Constipation 10/15/23 11/22/23 gram/118 mL enema (Fleet Enema) zinc oxide 10 % topical ointment 1 appl topical BID 10/15/23 11/22/23 zinc oxide 10 % topical ointment 1 appl topical DAILY PRN MASD 10/15/23 11/22/23 Previous Rx's Medication Instructions Recorded furosemide 40 mg tablet 40 mg PO DAILY #30 tabs 10/22/23 Allergies Allergy/AdvReac Type Severity Reaction Status Date / Time No Known Allergies Allergy Verified 01/04/23 04:36 Review of Systems Review of Systems: Constitutional : No Fever, No Chills, pos Fatigue, pos malaise ENT/Mouth : No sore throat, No Rhinorrhea Eyes: No Eye Pain, No Swelling, No Redness Cardiovascular : No Chest Pain, No SOB, No Dyspnea on Exertion Respiratory : No Cough, No Sputum Gastrointestinal : No Nausea, No Vomiting, No Diarrhea, No abdominal Pain Genitourinary : No Dysuria, No Urinary Frequency, No Hematuria, Musculoskeletal : No joint pain, No Myalgias, No Joint Swelling Skin : No Skin Lesions, No rash Neuro : No Weakness, No Numbness, No Dizziness, no Headache Psych : No Anxiety/Panic, No Depression All other systems reviewed and are negative [facility] Past Medical History Attestation statement: The following information was validated with the patient. 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 Do you presently have visiting nurse or other home services: Yes Alcohol intake: former Comment: sitter at bedside Patient Tobacco Use Status: Never used Tobacco e-Cigarette/Vaping Use: Never Used Second Hand Smoke Exposure: No Advance Directives: Yes Advance Directives on File: Yes Advance Directives Date on File: 12/26/22 service: Yes Current occupational status: disabled Physical Exam Vital Signs: Vital Signs: Last Vital Signs Temp 97.7 F 11/22/23 18:52 Pulse 108 H 11/22/23 18:52 Resp 12 11/22/23 18:52 BP 133/56 L 11/22/23 18:52 Pulse Ox 97 11/22/23 18:52 O2 Del Method Room Air 11/22/23 18:52 BMI result Body Mass Index 43.3 Appearance: Alert. Oriented X3. No acute distress. Eyes: L pupil equal round and reactive to L, R pupil prior injury wears eye patch ENT: Pharynx normal. Neck: Normal inspection. Neck supple. CVS: Normal heart rate and rhythm. Pulses normal. Respiratory: No respiratory distress. Breath sounds coarse lung sounds diminished in bases, junky sounding cough Abdomen: Soft and nontender. Obese Skin: Skin warm and dry. diffuse scaling rash on both legs and arms with excoriated areas Extremities: bilateral pitting 3+ edema with venous stasis skin changes wrapped with ankush wraps Neuro: Oriented X 3. No motor deficit. No sensory deficit. Course Course Course Narrative: HCP at bedside patient now agrees to blood work 713pm Reevaluation(s) Reevaluation #1: dehydration - IVF ordered, cough + CXR cefepime and azithromycin ordered - infection suspected 2207 Medications Administered Generic Name Dose Route Start Last Admin Trade Name Freq PRN Reason Stop Dose Admin Sodium Chloride 1,000 mls @ 100 mls/hr 11/22/23 20:15 11/22/23 20:53 Ns IVCONT 100 mls/hr .Q10H JESSICA Administration Discontinued Medications Generic Name Dose Route Start Last Admin Trade Name Freq PRN Reason Stop Dose Admin Cefepime HCl 1 gm/ Sodium 50 mls @ 100 mls/hr 11/22/23 20:28 11/22/23 20:58 Chloride IV 11/22/23 20:57 100 mls/hr ONCE ONE Administration Medical Decision Making Medical Decision Making MDM Narrative: 78 yo male with PMH of afib on eliquis, pneumonia, HLD, morbid obesity, ASHLEY on PRN O2, HTN, chronic leg edema on lasix daily here with c/o just feeling off today he denies fevers, focal pain, chest pain, headaches, difficulty breathing. He is alert and oriented x 3 and is not altered. He is his own decision maker he refuses labs at this time I am going to attempt to get CXR, viral panel, UA and EKG if he allows. He is coherent and does not appear confused. Differential Diagnosis Differential Diagnoses: The differential diagnosis associated with the presentation includes viral syndrome, pneumonia, UTI denies headache no focal weakness doubt ICH refusing labs Admission/Observation Consideration of admission/observation: Escalation of care including admission/observation considered admit given weakness, hypernatremia and likely new pneumonia Consult Healthcare Provider Management of the patient was discussed with: Hospitalist (will admit) Lab Data MDM Lab Attestation statement: I reviewed the patient's lab results. 11/22/23 19:30 11/22/23 19:30 Labs: Lab Results 11/22/23 11/22/23 Range/Units 19:30 19:36 WBC 5.9 (4.8-10.8) X10*3/uL RBC 3.22 L (4.60-5.80) X10*6/uL Hgb 9.7 L (14.0-18.0) g/dl Hct 30.7 L (42.0-52.0) % MCV 95.3 (80.0-98.0) fL MCH 30.1 (27.0-33.0) pg MCHC 31.6 (31.0-36.0) g/dl RDW 19.9 H (11.0-16.0) % Plt Count 115 L D (160-400) X10*3/uL MPV 11.0 (9.4-12.4) fL Immature Gran % (Auto) 0.2 (0.0-0.4) % Neut % (Auto) 48.9 (45-73) % Lymph % (Auto) 14.3 L (20-40) % [place] % (Auto) 5.9 (2-11) % Eos % (Auto) 30.4 H (0-4) % Baso % (Auto) 0.3 (0-2) % Lymph # (Auto) 0.9 L (1.2-4.9) X10*3/uL [place] # (Auto) 0.4 (0.1-1.2) X10*3/uL Eos # (Auto) 1.8 H (0.0-0.4) X10*3/uL Baso # (Auto) 0.0 (0.0-0.2) X10*3/uL Abs Immat Gran (auto) 0.01 (0.00-0.03) X10*3/uL Absolute Neuts (auto) 2.9 (2.0-8.3) x10*3/uL Absolute Nucleated RBC 0.000 (0.0-0.012) X10*3/uL Nucleated RBC % (auto) 0.0 (0.0-0.2) /100WBC Smear Tech's Comments VERIFIED Sodium 150 H (135-145) mmol/L Potassium 4.3 (3.3-5.1) mmol/L Chloride 114 H (96-108) mmol/L Carbon Dioxide 29 (22-29) mmol/L Anion Gap 14 (12-20) BUN 21 H (9-16) mg/dL Creatinine 0.85 (0.5-1.4) mg/dL Estim Creat Clear Calc 106.6 Estimated GFR > 60 Random Glucose 80 (60-115) mg/dL Lactic Acid 1.1 (0.5-2.0) mmol/L Calcium 9.2 D (8.4-10.2) mg/dL Magnesium 2.1 (1.6-2.6) mg/dL Total Bilirubin 0.4 (0.0-1.0) mg/dL Direct Bilirubin 0.2 (0.0-0.5) mg/dL AST 28 (5-37) U/L ALT 19 (0-40) U/L Alkaline Phosphatase 106 (39-117) U/L Ammonia 35 (13-55) umol/L Total Creatine Kinase 59 (38-174) U/L Troponin I High Sens 3.5 D (<3.5-35.0) ng/L B-Natriuretic Peptide 203 H (<100) pg/mL Total Protein 5.7 L (6.5-8.0) g/dL Albumin 2.9 L (3.5-5.0) g/dL Lipase 46 (8-78) U/L Procalcitonin 0.05 ng/mL Influenza Type A (PCR) NEGATIVE (Negative) Influenza Type B (PCR) NEGATIVE (Negative) RSV RNA Qual (PCR) NEGATIVE (Negative) SARS-CoV-2 RNA (RT-PCR) NEGATIVE (Negative) Independent Interpretation I performed an independent interpretation of an: EKG and Plain X-Ray (opacity L lung base) Interpretation: Rate: 60s Rhythm: regular narrow complex sig artifact Wolbach: normal Normal QRS complex. ST T wave : significant artifact cannot get baseline qTC: 442 prior studies: sig artifact The study has been interpreted contemporaneously by me. EKG #2 Rate: 60 Rhythm: regular narrow rhythm Wolbach: normal Normal QRS complex. ST T wave : no KARLIE qTC: 415 prior studies: no change from prior still sig artifact patient is not moving I did aid the tech we were unable to get clean EKG The study has been interpreted contemporaneously by me. . Radiology Impression Discussion of test interpretation with radiology: I have reviewed the radiologist's reading. Independent Historian Clinical information obtained from an independent historian. History obtained from or confirmed by: EMS External Record Review External record reviewed: Inpatient record and Outpatient record Discharge Plan Discharge Clinical Impression: Acute hypernatremia, Acute dehydration, Weakness, Pneumonia Patient Disposition: Admitted As Inpatient
[2023-11-22 18:52] VITALS: BP 133/56; PULSE 108; RESP 12; TEMP 36.5; O2SAT 97; BMI 43.3
--- NOTE | 2023-11-22 18:53 | ECG_ITS ---
Test Reason : SOB Blood Pressure : / mmHG Vent. Rate : 148 BPM Atrial Rate : 150 BPM P-R Int : 112 ms QRS Dur : 052 ms QT Int : 282 ms P-R-T Axes : 015 -18 -35 degrees QTc Int : 442 ms Poor data quality Undetermined rhythm Low voltage QRS Cannot rule out Anterior infarct , age undetermined Abnormal ECG When compared with ECG of 14-OCT-2023 22:56, Poor data quality in current ECG precludes serial comparison Referred By: Ema Borjas Electronically Signed By:BAO PINK MD
--- NOTE | 2023-11-22 18:59 | PC.NURSE ---
md torres came to bedside, pt declined labs.
[2023-11-22 19:47] LABS: Basophils Percent Auto 0.3 % (0-2); Eosinophils Absolute Auto 1.8 X10*3/uL (0.0-0.4); Eosinophils Percent Auto 30.4 % (0-4); Hematocrit 30.7 % (42.0-52.0); Hemoglobin 9.7 g/dl (14.0-18.0); Imm Gran Abs Auto 0.01 X10*3/uL (0.00-0.03); Imm Gran Pct Auto 0.2 % (0.0-0.4); Lymphocytes Absolute Auto 0.9 X10*3/uL (1.2-4.9); Lymphocytes Percent Auto 14.3 % (20-40); MANUAL DIFF FLAG SCAN; Mean Corpuscular HGB Conc 31.6 g/dl (31.0-36.0); Mean Corpuscular Hemoglobin 30.1 pg (27.0-33.0); Mean Corpuscular Volume 95.3 fL (80.0-98.0); Monocytes Absolute Auto 0.4 X10*3/uL (0.1-1.2); Monocytes Percent Auto 5.9 % (2-11); Neutrophils Absolute Auto 2.9 x10*3/uL (2.0-8.3); Neutrophils Percent Auto 48.9 % (45-73); Platelet Count 115 X10*3/uL (160-400); Red Blood Count 3.22 X10*6/uL (4.60-5.80); Red Cell Distribution Width 19.9 % (11.0-16.0); SCAN SMEAR FLAG 1; White Blood Count 5.9 X10*3/uL (4.8-10.8)
[2023-11-22 19:50] LABS: Ammonia 35 umol/L (13-55)
--- NOTE | 2023-11-22 19:52 | PHA.MEDREC ---
Pharmacy Consult ? Medication Reconciliation Pharmacy has completed the medication reconciliation. Patient from [facility] with med list. Kaern Alex, MaydaD
[2023-11-22 19:54] LABS: Lactic Acid 1.1 mmol/L (0.5-2.0)
[2023-11-22 20:02] LABS: Alanine Aminotransferase 19 U/L (0-40); Albumin Level 2.9 g/dL (3.5-5.0); Alkaline Phosphatase 106 U/L (39-117); Aspartate Amino Transferase 28 U/L (5-37); B Type Natriuretic Peptide 203 pg/mL (<100); Bilirubin Direct 0.2 mg/dL (0.0-0.5); Bilirubin Total 0.4 mg/dL (0.0-1.0); Blood Urea Nitrogen 21 mg/dL (9-16); Calcium 9.2 mg/dL (8.4-10.2); Carbon Dioxide 29 mmol/L (22-29); Chloride 114 mmol/L (96-108); Creatinine Clr Calc Pharmacy 106.6; Estimated Glomerular Filt Rate > 60; Glucose Random 80 mg/dL (60-115); Lipase 46 U/L (8-78); Magnesium 2.1 mg/dL (1.6-2.6); Potassium 4.3 mmol/L (3.3-5.1); Sodium 150 mmol/L (135-145); Total Protein 5.7 g/dL (6.5-8.0)
[2023-11-22 20:05] LABS: Troponin-I High Sensitivity 3.5 ng/L (<3.5-35.0)
[2023-11-22 20:09] LABS: Anion Gap 14 (12-20)
[2023-11-22 20:10] LABS: SLIDE REVIEW VERIFIED
[2023-11-22 20:20] LABS: Influenza A PCR NEGATIVE (Negative); Influenza B PCR NEGATIVE (Negative); Resp Syncy Virus RNA Qual PCR NEGATIVE (Negative); SARS COV2 PCR INHOUSE NEGATIVE (Negative)
[2023-11-22 20:30] LABS: Procalcitonin 0.05 ng/mL
[2023-11-22] MEDS: 0.9 % Sodium Chloride 1,000 ML 100 ML IVCONT (20:53)
--- NOTE | 2023-11-22 20:55 | ECG_ITS ---
Test Reason : ADMISSION Blood Pressure : / mmHG Vent. Rate : 125 BPM Atrial Rate : 192 BPM P-R Int : 000 ms QRS Dur : 054 ms QT Int : 288 ms P-R-T Axes : 000 006 -33 degrees QTc Int : 415 ms Poor data quality Undetermined rhythm Low voltage QRS Septal infarct (cited on or before 22-NOV-2023) Abnormal ECG When compared with ECG of 22-NOV-2023 19:37, Poor data quality in current ECG precludes serial comparison Referred By: Ema Borjas Electronically Signed By:BAO PINK MD
[2023-11-22] MEDS: cefEPime HCl 1 GM in 0.9 % Sodium Chloride 50 ML IV (20:58)
--- NOTE | 2023-11-22 21:04 | PM.IMHP ---
History of Present Illness Date of Service: 11/22/23 Attending physician on admission: Matteo Vazquez Chief Complaint: AMS Pt is a 78-year-old male with a PMH significant for?HTN, HLD, chronic bilateral leg lymphedema with drainage, chronic AFib on Eliis, RLE DVT in 2022, HFpEF, and morbid obesity who presents to the ED from [facility] for evaluation of lethargy, altered mental status, and generalized weakness for the past 1-2 days. Patient himself complains of neck pain from ?laying too flat and requests the head of bed be elevated. Otherwise has no acute medical complaints. Denies chest pain/pressure, palpitations. No shortness of breath or cough. Denies fever, chills, nausea, vomiting, abdominal pain. No headache or acute vision changes. Of note, patient has had multiple presentations to the hospital over the past few months. Was hospitalized on 09/13-09/20 and treated for AMS in the setting of hypothermia associated with bradycardia likely secondary to pneumonia in [facility]. Course was complicated by new onset AFib and hypernatremia. Patient was again hospitalized from 10/15-10/21 and treated for acute on chronic hypoxic respiratory failure secondary to RSV infection and aspiration pneumonia in the setting of ASHLEY and acute on chronic diastolic CHF. Hospital course complicated by hypothermia and hypernatremia. In the ED pt was afebrile but tachycardic up to 108. Labs were significant for sodium of 150, chloride 114, BNP 203, total protein 5.7, and albumin 2.9. Tested negative for RSV, COVID, influenza. CXR showed mild haziness in left lung base question of effusion/atelectasis/infiltrate. Pt was treated with cefepime and IVF. Pt will be admitted to the hospital for treatment and further evaluation of hypernatremia and acute encephalopathy in the setting of likely pneumonia. Review of Systems Review of Systems: Neck pain from lying too flat Otherwise pt has no acute medical complaints [facility] Medical History Atrial fibrillation Dyslipidemia Hypertension Surgical History History of enucleation of right eyeball Social History Household Members: Other Housing: [facility] Other:: Lives in alf care Do you presently have visiting nurse or other home services: Yes Alcohol intake: former Comment: sitter at bedside Patient Tobacco Use Status: Never used Tobacco e-Cigarette/Vaping Use: Never Used Second Hand Smoke Exposure: No Advance Directives: Yes Advance Directives on File: Yes Advance Directives Date on File: 12/26/22 service: Yes Current occupational status: disabled Meds Allergies Allergy/AdvReac Type Severity Reaction Status Date / Time No Known Allergies Allergy Verified 01/04/23 04:36 Active Medications: Current Medications Azithromycin 500 mg/ Sodium (Chloride) 250 mls @ 125 mls/hr IV ONCE ONE Stop: 11/22/23 22:08 Sodium Chloride (Ns) 500 mls @ 50 mls/hr IV .Q10H [facility] Stop: 11/23/23 07:14 Dextrose/Sodium Chloride (D51/2ns) 1,000 mls @ 80 mls/hr IVCONT .[id number] [facility] Home Medications Medication Instructions Recorded Confirmed Last Taken Type acetaminophen 325 mg tablet 650 mg PO Q4H PRN Fever Or Pain 01/04/23 11/22/23 Unknown History ammonium lactate 12 % topical cream 1 appl topical TID 01/04/23 11/22/23 Unknown History aspirin 81 mg chewable tablet 81 mg PO DAILY 01/04/23 11/22/23 Unknown History docusate sodium 100 mg capsule 100 mg PO BID 01/04/23 11/22/23 Unknown History guaifenesin 100 mg/5 mL oral liquid 200 mg PO Q4H PRN Cough 01/04/23 11/22/23 Unknown History lactulose 10 gram/15 mL oral 30 ml PO DAILY PRN Constipation 01/04/23 11/22/23 Unknown History solution aluminum-mag hydroxide-simethicone 30 ml PO Q6H PRN Heartburn 09/13/23 11/22/23 Unknown History 225 mg-200 mg-25 mg/5 mL oral susp atorvastatin 10 mg tablet 10 mg PO DAILY 09/13/23 11/22/23 Unknown History folic acid 1 mg tablet 1 mg PO DAILY 09/13/23 11/22/23 Unknown History omeprazole 20 mg tablet,delayed 20 mg PO DAILY@0630 09/13/23 11/22/23 Unknown History release white petrolatum-mineral oil 1 appl topical BEDTIME 09/13/23 11/22/23 Unknown History topical cream apixaban 5 mg tablet (Eliquis) 5 mg PO BID 10/15/23 11/22/23 Unknown History bisacodyl 10 mg rectal suppository 10 mg VT DAILY PRN Constipation 10/15/23 11/22/23 Unknown History magnesium hydroxide 400 mg/5 mL 30 ml PO DAILY PRN Constipation 10/15/23 11/22/23 Unknown History oral suspension (Milk of Magnesia) sodium phosphates 19 gram-7 118 ml VT DAILY PRN Constipation 10/15/23 11/22/23 Unknown History gram/118 mL enema (Fleet Enema) zinc oxide 10 % topical ointment 1 appl topical BID 10/15/23 11/22/23 Unknown History zinc oxide 10 % topical ointment 1 appl topical DAILY PRN MASD 10/15/23 11/22/23 Unknown History Physical Exam Vital Signs and Narrative: Vital Signs: Last Vital Signs Temp 97.7 F 11/22/23 18:52 Pulse 108 H 11/22/23 18:52 Resp 12 11/22/23 18:52 BP 133/56 L 11/22/23 18:52 Pulse Ox 97 11/22/23 18:52 O2 Del Method Room Air 11/22/23 18:52 BMI result Body Mass Index 43.3 Constitutional: Alert, slow to respond but answering appropriately, In no acute distress. Mental Status: Oriented to person, place, time, and situation. Eyes: S/P right eye enucleation with eye patch in place Ear, Nose, and Throat: Oropharynx clear, mucous membranes moist. Ears and nose without deformities. Trachea midline. Respiratory: Clear to auscultation bilaterally. No wheezing, rales, or rhonchi. Cardiovascular: S1, S2, regular. No murmurs, rubs, or gallops. Gastrointestinal: Abdomen soft, non-tender, non-distended, obese. Normal bowel sounds. Neurologic: Cranial nerves II-XII are grossly intact bilaterally. No focal neurological deficits. Moves all extremities spontaneously though with globalized weakness. Extremities: 3+ bilateral lower leg pitting edema. Venous stasis changes. Lower legs wrapped with Jerrell wraps. Psychiatric: Normal mood and affect. Results Labs 11/22/23 19:30 11/22/23 19:30 Labs: Laboratory Results - last 24 hr 11/22/23 11/22/23 19:30 19:36 MCV 95.3 MCH 30.1 MCHC 31.6 RDW 19.9 H Plt Count 115 L D MPV 11.0 Immature Gran % (Auto) 0.2 Neut % (Auto) 48.9 Lymph % (Auto) 14.3 L [place] % (Auto) 5.9 Eos % (Auto) 30.4 H Baso % (Auto) 0.3 Lymph # (Auto) 0.9 L [place] # (Auto) 0.4 Eos # (Auto) 1.8 H Baso # (Auto) 0.0 Abs Immat Gran (auto) 0.01 Absolute Neuts (auto) 2.9 Absolute Nucleated RBC 0.000 Nucleated RBC % (auto) 0.0 Smear Tech's Comments VERIFIED Anion Gap 14 Estim Creat Clear Calc 106.6 Estimated GFR > 60 Random Glucose 80 Lactic Acid 1.1 Calcium 9.2 D Magnesium 2.1 Total Bilirubin 0.4 Direct Bilirubin 0.2 AST 28 ALT 19 Alkaline Phosphatase 106 Ammonia 35 Total Creatine Kinase 59 Troponin I High Sens 3.5 D B-Natriuretic Peptide 203 H Total Protein 5.7 L Albumin 2.9 L Lipase 46 Procalcitonin 0.05 Influenza Type A (PCR) NEGATIVE Influenza Type B (PCR) NEGATIVE RSV RNA Qual (PCR) NEGATIVE SARS-CoV-2 RNA (RT-PCR) NEGATIVE Imaging Radiologist's Impressions: Impressions Chest X-Ray 11/22/23 19:15 IMPRESSION: 1. Hypoexpanded lungs with mild haziness in left lung base question effusion/atelectasis/infiltrate. 2. Multiple old healed right rib fractures. Assessment and Plan (1) Acute hypernatremia: Status: Acute (2) Pneumonia: Qualifiers: Laterality: left Lung location: lower lobe of lung Pneumonia type: due to unspecified organism Qualified Code(s): J18.9 - Pneumonia, unspecified organism Status: Acute Plan Pt is a 78-year-old male with a PMH significant for?HTN, HLD, chronic bilateral leg lymphedema with drainage, chronic AFib on Eliquis, RLE DVT in 2022, HFpEF, and morbid obesity who presents to the ED from [facility] for evaluation of lethargy, altered mental status, and generalized weakness for the past 1-2 days. Pt was treated with cefepime and IVF. Pt will be admitted to the hospital for treatment and further evaluation of hypernatremia and acute encephalopathy in the setting of likely pneumonia. Acute hypernatremia Sodium 150 at time of presentation Likely secondary to dehydration Pt given 1L of D5 1/2NS in ED Follow BMP Likely pneumonia CXR showing mild haziness in LLL question of effusion/atelectasis/infiltrate Patient does not meet sepsis criteria: Tachycardia, but no tachypnea, fever, or leukocytosis; lactic acid WNL at 1.1 Patient given IVF and started on broad-spectrum antibiotics in the ED Will empirically treat with cefepime 2 g Q8h Follow cultures Acute encephalopathy, resolved Patient with apparent AMS at SNF Currently answering appropriately, AO x4, apparently back to baseline Likely secondary to pneumonia Treat as above Paroxysmal AFib Continue Eliquis HLD Continue statin, aspirin GERD Continue PPI Obesity class III Encourage weight loss Full Code; pt was previously DNR/DNI but signed a new MOLST form in 12/2022 Attending:?Dr. Mayen DVT Prophylaxis: On Eliquis Pt will require a hospitalization of at least two nights for treatment and further evaluation of hypernatremia and pneumonia. Given patient's severe comorbidities, patient requires hospital care for administration of IV antibiotics and close monitoring of labs and vitals to ensure patient is stable enough to [facility]. Quality Stroke Does the patient have a stroke diagnosis?: No VTE Prior VTE?: Yes VTE Risk Level:: Medical - moderate - high VTE Device Contraindication: Treatment Not Indicated VTE Drug Contraindication: N/A - Med Ordered
--- NOTE | 2023-11-22 21:04 | PC.NURSE ---
Dr. Borjas verbal order to change ivf to 500mL NS 0.9% bolus. ivf and iv abx infusing. repeat ekg being obtained now.
[2023-11-22] MEDS: 0.9 % Sodium Chloride 500 ML 50 ML IV (21:10)
[2023-11-22] MEDS: Dextrose 5 % and 0.45 % NaCl 1,000 ML 80 ML IVCONT (21:51)
[2023-11-22] MEDS: Azithromycin 500 MG in 0.9 % Sodium Chloride 250 ML 125 MG IV (21:52)
[2023-11-22 22:05] LABS: Appearance Urine Clear; Color Urine Yellow; Glucose Urine UA Negative (Negative); Leukocyte Esterase Urine Negative (Negative); Nitrite Urine Negative (Negative); PH 6.5 (5.0-9.0); Specific Gravity - Urine 1.015 (1.005-1.025); Urine Blood Negative (Negative); Urine Ketones Negative (Negative); Urine Protein Negative (Neg-Trace)
[2023-11-22 22:32] VITALS: BP 142/54; PULSE 59; RESP 13; TEMP 36.7; O2SAT 98
[2023-11-22] MEDS: Apixaban 5 MG TABLET PO (23:56)
[2023-11-22] MEDS: Docusate Sodium 100 MG CAPSULE PO (23:56)
[2023-11-23] VITALS (8 sets, daily range): BP systolic 114–142; BP diastolic 35–60; PULSE 43–64; RESP 12–18; TEMP 32.7–36.6; O2SAT 91–96
[2023-11-23] MEDS: cefEPime HCl 2 GM in 0.9 % Sodium Chloride 50 ML IV ×3 (05:03→21:56)
--- NOTE | 2023-11-23 06:06 | PC.NURSE ---
see downtime paperwork for vitals/nurses note.
--- NOTE | 2023-11-23 06:30 | PC.NURSE ---
pt refused omeprazole. educated pt on its benefits and that he takes it every morning at the snf. pt stated i'll pass.
[2023-11-23 10:29] LABS: MRSA Nasal PCR POSITIVE (Negative); SA Nasal PCR POSITIVE (Negative)
[2023-11-23] MEDS: Atorvastatin Calcium 10 MG TABLET PO (10:37)
[2023-11-23] MEDS: Docusate Sodium 100 MG CAPSULE PO ×2 (10:37→21:56)
[2023-11-23] MEDS: Aspirin 81 MG TAB.CHEW PO (10:37)
[2023-11-23] MEDS: Omeprazole 20 MG CAPSULE.DR PO (10:37)
[2023-11-23] MEDS: Furosemide 40 MG TABLET PO (10:37)
[2023-11-23] MEDS: Apixaban 5 MG TABLET PO ×2 (10:37→21:56)
[2023-11-23] MEDS: Folic Acid 1 MG TABLET PO (10:37)
[2023-11-23] MEDS: 0.9 % Sodium Chloride Flush 3 ML SYRINGE IVFLUSH ×2 (10:39→15:12)
[2023-11-23] MEDS: Dextrose 5 % 1,000 ML 125 ML IVCONT ×2 (10:39→23:58)
[2023-11-23] MEDS: Ammonium Lactate 12 % Cream 140 GM TUBE 1 APPL TOPICAL ×2 (11:21→15:12)
[2023-11-23] MEDS: Zinc Oxide (Triple Paste) 56.7 GM OINT 1 APPL TOPICAL (11:22)
[2023-11-23 11:40] LABS: Basophils Percent Auto 0.4 % (0-2); Eosinophils Absolute Auto 1.8 X10*3/uL (0.0-0.4); Eosinophils Percent Auto 32.6 % (0-4); Hematocrit 27.3 % (42.0-52.0); Hemoglobin 8.5 g/dl (14.0-18.0); Lymphocytes Absolute Auto 0.6 X10*3/uL (1.2-4.9); Lymphocytes Percent Auto 11.6 % (20-40); MANUAL DIFF FLAG SCAN; Mean Corpuscular HGB Conc 31.1 g/dl (31.0-36.0); Mean Corpuscular Hemoglobin 29.8 pg (27.0-33.0); Mean Corpuscular Volume 95.8 fL (80.0-98.0); Mean Platelet Volume 11.4 fL (9.4-12.4); Monocytes Absolute Auto 0.4 X10*3/uL (0.1-1.2); Monocytes Percent Auto 7.6 % (2-11); NRBC Pct Auto 0.4 /100WBC (0.0-0.2); Neutrophils Absolute Auto 2.6 x10*3/uL (2.0-8.3); Neutrophils Percent Auto 47.8 % (45-73); Platelet Count 111 X10*3/uL (160-400); Red Blood Count 2.85 X10*6/uL (4.60-5.80); Red Cell Distribution Width 19.7 % (11.0-16.0); SCAN SMEAR FLAG 1; White Blood Count 5.5 X10*3/uL (4.8-10.8)
[2023-11-23 11:54] LABS: Alanine Aminotransferase 19 U/L (0-40); Albumin Level 2.6 g/dL (3.5-5.0); Alkaline Phosphatase 101 U/L (39-117); Anion Gap 6 (12-20); Aspartate Amino Transferase 23 U/L (5-37); Bilirubin Total 0.3 mg/dL (0.0-1.0); Blood Urea Nitrogen 20 mg/dL (9-16); Calcium 8.6 mg/dL (8.4-10.2); Carbon Dioxide 31 mmol/L (22-29); Chloride 111 mmol/L (96-108); Creatinine Clr Calc Pharmacy 111.9; Estimated Glomerular Filt Rate > 60; Glucose Fasting 195 mg/dL (60-99); Potassium 3.9 mmol/L (3.3-5.1); Sodium 144 mmol/L (135-145); Total Protein 5.1 g/dL (6.5-8.0)
[2023-11-23 12:06] LABS: SLIDE REVIEW VERIFIED
--- NOTE | 2023-11-23 13:05 | ECG_ITS ---
Test Reason : NOEMI Blood Pressure : / mmHG Vent. Rate : 042 BPM Atrial Rate : 000 BPM P-R Int : 000 ms QRS Dur : 102 ms QT Int : 518 ms P-R-T Axes : 000 011 021 degrees QTc Int : 432 ms Marked Sinus bradycardia Low voltage QRS Cannot rule out Anterior infarct (cited on or before 22-NOV-2023) Abnormal ECG When compared with ECG of 22-NOV-2023 21:02, Previous EKG of poor quality Referred By: Ramon Baires Electronically Signed By:BAO PINK MD
--- NOTE | 2023-11-23 13:38 | PC.NURSE ---
pt sleeping nd easily woken , junctional bradycardia on ekg, has dipped into 30's but mainly has been in the 40's, pt denies any dizziness or other symptoms, Dr Baires aware and EKG sent to him
--- NOTE | 2023-11-23 15:21 | HO.PM.IMPN ---
Subjective Subjective Date of Service: 11/23/23 Interval History: Notes some improvement since admission. Still mildly confused Review of Systems Denies chest pain Denies shortness of breath Denies nausea vomiting diarrhea Denies fever chills Physical Exam Vital Signs: Vital Signs: Last Vital Signs Temp 91 F L 11/23/23 15:13 Pulse 45 L 11/23/23 15:13 Resp 12 11/23/23 15:13 BP 124/56 L 11/23/23 15:13 Pulse Ox 96 11/23/23 15:13 O2 Del Method Room Air 11/23/23 15:13 BMI result Body Mass Index 43.3 Const: Other: Awake alert no acute distress Resp: Other: Diminished but clear throughout Cardio: Other: No S4; positive S1-S2; no S3 murmurs rubs or gallops GI: Other: Soft nontender nondistended normoactive bowel sounds Extrem: Other: No edema bilaterally Objective Data Active Medications Acetaminophen (Acetaminophen 325 Mg Tablet) 650 mg PO Q6H PRN PRN Reason: Pain, Mild (Pain Scale 1-3) Al Hydroxide/Mg Hydroxide (Magnesium Hydrox/Alum Hydrox 30 Ml Oral.Susp) 30 ml PO Q6H PRN PRN Reason: Heartburn Apixaban (Apixaban 5 Mg Tablet) 5 mg PO BID [facility] Last Admin: 11/23/23 10:37 Dose: 5 mg Documented By: CHARLOTTE Aspirin (Aspirin 81 Mg Tab.Chew) 81 mg PO DAILY [facility] Last Admin: 11/23/23 10:37 Dose: 81 mg Documented By: CHARLOTTE Atorvastatin Calcium (Atorvastatin Calcium 10 Mg Tablet) 10 mg PO DAILY [facility] Last Admin: 11/23/23 10:37 Dose: 10 mg Documented By: CHARLOTTE Bisacodyl (Bisacodyl 10 Mg Supp.Rect) 10 mg [place] DAILY PRN PRN Reason: Constipation Docusate Sodium (Docusate Sodium 100 Mg Capsule) 100 mg PO BID [facility] Last Admin: 11/23/23 10:37 Dose: 100 mg Documented By: CHARLOTTE Folic Acid (Folic Acid 1 Mg Tablet) 1 mg PO DAILY [facility] Last Admin: 11/23/23 10:37 Dose: 1 mg Documented By: CHARLOTTE Furosemide (Furosemide 40 Mg Tablet) 40 mg PO DAILY [facility]; Protocol Last Admin: 11/23/23 10:37 Dose: 40 mg Documented By: CHARLOTTE Guaifenesin (Guaifenesin 100 Mg/5 Ml Liquid) 10 ml PO Q4H PRN PRN Reason: Cough Cefepime HCl 2 gm/ Sodium (Chloride) 50 mls @ 100 mls/hr IV Q8H [facility] Last Infusion: 11/23/23 13:58 Dose: Infused Documented By: MUNA Dextrose (D5w) 1,000 mls @ 125 mls/hr IVCONT .Q8H [facility] Last Admin: 11/23/23 10:39 Dose: 125 mls/hr Documented By: CHARLOTTE Lactic Acid (Ammonium Lactate 12 % Cream 140 Gm Tube) 1 appl TOPICAL TID [facility]; Protocol Last Admin: 11/23/23 15:12 Dose: 1 appl Documented By: TWAN Lactulose (Lactulose 20 Gm/30 Ml Solution) 20 gm PO DAILY PRN PRN Reason: Constipation Magnesium Hydroxide (Milk Of Magnesia 30 Ml Oral.Susp) 30 ml PO DAILY PRN PRN Reason: Constipation Melatonin (Melatonin 3 Mg Tablet) 6 mg PO BEDTIME PRN PRN Reason: Insomnia Multi-Ingred Cream/Lotion/Oil/Oint (Mineral Oil/Petrolatum,White 106 Gm Tube) 1 appl TOPICAL BEDTIME [facility]; Protocol Last Admin: 11/22/23 23:56 Dose: Not Given Documented By: HERNÁN Non-Admin Reason: Med Not Available Omeprazole (Omeprazole 20 Mg Capsule.Dr) 20 mg PO DAILY@0630 [facility] Last Admin: 11/23/23 10:37 Dose: 20 mg Documented By: CHARLOTTE Ondansetron HCl (Ondansetron Hcl 4 Mg/2 Ml Vial) 4 mg IVPUSH Q8H PRN PRN Reason: Nausea and Vomiting Sodium Biphosphate/Sodium Phosphate (Sodium Phosphate,[place]-Dibasic 133 Ml Enema) 118 ml [place] DAILY PRN PRN Reason: Constipation Sodium Chloride (0.9 % Sodium Chloride Flush 3 Ml Syringe) 3 ml IVFLUSH QSHIFT [facility] Last Admin: 11/23/23 15:12 Dose: 3 ml Documented By: TWAN Zinc Oxide (Zinc Oxide (Triple Paste) 56.7 Gm Oint) 1 appl TOPICAL BID [facility] Last Admin: 11/23/23 11:22 Dose: 1 appl Documented By: CHARLOTTE Labs 11/23/23 11:30 11/23/23 11:30 Labs: Laboratory Results - last 24 hr 11/22/23 11/22/23 11/22/23 19:30 19:36 21:55 MCV 95.3 MCH 30.1 MCHC 31.6 RDW 19.9 H Plt Count 115 L D MPV 11.0 Immature Gran % (Auto) 0.2 Neut % (Auto) 48.9 Lymph % (Auto) 14.3 L [place] % (Auto) 5.9 Eos % (Auto) 30.4 H Baso % (Auto) 0.3 Lymph # (Auto) 0.9 L [place] # (Auto) 0.4 Eos # (Auto) 1.8 H Baso # (Auto) 0.0 Abs Immat Gran (auto) 0.01 Absolute Neuts (auto) 2.9 Absolute Nucleated RBC 0.000 Nucleated RBC % (auto) 0.0 Smear Tech's Comments VERIFIED Anion Gap 14 Estim Creat Clear Calc 106.6 Estimated GFR > 60 Random Glucose 80 Fasting Glucose Lactic Acid 1.1 Calcium 9.2 D Magnesium 2.1 Total Bilirubin 0.4 Direct Bilirubin 0.2 AST 28 ALT 19 Alkaline Phosphatase 106 Ammonia 35 Total Creatine Kinase 59 Troponin I High Sens 3.5 D B-Natriuretic Peptide 203 H Total Protein 5.7 L Albumin 2.9 L Lipase 46 Procalcitonin 0.05 Urine Color Yellow Urine Appearance Clear Urine pH 6.5 Ur Specific [place] 1.015 Urine Protein Negative Urine Glucose (UA) Negative Urine Ketones Negative Urine Blood Negative Urine Nitrite Negative Ur Leukocyte Esterase Negative Nasal Screen MRSA (PCR) Nasal S. aureus Screen Nasal MRSA/S.aureus Interp Influenza Type A (PCR) NEGATIVE Influenza Type B (PCR) NEGATIVE RSV RNA Qual (PCR) NEGATIVE SARS-CoV-2 RNA (RT-PCR) NEGATIVE 11/22/23 11/23/23 22:36 11:30 MCV 95.8 MCH 29.8 MCHC 31.1 RDW 19.7 H Plt Count 111 L MPV 11.4 Immature Gran % (Auto) 0.0 Neut % (Auto) 47.8 Lymph % (Auto) 11.6 L [place] % (Auto) 7.6 Eos % (Auto) 32.6 H Baso % (Auto) 0.4 Lymph # (Auto) 0.6 L [place] # (Auto) 0.4 Eos # (Auto) 1.8 H Baso # (Auto) 0.0 Abs Immat Gran (auto) 0.00 Absolute Neuts (auto) 2.6 Absolute Nucleated RBC 0.020 H Nucleated RBC % (auto) 0.4 H Smear Tech's Comments VERIFIED Anion Gap 6 L Estim Creat Clear Calc 111.9 Estimated GFR > 60 Random Glucose Fasting Glucose 195 H Lactic Acid Calcium 8.6 D Magnesium Total Bilirubin 0.3 Direct Bilirubin AST 23 ALT 19 Alkaline Phosphatase 101 Ammonia Total Creatine Kinase Troponin I High Sens B-Natriuretic Peptide Total Protein 5.1 L Albumin 2.6 L Lipase Procalcitonin Urine Color Urine Appearance Urine pH Ur Specific [place] Urine Protein Urine Glucose (UA) Urine Ketones Urine Blood Urine Nitrite Ur Leukocyte Esterase Nasal Screen MRSA (PCR) POSITIVE A Nasal S. aureus Screen POSITIVE A Nasal MRSA/S.aureus Interp SEE NOTE Influenza Type A (PCR) Influenza Type B (PCR) RSV RNA Qual (PCR) SARS-CoV-2 RNA (RT-PCR) Microbiology Microbiology Results: Microbiology 11/22/23 19:31 Blood Culture - Final Blood - Venous Assessment and Plan (1) Acute hypernatremia: Status: Acute (2) Pneumonia: Status: Acute Plan Pt is a 78-year-old male with a PMH significant for?HTN, HLD, chronic bilateral leg lymphedema with drainage, chronic AFib on Eliquis, RLE DVT in 2022, HFpEF, and morbid obesity who presents to the ED from [facility] for evaluation of lethargy, altered mental status, and generalized weakness for the past 1-2 days. Pt was treated with cefepime and IVF. Pt will be admitted to the hospital for treatment and further evaluation of hypernatremia and acute encephalopathy in the setting of likely pneumonia. 1.Acute hypernatremia -free water deficit approximately 4 L noted -D5W at 125 an hour -follow renals/divalents 2.Pneumonia CXR showing mild haziness in LLL question of effusion/atelectasis/infiltrate; query unresolved from previous are new -empiric cefepime -follow cultures 3.Acute encephalopathy, resolved -resolved 4.Paroxysmal AFib.. -Continue Eliquis Full code Eliquis Patient requires ongoing hospitalization for IV antibiotics to treat pneumonia causing mental status changes and to correct the free water deficit. Quality Stroke Does the patient have a stroke diagnosis?: No VTE Prior VTE?: Yes VTE Risk Level:: Medical - moderate - high VTE Device Contraindication: Treatment Not Indicated VTE Drug Contraindication: N/A - Med Ordered
--- NOTE | 2023-11-23 15:29 | PC.NURSE ---
assumed care of pt at 1500 - vitals updated, rectal temp found to be 91 degrees. ELLE Oh hospitalist made aware. Will initiate lc hugger, per ELLE pt has a history of hypothermia. Pt awake, alert, speaking clear full sentences, plan of care ongoing.
[2023-11-24 03:29] VITALS: BP 127/52; PULSE 62; RESP 18; TEMP 36.6; O2SAT 95
[2023-11-24] MEDS: cefEPime HCl 2 GM in 0.9 % Sodium Chloride 50 ML IV ×3 (04:08→19:59)
[2023-11-24 07:56] VITALS: BP 137/49; PULSE 57; RESP 20; TEMP 36.1; O2SAT 92
--- NOTE | 2023-11-24 08:16 | MHC.CM.PN ---
Patient is a LTC Resident at [facility] ([facility] day [facility] bed [facility]) and returning there at time of dc is the goal. CM has initiated and will follow for dc planning. HCP is Leilani @ [phone].
[2023-11-24] MEDS: 0.9 % Sodium Chloride Flush 3 ML SYRINGE IVFLUSH ×2 (09:39→13:28)
[2023-11-24] MEDS: Atorvastatin Calcium 10 MG TABLET PO (09:40)
[2023-11-24] MEDS: Apixaban 5 MG TABLET PO ×2 (09:40→19:58)
[2023-11-24] MEDS: Docusate Sodium 100 MG CAPSULE PO ×2 (09:40→19:58)
[2023-11-24] MEDS: Furosemide 40 MG TABLET PO (09:40)
[2023-11-24] MEDS: Folic Acid 1 MG TABLET PO (09:40)
[2023-11-24] MEDS: Aspirin 81 MG TAB.CHEW PO (09:40)
[2023-11-24] MEDS: Dextrose 5 % 1,000 ML 125 ML IVCONT ×3 (09:40→23:48)
[2023-11-24 11:27] LABS: Anion Gap 10 (12-20); Blood Urea Nitrogen 20 mg/dL (9-16); Calcium 8.4 mg/dL (8.4-10.2); Carbon Dioxide 27 mmol/L (22-29); Chloride 112 mmol/L (96-108); Creatinine Clr Calc Pharmacy 109.2; Estimated Glomerular Filt Rate > 60; Glucose Random 119 mg/dL (60-115); Potassium 4.4 mmol/L (3.3-5.1); Sodium 145 mmol/L (135-145)
[2023-11-24 11:34] VITALS: BP 133/67; PULSE 51; RESP 20; O2SAT 95
[2023-11-24] MEDS: Acetaminophen 325 MG TABLET 650 MG PO (12:36)
[2023-11-24] MEDS: Ammonium Lactate 12 % Cream 140 GM TUBE 1 APPL TOPICAL ×3 (13:28→20:00)
[2023-11-24] MEDS: Zinc Oxide (Triple Paste) 56.7 GM OINT 1 APPL TOPICAL ×2 (13:28→20:01)
--- NOTE | 2023-11-24 15:48 | HO.PM.IMPN ---
Subjective Subjective Date of Service: 11/24/23 Interval History: Episode of hypothermia overnight into a.m. resolved with Dread Piña. Similar presentation last 2 admissions. No other acute issues. Review of Systems Denies chest pain Denies shortness of breath Denies nausea vomiting diarrhea Denies fever chills Physical Exam Vital Signs: Vital Signs: Last Vital Signs Temp 97.0 F 11/24/23 07:56 Pulse 51 11/24/23 11:34 Resp 20 11/24/23 11:34 BP 133/67 11/24/23 11:34 Pulse Ox 95 11/24/23 11:34 O2 Del Method Room Air 11/24/23 11:34 O2 Flow Rate 1 11/24/23 03:29 BMI result Body Mass Index 43.3 Const: Other: Awake alert no acute distress Resp: Other: Diminished but clear throughout Cardio: Other: No S4; positive S1-S2; no S3 murmurs rubs or gallops GI: Other: Soft nontender nondistended normoactive bowel sounds Extrem: Other: No edema bilaterally Objective Data Active Medications Acetaminophen (Acetaminophen 325 Mg Tablet) 650 mg PO Q6H PRN PRN Reason: Pain, Mild (Pain Scale 1-3) Last Admin: 11/24/23 12:36 Dose: 650 mg Documented By: PAT Acetaminophen/Butalbital/Caffeine (Butalb/Acetamin/Caff 50/325/40 Tablet) 1 tab PO Q4H PRN PRN Reason: Headache Al Hydroxide/Mg Hydroxide (Magnesium Hydrox/Alum Hydrox 30 Ml Oral.Susp) 30 ml PO Q6H PRN PRN Reason: Heartburn Apixaban (Apixaban 5 Mg Tablet) 5 mg PO BID [facility] Last Admin: 11/24/23 09:40 Dose: 5 mg Documented By: DAVID Aspirin (Aspirin 81 Mg Tab.Chew) 81 mg PO DAILY [facility] Last Admin: 11/24/23 09:40 Dose: 81 mg Documented By: DAVID Atorvastatin Calcium (Atorvastatin Calcium 10 Mg Tablet) 10 mg PO DAILY [facility] Last Admin: 11/24/23 09:40 Dose: 10 mg Documented By: DAVID Bisacodyl (Bisacodyl 10 Mg Supp.Rect) 10 mg [place] DAILY PRN PRN Reason: Constipation Docusate Sodium (Docusate Sodium 100 Mg Capsule) 100 mg PO BID [facility] Last Admin: 11/24/23 09:40 Dose: 100 mg Documented By: DAVID Folic Acid (Folic Acid 1 Mg Tablet) 1 mg PO DAILY [facility] Last Admin: 11/24/23 09:40 Dose: 1 mg Documented By: DAVID Furosemide (Furosemide 40 Mg Tablet) 40 mg PO DAILY [facility]; Protocol Last Admin: 11/24/23 09:40 Dose: 40 mg Documented By: DAVID Guaifenesin (Guaifenesin 100 Mg/5 Ml Liquid) 10 ml PO Q4H PRN PRN Reason: Cough Cefepime HCl 2 gm/ Sodium (Chloride) 50 mls @ 100 mls/hr IV Q8H [facility] Last Infusion: 11/24/23 14:01 Dose: Infused Documented By: DAVID Dextrose (D5w) 1,000 mls @ 125 mls/hr IVCONT .Q8H [facility] Last Admin: 11/24/23 15:29 Dose: 125 mls/hr Documented By: DAVID Lactic Acid (Ammonium Lactate 12 % Cream 140 Gm Tube) 1 appl TOPICAL TID [facility]; Protocol Last Admin: 11/24/23 14:02 Dose: 1 appl Documented By: DAVID Lactulose (Lactulose 20 Gm/30 Ml Solution) 20 gm PO DAILY PRN PRN Reason: Constipation Magnesium Hydroxide (Milk Of Magnesia 30 Ml Oral.Susp) 30 ml PO DAILY PRN PRN Reason: Constipation Melatonin (Melatonin 3 Mg Tablet) 6 mg PO BEDTIME PRN PRN Reason: Insomnia Multi-Ingred Cream/Lotion/Oil/Oint (Mineral Oil/Petrolatum,White 106 Gm Tube) 1 appl TOPICAL BEDTIME [facility]; Protocol Last Admin: 11/23/23 23:56 Dose: Not Given Documented By: CHELY Non-Admin Reason: Med Not Available Omeprazole (Omeprazole 20 Mg Capsule.) 20 mg PO DAILY@0630 [facility] Last Admin: 11/23/23 10:37 Dose: 20 mg Documented By: CHARLOTTE Ondansetron HCl (Ondansetron Hcl 4 Mg/2 Ml Vial) 4 mg IVPUSH Q8H PRN PRN Reason: Nausea and Vomiting Sodium Biphosphate/Sodium Phosphate (Sodium Phosphate,[place]-Dibasic 133 Ml Enema) 118 ml [place] DAILY PRN PRN Reason: Constipation Sodium Chloride (0.9 % Sodium Chloride Flush 3 Ml Syringe) 3 ml IVFLUSH QSHIFT [facility] Last Admin: 11/24/23 13:28 Dose: 3 ml Documented By: DAVID Zinc Oxide (Zinc Oxide (Triple Paste) 56.7 Gm Oint) 1 appl TOPICAL BID [facility] Last Admin: 11/24/23 13:28 Dose: 1 appl Documented By: DAVID Labs 11/23/23 11:30 11/24/23 11:01 Labs: Laboratory Results - last 24 hr 11/24/23 11:01 Hold Purple Top SEE NOTE Anion Gap 10 L Estim Creat Clear Calc 109.2 Estimated GFR > 60 Random Glucose 119 H Calcium 8.4 Microbiology Microbiology Results: Microbiology 11/22/23 19:59 Blood Culture - Preliminary Blood - Venous No growth after 24 hours. 11/22/23 19:31 Blood Culture - Final Blood - Venous Assessment and Plan (1) Acute hypernatremia: Status: Acute (2) Pneumonia: Status: Acute Plan Pt is a 78-year-old male with a PMH significant for?HTN, HLD, chronic bilateral leg lymphedema with drainage, chronic AFib on Eliquis, RLE DVT in 2022, HFpEF, and morbid obesity who presents to the ED from [facility] for evaluation of lethargy, altered mental status, and generalized weakness for the past 1-2 days. Pt was treated with cefepime and IVF. Pt will be admitted to the hospital for treatment and further evaluation of hypernatremia and acute encephalopathy in the setting of likely pneumonia. 1.Acute hypernatremia -free water deficit approximately 2.5 L ...down from 4.5 -D5W at 125 an hour -follow renals/divalents 2.Pneumonia CXR showing mild haziness in LLL question of effusion/atelectasis/infiltrate; query unresolved from previous are new -empiric cefepime -follow cultures 3.Acute encephalopathy, resolved -resolved 4.Paroxysmal AFib.. -Continue Eliquis Full code Eliquis Patient requires ongoing hospitalization for IV antibiotics to treat pneumonia causing mental status changes and to correct the free water deficit. Quality Stroke Does the patient have a stroke diagnosis?: No VTE Prior VTE?: Yes VTE Risk Level:: Medical - moderate - high VTE Device Contraindication: Treatment Not Indicated VTE Drug Contraindication: N/A - Med Ordered
[2023-11-24 15:53] VITALS: BP 106/36; PULSE 52; RESP 18; TEMP 35.8; O2SAT 91
[2023-11-24] MEDS: Butalb/Acetamin/Caff 50/325/40 TABLET 1 TAB PO (17:09)
--- NOTE | 2023-11-24 18:19 | PC.NURSE ---
Assumed care at 0700- upon assessment patient AOx4, awake spontaneously, HR 60s-80s. At approx 1400, Pt. HR sustaining 38-40s at rest, increasing to 80s with vocal and physical stimuli. Pt. drowsy, arousable to verbal stimuli but easily falling back to sleep- While awake c/o 10/10 throbbing headache. PRN tylenol previously administered with no effect (see MAR). BP 104/61. Rectal temp 92.4. Patient placed on lc huggar and MD notified. PRN Fioricet ordered and administered for headache. At approx. 1700 pt. yelling in room, throwing legs over the side of the bed, and pulling off blankets stating I am Hot . Oral temperature 98.2, cl huggar removed per pt. request. HR sustaining 60s, pt. awake and alert. Care ongoing.
[2023-11-24 19:28] VITALS: BP 130/60; PULSE 78; RESP 16; TEMP 35.9; O2SAT 93
[2023-11-24] MEDS: Mineral Oil/Petrolatum,White 106 GM Tube 1 APPL TOPICAL (20:01)
[2023-11-24 23:42] VITALS: BP 132/62; PULSE 61; RESP 18; TEMP 35.9; O2SAT 93
[2023-11-25] VITALS (9 sets, daily range): BP systolic 98–135; BP diastolic 47–63; PULSE 47–103; RESP 16–20; TEMP 33.7–35.8; O2SAT 89–94
[2023-11-25] MEDS: cefEPime HCl 2 GM in 0.9 % Sodium Chloride 50 ML IV ×3 (02:51→19:33)
--- NOTE | 2023-11-25 05:54 | PC.NURSE ---
Approximately at 04:00 patient had a rectal temp of 92.6, HR sustaining in the 40s-50s and last BP reads was 132/60. Patient alert and oriented x4, easily arousable to voice and reporting feeling asymptomatic. Dread hugger applied. notified, no further orders placed. temp rechecked 94.6.
[2023-11-25] MEDS: Dextrose 5 % 1,000 ML 125 ML IVCONT (08:06)
[2023-11-25] MEDS: Apixaban 5 MG TABLET PO ×2 (09:17→20:54)
[2023-11-25] MEDS: Furosemide 40 MG TABLET PO (09:17)
[2023-11-25] MEDS: Aspirin 81 MG TAB.CHEW PO (09:17)
[2023-11-25] MEDS: Docusate Sodium 100 MG CAPSULE PO ×2 (09:17→20:54)
[2023-11-25] MEDS: Atorvastatin Calcium 10 MG TABLET PO (09:17)
[2023-11-25] MEDS: Folic Acid 1 MG TABLET PO (09:17)
[2023-11-25] MEDS: Ammonium Lactate 12 % Cream 140 GM TUBE 1 APPL TOPICAL ×3 (09:18→19:33)
[2023-11-25] MEDS: Zinc Oxide (Triple Paste) 56.7 GM OINT 1 APPL TOPICAL ×2 (09:22→19:34)
[2023-11-25 09:47] LABS: Hematocrit 29.8 % (42.0-52.0); Hemoglobin 9.7 g/dl (14.0-18.0); Mean Corpuscular HGB Conc 32.6 g/dl (31.0-36.0); Mean Corpuscular Volume 92.3 fL (80.0-98.0); Mean Platelet Volume 11.6 fL (9.4-12.4); NRBC Pct Auto 0.5 /100WBC (0.0-0.2); Platelet Count 118 X10*3/uL (160-400); Red Blood Count 3.23 X10*6/uL (4.60-5.80); Red Cell Distribution Width 19.8 % (11.0-16.0); White Blood Count 6.4 X10*3/uL (4.8-10.8)
[2023-11-25 10:28] LABS: Anion Gap 12 (12-20); Blood Urea Nitrogen 18 mg/dL (9-16); Calcium 8.4 mg/dL (8.4-10.2); Carbon Dioxide 26 mmol/L (22-29); Chloride 108 mmol/L (96-108); Creatinine Clr Calc Pharmacy 106.6; Estimated Glomerular Filt Rate > 60; Glucose Random 97 mg/dL (60-115); Potassium 3.5 mmol/L (3.3-5.1); Procalcitonin 0.05 ng/mL; Sodium 142 mmol/L (135-145); TSH reflex Free T4 6.79 uIU/mL (0.32-4.0)
[2023-11-25 10:43] LABS: Cortisol Random 8.2 ug/dL
[2023-11-25 11:25] LABS: Free T4 (Free Thyroxine) 0.83 ng/dL (0.71-1.85)
[2023-11-25 13:19] LABS: MRSA Nasal PCR POSITIVE (Negative); SA Nasal PCR POSITIVE (Negative)
--- NOTE | 2023-11-25 15:33 | P.PNIM_ITS ---
Subjective Subjective Date of Service: 11/25/23 Interval History: hypothermic to 93.8 but in NAD, alert and speaking normally denies cough or dyspnea Review of Systems Review of Systems: Yes all other systems are reviewed and are negative Physical Exam 2 Vital Signs: Vital Signs: Last Vital Signs Temp 93.8 F L 11/25/23 09:23 Pulse 53 11/25/23 11:26 Resp 19 11/25/23 11:26 BP 135/60 11/25/23 11:26 Pulse Ox 93 11/25/23 11:26 O2 Del Method Room Air 11/25/23 11:26 O2 Flow Rate 1 11/24/23 03:29 BMI result Body Mass Index 43.3 Gen: in no acute distress HEENT: sclera anicteric, moist mucus membranes Neck: supple Lungs: clear to auscultation bilaterally Heart: regular rate and rhythm, no murmurs Abd: soft, non-tender, non-distended, obese Ext: 2+ BLE Skin: warm/well-perfused Neuro: alert and oriented x3, no focal findings Psych: appropriate affect Objective Data Active Medications Acetaminophen (Acetaminophen 325 Mg Tablet) 650 mg PO Q6H PRN PRN Reason: Pain, Mild (Pain Scale 1-3) Last Admin: 11/24/23 12:36 Dose: 650 mg Documented By: PAT Acetaminophen/Butalbital/Caffeine (Butalb/Acetamin/Caff 50/325/40 Tablet) 1 tab PO Q4H PRN PRN Reason: Headache Last Admin: 11/24/23 17:09 Dose: 1 tab Documented By: DAVID Al Hydroxide/Mg Hydroxide (Magnesium Hydrox/Alum Hydrox 30 Ml Oral.Susp) 30 ml PO Q6H PRN PRN Reason: Heartburn Apixaban (Apixaban 5 Mg Tablet) 5 mg PO BID [facility] Last Admin: 11/25/23 09:17 Dose: 5 mg Documented By: ZENAIDA Aspirin (Aspirin 81 Mg Tab.Chew) 81 mg PO DAILY [facility] Last Admin: 11/25/23 09:17 Dose: 81 mg Documented By: ZENAIDA Atorvastatin Calcium (Atorvastatin Calcium 10 Mg Tablet) 10 mg PO DAILY [facility] Last Admin: 11/25/23 09:17 Dose: 10 mg Documented By: ZENAIDA Bisacodyl (Bisacodyl 10 Mg Supp.Rect) 10 mg [place] DAILY PRN PRN Reason: Constipation Docusate Sodium (Docusate Sodium 100 Mg Capsule) 100 mg PO BID [facility] Last Admin: 11/25/23 09:17 Dose: 100 mg Documented By: ZENAIDA Folic Acid (Folic Acid 1 Mg Tablet) 1 mg PO DAILY [facility] Last Admin: 11/25/23 09:17 Dose: 1 mg Documented By: ZENAIDA Furosemide (Furosemide 40 Mg Tablet) 40 mg PO DAILY [facility]; Protocol Last Admin: 11/25/23 09:17 Dose: 40 mg Documented By: ZENAIDA Guaifenesin (Guaifenesin 100 Mg/5 Ml Liquid) 10 ml PO Q4H PRN PRN Reason: Cough Cefepime HCl 2 gm/ Sodium (Chloride) 50 mls @ 100 mls/hr IV Q8H [facility] Last Infusion: 11/25/23 13:47 Dose: Infused Documented By: ZENAIDA Lactic Acid (Ammonium Lactate 12 % Cream 140 Gm Tube) 1 appl TOPICAL TID [facility]; Protocol Last Admin: 11/25/23 13:07 Dose: 1 appl Documented By: ZENAIDA Lactulose (Lactulose 20 Gm/30 Ml Solution) 20 gm PO DAILY PRN PRN Reason: Constipation Magnesium Hydroxide (Milk Of Magnesia 30 Ml Oral.Susp) 30 ml PO DAILY PRN PRN Reason: Constipation Melatonin (Melatonin 3 Mg Tablet) 6 mg PO BEDTIME PRN PRN Reason: Insomnia Multi-Ingred Cream/Lotion/Oil/Oint (Mineral Oil/Petrolatum,White 106 Gm Tube) 1 appl TOPICAL BEDTIME [facility]; Protocol Last Admin: 11/24/23 20:01 Dose: 1 appl Documented By: QUINCY Omeprazole (Omeprazole 20 Mg Capsule.Dr) 20 mg PO DAILY@0630 [facility] Last Admin: 11/25/23 06:31 Dose: Not Given Documented By: QUINCY Non-Admin Reason: Patient Refused Ondansetron HCl (Ondansetron Hcl 4 Mg/2 Ml Vial) 4 mg IVPUSH Q8H PRN PRN Reason: Nausea and Vomiting Sodium Biphosphate/Sodium Phosphate (Sodium Phosphate,[place]-Dibasic 133 Ml Enema) 118 ml [place] DAILY PRN PRN Reason: Constipation Sodium Chloride (0.9 % Sodium Chloride Flush 3 Ml Syringe) 3 ml IVFLUSH QSHIFT [facility] Last Admin: 11/25/23 08:09 Dose: Not Given Documented By: ZENAIDA Non-Admin Reason: IV Running Zinc Oxide (Zinc Oxide (Triple Paste) 56.7 Gm Oint) 1 appl TOPICAL BID [facility] Last Admin: 11/25/23 09:22 Dose: 1 appl Documented By: ZENAIDA Labs 11/25/23 09:29 11/25/23 09:29 Labs: Laboratory Results - last 24 hr 11/25/23 11/25/23 09:29 11:12 MCV 92.3 MCH 30.0 MCHC 32.6 RDW 19.8 H Plt Count 118 L MPV 11.6 Absolute Nucleated RBC 0.030 H Nucleated RBC % (auto) 0.5 H Anion Gap 12 Estim Creat Clear Calc 106.6 Estimated GFR > 60 Random Glucose 97 Calcium 8.4 Procalcitonin 0.05 TSH 6.79 H Free T4 0.83 Random Cortisol 8.2 Nasal Screen MRSA (PCR) POSITIVE A Nasal S. aureus Screen POSITIVE A Nasal MRSA/S.aureus Interp SEE NOTE Microbiology Microbiology Results: Microbiology 11/22/23 19:59 Blood Culture - Preliminary Blood - Venous No growth after 48 hours. Assessment and Plan (1) Acute hypernatremia: Status: Acute (2) Pneumonia: Status: Acute Plan d4 78yo M LTC resident of [facility] with HTN, HLD, chronic bilateral leg lymphedema, chronic AF on apixaban, RLE DVT in 2022, HFpEF, morbid obesity sent in with lethargy, AMS, weakness admitted for encephalopathy due to hypernatremia + pneumonia acute hypernatremia - free water deficit repleted, d/c D5W pneumonia - cefepime d2. MRSA swab positive, start vancomycin d1. follow BCx, trend PCT acute encephalopathy due to infection + metabolic derangement - resolved hypothermia, episodic - recurrent for pt; thyroid + cortisol workup within normal. continue to treat infection as above. suspect autonomic dysfunction paroxysmal AF - continue apixaban HLD - continue statin chronic HFpEF - continue furosemide VTE ppx - apixaban dispo - eventual return to LTC In my clinical judgment, the patient requires continued inpatient hospitalization for the following reasons: IV ABX Total time managing care of this patient today: 35 minutes. Quality Stroke Does the patient have a stroke diagnosis?: No VTE Prior VTE?: Yes VTE Risk Level:: Medical - moderate - high VTE Device Contraindication: Treatment Not Indicated VTE Drug Contraindication: N/A - Med Ordered
[2023-11-25] MEDS: 0.9 % Sodium Chloride Flush 3 ML SYRINGE IVFLUSH (16:15)
[2023-11-25] MEDS: vancomycin/NS 2,000 MG/500 ML PLAST..BAG 250 MG IV (16:19)
[2023-11-25] MEDS: Mineral Oil/Petrolatum,White 106 GM Tube 1 APPL TOPICAL (19:34)
[2023-11-26] MEDS: cefEPime HCl 2 GM in 0.9 % Sodium Chloride 50 ML IV ×3 (03:25→21:12)
[2023-11-26 03:58] VITALS: BP 130/60; PULSE 65; RESP 16; TEMP 34.9; O2SAT 92
[2023-11-26] MEDS: vancomycin HCL 1,250 MG in 0.9 % Sodium Chloride 250 ML 166.67 MG IV ×2 (05:24→17:22)
[2023-11-26] MEDS: Omeprazole 20 MG CAPSULE.DR PO (05:28)
[2023-11-26 07:11] VITALS: BP 126/57; PULSE 60; RESP 20; TEMP 36.2; O2SAT 93
[2023-11-26] MEDS: Aspirin 81 MG TAB.CHEW PO (08:39)
[2023-11-26] MEDS: Docusate Sodium 100 MG CAPSULE PO ×2 (08:39→21:12)
[2023-11-26] MEDS: Apixaban 5 MG TABLET PO ×2 (08:39→21:12)
[2023-11-26] MEDS: Folic Acid 1 MG TABLET PO (08:39)
[2023-11-26] MEDS: Furosemide 40 MG TABLET PO (08:39)
[2023-11-26] MEDS: Atorvastatin Calcium 10 MG TABLET PO (08:39)
[2023-11-26] MEDS: Ammonium Lactate 12 % Cream 140 GM TUBE 1 APPL TOPICAL ×2 (08:40→23:05)
[2023-11-26] MEDS: Zinc Oxide (Triple Paste) 56.7 GM OINT 1 APPL TOPICAL ×2 (08:40→23:07)
[2023-11-26] MEDS: 0.9 % Sodium Chloride Flush 3 ML SYRINGE IVFLUSH ×2 (08:40→17:22)
[2023-11-26 11:02] LABS: Anion Gap 9 (12-20); Blood Urea Nitrogen 19 mg/dL (9-16); Calcium 8.5 mg/dL (8.4-10.2); Carbon Dioxide 29 mmol/L (22-29); Chloride 110 mmol/L (96-108); Creatinine Clr Calc Pharmacy 93.4; Estimated Glomerular Filt Rate > 60; Glucose Random 65 mg/dL (60-115); Potassium 3.7 mmol/L (3.3-5.1); Sodium 144 mmol/L (135-145)
[2023-11-26 11:16] VITALS: BP 121/58; PULSE 48; RESP 20; TEMP 36.1; O2SAT 94
--- NOTE | 2023-11-26 11:32 | HO.PM.IMPN ---
Subjective Subjective Date of Service: 11/26/23 Interval History: hypothermia resolved no cough on 2L O2 Review of Systems Review of Systems: Yes all other systems are reviewed and are negative Physical Exam Vital Signs: Vital Signs: Last Vital Signs Temp 96.9 F 11/26/23 11:16 Pulse 48 L 11/26/23 11:16 Resp 20 11/26/23 11:16 BP 121/58 L 11/26/23 11:16 Pulse Ox 94 11/26/23 11:16 O2 Del Method Nasal Cannula 11/26/23 11:16 O2 Flow Rate 2 11/26/23 11:16 BMI result Body Mass Index 43.3 Gen: in no acute distress HEENT: sclera anicteric, moist mucus membranes Neck: supple Lungs: clear to auscultation bilaterally Heart: regular rate and rhythm, no murmurs Abd: soft, non-tender, non-distended, obese Ext: 2+ BLE Skin: warm/well-perfused Neuro: alert and oriented x3, no focal findings Psych: appropriate affect Objective Data Active Medications Acetaminophen (Acetaminophen 325 Mg Tablet) 650 mg PO Q6H PRN PRN Reason: Pain, Mild (Pain Scale 1-3) Last Admin: 11/24/23 12:36 Dose: 650 mg Documented By: PAT Acetaminophen/Butalbital/Caffeine (Butalb/Acetamin/Caff 50/325/40 Tablet) 1 tab PO Q4H PRN PRN Reason: Headache Last Admin: 11/24/23 17:09 Dose: 1 tab Documented By: DAVID Al Hydroxide/Mg Hydroxide (Magnesium Hydrox/Alum Hydrox 30 Ml Oral.Susp) 30 ml PO Q6H PRN PRN Reason: Heartburn Apixaban (Apixaban 5 Mg Tablet) 5 mg PO BID [facility] Last Admin: 11/26/23 08:39 Dose: 5 mg Documented By: ZENAIDA Aspirin (Aspirin 81 Mg Tab.Chew) 81 mg PO DAILY [facility] Last Admin: 11/26/23 08:39 Dose: 81 mg Documented By: ZENAIDA Atorvastatin Calcium (Atorvastatin Calcium 10 Mg Tablet) 10 mg PO DAILY [facility] Last Admin: 11/26/23 08:39 Dose: 10 mg Documented By: ZENAIDA Bisacodyl (Bisacodyl 10 Mg Supp.Rect) 10 mg [place] DAILY PRN PRN Reason: Constipation Docusate Sodium (Docusate Sodium 100 Mg Capsule) 100 mg PO BID [facility] Last Admin: 11/26/23 08:39 Dose: 100 mg Documented By: ZENAIDA Folic Acid (Folic Acid 1 Mg Tablet) 1 mg PO DAILY [facility] Last Admin: 11/26/23 08:39 Dose: 1 mg Documented By: ZENAIDA Furosemide (Furosemide 40 Mg Tablet) 40 mg PO DAILY [facility]; Protocol Last Admin: 11/26/23 08:39 Dose: 40 mg Documented By: ZENAIDA Guaifenesin (Guaifenesin 100 Mg/5 Ml Liquid) 10 ml PO Q4H PRN PRN Reason: Cough Cefepime HCl 2 gm/ Sodium (Chloride) 50 mls @ 100 mls/hr IV Q8H [facility] Last Infusion: 11/26/23 03:58 Dose: Infused Documented By: YANIRA Vancomycin HCl 1,250 mg/ (Sodium Chloride) 250 mls @ 166.667 mls/hr IV Q12H [facility] Last Infusion: 11/26/23 08:30 Dose: Infused Documented By: ZENAIDA Lactic Acid (Ammonium Lactate 12 % Cream 140 Gm Tube) 1 appl TOPICAL TID [facility]; Protocol Last Admin: 11/26/23 08:40 Dose: 1 appl Documented By: ZENAIDA Lactulose (Lactulose 20 Gm/30 Ml Solution) 20 gm PO DAILY PRN PRN Reason: Constipation Magnesium Hydroxide (Milk Of Magnesia 30 Ml Oral.Susp) 30 ml PO DAILY PRN PRN Reason: Constipation Melatonin (Melatonin 3 Mg Tablet) 6 mg PO BEDTIME PRN PRN Reason: Insomnia Multi-Ingred Cream/Lotion/Oil/Oint (Mineral Oil/Petrolatum,White 106 Gm Tube) 1 appl TOPICAL BEDTIME [facility]; Protocol Last Admin: 11/25/23 19:34 Dose: 1 appl Documented By: HOLLY Omeprazole (Omeprazole 20 Mg Capsule.) 20 mg PO DAILY@0630 [facility] Last Admin: 11/26/23 05:28 Dose: 20 mg Documented By: YANIRA Ondansetron HCl (Ondansetron Hcl 4 Mg/2 Ml Vial) 4 mg IVPUSH Q8H PRN PRN Reason: Nausea and Vomiting Pharmacy Consult (Consult Rx Vancomycin Dosing) 1 each MISCELLANE DAILY PRN PRN Reason: Consult order Sodium Biphosphate/Sodium Phosphate (Sodium Phosphate,[place]-Dibasic 133 Ml Enema) 118 ml [place] DAILY PRN PRN Reason: Constipation Sodium Chloride (0.9 % Sodium Chloride Flush 3 Ml Syringe) 3 ml IVFLUSH QSHIFT [facility] Last Admin: 11/26/23 08:40 Dose: 3 ml Documented By: ZENAIDA Zinc Oxide (Zinc Oxide (Triple Paste) 56.7 Gm Oint) 1 appl TOPICAL BID [facility] Last Admin: 11/26/23 08:40 Dose: 1 appl Documented By: ZENAIDA Labs 11/25/23 09:29 11/26/23 05:24 Labs: Laboratory Results - last 24 hr 11/25/23 11/26/23 11:12 05:24 Hold Purple Top SEE NOTE Anion Gap 9 L Estim Creat Clear Calc 93.4 Estimated GFR > 60 Random Glucose 65 Calcium 8.5 Nasal Screen MRSA (PCR) POSITIVE A Nasal S. aureus Screen POSITIVE A Nasal MRSA/S.aureus Interp SEE NOTE Assessment and Plan (1) Acute hypernatremia: Status: Acute (2) Pneumonia: Status: Acute Plan d5 78yo M LTC resident of [facility] with HTN, HLD, chronic bilateral leg lymphedema, chronic AF on apixaban, RLE DVT in 2022, HFpEF, morbid obesity sent in with lethargy, AMS, weakness admitted for encephalopathy due to hypernatremia + pneumonia acute hypernatremia - free water deficit repleted, now off D5W acute hypoxic resp failure due to pneumonia - cefepime d3. MRSA swab positive, vancomycin d2. BCx negative, PCT low. wean O2 as tolerated. acute encephalopathy due to infection + metabolic derangement - resolved hypothermia, episodic - recurrent for pt; thyroid + cortisol workup within normal. continue to treat infection as above. suspect autonomic dysfunction paroxysmal AF - continue apixaban HLD - continue statin chronic HFpEF - continue furosemide morbid obesity - diet/exercise counseling VTE ppx - apixaban dispo - eventual return to LTC possibly tomorrow In my clinical judgment, the patient requires continued inpatient hospitalization for the following reasons: IV ABX, hypoxia, hypothermia Total time managing care of this patient today: 35 minutes. Quality Stroke Does the patient have a stroke diagnosis?: No VTE Prior VTE?: Yes VTE Risk Level:: Medical - moderate - high VTE Device Contraindication: Treatment Not Indicated VTE Drug Contraindication: N/A - Med Ordered
[2023-11-26 15:17] VITALS: BP 104/73; PULSE 47; RESP 20; O2SAT 90
[2023-11-26 18:06] LABS: Vancomycin Random 21.1 mcg/mL (15-20)
[2023-11-26 19:56] VITALS: BP 111/56; PULSE 51; RESP 20; TEMP 36.4; O2SAT 94
[2023-11-26] MEDS: Melatonin 3 MG TABLET 6 MG PO (21:12)
[2023-11-26] MEDS: Mineral Oil/Petrolatum,White 106 GM Tube 1 APPL TOPICAL (23:07)
[2023-11-26 23:24] VITALS: BP 140/67; PULSE 44; RESP 20; TEMP 34; O2SAT 94
[2023-11-27] VITALS (8 sets, daily range): BP systolic 119–127; BP diastolic 54–59; PULSE 51–85; RESP 18–20; TEMP 34.4–35.9; O2SAT 85–96
[2023-11-27] MEDS: cefEPime HCl 2 GM in 0.9 % Sodium Chloride 50 ML IV ×2 (03:03→12:29)
[2023-11-27] MEDS: Omeprazole 20 MG CAPSULE.DR PO (05:39)
[2023-11-27] MEDS: 0.9 % Sodium Chloride Flush 3 ML SYRINGE IVFLUSH ×2 (08:11→16:22)
[2023-11-27] MEDS: Aspirin 81 MG TAB.CHEW PO (08:11)
[2023-11-27] MEDS: Atorvastatin Calcium 10 MG TABLET PO (08:11)
[2023-11-27] MEDS: Docusate Sodium 100 MG CAPSULE PO (08:12)
[2023-11-27] MEDS: Apixaban 5 MG TABLET PO (08:12)
[2023-11-27] MEDS: Zinc Oxide (Triple Paste) 56.7 GM OINT 1 APPL TOPICAL (08:12)
[2023-11-27] MEDS: Ammonium Lactate 12 % Cream 140 GM TUBE 1 APPL TOPICAL ×2 (08:12→16:21)
[2023-11-27] MEDS: Furosemide 40 MG TABLET PO (08:12)
[2023-11-27] MEDS: Folic Acid 1 MG TABLET PO (08:12)
[2023-11-27 09:16] LABS: Vancomycin Random 20.5 mcg/mL (15-20)
[2023-11-27 09:21] LABS: Hematocrit 31.6 % (42.0-52.0); Mean Corpuscular HGB Conc 31.6 g/dl (31.0-36.0); Mean Corpuscular Volume 94.9 fL (80.0-98.0); Mean Platelet Volume 11.5 fL (9.4-12.4); NRBC Pct Auto 0.2 /100WBC (0.0-0.2); Platelet Count 127 X10*3/uL (160-400); Red Blood Count 3.33 X10*6/uL (4.60-5.80); White Blood Count 8.2 X10*3/uL (4.8-10.8)
[2023-11-27 09:24] LABS: Anion Gap 11 (12-20); Blood Urea Nitrogen 20 mg/dL (9-16); Calcium 8.9 mg/dL (8.4-10.2); Carbon Dioxide 28 mmol/L (22-29); Chloride 113 mmol/L (96-108); Creatinine Clr Calc Pharmacy 98.5; Estimated Glomerular Filt Rate > 60; Glucose Random 100 mg/dL (60-115); Potassium 3.9 mmol/L (3.3-5.1); Sodium 148 mmol/L (135-145)
[2023-11-27 09:40] LABS: Procalcitonin 0.06 ng/mL
--- NOTE | 2023-11-27 10:11 | MHC.CM.PN ---
Per ROUNDS discussion, Patient is not yet medically cleared for dc (Hypothermic); returning to LTC is the goal and CM will follow.
--- NOTE | 2023-11-27 11:17 | HO.PM.IMPN ---
Subjective Subjective Date of Service: 11/27/23 Interval History: hypothermic again hypoxia denies dyspnea minimal cough Review of Systems Review of Systems: Yes all other systems are reviewed and are negative Physical Exam Vital Signs: Vital Signs: Last Vital Signs Temp 95.0 F L 11/27/23 07:57 Pulse 59 11/27/23 07:57 Resp 20 11/27/23 07:57 BP 126/56 L 11/27/23 07:57 Pulse Ox 94 11/27/23 07:57 O2 Del Method Nasal Cannula 11/27/23 08:07 O2 Flow Rate 1 11/27/23 08:07 BMI result Body Mass Index 43.3 Gen: in no acute distress HEENT: sclera anicteric, moist mucus membranes Neck: supple Lungs: clear to auscultation bilaterally Heart: regular rate and rhythm, no murmurs Abd: soft, non-tender, non-distended, obese Ext: 2+ BLE edema Skin: warm/well-perfused Neuro: alert and oriented x3, no focal findings Psych: appropriate affect Objective Data Active Medications Acetaminophen (Acetaminophen 325 Mg Tablet) 650 mg PO Q6H PRN PRN Reason: Pain, Mild (Pain Scale 1-3) Last Admin: 11/24/23 12:36 Dose: 650 mg Documented By: PAT Acetaminophen/Butalbital/Caffeine (Butalb/Acetamin/Caff 50/325/40 Tablet) 1 tab PO Q4H PRN PRN Reason: Headache Last Admin: 11/24/23 17:09 Dose: 1 tab Documented By: DAVID Al Hydroxide/Mg Hydroxide (Magnesium Hydrox/Alum Hydrox 30 Ml Oral.Susp) 30 ml PO Q6H PRN PRN Reason: Heartburn Apixaban (Apixaban 5 Mg Tablet) 5 mg PO BID [facility] Last Admin: 11/27/23 08:12 Dose: 5 mg Documented By: JUAN CARLOS Aspirin (Aspirin 81 Mg Tab.Chew) 81 mg PO DAILY [facility] Last Admin: 11/27/23 08:11 Dose: 81 mg Documented By: JUAN CARLOS Atorvastatin Calcium (Atorvastatin Calcium 10 Mg Tablet) 10 mg PO DAILY [facility] Last Admin: 11/27/23 08:11 Dose: 10 mg Documented By: JUAN CARLOS Bisacodyl (Bisacodyl 10 Mg Supp.Rect) 10 mg [place] DAILY PRN PRN Reason: Constipation Docusate Sodium (Docusate Sodium 100 Mg Capsule) 100 mg PO BID [facility] Last Admin: 11/27/23 08:12 Dose: 100 mg Documented By: JUAN CARLOS Folic Acid (Folic Acid 1 Mg Tablet) 1 mg PO DAILY [facility] Last Admin: 11/27/23 08:12 Dose: 1 mg Documented By: JUAN CARLOS Furosemide (Furosemide 40 Mg Tablet) 40 mg PO DAILY [facility]; Protocol Last Admin: 11/27/23 08:12 Dose: 40 mg Documented By: JUAN CARLOS Guaifenesin (Guaifenesin 100 Mg/5 Ml Liquid) 10 ml PO Q4H PRN PRN Reason: Cough Cefepime HCl 2 gm/ Sodium (Chloride) 50 mls @ 100 mls/hr IV Q8H [facility] Last Infusion: 11/27/23 05:15 Dose: Infused Documented By: CHELY Vancomycin HCl 750 mg/ Sodium (Chloride) 265 mls @ 265 mls/hr IV Q12H [facility] Lactic Acid (Ammonium Lactate 12 % Cream 140 Gm Tube) 1 appl TOPICAL TID [facility]; Protocol Last Admin: 11/27/23 08:12 Dose: 1 appl Documented By: JUAN CARLOS Lactulose (Lactulose 20 Gm/30 Ml Solution) 20 gm PO DAILY PRN PRN Reason: Constipation Magnesium Hydroxide (Milk Of Magnesia 30 Ml Oral.Susp) 30 ml PO DAILY PRN PRN Reason: Constipation Melatonin (Melatonin 3 Mg Tablet) 6 mg PO BEDTIME PRN PRN Reason: Insomnia Last Admin: 11/26/23 21:12 Dose: 6 mg Documented By: CHELY Multi-Ingred Cream/Lotion/Oil/Oint (Mineral Oil/Petrolatum,White 106 Gm Tube) 1 appl TOPICAL BEDTIME [facility]; Protocol Last Admin: 11/26/23 23:07 Dose: 1 appl Documented By: CHELY Omeprazole (Omeprazole 20 Mg Capsule.) 20 mg PO DAILY@0630 [facility] Last Admin: 11/27/23 05:39 Dose: 20 mg Documented By: CHELY Ondansetron HCl (Ondansetron Hcl 4 Mg/2 Ml Vial) 4 mg IVPUSH Q8H PRN PRN Reason: Nausea and Vomiting Pharmacy Consult (Consult Rx Vancomycin Dosing) 1 each MISCELLANE DAILY PRN PRN Reason: Consult order Sodium Biphosphate/Sodium Phosphate (Sodium Phosphate,[place]-Dibasic 133 Ml Enema) 118 ml [place] DAILY PRN PRN Reason: Constipation Sodium Chloride (0.9 % Sodium Chloride Flush 3 Ml Syringe) 3 ml IVFLUSH QSHIFT [facility] Last Admin: 11/27/23 08:11 Dose: 3 ml Documented By: JUAN CARLOS Zinc Oxide (Zinc Oxide (Triple Paste) 56.7 Gm Oint) 1 appl TOPICAL BID [facility] Last Admin: 11/27/23 08:12 Dose: 1 appl Documented By: JUAN CARLOS Labs 11/27/23 08:52 11/27/23 08:52 Labs: Laboratory Results - last 24 hr 11/26/23 11/27/23 16:00 08:52 MCV 94.9 MCH 30.0 MCHC 31.6 RDW 20.0 H Plt Count 127 L MPV 11.5 Absolute Nucleated RBC 0.020 H Nucleated RBC % (auto) 0.2 Anion Gap 11 L Estim Creat Clear Calc 98.5 Estimated GFR > 60 Random Glucose 100 Calcium 8.9 Procalcitonin 0.06 Random Vancomycin 21.1 H 20.5 H Assessment and Plan (1) Acute hypernatremia: Status: Acute (2) Pneumonia: Status: Acute Plan d6 78yo M LTC resident of [facility] with HTN, HLD, chronic bilateral leg lymphedema, chronic AF on apixaban, RLE DVT in 2022, HFpEF, morbid obesity sent in with lethargy, AMS, weakness admitted for encephalopathy due to hypernatremia + pneumonia acute hypernatremia - free water deficit repleted, now off D5W acute hypoxic resp failure due to pneumonia - cefepime d4. MRSA swab positive, vancomycin d3. BCx negative, PCT low. wean O2 as tolerated. acute encephalopathy due to infection + metabolic derangement - resolved hypothermia, episodic - recurrent for pt; thyroid + cortisol workup within normal. continue to treat infection as above. suspect autonomic dysfunction paroxysmal AF - continue apixaban HLD - continue statin chronic HFpEF - continue furosemide morbid obesity - diet/exercise counseling VTE ppx - apixaban dispo - eventual return to LTC once hypothermia resolves In my clinical judgment, the patient requires continued inpatient hospitalization for the following reasons: IV ABX, hypoxia, hypothermia Total time managing care of this patient today: 35 minutes. Quality Stroke Does the patient have a stroke diagnosis?: No VTE Prior VTE?: Yes VTE Risk Level:: Medical - moderate - high VTE Device Contraindication: Treatment Not Indicated VTE Drug Contraindication: N/A - Med Ordered
--- NOTE | 2023-11-27 13:16 | P.CDIM_ITS ---
PROVIDER RESPONSE TEXT: To clarify, the appropriate diagnosis supported by the clinical indicators: Other (explain): Acute encephalopathy due to infection + metabolic derangement QUERY TEXT: PHYSICIAN'S DOCUMENTATION REQUEST Date of Query: 11/27/2023 01:00 PM EDT Patient Name: Erick Deleon Admit Date: 11/23/2023 Dear Almita Lovell, A review of the medical record indicates additional documentation may be needed. Please review below and update the documentation accordingly. Clinical Indicators: Progress notes: Plan - Acute encephalopathy due to infection + metabolic derangement resolved Based on the above, please further specify, in the Progress Notes, the known or suspected type of the documented encephalopathy: Metabolic Toxic Toxic metabolic Hypertensive Other (explain) Clinically unable to determine (explain) Thank you, Marycruz Kelly, CCS, CDIS Use of terms such as suspected, likely, concern for, or probable (associated with a specific diagnosi s that is being evaluated, monitored, or treated as if it exists) are acceptable and can be coded in the inpatient se tting, when documented at the time of discharge. Please use your independent medical judgment in providing your response. THIS QUERY IS PART OF THE PERMANENT MEDICAL RECORD
--- NOTE | 2023-11-27 16:15 | PC.NURSE ---
Rectal temp 96.6- inquired with MD at what temp to remove bear eringger - per MD 96.8 can be trial removal.
[2023-11-27 16:18] LABS: Vancomycin Random 20.3 mcg/mL (15-20)
--- NOTE | 2023-11-27 16:23 | HE.PHANOTE ---
VANCO DOSE HELD BASED ON TROUGH OF 20.5 DOSE HELD. NEXT LEVEL 11/27 @ 0600
--- NOTE | 2023-11-27 16:28 | HO.WOUND ---
Addendum entered by Naty Morales RN 11/27/23 17:19: @1633 Bariatric bed arrived to unit with additional staff patient transitioned to bariatric bed. Buttock Bilateral ischium and back assessed - no pressure injuries noted at this time - recommend barrier cream to buttock and perineal area to protect from Moisture and friction. Bilateral Legs assessed for Venous dermatitis - thick scaling adherent keratotic skin noted - currently using Lachydrin cream per provider. Recommend cleansing with Cydney spray, apply vaseline and wash with gentle scrub with wash cloth to remove loosened thick scaling. Of note the patient does have red pink erythema patches along with dry dermatitis patches throughout his body bilateral arms, legs and trunk. Moisturize and defer to provider to etiology consider dermatology consult outpatient if continues. Recommendations: 1. Turn and Reposition every 2 hours and as needed for patient comfort.? Use pillows or wedges to support off loading positions. 2. Off Load all bony prominences with use of pillows and heel boots if needed.? Apply Preventative foams where needed. ? 3. Monitor for incontinence and moisture control, use barrier creams when needed for prevention and treatment. 4. Provide adequate and supplemental nutrition.? 5. Order Bariatric mattress. 6. When applicable maintain blood glucose levels per Providers order. 7. Left Arm - Defer to Provider to assessment and etiology workup. Apply vaseline topically, place dry flow pad under arm to wick away weeping fluid. Change PRN. 8. Buttock and Perineal - Off Load Pressure - Routine cleansing, apply barrier cream twice daily to protect from moisture and friction. 9. Bilateral Lower Legs - Bilateral Lower Legs - Elevate lower legs off of surface of bed with use of pillows.? Cleanse with Cydney Benicia, gently scrub with wash cloth to remove thick loose scaling tissue, Pat dry.? Apply vaseline to both legs. Original Note: Wound Consult: Initial 78yr old?Male admitted to [facility] on 11/22/23 - See progress notes and H&P for detailed history.? Wound consult placed for Left arm.? Arrival to bedside patient was confused and agitated. He was talking nonsensical at times and despite reassurance was not agreeable to assessment at this time. Observing the patient in bed he will benefit from a bariatric bed - David Sullivan contacted to obtain Bariatric bed. The left arm was briefly assessed and is noted to be significantly swollen and bright red erythema - per discussion with direct care nurse this is new onset since this morning. She reports there was scabs present and weeping tissue but not to this degree - advised to notify provider for assessment. He will benefit from vaseline application as the tissue looks very stretched and moisturizing the tissue will aid in wound injury prevention. Also recommend dry flow pad under left arm to wick away weeping fluid. I will attempt to assess patient tomorrow - he is known to this racebook writer from previous admissions and had posterior pressure injuries noted on that admission. Left Arm Recommendations: 1. Turn and Reposition every 2 hours and as needed for patient comfort.? Use pillows or wedges to support off loading positions. 2. Off Load all bony prominences with use of pillows and heel boots if needed.? Apply Preventative foams where needed. ? 3. Monitor for incontinence and moisture control, use barrier creams when needed for prevention and treatment. 4. Provide adequate and supplemental nutrition.? 5. Order Bariatric mattress. 6. When applicable maintain blood glucose levels per Providers order. 7. Left Arm - Defer to Provider to assessment and etiology workup. Apply vaseline topically, place dry flow pad under arm to wick away weeping fluid. Change PRN. Re-consult wound care Nurse for wound deterioration or wound changes.
--- NOTE | 2023-11-27 17:25 | PC.NURSE ---
Pt increased redness to LLE from AM this this afternoon. IV is on opposite arm. Picture sent to Md via [facility] - new order for xi.
[2023-11-28] VITALS (7 sets, daily range): BP systolic 118–147; BP diastolic 48–67; PULSE 56–78; RESP 16–20; TEMP 34.8–36.8; O2SAT 90–98
[2023-11-28] MEDS: cefEPime HCl 2 GM in 0.9 % Sodium Chloride 50 ML IV (00:10)
[2023-11-28] MEDS: Mineral Oil/Petrolatum,White 106 GM Tube 1 APPL TOPICAL ×2 (00:11→21:59)
[2023-11-28] MEDS: Ammonium Lactate 12 % Cream 140 GM TUBE 1 APPL TOPICAL ×4 (00:11→21:59)
[2023-11-28] MEDS: Zinc Oxide (Triple Paste) 56.7 GM OINT 1 APPL TOPICAL ×2 (00:12→22:00)
[2023-11-28] MEDS: 0.9 % Sodium Chloride Flush 3 ML SYRINGE IVFLUSH ×3 (00:12→22:01)
--- NOTE | 2023-11-28 02:17 | P.EN_ITS ---
Event Note Date of Service: 11/28/23 Event Note: Nurse reported that patient is altered. Upon examination, patient was repeating himself but following commands. Able to squeeze upper extremities, no facial droop. Speech at baseline as per RN. CT head was planned but patient could not lay flat and put his head down as per dairy manufacturing technologist so CT could not be obtained. The patient was soon back to baseline mentation as per RN. ?delirium. Continue to monitor Time Spent With Patient Time: Total time managing care of this patient today ____ minutes.
[2023-11-28] MEDS: OLANZapine 10 MG VIAL 5 MG IM (03:39)
[2023-11-28 07:37] LABS: Vancomycin Random 15.2 mcg/mL (15-20)
[2023-11-28 07:38] LABS: Creatinine Clr Calc Pharmacy 83.9; Estimated Glomerular Filt Rate > 60
--- NOTE | 2023-11-28 07:50 | HE.PHANOTE ---
Re: Vanco Patient is in therapeutic range. Restart dose at 1,000mg Q24H, expected AUC 493. Next trough to be drawn 11/28 at 0600.
[2023-11-28 08:06] LABS: Hematocrit 36.8 % (42.0-52.0); Hemoglobin 11.6 g/dl (14.0-18.0); Mean Corpuscular HGB Conc 31.5 g/dl (31.0-36.0); Mean Corpuscular Hemoglobin 30.4 pg (27.0-33.0); Mean Corpuscular Volume 96.3 fL (80.0-98.0); NRBC Pct Auto 0.3 /100WBC (0.0-0.2); Platelet Count 163 X10*3/uL (160-400); Red Blood Count 3.82 X10*6/uL (4.60-5.80); Red Cell Distribution Width 20.8 % (11.0-16.0)
[2023-11-28 08:24] LABS: Alanine Aminotransferase 15 U/L (0-40); Albumin Level 2.9 g/dL (3.5-5.0); Alkaline Phosphatase 126 U/L (39-117); Anion Gap 13 (12-20); Aspartate Amino Transferase 23 U/L (5-37); Bilirubin Total 0.3 mg/dL (0.0-1.0); Blood Urea Nitrogen 22 mg/dL (9-16); Calcium 9.4 mg/dL (8.4-10.2); Carbon Dioxide 30 mmol/L (22-29); Chloride 113 mmol/L (96-108); Glucose Random 72 mg/dL (60-115); Magnesium 2.1 mg/dL (1.6-2.6); Potassium 3.6 mmol/L (3.3-5.1); Sodium 152 mmol/L (135-145); Total Protein 6.1 g/dL (6.5-8.0)
[2023-11-28 08:33] LABS: Ammonia 16 umol/L (13-55)
[2023-11-28 08:36] LABS: Procalcitonin 0.06 ng/mL
[2023-11-28 08:42] LABS: Alanine Aminotransferase 14 U/L (0-40); Albumin Level 2.6 g/dL (3.5-5.0); Alkaline Phosphatase 113 U/L (39-117); Anion Gap 12 (12-20); Aspartate Amino Transferase 19 U/L (5-37); Bilirubin Total 0.3 mg/dL (0.0-1.0); Blood Urea Nitrogen 22 mg/dL (9-16); Calcium 9.1 mg/dL (8.4-10.2); Carbon Dioxide 29 mmol/L (22-29); Chloride 115 mmol/L (96-108); Creatinine Clr Calc Pharmacy 92.5; Estimated Glomerular Filt Rate > 60; Glucose Random 83 mg/dL (60-115); Potassium 3.7 mmol/L (3.3-5.1); Sodium 152 mmol/L (135-145); Total Protein 5.5 g/dL (6.5-8.0)
[2023-11-28 09:26] LABS: Venous Blood Gas Refer to POC result
[2023-11-28 09:29] LABS: VBG Base Excess 10.2 mmol/L; VBG HCO3 35 mmol/L (22-26); VBG pCO2 51 mmHg; VBG pH 7.44 (7.32-7.43); VBG pO2 44 mmHg
[2023-11-28] MEDS: Dextrose 5 % 1,000 ML 125 ML IVCONT ×2 (09:32→18:12)
[2023-11-28 09:33] LABS: Ammonia 19 umol/L (13-55)
--- NOTE | 2023-11-28 09:47 | P.CNNE_ITS ---
History of Present Illness Data of Consult Service Date: 11/28/23 Primary Care Provider: Arturo Hall MD HPI Reason for consult: Encephalopathy 78 years old man with chronic static encephalopathy with evidence of right-sided craniotomy and a metallic artifact that might be related to aneurysm clipping (was not independently confirmed) with relatively large ventricles noted since at least 2009 and multiple other medical comorbidities including obesity and leg edema. At this time he was being treated for infection likely MRSA. There was no witnessing of any new focal weakness or seizure. Review of Systems 2 Review of Systems: Could not be done with him PMF Past Medical History Medical History Atrial fibrillation Dyslipidemia Hypertension Surgical History Surgical History History of enucleation of right eyeball Social History Social History Household Members: None Housing: Assisted Living Facility Housing Other:: Lives in [facility] care Do you presently have visiting nurse or other home services: Yes Alcohol intake: former Comment: sitter at bedside Patient Tobacco Use Status: Never used Tobacco e-Cigarette/Vaping Use: Never Used Second Hand Smoke Exposure: No Advance Directives Date on File: 12/26/22 service: Yes Current occupational status: disabled [employer] Allergies Allergy/AdvReac Type Severity Reaction Status Date / Time No Known Allergies Allergy Verified 01/04/23 04:36 Active Medications: Current Medications Acetaminophen (Acetaminophen 325 Mg Tablet) 650 mg PO Q6H PRN PRN Reason: Pain, Mild (Pain Scale 1-3) Last Admin: 11/24/23 12:36 Dose: 650 mg Acetaminophen/Butalbital/Caffeine (Butalb/Acetamin/Caff 50/325/40 Tablet) 1 tab PO Q4H PRN PRN Reason: Headache Last Admin: 11/24/23 17:09 Dose: 1 tab Al Hydroxide/Mg Hydroxide (Magnesium Hydrox/Alum Hydrox 30 Ml Oral.Susp) 30 ml PO Q6H PRN PRN Reason: Heartburn Apixaban (Apixaban 5 Mg Tablet) 5 mg PO BID [facility] Last Admin: 11/28/23 00:21 Dose: Not Given Aspirin (Aspirin 81 Mg Tab.Chew) 81 mg PO DAILY [facility] Last Admin: 11/27/23 08:11 Dose: 81 mg Atorvastatin Calcium (Atorvastatin Calcium 10 Mg Tablet) 10 mg PO DAILY [facility] Last Admin: 11/27/23 08:11 Dose: 10 mg Bisacodyl (Bisacodyl 10 Mg Supp.Rect) 10 mg SC DAILY PRN PRN Reason: Constipation Docusate Sodium (Docusate Sodium 100 Mg Capsule) 100 mg PO BID [facility] Last Admin: 11/28/23 00:21 Dose: Not Given Folic Acid (Folic Acid 1 Mg Tablet) 1 mg PO DAILY [facility] Last Admin: 11/27/23 08:12 Dose: 1 mg Furosemide (Furosemide 40 Mg Tablet) 40 mg PO DAILY [facility]; Protocol Last Admin: 11/27/23 08:12 Dose: 40 mg Guaifenesin (Guaifenesin 100 Mg/5 Ml Liquid) 10 ml PO Q4H PRN PRN Reason: Cough Dextrose (D5w) 1,000 mls @ 125 mls/hr IVCONT .Q8H [facility] Last Admin: 11/28/23 09:32 Dose: 125 mls/hr Lactic Acid (Ammonium Lactate 12 % Cream 140 Gm Tube) 1 appl TOPICAL TID [facility]; Protocol Last Admin: 11/28/23 00:11 Dose: 1 appl Lactulose (Lactulose 20 Gm/30 Ml Solution) 20 gm PO DAILY PRN PRN Reason: Constipation Magnesium Hydroxide (Milk Of Magnesia 30 Ml Oral.Susp) 30 ml PO DAILY PRN PRN Reason: Constipation Melatonin (Melatonin 3 Mg Tablet) 6 mg PO BEDTIME PRN PRN Reason: Insomnia Last Admin: 11/26/23 21:12 Dose: 6 mg Multi-Ingred Cream/Lotion/Oil/Oint (Mineral Oil/Petrolatum,White 106 Gm Tube) 1 appl TOPICAL BEDTIME [facility]; Protocol Last Admin: 11/28/23 00:11 Dose: 1 appl Omeprazole (Omeprazole 20 Mg Capsule.Dr) 20 mg PO DAILY@0630 [facility] Last Admin: 11/28/23 06:29 Dose: Not Given Ondansetron HCl (Ondansetron Hcl 4 Mg/2 Ml Vial) 4 mg IVPUSH Q8H PRN PRN Reason: Nausea and Vomiting Pharmacy Consult (Consult Rx Vancomycin Dosing) 1 each MISCELLANE DAILY PRN PRN Reason: Consult order Sodium Biphosphate/Sodium Phosphate (Sodium Phosphate,[place]-Dibasic 133 Ml Enema) 118 ml SC DAILY PRN PRN Reason: Constipation Sodium Chloride (0.9 % Sodium Chloride Flush 3 Ml Syringe) 3 ml IVFLUSH QSHIFT [facility] Last Admin: 11/28/23 09:32 Dose: 3 ml Zinc Oxide (Zinc Oxide (Triple Paste) 56.7 Gm Oint) 1 appl TOPICAL BID [facility] Last Admin: 11/28/23 00:12 Dose: 1 appl Home Medications ?Medication ?Instructions ?Recorded ?Confirmed ?Last Taken ?Type acetaminophen 325 mg tablet 650 mg PO Q4H PRN Fever Or Pain 01/04/23 11/22/23 Unknown History ammonium lactate 12 % topical cream 1 appl topical TID 01/04/23 11/22/23 Unknown History aspirin 81 mg chewable tablet 81 mg PO DAILY 01/04/23 11/22/23 Unknown History docusate sodium 100 mg capsule 100 mg PO BID 01/04/23 11/22/23 Unknown History guaifenesin 100 mg/5 mL oral liquid 200 mg PO Q4H PRN Cough 01/04/23 11/22/23 Unknown History lactulose 10 gram/15 mL oral 30 ml PO DAILY PRN Constipation 01/04/23 11/22/23 Unknown History solution aluminum-mag hydroxide-simethicone 30 ml PO Q6H PRN Heartburn 09/13/23 11/22/23 Unknown History 225 mg-200 mg-25 mg/5 mL oral susp atorvastatin 10 mg tablet 10 mg PO DAILY 09/13/23 11/22/23 Unknown History folic acid 1 mg tablet 1 mg PO DAILY 09/13/23 11/22/23 Unknown History omeprazole 20 mg tablet,delayed 20 mg PO DAILY@0630 09/13/23 11/22/23 Unknown History release white petrolatum-mineral oil 1 appl topical BEDTIME 09/13/23 11/22/23 Unknown History topical cream apixaban 5 mg tablet (Eliquis) 5 mg PO BID 10/15/23 11/22/23 Unknown History bisacodyl 10 mg rectal suppository 10 mg SC DAILY PRN Constipation 10/15/23 11/22/23 Unknown History magnesium hydroxide 400 mg/5 mL 30 ml PO DAILY PRN Constipation 10/15/23 11/22/23 Unknown History oral suspension (Milk of Magnesia) sodium phosphates 19 gram-7 118 ml SC DAILY PRN Constipation 10/15/23 11/22/23 Unknown History gram/118 mL enema (Fleet Enema) zinc oxide 10 % topical ointment 1 appl topical BID 10/15/23 11/22/23 Unknown History zinc oxide 10 % topical ointment 1 appl topical DAILY PRN MASD 10/15/23 11/22/23 Unknown History Physical Exam 2 Vital Signs: Vital Signs: Last Vital Signs Temp 94.7 F L 11/28/23 07:48 Pulse 67 11/28/23 07:48 Resp 20 11/28/23 07:48 BP 134/63 11/28/23 07:48 Pulse Ox 95 11/28/23 07:48 O2 Del Method Room Air 11/28/23 07:48 O2 Flow Rate 2 11/28/23 04:00 BMI result Body Mass Index 43.3 Neuro: Other: Right eye is closed and probably traumatic. Left eye examination is limited but he is able to move that I. I am not sure if he is able to fully perceive vision. There is strong grasp reflex. There is mild right-sided facial weakness and mild left hemiparesis. He is very drowsy but able to answer some simple questions and follow some one-step commands. Plantars are equivocal. Exam is limited. Results Labs 11/28/23 06:32 11/28/23 08:15 Labs: Short CBC 11/28/23 Range/Units 06:32 WBC 8.0 (4.8-10.8) X10*3/uL Hgb 11.6 L (14.0-18.0) g/dl Hct 36.8 L (42.0-52.0) % Plt Count 163 D (160-400) X10*3/uL BMP 11/28/23 11/28/23 06:32 08:15 Sodium 152 H 152 H Potassium 3.6 3.7 Chloride 113 H 115 H Carbon Dioxide 30 H 29 BUN 22 H 22 H Creatinine 1.08 0.98 Calcium 9.4 9.1 Liver Function 11/28/23 11/28/23 Range/Units 06:32 08:15 Total Bilirubin 0.3 0.3 (0.0-1.0) mg/dL AST 23 19 (5-37) U/L ALT 15 14 (0-40) U/L Alkaline Phosphatase 126 H 113 (39-117) U/L Albumin 2.9 L 2.6 L (3.5-5.0) g/dL Head CT revealed evidence of right-sided craniotomy and significant ventriculomegaly and cerebellar atrophy likely chronic as these features for noted in 2009. Microbiology Microbiology Results: Microbiology 11/22/23 19:59 Blood - Venous Blood Culture - Final No growth after 5 days. 11/22/23 19:31 Blood - Venous Blood Culture - Final Assessment and Plan (1) Encephalopathy: Status: Acute 78 years old man with multifactorial encephalopathy with underlying chronic static encephalopathy related to some procedure done including craniotomy, which might have included aneurysm clipping, and significant ventriculomegaly an cerebellar degeneration noted since 2009, is suffering from multifactorial encephalopathy from underlying conditions and metabolic toxic etiology including infection and dehydration, resulting in hypernatremia. Hydration and medical management is recommended. At this point there is no evidence of a new neurological syndrome. Procedures Date of Service Date of Service: 11/28/23
--- NOTE | 2023-11-28 10:14 | PC.NURSE ---
11/28/23 0207 Nursing Assessment Finding. Pt at beginning of shift conversing full sentences and able to say his name, hospital, and following simple commands. Approx 0200 pt being repostioned no longer able to answer direct questions but rather repeating over and over conversation said to him. Pt would not break from repetitive statements. Left pupil DEEDEE, 2mm. Pt appeared to have hand grasp as grasping the blanket tightly in his hands. Dr. Cortez noted and came to bedside. Pt continued to repeat statements but mummbled different sentences which did not appear to make sense. Dr. Cortez felt pt has equal hand grasp. Head CT ordered but unable to complete as patient not cooperative with lying in the CT scanner turning on his side and unable to lie his head down flat on the stretcher for the CT to capture brain images. Pt came back to his room, Dr. Cortez notified and 5 mg Zyprexa IM ordered. Upon waiting for the order the patient became alert and oriented. able to state Name, , which hospital he was in and his present relatonship with a woman name Leilani. Dr. Cortez notified of findings but still wants the patient to have Head CT. perinatal technician came to bedside to assess the patient for compliance and being able to complete the CT scan. Pt after Zyprexa still presenting with a stiff neck, unable lay flat for exam. electrical engineering technician did not feel images could be obtained. Dr. Cortez messaged regarding comments CT assessed. Dr. Cortez ordered to hold the CT
--- NOTE | 2023-11-28 14:38 | HO.PM.IMPN ---
Subjective Subjective Date of Service: 11/28/23 Interval History: confused/delirious overnight HCP at bedside this AM; he is definitely not at baseline not hypoxic but again hypothermic Review of Systems Review of Systems: Yes Unobtainable due to mental status Physical Exam Vital Signs: Vital Signs: Last Vital Signs Temp 97.3 F 11/28/23 12:00 Pulse 74 11/28/23 12:00 Resp 20 11/28/23 12:00 BP 118/48 L 11/28/23 12:00 Pulse Ox 91 L 11/28/23 12:00 O2 Del Method Room Air 11/28/23 12:00 O2 Flow Rate 2 11/28/23 04:00 BMI result Body Mass Index 43.3 Gen: confused, delirious HEENT: sclera anicteric, moist mucus membranes Neck: supple Lungs: clear to auscultation bilaterally Heart: regular rate and rhythm, no murmurs Abd: soft, non-tender, non-distended, obese Ext: 2+ BLE edema Skin: erythema of legs and now arms as well; maculopapular eruption on trunk Neuro: somonolent but arousable, garbled speech, follow simple commands, no asterixis Psych: appropriate affect Objective Data Active Medications Acetaminophen (Acetaminophen 325 Mg Tablet) 650 mg PO Q6H PRN PRN Reason: Pain, Mild (Pain Scale 1-3) Last Admin: 11/24/23 12:36 Dose: 650 mg Documented By: PAT Acetaminophen/Butalbital/Caffeine (Butalb/Acetamin/Caff 50/325/40 Tablet) 1 tab PO Q4H PRN PRN Reason: Headache Last Admin: 11/24/23 17:09 Dose: 1 tab Documented By: DAVID Al Hydroxide/Mg Hydroxide (Magnesium Hydrox/Alum Hydrox 30 Ml Oral.Susp) 30 ml PO Q6H PRN PRN Reason: Heartburn Apixaban (Apixaban 5 Mg Tablet) 5 mg PO BID [facility] Last Admin: 11/28/23 10:51 Dose: Not Given Documented By: JUAN CARLOS Non-Admin Reason: Patient Refused Aspirin (Aspirin 81 Mg Tab.Chew) 81 mg PO DAILY [facility] Last Admin: 11/28/23 10:52 Dose: Not Given Documented By: JUAN CARLOS Non-Admin Reason: Patient Refused Atorvastatin Calcium (Atorvastatin Calcium 10 Mg Tablet) 10 mg PO DAILY [facility] Last Admin: 11/28/23 10:53 Dose: Not Given Documented By: JUAN CARLOS Non-Admin Reason: Patient Refused Bisacodyl (Bisacodyl 10 Mg Supp.Rect) 10 mg [place] DAILY PRN PRN Reason: Constipation Docusate Sodium (Docusate Sodium 100 Mg Capsule) 100 mg PO BID [facility] Last Admin: 11/28/23 10:53 Dose: Not Given Documented By: JUAN CARLOS Non-Admin Reason: Patient Refused Folic Acid (Folic Acid 1 Mg Tablet) 1 mg PO DAILY [facility] Last Admin: 11/28/23 10:53 Dose: Not Given Documented By: JUAN CARLOS Non-Admin Reason: Patient Refused Furosemide (Furosemide 40 Mg Tablet) 40 mg PO DAILY [facility]; Protocol Last Admin: 11/28/23 10:53 Dose: Not Given Documented By: JUAN CARLOS Non-Admin Reason: Patient Refused Guaifenesin (Guaifenesin 100 Mg/5 Ml Liquid) 10 ml PO Q4H PRN PRN Reason: Cough Dextrose (D5w) 1,000 mls @ 125 mls/hr IVCONT .Q8H [facility] Last Admin: 11/28/23 09:32 Dose: 125 mls/hr Documented By: JUAN CARLOS Lactic Acid (Ammonium Lactate 12 % Cream 140 Gm Tube) 1 appl TOPICAL TID [facility]; Protocol Last Admin: 11/28/23 10:51 Dose: 1 appl Documented By: JUAN CARLOS Lactulose (Lactulose 20 Gm/30 Ml Solution) 20 gm PO DAILY PRN PRN Reason: Constipation Magnesium Hydroxide (Milk Of Magnesia 30 Ml Oral.Susp) 30 ml PO DAILY PRN PRN Reason: Constipation Melatonin (Melatonin 3 Mg Tablet) 6 mg PO BEDTIME PRN PRN Reason: Insomnia Last Admin: 11/26/23 21:12 Dose: 6 mg Documented By: CHELY Multi-Ingred Cream/Lotion/Oil/Oint (Mineral Oil/Petrolatum,White 106 Gm Tube) 1 appl TOPICAL BEDTIME [facility]; Protocol Last Admin: 11/28/23 00:11 Dose: 1 appl Documented By: RYNE Omeprazole (Omeprazole 20 Mg Capsule.Dr) 20 mg PO DAILY@0630 [facility] Last Admin: 11/28/23 06:29 Dose: Not Given Documented By: RYNE Non-Admin Reason: Pt refused Ondansetron HCl (Ondansetron Hcl 4 Mg/2 Ml Vial) 4 mg IVPUSH Q8H PRN PRN Reason: Nausea and Vomiting Pharmacy Consult (Consult Rx Vancomycin Dosing) 1 each MISCELLANE DAILY PRN PRN Reason: Consult order Sodium Biphosphate/Sodium Phosphate (Sodium Phosphate,[place]-Dibasic 133 Ml Enema) 118 ml [place] DAILY PRN PRN Reason: Constipation Sodium Chloride (0.9 % Sodium Chloride Flush 3 Ml Syringe) 3 ml IVFLUSH QSHIFT [facility] Last Admin: 11/28/23 09:32 Dose: 3 ml Documented By: JUAN CARLOS Zinc Oxide (Zinc Oxide (Triple Paste) 56.7 Gm Oint) 1 appl TOPICAL BID [facility] Last Admin: 11/28/23 10:54 Dose: Not Given Documented By: JUAN CARLOS Non-Admin Reason: Patient Refused Labs 11/28/23 06:32 11/28/23 08:15 Labs: Laboratory Results - last 24 hr 11/27/23 11/28/23 11/28/23 15:58 06:32 08:15 MCV 96.3 MCH 30.4 MCHC 31.5 RDW 20.8 H Plt Count 163 D MPV 12.0 Absolute Nucleated RBC 0.020 H Nucleated RBC % (auto) 0.3 H Hold Purple Top SEE NOTE SEE NOTE VBG pH VBG pCO2 VBG pO2 VBG HCO3 VBG O2 Saturation VBG Base Excess Anion Gap 13 12 Estim Creat Clear Calc 83.9 92.5 Estimated GFR > 60 > 60 Random Glucose 72 83 Calcium 9.4 9.1 Magnesium 2.1 Total Bilirubin 0.3 0.3 AST 23 19 ALT 15 14 Alkaline Phosphatase 126 H 113 Ammonia 16 Total Protein 6.1 L 5.5 L Albumin 2.9 L 2.6 L Procalcitonin 0.06 Hold Yellow Top Random Vancomycin 20.3 H 15.2 11/28/23 11/28/23 09:15 09:23 MCV MCH MCHC RDW Plt Count MPV Absolute Nucleated RBC Nucleated RBC % (auto) Hold Purple Top Cancelled VBG pH 7.44 H VBG pCO2 51 VBG pO2 44 VBG HCO3 35 H VBG O2 Saturation 70.0 VBG Base Excess 10.2 Anion Gap Estim Creat Clear Calc Estimated GFR Random Glucose Calcium Magnesium Total Bilirubin AST ALT Alkaline Phosphatase Ammonia 19 Total Protein Albumin Procalcitonin Hold Yellow Top See Note Random Vancomycin Microbiology Microbiology Results: Microbiology 11/22/23 19:59 Blood Culture - Final Blood - Venous No growth after 5 days. Assessment and Plan (1) Encephalopathy: Status: Acute (2) Acute hypernatremia: Status: Acute (3) Pneumonia: Status: Acute Plan d7 78yo M LTC resident of [facility] with HTN, HLD, chronic bilateral leg lymphedema, chronic AF on apixaban, RLE DVT in 2022, HFpEF, morbid obesity sent in with lethargy, AMS, weakness admitted for encephalopathy due to hypernatremia + pneumonia acute hypernatremia - 3.5L free water deficit, will give D5W and recheck BMP in AM acute hypoxic resp failure due to pneumonia - got 5d of cefepime + 4d of vancomycin; PCT low; d/c all antibiotics. Hypoxia resolved. ?drug rash - stop vancomycin + cefepime. consult ID. encephalopathy, multifactorial (metabolic, infection, medication/toxic) - replete free water. d/c cefepime- neurotoxicity? Neurology consulted. hypothermia, episodic - recurrent for pt; thyroid + cortisol workup within normal. suspect autonomic dysfunction paroxysmal AF - continue apixaban HLD - continue statin chronic HFpEF - continue furosemide morbid obesity - diet/exercise counseling VTE ppx - apixaban dispo - eventual return to LTC once hypotnermia + encephalopathy resolve In my clinical judgment, the patient requires continued inpatient hospitalization for the following reasons: IV fluids, hypothermia, encephalopathy Total time managing care of this patient today: 50 minutes. Quality Stroke Does the patient have a stroke diagnosis?: No VTE Prior VTE?: Yes VTE Risk Level:: Medical - moderate - high VTE Device Contraindication: Treatment Not Indicated VTE Drug Contraindication: N/A - Med Ordered
--- NOTE | 2023-11-28 23:41 | W.PM.IDCN ---
History of Present Illness Data of Consult Service Date: 11/28/23 Requesting physician: Almita Lovell Primary Care Provider: Arturo Hall MD [facility] Reason for consult: mental status changes He presents to hospital with weakness. He has been on Ceftazidime and Vancomycin and developed all body rash. Review of Systems Review of Systems: Yes Unobtainable due to mental condition PMFSH Past Medical History Medical History (Updated 11/28/23 @ 23:47 by Dayami Trevizo MD) Rash Atrial fibrillation Dyslipidemia Hypertension Family History Family history: reviewed and not pertinent Surgical History Surgical History History of enucleation of right eyeball Social History Social History Household Members: None Housing: Assisted Living Facility Housing Other:: Lives in terminal operations supervisor care Do you presently have visiting nurse or other home services: Yes Alcohol intake: former Comment: sitter at bedside Patient Tobacco Use Status: Never used Tobacco e-Cigarette/Vaping Use: Never Used Second Hand Smoke Exposure: No Advance Directives Date on File: 12/26/22 service: Yes Current occupational status: disabled Meds Allergies Allergy/AdvReac Type Severity Reaction Status Date / Time No Known Allergies Allergy Verified 01/04/23 04:36 Active Medications: Current Medications Acetaminophen (Acetaminophen 325 Mg Tablet) 650 mg PO Q6H PRN PRN Reason: Pain, Mild (Pain Scale 1-3) Last Admin: 11/24/23 12:36 Dose: 650 mg Acetaminophen/Butalbital/Caffeine (Butalb/Acetamin/Caff 50/325/40 Tablet) 1 tab PO Q4H PRN PRN Reason: Headache Last Admin: 11/24/23 17:09 Dose: 1 tab Al Hydroxide/Mg Hydroxide (Magnesium Hydrox/Alum Hydrox 30 Ml Oral.Susp) 30 ml PO Q6H PRN PRN Reason: Heartburn Apixaban (Apixaban 5 Mg Tablet) 5 mg PO BID [facility] Last Admin: 11/28/23 22:00 Dose: Not Given Aspirin (Aspirin 81 Mg Tab.Chew) 81 mg PO DAILY [facility] Last Admin: 11/28/23 10:52 Dose: Not Given Atorvastatin Calcium (Atorvastatin Calcium 10 Mg Tablet) 10 mg PO DAILY [facility] Last Admin: 11/28/23 10:53 Dose: Not Given Bisacodyl (Bisacodyl 10 Mg Supp.Rect) 10 mg [place] DAILY PRN PRN Reason: Constipation Docusate Sodium (Docusate Sodium 100 Mg Capsule) 100 mg PO BID [facility] Last Admin: 11/28/23 22:00 Dose: Not Given Folic Acid (Folic Acid 1 Mg Tablet) 1 mg PO DAILY [facility] Last Admin: 11/28/23 10:53 Dose: Not Given Furosemide (Furosemide 40 Mg Tablet) 40 mg PO DAILY [facility]; Protocol Last Admin: 11/28/23 10:53 Dose: Not Given Guaifenesin (Guaifenesin 100 Mg/5 Ml Liquid) 10 ml PO Q4H PRN PRN Reason: Cough Dextrose (D5w) 1,000 mls @ 125 mls/hr IVCONT .Q8H [facility] Last Admin: 11/28/23 18:12 Dose: 125 mls/hr Lactic Acid (Ammonium Lactate 12 % Cream 140 Gm Tube) 1 appl TOPICAL TID [facility]; Protocol Last Admin: 11/28/23 21:59 Dose: 1 appl Lactulose (Lactulose 20 Gm/30 Ml Solution) 20 gm PO DAILY PRN PRN Reason: Constipation Magnesium Hydroxide (Milk Of Magnesia 30 Ml Oral.Susp) 30 ml PO DAILY PRN PRN Reason: Constipation Melatonin (Melatonin 3 Mg Tablet) 6 mg PO BEDTIME PRN PRN Reason: Insomnia Last Admin: 11/26/23 21:12 Dose: 6 mg Multi-Ingred Cream/Lotion/Oil/Oint (Mineral Oil/Petrolatum,White 106 Gm Tube) 1 appl TOPICAL BEDTIME [facility]; Protocol Last Admin: 11/28/23 21:59 Dose: 1 appl Omeprazole (Omeprazole 20 Mg Capsule.Dr) 20 mg PO DAILY@0630 [facility] Last Admin: 11/28/23 06:29 Dose: Not Given Ondansetron HCl (Ondansetron Hcl 4 Mg/2 Ml Vial) 4 mg IVPUSH Q8H PRN PRN Reason: Nausea and Vomiting Pharmacy Consult (Consult Rx Vancomycin Dosing) 1 each MISCELLANE DAILY PRN PRN Reason: Consult order Sodium Biphosphate/Sodium Phosphate (Sodium Phosphate,[place]-Dibasic 133 Ml Enema) 118 ml [place] DAILY PRN PRN Reason: Constipation Sodium Chloride (0.9 % Sodium Chloride Flush 3 Ml Syringe) 3 ml IVFLUSH QSHIFT [facility] Last Admin: 11/28/23 22:01 Dose: 3 ml Zinc Oxide (Zinc Oxide (Triple Paste) 56.7 Gm Oint) 1 appl TOPICAL BID [facility] Last Admin: 11/28/23 22:00 Dose: 1 appl Home Medications ?Medication ?Instructions ?Recorded ?Confirmed ?Last Taken ?Type acetaminophen 325 mg tablet 650 mg PO Q4H PRN Fever Or Pain 01/04/23 11/22/23 Unknown History ammonium lactate 12 % topical cream 1 appl topical TID 01/04/23 11/22/23 Unknown History aspirin 81 mg chewable tablet 81 mg PO DAILY 01/04/23 11/22/23 Unknown History docusate sodium 100 mg capsule 100 mg PO BID 01/04/23 11/22/23 Unknown History guaifenesin 100 mg/5 mL oral liquid 200 mg PO Q4H PRN Cough 01/04/23 11/22/23 Unknown History lactulose 10 gram/15 mL oral 30 ml PO DAILY PRN Constipation 01/04/23 11/22/23 Unknown History solution aluminum-mag hydroxide-simethicone 30 ml PO Q6H PRN Heartburn 09/13/23 11/22/23 Unknown History 225 mg-200 mg-25 mg/5 mL oral susp atorvastatin 10 mg tablet 10 mg PO DAILY 09/13/23 11/22/23 Unknown History folic acid 1 mg tablet 1 mg PO DAILY 09/13/23 11/22/23 Unknown History omeprazole 20 mg tablet,delayed 20 mg PO DAILY@0630 09/13/23 11/22/23 Unknown History release white petrolatum-mineral oil 1 appl topical BEDTIME 09/13/23 11/22/23 Unknown History topical cream apixaban 5 mg tablet (Eliquis) 5 mg PO BID 10/15/23 11/22/23 Unknown History bisacodyl 10 mg rectal suppository 10 mg [place] DAILY PRN Constipation 10/15/23 11/22/23 Unknown History magnesium hydroxide 400 mg/5 mL 30 ml PO DAILY PRN Constipation 10/15/23 11/22/23 Unknown History oral suspension (Milk of Magnesia) sodium phosphates 19 gram-7 118 ml [place] DAILY PRN Constipation 10/15/23 11/22/23 Unknown History gram/118 mL enema (Fleet Enema) zinc oxide 10 % topical ointment 1 appl topical BID 10/15/23 11/22/23 Unknown History zinc oxide 10 % topical ointment 1 appl topical DAILY PRN MASD 10/15/23 11/22/23 Unknown History Physical Exam Vital Signs: Vital Signs: Last Vital Signs Temp 97.9 F 11/28/23 19:22 Pulse 78 11/28/23 19:22 Resp 18 11/28/23 19:22 BP 145/67 H 11/28/23 19:22 Pulse Ox 93 11/28/23 19:22 O2 Del Method Nasal Cannula 11/28/23 19:22 O2 Flow Rate 2 11/28/23 04:00 BMI result Body Mass Index 43.3 Const: General: cooperative HEENT: Head: Yes normal to inspection Face and sinus: Yes normal facial exam Mouth: Normal oral and palatal mucosa present Teeth and gingiva: dentition normal Eyes: General: appearance normal, both eyes and all related structures Pupils: Equal, round and reactive pupils present Resp: Effort & Inspection: normal respiratory effort Cardio: Rate: regular rate Rhythm: regular rhythm GI: Palpation (GI): Soft to palpation and nontender : General: Yes no CVA tenderness Back/Spine/Pelvis: Back: no CVA tenderness Skin: General skin exam: no rashes or lesions noted Neuro: General: moves all extremities Cranial nerves: Yes Equal, round and reactive pupils present Extrem: General: Yes normal to inspection Psych: Other: encephalopathic Results Labs 11/28/23 06:32 11/28/23 08:15 Labs: Short CBC 11/28/23 Range/Units 06:32 WBC 8.0 (4.8-10.8) X10*3/uL Hgb 11.6 L (14.0-18.0) g/dl Hct 36.8 L (42.0-52.0) % Plt Count 163 D (160-400) X10*3/uL BMP 11/28/23 11/28/23 06:32 08:15 Sodium 152 H 152 H Potassium 3.6 3.7 Chloride 113 H 115 H Carbon Dioxide 30 H 29 BUN 22 H 22 H Creatinine 1.08 0.98 Calcium 9.4 9.1 Liver Function 11/28/23 11/28/23 Range/Units 06:32 08:15 Total Bilirubin 0.3 0.3 (0.0-1.0) mg/dL AST 23 19 (5-37) U/L ALT 15 14 (0-40) U/L Alkaline Phosphatase 126 H 113 (39-117) U/L Albumin 2.9 L 2.6 L (3.5-5.0) g/dL Microbiology Microbiology Results: Microbiology 11/22/23 19:59 Blood - Venous Blood Culture - Final No growth after 5 days. 11/22/23 19:31 Blood - Venous Blood Culture - Final Assessment and Plan (1) Encephalopathy: Status: Acute (2) Rash: Status: Acute Plan Agree hold antibiotics at this time Symptomatic treatment for rash
[2023-11-29] VITALS: BP 104/79; PULSE 53; RESP 20; TEMP 36.1; O2SAT 95
--- NOTE | 2023-11-29 | ECG_ITS ---
Test Reason : bradycardia Blood Pressure : / mmHG Vent. Rate : 040 BPM Atrial Rate : 040 BPM P-R Int : 248 ms QRS Dur : 086 ms QT Int : 532 ms P-R-T Axes : 076 006 016 degrees QTc Int : 433 ms Marked sinus bradycardia with 1st degree A-V block Low voltage QRS Abnormal ECG When compared with ECG of 23-NOV-2023 13:08, WA interval has increased Referred By: Almita Lovell Electronically Signed By:BAO PINK MD
[2023-11-29] MEDS: Dextrose 5 % 1,000 ML 125 ML IVCONT (00:03)
[2023-11-29 03:30] VITALS: BP 118/56; PULSE 122; RESP 20; TEMP 36.1; O2SAT 98
[2023-11-29 07:01] LABS: Hematocrit 35.3 % (42.0-52.0); Mean Corpuscular HGB Conc 31.2 g/dl (31.0-36.0); Mean Corpuscular Hemoglobin 30.2 pg (27.0-33.0); Platelet Count 165 X10*3/uL (160-400); Red Blood Count 3.64 X10*6/uL (4.60-5.80); Red Cell Distribution Width 20.6 % (11.0-16.0); White Blood Count 6.8 X10*3/uL (4.8-10.8)
[2023-11-29 07:17] LABS: Vancomycin Random 10.6 mcg/mL (15-20)
[2023-11-29 07:18] LABS: Creatinine Clr Calc Pharmacy 90.6; Estimated Glomerular Filt Rate > 60
[2023-11-29 08:14] LABS: Anion Gap 12 (12-20)
[2023-11-29 08:16] LABS: Blood Urea Nitrogen 22 mg/dL (9-16); Calcium 9.4 mg/dL (8.4-10.2); Carbon Dioxide 29 mmol/L (22-29); Chloride 112 mmol/L (96-108); Glucose Random 101 mg/dL (60-115); Potassium 3.7 mmol/L (3.3-5.1); Sodium 149 mmol/L (135-145)
[2023-11-29 09:36] LABS: C Reactive Protein 1.58 mg/dL (< or = 0.50)
[2023-11-29 09:52] LABS: Procalcitonin 0.06 ng/mL
--- NOTE | 2023-11-29 10:33 | MHC.CM.PN ---
Per ROUNDS discussion, Patient is Encephalopathic and not medically cleared for dc. Returning to LTC is the plan and CM will continue to follow.
[2023-11-29 11:43] VITALS: BP 122/78; PULSE 105; RESP 20; TEMP 36.9; O2SAT 93
[2023-11-29] MEDS: Atorvastatin Calcium 10 MG TABLET PO (12:11)
[2023-11-29] MEDS: Apixaban 5 MG TABLET PO ×2 (12:11→20:12)
[2023-11-29] MEDS: Furosemide 40 MG TABLET PO (12:11)
[2023-11-29] MEDS: Aspirin 81 MG TAB.CHEW PO (12:11)
[2023-11-29] MEDS: Folic Acid 1 MG TABLET PO (12:11)
[2023-11-29] MEDS: Ammonium Lactate 12 % Cream 140 GM TUBE 1 APPL TOPICAL ×3 (12:11→20:16)
[2023-11-29] MEDS: Docusate Sodium 100 MG CAPSULE PO ×2 (12:11→20:12)
[2023-11-29] MEDS: Zinc Oxide (Triple Paste) 56.7 GM OINT 1 APPL TOPICAL ×2 (12:12→20:16)
--- NOTE | 2023-11-29 12:17 | PC.NURSE ---
AM meds given late due to agitation and uncooperative this am. Pt now calm and cooperative. Will call ED nurse to see if they can place an US guided IV for IV fluids and Thiamine.
[2023-11-29] MEDS: Dextrose 5 % 1,000 ML 80 ML IVCONT (13:31)
--- NOTE | 2023-11-29 14:00 | MHC.CM.PN ---
Per MD, HCP is being invoked.
[2023-11-29 15:12] VITALS: BP 132/60; PULSE 33; RESP 20; TEMP 36.7; O2SAT 97
--- NOTE | 2023-11-29 15:22 | HO.PM.IMPN ---
Subjective Subjective Date of Service: 11/29/23 Interval History: Still very confused/delirious, unable to get meaningful history. HR as low as 29, sinus bradycardia c 1st deg AVB Review of Systems Review of Systems: Yes Unobtainable due to mental status Physical Exam Vital Signs: Vital Signs: Last Vital Signs Temp 98.0 F 11/29/23 15:12 Pulse 33 L 11/29/23 15:12 Resp 20 11/29/23 15:12 BP 132/60 11/29/23 15:12 Pulse Ox 97 11/29/23 15:12 O2 Del Method Room Air 11/29/23 15:12 O2 Flow Rate 3 11/29/23 03:30 BMI result Body Mass Index 43.3 Gen: confused, delirious HEENT: sclera anicteric, moist mucus membranes Neck: supple Lungs: clear to auscultation bilaterally Heart: regular rate and rhythm, no murmurs Abd: soft, non-tender, non-distended, obese Ext: 2+ BLE edema with crusting/erythema Skin: erythema of arms and maculopapular eruption on trunk improved Neuro: somonolent but arousable, garbled speech- oriented only to self Psych: appropriate affect Objective Data Active Medications Acetaminophen (Acetaminophen 325 Mg Tablet) 650 mg PO Q6H PRN PRN Reason: Pain, Mild (Pain Scale 1-3) Last Admin: 11/24/23 12:36 Dose: 650 mg Documented By: PAT Acetaminophen/Butalbital/Caffeine (Butalb/Acetamin/Caff 50/325/40 Tablet) 1 tab PO Q4H PRN PRN Reason: Headache Last Admin: 11/24/23 17:09 Dose: 1 tab Documented By: DAVID Al Hydroxide/Mg Hydroxide (Magnesium Hydrox/Alum Hydrox 30 Ml Oral.Susp) 30 ml PO Q6H PRN PRN Reason: Heartburn Apixaban (Apixaban 5 Mg Tablet) 5 mg PO BID [facility] Last Admin: 11/29/23 12:11 Dose: 5 mg Documented By: DONNA Aspirin (Aspirin 81 Mg Tab.Chew) 81 mg PO DAILY [facility] Last Admin: 11/29/23 12:11 Dose: 81 mg Documented By: DONNA Atorvastatin Calcium (Atorvastatin Calcium 10 Mg Tablet) 10 mg PO DAILY [facility] Last Admin: 11/29/23 12:11 Dose: 10 mg Documented By: DONNA Bisacodyl (Bisacodyl 10 Mg Supp.Rect) 10 mg [place] DAILY PRN PRN Reason: Constipation Docusate Sodium (Docusate Sodium 100 Mg Capsule) 100 mg PO BID [facility] Last Admin: 11/29/23 12:11 Dose: 100 mg Documented By: DONNA Folic Acid (Folic Acid 1 Mg Tablet) 1 mg PO DAILY [facility] Last Admin: 11/29/23 12:11 Dose: 1 mg Documented By: DONNA Furosemide (Furosemide 40 Mg Tablet) 40 mg PO DAILY [facility]; Protocol Last Admin: 11/29/23 12:11 Dose: 40 mg Documented By: DONNA Guaifenesin (Guaifenesin 100 Mg/5 Ml Liquid) 10 ml PO Q4H PRN PRN Reason: Cough Dextrose (D5w) 1,000 mls @ 80 mls/hr IVCONT .[id number] [facility] Last Admin: 11/29/23 13:31 Dose: 80 mls/hr Documented By: DONNA Thiamine HCl 500 mg/ Sodium (Chloride) 105 mls @ 210 mls/hr IV Q8H [facility] Stop: 12/01/23 02:29 Last Admin: 11/29/23 15:02 Dose: Not Given Documented By: DONNA Non-Admin Reason: No IV access Thiamine HCl 250 mg/ Sodium (Chloride) 102.5 mls @ 202 mls/hr IV DAILY [facility] Lactic Acid (Ammonium Lactate 12 % Cream 140 Gm Tube) 1 appl TOPICAL TID [facility]; Protocol Last Admin: 11/29/23 12:11 Dose: 1 appl Documented By: DONNA Lactulose (Lactulose 20 Gm/30 Ml Solution) 20 gm PO DAILY PRN PRN Reason: Constipation Magnesium Hydroxide (Milk Of Magnesia 30 Ml Oral.Susp) 30 ml PO DAILY PRN PRN Reason: Constipation Melatonin (Melatonin 3 Mg Tablet) 6 mg PO BEDTIME PRN PRN Reason: Insomnia Last Admin: 11/26/23 21:12 Dose: 6 mg Documented By: CHELY Multi-Ingred Cream/Lotion/Oil/Oint (Mineral Oil/Petrolatum,White 106 Gm Tube) 1 appl TOPICAL BEDTIME [facility]; Protocol Last Admin: 11/28/23 21:59 Dose: 1 appl Documented By: RYNE Omeprazole (Omeprazole 20 Mg Capsule.) 20 mg PO DAILY@0630 [facility] Last Admin: 11/29/23 07:11 Dose: Not Given Documented By: ANTOIC Non-Admin Reason: pt having difficulty swallowing Ondansetron HCl (Ondansetron Hcl 4 Mg/2 Ml Vial) 4 mg IVPUSH Q8H PRN PRN Reason: Nausea and Vomiting Sodium Biphosphate/Sodium Phosphate (Sodium Phosphate,[place]-Dibasic 133 Ml Enema) 118 ml [place] DAILY PRN PRN Reason: Constipation Sodium Chloride (0.9 % Sodium Chloride Flush 3 Ml Syringe) 3 ml IVFLUSH QSHIFT [facility] Last Admin: 11/29/23 12:12 Dose: Not Given Documented By: DONNA Non-Admin Reason: No Access Zinc Oxide (Zinc Oxide (Triple Paste) 56.7 Gm Oint) 1 appl TOPICAL BID [facility] Last Admin: 11/29/23 12:12 Dose: 1 appl Documented By: DONNA Labs 11/29/23 06:21 11/29/23 06:21 Labs: Laboratory Results - last 24 hr 11/29/23 06:21 MCV 97.0 MCH 30.2 MCHC 31.2 RDW 20.6 H Plt Count 165 MPV 11.0 Absolute Nucleated RBC 0.000 Nucleated RBC % (auto) 0.0 Anion Gap 12 Estim Creat Clear Calc 90.6 Estimated GFR > 60 Random Glucose 101 Calcium 9.4 C-Reactive Protein 1.58 H Procalcitonin 0.06 Random Vancomycin 10.6 L Assessment and Plan (1) Encephalopathy: Status: Acute (2) Acute hypernatremia: Status: Acute (3) Pneumonia: Status: Acute Plan d8 78yo M LTC resident of [facility] with HTN, HLD, chronic bilateral leg lymphedema, chronic AF on apixaban, RLE DVT in 2022, HFpEF, morbid obesity sent in with lethargy, AMS, weakness admitted for encephalopathy due to hypernatremia + pneumonia encephalopathy, multifactorial (metabolic, infection, medication/toxic) - replete free water. d/c cefepime- neurotoxicity? Neurology consulted. No acute changes on CT - HCP invoked due to encephalopathy - Discussed code status with HCP Leilani and pt's nephew Jerson and per pt's recently expressed wishes, he remains FULL CODE bradycardia - not on any medications that can provoke this. ?sick sinus associated with AF? consult Cardiology. atropine/pacer pads to bedside acute hypernatremia - 2L free water deficit, continue D5W and recheck BMP in AM acute hypoxic resp failure due to pneumonia - got 5d of cefepime + 4d of vancomycin; PCT low; d/c all antibiotics. Hypoxia resolved. ?drug rash - stopped vancomycin + cefepime. ID consulted, agrees with decision. PCT remains low. hypothermia, episodic - recurrent for pt; thyroid + cortisol workup within normal. suspect autonomic dysfunction paroxysmal AF - continue apixaban HLD - continue statin chronic HFpEF - continue furosemide morbid obesity - diet/exercise counseling VTE ppx - apixaban dispo - eventual return to LTC once hypotnermia + encephalopathy resolve In my clinical judgment, the patient requires continued inpatient hospitalization for the following reasons: IV fluids, bradycardia encephalopathy Total time managing care of this patient today: 55 minutes. Quality Stroke Does the patient have a stroke diagnosis?: No VTE Prior VTE?: Yes VTE Risk Level:: Medical - moderate - high VTE Device Contraindication: Treatment Not Indicated VTE Drug Contraindication: N/A - Med Ordered
[2023-11-29] MEDS: Thiamine HCL 500 MG in 0.9 % Sodium Chloride 100 ML 210 MG IV (16:34)
[2023-11-29 20:00] VITALS: BP 160/74; PULSE 127; RESP 20; TEMP 31.9; O2SAT 99
[2023-11-29] MEDS: Mineral Oil/Petrolatum,White 106 GM Tube 1 APPL TOPICAL (20:16)
[2023-11-29 23:30] VITALS: BP 113/56; PULSE 32; RESP 20; TEMP 32.2; O2SAT 98
[2023-11-30] VITALS (8 sets, daily range): BP systolic 117–158; BP diastolic 56–70; PULSE 43–139; RESP 16–20; TEMP 33.4–36.6; O2SAT 90–100
[2023-11-30] MEDS: Thiamine HCL 500 MG in 0.9 % Sodium Chloride 100 ML 210 MG IV ×3 (02:01→17:58)
[2023-11-30] MEDS: Dextrose 5 % 1,000 ML 80 ML IVCONT ×2 (02:02→15:26)
[2023-11-30] MEDS: 0.9 % Sodium Chloride Flush 3 ML SYRINGE IVFLUSH (08:40)
[2023-11-30] MEDS: Cosyntropin 0.25 MG VIAL IVPUSH (08:40)
[2023-11-30 09:22] LABS: Anion Gap 9 (12-20); Blood Urea Nitrogen 25 mg/dL (9-16); Calcium 8.5 mg/dL (8.4-10.2); Carbon Dioxide 30 mmol/L (22-29); Chloride 111 mmol/L (96-108); Creatinine Clr Calc Pharmacy 95.4; Estimated Glomerular Filt Rate > 60; Glucose Random 71 mg/dL (60-115); Magnesium 1.9 mg/dL (1.6-2.6); Potassium 3.6 mmol/L (3.3-5.1); Sodium 146 mmol/L (135-145)
[2023-11-30 09:31] LABS: Hematocrit 29.9 % (42.0-52.0); Hemoglobin 9.6 g/dl (14.0-18.0); Mean Corpuscular HGB Conc 32.1 g/dl (31.0-36.0); Mean Corpuscular Hemoglobin 30.3 pg (27.0-33.0); Mean Corpuscular Volume 94.3 fL (80.0-98.0); Mean Platelet Volume 11.8 fL (9.4-12.4); NRBC Pct Auto 0.3 /100WBC (0.0-0.2); Platelet Count 182 X10*3/uL (160-400); Red Blood Count 3.17 X10*6/uL (4.60-5.80); Red Cell Distribution Width 20.4 % (11.0-16.0)
[2023-11-30] MEDS: Apixaban 5 MG TABLET PO ×2 (09:35→23:02)
[2023-11-30] MEDS: Ammonium Lactate 12 % Cream 140 GM TUBE 1 APPL TOPICAL ×3 (09:36→23:02)
[2023-11-30] MEDS: Zinc Oxide (Triple Paste) 56.7 GM OINT 1 APPL TOPICAL ×2 (09:36→23:01)
[2023-11-30] MEDS: Aspirin 81 MG TAB.CHEW PO (09:40)
[2023-11-30] MEDS: Docusate Sodium 100 MG CAPSULE PO (09:40)
[2023-11-30] MEDS: Folic Acid 1 MG TABLET PO (09:40)
[2023-11-30] MEDS: Furosemide 40 MG TABLET PO (09:40)
[2023-11-30] MEDS: Atorvastatin Calcium 10 MG TABLET PO (09:40)
--- NOTE | 2023-11-30 11:25 | PM.CNCAR ---
History of Present Illness History of Present Illness Date of Service: 11/30/23 Requesting physician: Almita Lovell Chief complaint: hypernatremia, pneumonia, bradycardia Narrative: 78-year-old gentleman with background history of episode of hypothermia and bradycardia recently who is presenting with change in mental status and hypothermia. He has significant rash all over his arms which is thought to be a drug rash. He is quite confused and unable to give any history. He was bradycardic and hypothermic on admission and hypothermia is a likely cause for bradycardia. His heart rates are improved after Dread hugger and improvement in core temperature. He has been seen by infectious disease and his antibiotics are held. [facility], [facility] Past Medical History Medical History (Updated 11/28/23 @ 23:47 by Dayami Trevizo MD) Rash Atrial fibrillation Dyslipidemia Hypertension Family History Family history: reviewed and not pertinent Surgical History Surgical History History of enucleation of right eyeball Social History Social History Household Members: None Housing: Assisted Living Facility Housing Other:: Lives in longterm care Do you presently have visiting nurse or other home services: Yes Alcohol intake: former Comment: sitter Patient Tobacco Use Status: Never used Tobacco e-Cigarette/Vaping Use: Never Used Second Hand Smoke Exposure: No Advance Directives Date on File: 12/26/22 service: Yes Current occupational status: disabled Meds Allergies Allergy/AdvReac Type Severity Reaction Status Date / Time No Known Allergies Allergy Verified 01/04/23 04:36 Active Medications: Current Medications Acetaminophen (Acetaminophen 325 Mg Tablet) 650 mg PO Q6H PRN PRN Reason: Pain, Mild (Pain Scale 1-3) Last Admin: 11/24/23 12:36 Dose: 650 mg Acetaminophen/Butalbital/Caffeine (Butalb/Acetamin/Caff 50/325/40 Tablet) 1 tab PO Q4H PRN PRN Reason: Headache Last Admin: 11/24/23 17:09 Dose: 1 tab Al Hydroxide/Mg Hydroxide (Magnesium Hydrox/Alum Hydrox 30 Ml Oral.Susp) 30 ml PO Q6H PRN PRN Reason: Heartburn Apixaban (Apixaban 5 Mg Tablet) 5 mg PO BID [facility] Last Admin: 11/30/23 09:35 Dose: 5 mg Aspirin (Aspirin 81 Mg Tab.Chew) 81 mg PO DAILY [facility] Last Admin: 11/30/23 09:40 Dose: 81 mg Atorvastatin Calcium (Atorvastatin Calcium 10 Mg Tablet) 10 mg PO DAILY [facility] Last Admin: 11/30/23 09:40 Dose: 10 mg Bisacodyl (Bisacodyl 10 Mg Supp.Rect) 10 mg [place] DAILY PRN PRN Reason: Constipation Cosyntropin (Cosyntropin 0.25 Mg Vial) 0.25 mg IVPUSH ONCE ONE Stop: 12/01/23 08:01 Docusate Sodium (Docusate Sodium 100 Mg Capsule) 100 mg PO BID [facility] Last Admin: 11/30/23 09:40 Dose: 100 mg Folic Acid (Folic Acid 1 Mg Tablet) 1 mg PO DAILY [facility] Last Admin: 11/30/23 09:40 Dose: 1 mg Furosemide (Furosemide 40 Mg Tablet) 40 mg PO DAILY [facility]; Protocol Last Admin: 11/30/23 09:40 Dose: 40 mg Guaifenesin (Guaifenesin 100 Mg/5 Ml Liquid) 10 ml PO Q4H PRN PRN Reason: Cough Dextrose (D5w) 1,000 mls @ 80 mls/hr IVCONT .[id number] [facility] Last Admin: 11/30/23 10:32 Dose: Not Given Thiamine HCl 500 mg/ Sodium (Chloride) 105 mls @ 210 mls/hr IV Q8H [facility] Stop: 12/01/23 02:29 Last Infusion: 11/30/23 10:32 Dose: Infused Thiamine HCl 250 mg/ Sodium (Chloride) 102.5 mls @ 202 mls/hr IV DAILY [facility] Lactic Acid (Ammonium Lactate 12 % Cream 140 Gm Tube) 1 appl TOPICAL TID [facility]; Protocol Last Admin: 11/30/23 09:36 Dose: 1 appl Lactulose (Lactulose 20 Gm/30 Ml Solution) 20 gm PO DAILY PRN PRN Reason: Constipation Magnesium Hydroxide (Milk Of Magnesia 30 Ml Oral.Susp) 30 ml PO DAILY PRN PRN Reason: Constipation Melatonin (Melatonin 3 Mg Tablet) 6 mg PO BEDTIME PRN PRN Reason: Insomnia Last Admin: 11/26/23 21:12 Dose: 6 mg Multi-Ingred Cream/Lotion/Oil/Oint (Mineral Oil/Petrolatum,White 106 Gm Tube) 1 appl TOPICAL BEDTIME [facility]; Protocol Last Admin: 11/29/23 20:16 Dose: 1 appl Omeprazole (Omeprazole 20 Mg Capsule.Dr) 20 mg PO DAILY@0630 [facility] Last Admin: 11/30/23 06:35 Dose: Not Given Ondansetron HCl (Ondansetron Hcl 4 Mg/2 Ml Vial) 4 mg IVPUSH Q8H PRN PRN Reason: Nausea and Vomiting Sodium Biphosphate/Sodium Phosphate (Sodium Phosphate,[place]-Dibasic 133 Ml Enema) 118 ml [place] DAILY PRN PRN Reason: Constipation Sodium Chloride (0.9 % Sodium Chloride Flush 3 Ml Syringe) 3 ml IVFLUSH QSHIFT [facility] Last Admin: 11/30/23 08:40 Dose: 3 ml Zinc Oxide (Zinc Oxide (Triple Paste) 56.7 Gm Oint) 1 appl TOPICAL BID [facility] Last Admin: 11/30/23 09:36 Dose: 1 appl Home Medications ?Medication ?Instructions ?Recorded ?Confirmed ?Last Taken ?Type acetaminophen 325 mg tablet 650 mg PO Q4H PRN Fever Or Pain 01/04/23 11/22/23 Unknown History ammonium lactate 12 % topical cream 1 appl topical TID 01/04/23 11/22/23 Unknown History aspirin 81 mg chewable tablet 81 mg PO DAILY 01/04/23 11/22/23 Unknown History docusate sodium 100 mg capsule 100 mg PO BID 01/04/23 11/22/23 Unknown History guaifenesin 100 mg/5 mL oral liquid 200 mg PO Q4H PRN Cough 01/04/23 11/22/23 Unknown History lactulose 10 gram/15 mL oral 30 ml PO DAILY PRN Constipation 01/04/23 11/22/23 Unknown History solution aluminum-mag hydroxide-simethicone 30 ml PO Q6H PRN Heartburn 09/13/23 11/22/23 Unknown History 225 mg-200 mg-25 mg/5 mL oral susp atorvastatin 10 mg tablet 10 mg PO DAILY 09/13/23 11/22/23 Unknown History folic acid 1 mg tablet 1 mg PO DAILY 09/13/23 11/22/23 Unknown History omeprazole 20 mg tablet,delayed 20 mg PO DAILY@0630 09/13/23 11/22/23 Unknown History release white petrolatum-mineral oil 1 appl topical BEDTIME 09/13/23 11/22/23 Unknown History topical cream apixaban 5 mg tablet (Eliquis) 5 mg PO BID 10/15/23 11/22/23 Unknown History bisacodyl 10 mg rectal suppository 10 mg [place] DAILY PRN Constipation 10/15/23 11/22/23 Unknown History magnesium hydroxide 400 mg/5 mL 30 ml PO DAILY PRN Constipation 10/15/23 11/22/23 Unknown History oral suspension (Milk of Magnesia) sodium phosphates 19 gram-7 118 ml [place] DAILY PRN Constipation 10/15/23 11/22/23 Unknown History gram/118 mL enema (Fleet Enema) zinc oxide 10 % topical ointment 1 appl topical BID 10/15/23 11/22/23 Unknown History zinc oxide 10 % topical ointment 1 appl topical DAILY PRN MASD 10/15/23 11/22/23 Unknown History Physical Exam Vital Signs: Vital Signs: Last Vital Signs Temp 98 F 11/30/23 07:55 Pulse 90 11/30/23 07:55 Resp 16 11/30/23 07:55 BP 117/56 L 11/30/23 07:55 Pulse Ox 90 L 11/30/23 07:55 O2 Del Method Nasal Cannula 11/30/23 07:55 O2 Flow Rate 2 11/30/23 07:55 BMI result Body Mass Index 43.3 GENERAL APPEARANCE: Morbidly obese. SKIN: no suspicious lesions, warm and dry. HEART: no murmurs, irregular rate and rhythm. LUNGS: clear to auscultation anteriorly. ABDOMEN: soft, nontender. EXTREMITIES: no edema. PERIPHERAL PULSES: equal. NEUROLOGIC: Sleepy but arousable. Confused. Objective Labs and Meds 11/30/23 08:44 11/30/23 08:44 Lab results: Laboratory Results - last 24 hr 11/30/23 08:44 WBC 8.0 RBC 3.17 L Hgb 9.6 L Hct 29.9 L MCV 94.3 MCH 30.3 MCHC 32.1 RDW 20.4 H Plt Count 182 MPV 11.8 Absolute Nucleated RBC 0.020 H Nucleated RBC % (auto) 0.3 H Sodium 146 H Potassium 3.6 Chloride 111 H Carbon Dioxide 30 H Anion Gap 9 L BUN 25 H Creatinine 0.95 Estim Creat Clear Calc 95.4 Estimated GFR > 60 Random Glucose 71 Calcium 8.5 D Magnesium 1.9 Assessment and Plan (1) Encephalopathy: Status: Acute (2) Bradycardia: Status: Resolved Plan 78-year-old gentleman presenting for encephalopathy, hypothermia and tachycardia. Bradycardia due to hypothermia. Workup for sepsis. ID is on the case already. Agree with workup for adrenal insufficiency. Heart rate is improved as before after improvement in core body temperature. Procedures Date of Service Date of Service: 11/30/23
[2023-11-30 12:31] LABS: Adenovirus PCR Not Detected (Not Detect.); Bordetella parapertussis PCR Not Detected (Not Detect.); Bordetella pertussis PCR Not Detected (Not Detect.); Chlamydia pneumoniae PCR Not Detected (Not Detect.); Coronavirus 229E PCR Not Detected (Not Detect.); Coronavirus HKU1 PCR Not Detected (Not Detect.); Coronavirus NL63 PCR Not Detected (Not Detect.); Coronavirus OC43 PCR Not Detected (Not Detect.); Human metapneumovirus PCR Not Detected (Not Detect.); Influenza A PCR Not Detected (Not Detect.); Influenza B PCR Not Detected (Not Detect.); Mycoplasma pneumoniae PCR Not Detected (Not Detect.); Parainfluenza 1 PCR Not Detected (Not Detect.); Parainfluenza 2 PCR Not Detected (Not Detect.); Parainfluenza 3 PCR Not Detected (Not Detect.); Parainfluenza 4 PCR Not Detected (Not Detect.); RSV PCR Not Detected (Not Detect.); Rhino/Enterovirus PCR Not Detected (Not Detect.)
[2023-11-30 12:45] LABS: SARS-CoV-2 PCR Not Detected (Not Detect.)
--- NOTE | 2023-11-30 13:02 | P.PNIM_ITS ---
Subjective Subjective Date of Service: 11/30/23 Interval History: HR improved but overnight hypothermic as low as 89.9 per HCP, yesterday evening he was alert and oriented and talkative currently minimally verbal Review of Systems Review of Systems: Yes Unobtainable due to mental status Physical Exam 2 Vital Signs: Vital Signs: Last Vital Signs Temp 97.7 F 11/30/23 11:36 Pulse 107 H 11/30/23 11:36 Resp 20 11/30/23 11:36 BP 130/56 L 11/30/23 11:36 Pulse Ox 90 L 11/30/23 07:55 O2 Del Method Nasal Cannula 11/30/23 11:36 O2 Flow Rate 2 11/30/23 11:36 BMI result Body Mass Index 43.3 Gen: somnolent HEENT: sclera anicteric, moist mucus membranes Neck: supple Lungs: clear to auscultation bilaterally Heart: regular rate and rhythm, no murmurs Abd: soft, non-tender, non-distended, obese Ext: 2+ BLE edema with crusting/erythema Skin: erythema of arms and maculopapular eruption on trunk improved Neuro: somonolent but arousable, garbled speech- oriented only to self Psych: impaired insight Objective Data Active Medications Acetaminophen (Acetaminophen 325 Mg Tablet) 650 mg PO Q6H PRN PRN Reason: Pain, Mild (Pain Scale 1-3) Last Admin: 11/24/23 12:36 Dose: 650 mg Documented By: APT Acetaminophen/Butalbital/Caffeine (Butalb/Acetamin/Caff 50/325/40 Tablet) 1 tab PO Q4H PRN PRN Reason: Headache Last Admin: 11/24/23 17:09 Dose: 1 tab Documented By: DAVID Al Hydroxide/Mg Hydroxide (Magnesium Hydrox/Alum Hydrox 30 Ml Oral.Susp) 30 ml PO Q6H PRN PRN Reason: Heartburn Apixaban (Apixaban 5 Mg Tablet) 5 mg PO BID [facility] Last Admin: 11/30/23 09:35 Dose: 5 mg Documented By: PAT Aspirin (Aspirin 81 Mg Tab.Chew) 81 mg PO DAILY [facility] Last Admin: 11/30/23 09:40 Dose: 81 mg Documented By: PAT Atorvastatin Calcium (Atorvastatin Calcium 10 Mg Tablet) 10 mg PO DAILY [facility] Last Admin: 11/30/23 09:40 Dose: 10 mg Documented By: PAT Bisacodyl (Bisacodyl 10 Mg Supp.Rect) 10 mg IN DAILY PRN PRN Reason: Constipation Cosyntropin (Cosyntropin 0.25 Mg Vial) 0.25 mg IVPUSH ONCE ONE Stop: 12/01/23 08:01 Docusate Sodium (Docusate Sodium 100 Mg Capsule) 100 mg PO BID [facility] Last Admin: 11/30/23 09:40 Dose: 100 mg Documented By: PAT Folic Acid (Folic Acid 1 Mg Tablet) 1 mg PO DAILY [facility] Last Admin: 11/30/23 09:40 Dose: 1 mg Documented By: PAT Furosemide (Furosemide 40 Mg Tablet) 40 mg PO DAILY [facility]; Protocol Last Admin: 11/30/23 09:40 Dose: 40 mg Documented By: PAT Guaifenesin (Guaifenesin 100 Mg/5 Ml Liquid) 10 ml PO Q4H PRN PRN Reason: Cough Dextrose (D5w) 1,000 mls @ 80 mls/hr IVCONT .[id number] [facility] Last Admin: 11/30/23 10:32 Dose: Not Given Documented By: PAT Non-Admin Reason: IV Running Thiamine HCl 500 mg/ Sodium (Chloride) 105 mls @ 210 mls/hr IV Q8H [facility] Stop: 12/01/23 02:29 Last Infusion: 11/30/23 10:32 Dose: Infused Documented By: PAT Thiamine HCl 250 mg/ Sodium (Chloride) 102.5 mls @ 202 mls/hr IV DAILY [facility] Lactic Acid (Ammonium Lactate 12 % Cream 140 Gm Tube) 1 appl TOPICAL TID [facility]; Protocol Last Admin: 11/30/23 09:36 Dose: 1 appl Documented By: PAT Lactulose (Lactulose 20 Gm/30 Ml Solution) 20 gm PO DAILY PRN PRN Reason: Constipation Magnesium Hydroxide (Milk Of Magnesia 30 Ml Oral.Susp) 30 ml PO DAILY PRN PRN Reason: Constipation Melatonin (Melatonin 3 Mg Tablet) 6 mg PO BEDTIME PRN PRN Reason: Insomnia Last Admin: 11/26/23 21:12 Dose: 6 mg Documented By: HO.LAFLAMC Multi-Ingred Cream/Lotion/Oil/Oint (Mineral Oil/Petrolatum,White 106 Gm Tube) 1 appl TOPICAL BEDTIME [facility]; Protocol Last Admin: 11/29/23 20:16 Dose: 1 appl Documented By: NAZARIO Omeprazole (Omeprazole 20 Mg Capsule.) 20 mg PO DAILY@0630 [facility] Last Admin: 11/30/23 06:35 Dose: Not Given Documented By: KARLI Non-Admin Reason: pt to lethargic Ondansetron HCl (Ondansetron Hcl 4 Mg/2 Ml Vial) 4 mg IVPUSH Q8H PRN PRN Reason: Nausea and Vomiting Sodium Biphosphate/Sodium Phosphate (Sodium Phosphate,[place]-Dibasic 133 Ml Enema) 118 ml IN DAILY PRN PRN Reason: Constipation Sodium Chloride (0.9 % Sodium Chloride Flush 3 Ml Syringe) 3 ml IVFLUSH QSHIFT [facility] Last Admin: 11/30/23 08:40 Dose: 3 ml Documented By: PAT Zinc Oxide (Zinc Oxide (Triple Paste) 56.7 Gm Oint) 1 appl TOPICAL BID [facility] Last Admin: 11/30/23 09:36 Dose: 1 appl Documented By: PAT Labs 11/30/23 08:44 11/30/23 08:44 Labs: Laboratory Results - last 24 hr 11/30/23 11/30/23 08:44 10:26 MCV 94.3 MCH 30.3 MCHC 32.1 RDW 20.4 H Plt Count 182 MPV 11.8 Absolute Nucleated RBC 0.020 H Nucleated RBC % (auto) 0.3 H Anion Gap 9 L Estim Creat Clear Calc 95.4 Estimated GFR > 60 Random Glucose 71 Calcium 8.5 D Magnesium 1.9 Respiratory Panel [place] See Note Adenovirus (Rapid PCR) Not Detected B.pert (TEM-PCR) Not Detected B.parapertussis DNA PCR Not Detected C. pneumoniae DNA (PCR) Not Detected Coronavirus OC43 (PCR) Not Detected Coronavirus HKU1 (PCR) Not Detected Coronavirus 229E (PCR) Not Detected Coronavirus NL63 (PCR) Not Detected Human Metapneumovir PCR Not Detected Influenza A (RT-PCR) Not Detected Influenza B (RT-PCR) Not Detected M. pneumoniae (PCR) Not Detected Parainfluenza 1 (PCR) Not Detected Parainfluenza 2 (PCR) Not Detected Parainfluenza 3 (PCR) Not Detected Parainfluenza 4 (PCR) Not Detected RSV (PCR) Not Detected Entero/Rhino (PCR) Not Detected SARS-CoV-2 RNA (RT-PCR) Not Detected Assessment and Plan (1) Encephalopathy: Status: Acute (2) Acute hypernatremia: Status: Acute (3) Pneumonia: Status: Acute Plan d9 78yo M LTC resident of [facility] with HTN, HLD, chronic bilateral leg lymphedema, chronic AF on apixaban, RLE DVT in 2022, HFpEF, morbid obesity sent in with lethargy, AMS, weakness admitted for encephalopathy due to hypernatremia + pneumonia encephalopathy, multifactorial (metabolic, infection, medication/toxic) - replete free water. d/c'ed cefepime- neurotoxicity? Neurology consulted. No acute changes on CT - HCP invoked due to encephalopathy - Discussed code status with HCP Leilani and pt's nephew Jerson and per pt's recently expressed wishes, he remains FULL CODE bradycardia - not on any medications that can provoke this. atropine/pacer pads to bedside. consulted Cardiology, likely central process/autonomic instability acute hypernatremia - improved on D5W acute hypoxic resp failure due to pneumonia - got 5d of cefepime + 4d of vancomycin; PCT low; d/c'ed all antibiotics. Hypoxia resolved. ?drug rash - stopped vancomycin + cefepime. ID consulted, agrees with decision. PCT remains low. hypothermia, episodic - recurrent for pt; thyroid + cortisol workup within normal. suspect autonomic dysfunction. will pursue formal ACTH stimulation test [phlebotomy did not do 30 or 60 draws this AM, so will have to repeat study tomorrow] - Dread Piña as needed. Currently normothermic paroxysmal AF - continue apixaban HLD - continue statin chronic HFpEF - continue furosemide morbid obesity - diet/exercise counseling VTE ppx - apixaban dispo - eventual return to LTC once hypotnermia + encephalopathy resolve In my clinical judgment, the patient requires continued inpatient hospitalization for the following reasons: IV fluids, bradycardia, hypothermia, encephalopathy Total time managing care of this patient today: 50 minutes. Quality Stroke Does the patient have a stroke diagnosis?: No VTE Prior VTE?: Yes VTE Risk Level:: Medical - moderate - high VTE Device Contraindication: Treatment Not Indicated VTE Drug Contraindication: N/A - Med Ordered
[2023-11-30] MEDS: Mineral Oil/Petrolatum,White 106 GM Tube 1 APPL TOPICAL (23:28)
--- NOTE | 2023-12-01 | EEG_ITS ---
This is a 16 channel EEG with an EKG lead. The patient is reported confused and staring during the tracing. Background EEG rhythm is slow, mostly in theta to delta range, with intermittent right hemispheric sharply contoured theta range discharges. Some lead and muscle artifacts are noted. Photic stimulation and hyperventilation were not performed. Cardiac lead revealed bradycardia. IMPRESSION: Abnormal EEG suggestive of right hemispheric epileptic discharges. MD IRIS Umanzor/MARION / [id number]
[2023-12-01 03:06] VITALS: BP 143/44; PULSE 51; RESP 20; TEMP 36.1; O2SAT 98
[2023-12-01] MEDS: Thiamine HCL 500 MG in 0.9 % Sodium Chloride 100 ML 210 MG IV (03:09)
[2023-12-01 07:27] VITALS: BP 126/57; PULSE 52; RESP 20; O2SAT 98
[2023-12-01] MEDS: 0.9 % Sodium Chloride Flush 3 ML SYRINGE IVFLUSH ×3 (08:16→21:11)
[2023-12-01] MEDS: Lactated Ringers 1,000 ML 125 ML IVCONT ×3 (08:17→23:56)
[2023-12-01] MEDS: Cosyntropin 0.25 MG VIAL IVPUSH (08:43)
[2023-12-01] MEDS: Ammonium Lactate 12 % Cream 140 GM TUBE 1 APPL TOPICAL ×3 (08:48→21:14)
[2023-12-01 08:50] LABS: Hematocrit 29.8 % (42.0-52.0); Hemoglobin 9.7 g/dl (14.0-18.0); Mean Corpuscular HGB Conc 32.6 g/dl (31.0-36.0); Mean Corpuscular Volume 95.2 fL (80.0-98.0); Mean Platelet Volume 11.1 fL (9.4-12.4); Platelet Count 182 X10*3/uL (160-400); Red Blood Count 3.13 X10*6/uL (4.60-5.80); Red Cell Distribution Width 20.6 % (11.0-16.0); White Blood Count 5.5 X10*3/uL (4.8-10.8)
[2023-12-01 09:05] LABS: Anion Gap 10 (12-20); Blood Urea Nitrogen 24 mg/dL (9-16); Calcium 8.7 mg/dL (8.4-10.2); Carbon Dioxide 32 mmol/L (22-29); Chloride 109 mmol/L (96-108); Creatinine Clr Calc Pharmacy 89.7; Estimated Glomerular Filt Rate > 60; Glucose Random 79 mg/dL (60-115); Potassium 3.8 mmol/L (3.3-5.1); Sodium 147 mmol/L (135-145)
--- NOTE | 2023-12-01 10:19 | MHC.CM.PN ---
Per ROUNDS discussion, Patient continues with AMS and needs an EEG. Returning to LTC @ [facility] is the goal and CM will continue to follow.
[2023-12-01] MEDS: Furosemide 40 MG TABLET PO (10:40)
[2023-12-01] MEDS: Apixaban 5 MG TABLET PO ×2 (10:40→21:10)
--- NOTE | 2023-12-01 11:22 | HO.PM.IMPN ---
Subjective Subjective Date of Service: 12/01/23 Interval History: HR improved Tmin 94.6 overnight, currently 96.9 without Dread Hugger Awake but minimally verbal, not following commands Review of Systems Review of Systems: Yes Unobtainable due to mental status Physical Exam Vital Signs: Vital Signs: Last Vital Signs Temp 96.9 F 12/01/23 03:06 Pulse 52 12/01/23 07:27 Resp 20 12/01/23 07:27 BP 126/57 L 12/01/23 07:27 Pulse Ox 98 12/01/23 07:27 O2 Del Method Nasal Cannula 12/01/23 07:27 O2 Flow Rate 1 12/01/23 07:27 BMI result Body Mass Index 43.3 Gen: awake but minimally verbal HEENT: R eye prosthesis, sclera anicteric, moist mucus membranes Neck: supple Lungs: clear to auscultation bilaterally Heart: regular rate and rhythm, no murmurs Abd: soft, non-tender, non-distended, obese Ext: 2+ BLE edema with crusting/erythema Skin: erythema of arms and maculopapular eruption on trunk improved Neuro: minimally verbal, not following comands Psych: impaired insight Objective Data Active Medications Acetaminophen (Acetaminophen 325 Mg Tablet) 650 mg PO Q6H PRN PRN Reason: Pain, Mild (Pain Scale 1-3) Last Admin: 11/24/23 12:36 Dose: 650 mg Documented By: PAT Acetaminophen/Butalbital/Caffeine (Butalb/Acetamin/Caff 50/325/40 Tablet) 1 tab PO Q4H PRN PRN Reason: Headache Last Admin: 11/24/23 17:09 Dose: 1 tab Documented By: DAVID Al Hydroxide/Mg Hydroxide (Magnesium Hydrox/Alum Hydrox 30 Ml Oral.Susp) 30 ml PO Q6H PRN PRN Reason: Heartburn Apixaban (Apixaban 5 Mg Tablet) 5 mg PO BID [facility] Last Admin: 12/01/23 10:40 Dose: 5 mg Documented By: ALYSSIA Aspirin (Aspirin 81 Mg Tab.Chew) 81 mg PO DAILY [facility] Last Admin: 12/01/23 10:05 Dose: Not Given Documented By: ALYSSIA Non-Admin Reason: Patient Condition Contraindication Atorvastatin Calcium (Atorvastatin Calcium 10 Mg Tablet) 10 mg PO DAILY [facility] Last Admin: 12/01/23 10:05 Dose: Not Given Documented By: ALYSSIA Non-Admin Reason: Patient Condition Contraindication Bisacodyl (Bisacodyl 10 Mg Supp.Rect) 10 mg DE DAILY PRN PRN Reason: Constipation Docusate Sodium (Docusate Sodium 100 Mg Capsule) 100 mg PO BID [facility] Last Admin: 12/01/23 10:05 Dose: Not Given Documented By: ALYSSIA Non-Admin Reason: Patient Condition Contraindication Folic Acid (Folic Acid 1 Mg Tablet) 1 mg PO DAILY [facility] Last Admin: 12/01/23 10:05 Dose: Not Given Documented By: ALYSSIA Non-Admin Reason: Patient Condition Contraindication Furosemide (Furosemide 40 Mg Tablet) 40 mg PO DAILY [facility]; Protocol Last Admin: 12/01/23 10:40 Dose: 40 mg Documented By: ALYSSIA Guaifenesin (Guaifenesin 100 Mg/5 Ml Liquid) 10 ml PO Q4H PRN PRN Reason: Cough Thiamine HCl 250 mg/ Sodium (Chloride) 102.5 mls @ 202 mls/hr IV DAILY [facility] Lactated Ringer's (Lr) 1,000 mls @ 125 mls/hr IVCONT .Q8H [facility] Last Admin: 12/01/23 08:17 Dose: 125 mls/hr Documented By: ALYSSIA Lactic Acid (Ammonium Lactate 12 % Cream 140 Gm Tube) 1 appl TOPICAL TID [facility]; Protocol Last Admin: 12/01/23 08:48 Dose: 1 appl Documented By: ALYSSIA Lactulose (Lactulose 20 Gm/30 Ml Solution) 20 gm PO DAILY PRN PRN Reason: Constipation Magnesium Hydroxide (Milk Of Magnesia 30 Ml Oral.Susp) 30 ml PO DAILY PRN PRN Reason: Constipation Melatonin (Melatonin 3 Mg Tablet) 6 mg PO BEDTIME PRN PRN Reason: Insomnia Last Admin: 11/26/23 21:12 Dose: 6 mg Documented By: CHELY Multi-Ingred Cream/Lotion/Oil/Oint (Mineral Oil/Petrolatum,White 106 Gm Tube) 1 appl TOPICAL BEDTIME [facility]; Protocol Last Admin: 11/30/23 23:28 Dose: 1 appl Documented By: MARIA D Omeprazole (Omeprazole 20 Mg Capsule.) 20 mg PO DAILY@0630 [facility] Last Admin: 12/01/23 06:49 Dose: Not Given Documented By: MARIA D Non-Admin Reason: Patient Asleep Ondansetron HCl (Ondansetron Hcl 4 Mg/2 Ml Vial) 4 mg IVPUSH Q8H PRN PRN Reason: Nausea and Vomiting Sodium Biphosphate/Sodium Phosphate (Sodium Phosphate,[place]-Dibasic 133 Ml Enema) 118 ml DE DAILY PRN PRN Reason: Constipation Sodium Chloride (0.9 % Sodium Chloride Flush 3 Ml Syringe) 3 ml IVFLUSH QSHIFT [facility] Last Admin: 12/01/23 08:16 Dose: 3 ml Documented By: ALYSSIA Zinc Oxide (Zinc Oxide (Triple Paste) 56.7 Gm Oint) 1 appl TOPICAL BID [facility] Last Admin: 12/01/23 10:06 Dose: Not Given Documented By: ALYSSIA Non-Admin Reason: Previously Administered Labs 12/01/23 08:37 12/01/23 08:37 Labs: Laboratory Results - last 24 hr 11/30/23 11/30/23 12/01/23 08:44 10:26 08:37 MCV 95.2 MCH 31.0 MCHC 32.6 RDW 20.6 H Plt Count 182 MPV 11.1 Absolute Nucleated RBC 0.000 Nucleated RBC % (auto) 0.0 Anion Gap 10 L Estim Creat Clear Calc 89.7 Estimated GFR > 60 Random Glucose 79 Calcium 8.7 Cortisol Baseline Cancelled Cortisol 30 Minute Cancelled Cortisol 60 Minute Cancelled ACTH Resp to Cosyntrop Cancelled Cortisol [place] Time 1 Cancelled Cortisol [place] Time 2 Cancelled Cortisol [place] Time 3 Cancelled ACTH Comment Cancelled Respiratory Panel [place] See Note Adenovirus (Rapid PCR) Not Detected B.pert (TEM-PCR) Not Detected B.parapertussis DNA PCR Not Detected C. pneumoniae DNA (PCR) Not Detected Coronavirus OC43 (PCR) Not Detected Coronavirus HKU1 (PCR) Not Detected Coronavirus 229E (PCR) Not Detected Coronavirus NL63 (PCR) Not Detected Human Metapneumovir PCR Not Detected Influenza A (RT-PCR) Not Detected Influenza B (RT-PCR) Not Detected M. pneumoniae (PCR) Not Detected Parainfluenza 1 (PCR) Not Detected Parainfluenza 2 (PCR) Not Detected Parainfluenza 3 (PCR) Not Detected Parainfluenza 4 (PCR) Not Detected RSV (PCR) Not Detected Entero/Rhino (PCR) Not Detected SARS-CoV-2 RNA (RT-PCR) Not Detected Microbiology Microbiology Results: Microbiology 11/30/23 08:44 Blood Culture - Preliminary Blood - Venous No growth after 24 hours. 11/30/23 08:52 Blood Culture - Preliminary Blood - Venous No growth after 24 hours. Assessment and Plan (1) Encephalopathy: Status: Acute (2) Acute hypernatremia: Status: Acute (3) Pneumonia: Status: Acute Plan d10 78yo M LTC resident of [facility] with HTN, HLD, chronic bilateral leg lymphedema, chronic AF on apixaban, RLE DVT in 2022, HFpEF, morbid obesity sent in with lethargy, AMS, weakness admitted for encephalopathy due to hypernatremia + pneumonia encephalopathy, multifactorial (metabolic, infection, medication/toxic) - repleted free water - d/c'ed cefepime- concern for neurotoxicity? Neurology consulted. No acute changes on CT. Will order EEG. - HCP invoked due to encephalopathy - Discussed code status with PEDRO [facility] and pt's nephew Jerson 11/28 and per pt's recently expressed wishes, he remains FULL CODE bradycardia - not on any medications that can provoke this. atropine/pacer pads to bedside. consulted Cardiology, likely central process/autonomic instability. Improved. acute hypernatremia - improved on D5W, switched to LR acute hypoxic resp failure due to pneumonia - got 5d of cefepime + 4d of vancomycin; PCT low; d/c'ed all antibiotics. Hypoxia largely resolved. ?drug rash - stopped vancomycin + cefepime. ID consulted, agrees with decision. PCT remains low. hypothermia, episodic - recurrent for pt; thyroid + cortisol workup within normal. suspect autonomic dysfunction. will pursue formal ACTH stimulation test [phlebotomy did not do 30 or 60 draws yesterday, so repeating study today] paroxysmal AF - continue apixaban HLD - continue statin chronic HFpEF - continue furosemide morbid obesity - diet/exercise counseling VTE ppx - apixaban dispo - eventual return to LTC once hypothermia + encephalopathy resolve In my clinical judgment, the patient requires continued inpatient hospitalization for the following reasons: IV fluids, bradycardia, hypothermia, encephalopathy Pt's HCP Leilani Medellin updated at bedside Total time managing care of this patient today: 50 minutes. Quality Stroke Does the patient have a stroke diagnosis?: No VTE Prior VTE?: Yes VTE Risk Level:: Medical - moderate - high VTE Device Contraindication: Treatment Not Indicated VTE Drug Contraindication: N/A - Med Ordered
--- NOTE | 2023-12-01 11:55 | PM.PNCARD ---
Subjective Subjective Date of Service: 12/01/23 Interval history: Seen examined at bedside. Awake today but not following commands. Getting an EEG today. Physical Exam Vital Signs: Last Vital Signs Temp 96.9 F 12/01/23 03:06 Pulse 52 12/01/23 07:27 Resp 20 12/01/23 07:27 BP 126/57 L 12/01/23 07:27 Pulse Ox 98 12/01/23 07:27 O2 Del Method Nasal Cannula 12/01/23 07:27 O2 Flow Rate 1 12/01/23 07:27 BMI result Body Mass Index 43.3 GENERAL APPEARANCE: Morbidly obese. SKIN: no suspicious lesions, warm and dry. HEART: no murmurs, irregular rate and rhythm. LUNGS: clear to auscultation anteriorly. ABDOMEN: soft, nontender. EXTREMITIES: no edema. PERIPHERAL PULSES: equal. NEUROLOGIC: Awake and confused. Objective Labs and Meds 12/01/23 08:37 12/01/23 08:37 Lab results: Laboratory Results - last 24 hr 11/30/23 11/30/23 12/01/23 08:44 10:26 08:37 WBC 5.5 RBC 3.13 L Hgb 9.7 L Hct 29.8 L MCV 95.2 MCH 31.0 MCHC 32.6 RDW 20.6 H Plt Count 182 MPV 11.1 Absolute Nucleated RBC 0.000 Nucleated RBC % (auto) 0.0 Sodium 147 H Potassium 3.8 Chloride 109 H Carbon Dioxide 32 H Anion Gap 10 L BUN 24 H Creatinine 1.01 Estim Creat Clear Calc 89.7 Estimated GFR > 60 Random Glucose 79 Calcium 8.7 Cortisol Baseline Cancelled Cortisol 30 Minute Cancelled Cortisol 60 Minute Cancelled ACTH Resp to Cosyntrop Cancelled Cortisol [place] Time 1 Cancelled Cortisol [place] Time 2 Cancelled Cortisol [place] Time 3 Cancelled ACTH Comment Cancelled Respiratory Panel [place] See Note Adenovirus (Rapid PCR) Not Detected B.pert (TEM-PCR) Not Detected B.parapertussis DNA PCR Not Detected C. pneumoniae DNA (PCR) Not Detected Coronavirus OC43 (PCR) Not Detected Coronavirus HKU1 (PCR) Not Detected Coronavirus 229E (PCR) Not Detected Coronavirus NL63 (PCR) Not Detected Human Metapneumovir PCR Not Detected Influenza A (RT-PCR) Not Detected Influenza B (RT-PCR) Not Detected M. pneumoniae (PCR) Not Detected Parainfluenza 1 (PCR) Not Detected Parainfluenza 2 (PCR) Not Detected Parainfluenza 3 (PCR) Not Detected Parainfluenza 4 (PCR) Not Detected RSV (PCR) Not Detected Entero/Rhino (PCR) Not Detected SARS-CoV-2 RNA (RT-PCR) Not Detected Progress Note: A&P Assessment and plan (1) Encephalopathy: Status: Acute (2) Bradycardia: Status: Resolved Plan 78-year-old gentleman with atrial fibrillation presenting for encephalopathy. He had hypothermia and bradycardia. Heart rate has been stable since his body temperature has been stable. Getting further workup for encephalopathy. No cardiovascular workup required currently. Thank you for allowing me to participate in the care of your patient. Please feel free to contact me if you have any questions. Time Spent With Patient Time: Total time managing care of this patient today ____ minutes. Progress Note: Quality Stroke Does the patient have a stroke diagnosis?: No Procedures Date of Service Date of Service: 12/01/23
[2023-12-01 12:00] VITALS: BP 133/49; PULSE 87; RESP 20; TEMP 34.4; O2SAT 93
[2023-12-01 15:37] VITALS: BP 127/58; PULSE 45; RESP 20; O2SAT 98
[2023-12-01 20:00] VITALS: BP 131/60; PULSE 53; RESP 19; TEMP 36.8; O2SAT 99
[2023-12-01] MEDS: Docusate Sodium 100 MG CAPSULE PO (21:10)
[2023-12-01] MEDS: Zinc Oxide (Triple Paste) 56.7 GM OINT 1 APPL TOPICAL (21:14)
[2023-12-01] MEDS: Mineral Oil/Petrolatum,White 106 GM Tube 1 APPL TOPICAL (21:14)
[2023-12-01 22:12] LABS: Glucose, Whole Blood 91 mg/dL (60-115)
--- NOTE | 2023-12-01 22:12 | PM.EVENT ---
Event Note Date of Service: 12/01/23 Event Note: Nurse informed that patient was on the floor and head was leaning against the wall. Likely patient had an unwitnessed fall, unclear if he hit his head. Will obtain CT head Time Spent With Patient Time: Total time managing care of this patient today ____ minutes.
[2023-12-01] MEDS: OLANZapine 10 MG VIAL 5 MG IM (22:23)
--- NOTE | 2023-12-01 22:30 | ECG_ITS ---
Test Reason : cp Blood Pressure : / mmHG Vent. Rate : 062 BPM Atrial Rate : 062 BPM P-R Int : 224 ms QRS Dur : 104 ms QT Int : 472 ms P-R-T Axes : 070 -05 032 degrees QTc Int : 479 ms Sinus rhythm with 1st degree A-V block with Premature atrial complexes Low voltage QRS Borderline ECG When compared with ECG of 29-NOV-2023 10:42, Premature atrial complexes are now Present Vent. rate has increased BY 22 BPM Referred By: Ramon Baires Electronically Signed By:Elia Atkins
[2023-12-02] VITALS: BP 128/59; PULSE 46; RESP 17; TEMP 36.2; O2SAT 92
[2023-12-02 04:00] VITALS: BP 108/44; PULSE 51; RESP 16; TEMP 35.3; O2SAT 95
--- NOTE | 2023-12-02 04:14 | PC.NURSE ---
Around 2200 pt in room camera was alerting. Nurse and [facility] went to room to find pt on floor with head against chair leg with head pointed towards window. Clinical supervisor assembly room came to room to help and Dr. Cortez made aware of fall and came to bedside to evaluate pt. Pt was placed in c collar and eventually positioned to be placed in mannie to be moved to stretcher to receive head CT. Pt also received EKG after heart rate increased as high [id number]. Image of EKG sent to overnight provider. Incident report completed. Pt already close to nursing station, reported as high fall risk, camera in room prior, and frequent check preformed. Call arcos within reach and plan of care continuing
[2023-12-02 05:54] LABS: Hematocrit 27.4 % (42.0-52.0); Hemoglobin 8.9 g/dl (14.0-18.0); Mean Corpuscular HGB Conc 32.5 g/dl (31.0-36.0); Mean Corpuscular Hemoglobin 30.6 pg (27.0-33.0); Mean Corpuscular Volume 94.2 fL (80.0-98.0); Mean Platelet Volume 11.2 fL (9.4-12.4); Platelet Count 175 X10*3/uL (160-400); Red Blood Count 2.91 X10*6/uL (4.60-5.80); Red Cell Distribution Width 19.9 % (11.0-16.0); White Blood Count 4.8 X10*3/uL (4.8-10.8)
[2023-12-02 06:09] LABS: Anion Gap 10 (12-20); Blood Urea Nitrogen 22 mg/dL (9-16); Calcium 8.6 mg/dL (8.4-10.2); Carbon Dioxide 29 mmol/L (22-29); Chloride 111 mmol/L (96-108); Creatinine Clr Calc Pharmacy 119.2; Estimated Glomerular Filt Rate > 60; Glucose Random 69 mg/dL (60-115); Potassium 3.5 mmol/L (3.3-5.1); Sodium 146 mmol/L (135-145)
[2023-12-02] MEDS: Lactated Ringers 1,000 ML 125 ML IVCONT (07:39)
[2023-12-02] MEDS: Thiamine HCL 250 MG in 0.9 % Sodium Chloride 100 ML 202 MG IV (07:42)
[2023-12-02 07:51] VITALS: BP 123/48; PULSE 61; RESP 16; TEMP 36.2; O2SAT 89
[2023-12-02] MEDS: 0.9 % Sodium Chloride Flush 3 ML SYRINGE IVFLUSH (07:51)
[2023-12-02] MEDS: Zinc Oxide (Triple Paste) 56.7 GM OINT 1 APPL TOPICAL ×2 (08:00→19:23)
[2023-12-02] MEDS: Folic Acid 1 MG TABLET PO (08:00)
[2023-12-02] MEDS: Furosemide 40 MG TABLET PO (08:00)
[2023-12-02] MEDS: Docusate Sodium 100 MG CAPSULE PO ×2 (08:00→19:22)
[2023-12-02] MEDS: Atorvastatin Calcium 10 MG TABLET PO (08:00)
[2023-12-02] MEDS: Apixaban 5 MG TABLET PO ×2 (08:00→19:22)
[2023-12-02] MEDS: Ammonium Lactate 12 % Cream 140 GM TUBE 1 APPL TOPICAL ×3 (08:00→19:23)
[2023-12-02] MEDS: Aspirin 81 MG TAB.CHEW PO (08:00)
[2023-12-02 11:53] VITALS: BP 104/45; PULSE 64; RESP 16; TEMP 36.4; O2SAT 92
--- NOTE | 2023-12-02 13:04 | P.PNIM_ITS ---
Subjective Subjective Date of Service: 12/02/23 Interval History: No acute issues overnight. Speech remains difficult to interpret. Rash improving Review of Systems Denies chest pain Denies shortness of breath Denies nausea vomiting diarrhea Denies fever chills Physical Exam 2 Vital Signs: Vital Signs: Last Vital Signs Temp 97.6 F 12/02/23 11:53 Pulse 64 12/02/23 11:53 Resp 16 12/02/23 11:53 BP 104/45 L 12/02/23 11:53 Pulse Ox 92 12/02/23 11:53 O2 Del Method Room Air 12/02/23 11:53 O2 Flow Rate 1 12/01/23 20:00 BMI result Body Mass Index 43.3 Const: Other: Awake alert no acute distress Resp: Other: Diminished but clear throughout Cardio: Other: No S4; positive S1-S2; no S3 murmurs rubs or gallops GI: Other: Soft nontender nondistended normoactive bowel sounds Extrem: Other: No edema bilaterally Objective Data Active Medications Acetaminophen (Acetaminophen 325 Mg Tablet) 650 mg PO Q6H PRN PRN Reason: Pain, Mild (Pain Scale 1-3) Last Admin: 11/24/23 12:36 Dose: 650 mg Documented By: PAT Acetaminophen/Butalbital/Caffeine (Butalb/Acetamin/Caff 50/325/40 Tablet) 1 tab PO Q4H PRN PRN Reason: Headache Last Admin: 11/24/23 17:09 Dose: 1 tab Documented By: DAVID Al Hydroxide/Mg Hydroxide (Magnesium Hydrox/Alum Hydrox 30 Ml Oral.Susp) 30 ml PO Q6H PRN PRN Reason: Heartburn Apixaban (Apixaban 5 Mg Tablet) 5 mg PO BID [facility] Last Admin: 12/02/23 08:00 Dose: 5 mg Documented By: RADHA Aspirin (Aspirin 81 Mg Tab.Chew) 81 mg PO DAILY [facility] Last Admin: 12/02/23 08:00 Dose: 81 mg Documented By: RADHA Atorvastatin Calcium (Atorvastatin Calcium 10 Mg Tablet) 10 mg PO DAILY [facility] Last Admin: 12/02/23 08:00 Dose: 10 mg Documented By: RADHA Bisacodyl (Bisacodyl 10 Mg Supp.Rect) 10 mg [place] DAILY PRN PRN Reason: Constipation Docusate Sodium (Docusate Sodium 100 Mg Capsule) 100 mg PO BID [facility] Last Admin: 12/02/23 08:00 Dose: 100 mg Documented By: RADHA Folic Acid (Folic Acid 1 Mg Tablet) 1 mg PO DAILY [facility] Last Admin: 12/02/23 08:00 Dose: 1 mg Documented By: RADHA Furosemide (Furosemide 40 Mg Tablet) 40 mg PO DAILY [facility]; Protocol Last Admin: 12/02/23 08:00 Dose: 40 mg Documented By: RADHA Guaifenesin (Guaifenesin 100 Mg/5 Ml Liquid) 10 ml PO Q4H PRN PRN Reason: Cough Thiamine HCl 250 mg/ Sodium (Chloride) 102.5 mls @ 202 mls/hr IV DAILY [facility] Last Infusion: 12/02/23 08:25 Dose: Infused Documented By: RADHA Lactated Ringer's (Lr) 1,000 mls @ 125 mls/hr IVCONT .Q8H [facility] Last Admin: 12/02/23 07:39 Dose: 125 mls/hr Documented By: RADHA Lactic Acid (Ammonium Lactate 12 % Cream 140 Gm Tube) 1 appl TOPICAL TID [facility]ESS[facility]; Protocol Last Admin: 12/02/23 08:00 Dose: 1 appl Documented By: RADHA Lactulose (Lactulose 20 Gm/30 Ml Solution) 20 gm PO DAILY PRN PRN Reason: Constipation Magnesium Hydroxide (Milk Of Magnesia 30 Ml Oral.Susp) 30 ml PO DAILY PRN PRN Reason: Constipation Melatonin (Melatonin 3 Mg Tablet) 6 mg PO BEDTIME PRN PRN Reason: Insomnia Last Admin: 11/26/23 21:12 Dose: 6 mg Documented By: CHELY Multi-Ingred Cream/Lotion/Oil/Oint (Mineral Oil/Petrolatum,White 106 Gm Tube) 1 appl TOPICAL BEDTIME [facility]; Protocol Last Admin: 12/01/23 21:14 Dose: 1 appl Documented By: NATHANIEL Omeprazole (Omeprazole 20 Mg Capsule.) 20 mg PO DAILY@0630 [facility] Last Admin: 12/02/23 06:36 Dose: Not Given Documented By: NATHANIEL Non-Admin Reason: pt lethargic MD aware Ondansetron HCl (Ondansetron Hcl 4 Mg/2 Ml Vial) 4 mg IVPUSH Q8H PRN PRN Reason: Nausea and Vomiting Sodium Biphosphate/Sodium Phosphate (Sodium Phosphate,[place]-Dibasic 133 Ml Enema) 118 ml [place] DAILY PRN PRN Reason: Constipation Sodium Chloride (0.9 % Sodium Chloride Flush 3 Ml Syringe) 3 ml IVFLUSH QSHIFT [facility] Last Admin: 12/02/23 07:51 Dose: 3 ml Documented By: RADHA Zinc Oxide (Zinc Oxide (Triple Paste) 56.7 Gm Oint) 1 appl TOPICAL BID [facility] Last Admin: 12/02/23 08:00 Dose: 1 appl Documented By: RADHA Labs 12/02/23 05:22 12/02/23 05:22 Labs: Laboratory Results - last 24 hr 12/01/23 12/02/23 22:09 05:22 MCV 94.2 MCH 30.6 MCHC 32.5 RDW 19.9 H Plt Count 175 MPV 11.2 Absolute Nucleated RBC 0.000 Nucleated RBC % (auto) 0.0 Anion Gap 10 L Estim Creat Clear Calc 119.2 Estimated GFR > 60 POC Glucose 91 Random Glucose 69 Calcium 8.6 Microbiology Microbiology Results: Microbiology 11/30/23 08:44 Blood Culture - Preliminary Blood - Venous No growth after 48 hours. 11/30/23 08:52 Blood Culture - Preliminary Blood - Venous No growth after 48 hours. Assessment and Plan (1) Encephalopathy: Status: Acute (2) Acute hypernatremia: Status: Acute Plan 78yo M LTC resident of [facility] with HTN, HLD, chronic bilateral leg lymphedema, chronic AF on apixaban, RLE DVT in 2022, HFpEF, morbid obesity sent in with lethargy, AMS, weakness admitted for encephalopathy due to hypernatremia + pneumonia. 1.Encephalopathy, multifactorial (metabolic, infection, medication/toxic) - sodium at 01:45; calculated free water deficit 2.5 L -will correct with D5W -follow renals/divalents 2.Bradycardia -asymptomatic -follow clinically 3.Acute hypoxic resp failure due to pneumonia... Resolved -5d of cefepime/4d of vancomycin; 4.Drug rash -asymptomatic/improving - stopped vancomycin + cefepime. 5.Paroxysmal AF -acceptable rate control - continue apixaban 6.Chronic HFpEF -stable and well compensated -continue current therapies Full code Eliquis Requires ongoing hospitalization for IV D5W to correct recurrent free water deficit causing recurrent metabolic encephalopathy. Given recurrence; high outpatient risk at this time without free water repletion Quality Stroke Does the patient have a stroke diagnosis?: No VTE Prior VTE?: Yes VTE Risk Level:: Medical - moderate - high VTE Device Contraindication: Treatment Not Indicated VTE Drug Contraindication: N/A - Med Ordered
[2023-12-02] MEDS: Dextrose 5 % 1,000 ML 125 ML IVCONT ×2 (13:59→20:37)
[2023-12-02 15:47] VITALS: BP 129/59; PULSE 59; RESP 16; TEMP 36.5; O2SAT 88
[2023-12-02 18:56] VITALS: BP 169/68; PULSE 55; RESP 20; TEMP 36.7; O2SAT 91
[2023-12-02] MEDS: Mineral Oil/Petrolatum,White 106 GM Tube 1 APPL TOPICAL (19:24)
[2023-12-03] VITALS (9 sets, daily range): BP systolic 107–160; BP diastolic 53–68; PULSE 37–86; RESP 16–20; TEMP 32.3–36.6; O2SAT 94–97
[2023-12-03] MEDS: Dextrose 5 % 1,000 ML 125 ML IVCONT ×2 (04:30→13:29)
[2023-12-03 07:54] LABS: Alanine Aminotransferase 11 U/L (0-40); Albumin Level 2.5 g/dL (3.5-5.0); Alkaline Phosphatase 109 U/L (39-117); Anion Gap 8 (12-20); Aspartate Amino Transferase 21 U/L (5-37); Bilirubin Total 0.3 mg/dL (0.0-1.0); Blood Urea Nitrogen 17 mg/dL (9-16); Calcium 8.6 mg/dL (8.4-10.2); Carbon Dioxide 32 mmol/L (22-29); Chloride 107 mmol/L (96-108); Creatinine Clr Calc Pharmacy 129.5; Estimated Glomerular Filt Rate > 60; Glucose Fasting 99 mg/dL (60-99); Potassium 3.3 mmol/L (3.3-5.1); Sodium 144 mmol/L (135-145); Total Protein 5.1 g/dL (6.5-8.0)
[2023-12-03] MEDS: Thiamine HCL 250 MG in 0.9 % Sodium Chloride 100 ML 202 MG IV (10:35)
[2023-12-03] MEDS: Aspirin 81 MG TAB.CHEW PO (10:36)
[2023-12-03] MEDS: Atorvastatin Calcium 10 MG TABLET PO (10:36)
[2023-12-03] MEDS: Folic Acid 1 MG TABLET PO (10:36)
[2023-12-03] MEDS: Furosemide 40 MG TABLET PO (10:37)
[2023-12-03] MEDS: Apixaban 5 MG TABLET PO ×2 (10:37→22:26)
[2023-12-03] MEDS: 0.9 % Sodium Chloride Flush 3 ML SYRINGE IVFLUSH ×2 (10:43→15:39)
--- NOTE | 2023-12-03 11:59 | HO.PM.IMPN ---
Subjective Subjective Date of Service: 12/03/23 Interval History: No acute issues overall. EEG results back suggestive of right hemispheric epileptic discharge. No obvious seizures noted Review of Systems Denies chest pain Denies shortness of breath Denies nausea vomiting diarrhea Denies fever chills Physical Exam Vital Signs: Vital Signs: Last Vital Signs Temp 97.9 F 12/03/23 11:28 Pulse 38 L 12/03/23 11:28 Resp 16 12/03/23 11:28 BP 133/61 12/03/23 11:28 Pulse Ox 95 12/03/23 11:28 O2 Del Method Room Air 12/03/23 11:28 O2 Flow Rate 1 12/01/23 20:00 BMI result Body Mass Index 43.3 Const: Other: Awake alert no acute distress Resp: Other: Diminished but clear throughout Cardio: Other: No S4; positive S1-S2; no S3 murmurs rubs or gallops GI: Other: Soft nontender nondistended normoactive bowel sounds Extrem: Other: No edema bilaterally Objective Data Active Medications Acetaminophen (Acetaminophen 325 Mg Tablet) 650 mg PO Q6H PRN PRN Reason: Pain, Mild (Pain Scale 1-3) Last Admin: 11/24/23 12:36 Dose: 650 mg Documented By: PAT Acetaminophen/Butalbital/Caffeine (Butalb/Acetamin/Caff 50/325/40 Tablet) 1 tab PO Q4H PRN PRN Reason: Headache Last Admin: 11/24/23 17:09 Dose: 1 tab Documented By: DAVID Al Hydroxide/Mg Hydroxide (Magnesium Hydrox/Alum Hydrox 30 Ml Oral.Susp) 30 ml PO Q6H PRN PRN Reason: Heartburn Apixaban (Apixaban 5 Mg Tablet) 5 mg PO BID [facility] Last Admin: 12/03/23 10:37 Dose: 5 mg Documented By: URSZULA Aspirin (Aspirin 81 Mg Tab.Chew) 81 mg PO DAILY [facility] Last Admin: 12/03/23 10:36 Dose: 81 mg Documented By: URSZULA Atorvastatin Calcium (Atorvastatin Calcium 10 Mg Tablet) 10 mg PO DAILY [facility] Last Admin: 12/03/23 10:36 Dose: 10 mg Documented By: URSZULA Bisacodyl (Bisacodyl 10 Mg Supp.Rect) 10 mg [place] DAILY PRN PRN Reason: Constipation Docusate Sodium (Docusate Sodium 100 Mg Capsule) 100 mg PO BID [facility] Last Admin: 12/03/23 10:54 Dose: Not Given Documented By: URSZULA Non-Admin Reason: med cannot be crushed Folic Acid (Folic Acid 1 Mg Tablet) 1 mg PO DAILY [facility] Last Admin: 12/03/23 10:36 Dose: 1 mg Documented By: URSZULA Furosemide (Furosemide 40 Mg Tablet) 40 mg PO DAILY [facility]; Protocol Last Admin: 12/03/23 10:37 Dose: 40 mg Documented By: URSZULA Guaifenesin (Guaifenesin 100 Mg/5 Ml Liquid) 10 ml PO Q4H PRN PRN Reason: Cough Thiamine HCl 250 mg/ Sodium (Chloride) 102.5 mls @ 202 mls/hr IV DAILY [facility] Last Admin: 12/03/23 10:35 Dose: 202 mls/hr Documented By: URSZULA Dextrose (D5w) 1,000 mls @ 125 mls/hr IVCONT .Q8H [facility] Last Infusion: 12/03/23 10:45 Dose: 125 mls/hr Documented By: URSZULA Lactic Acid (Ammonium Lactate 12 % Cream 140 Gm Tube) 1 appl TOPICAL TID [facility]ESSICA; Protocol Last Admin: 12/03/23 10:48 Dose: Not Given Documented By: URSZULA Non-Admin Reason: Med Not Available Lactulose (Lactulose 20 Gm/30 Ml Solution) 20 gm PO DAILY PRN PRN Reason: Constipation Magnesium Hydroxide (Milk Of Magnesia 30 Ml Oral.Susp) 30 ml PO DAILY PRN PRN Reason: Constipation Melatonin (Melatonin 3 Mg Tablet) 6 mg PO BEDTIME PRN PRN Reason: Insomnia Last Admin: 11/26/23 21:12 Dose: 6 mg Documented By: CHELY Multi-Ingred Cream/Lotion/Oil/Oint (Mineral Oil/Petrolatum,White 106 Gm Tube) 1 appl TOPICAL BEDTIME [facility]ESS[facility]; Protocol Last Admin: 12/02/23 19:24 Dose: 1 appl Documented By: JAMISON Omeprazole (Omeprazole 20 Mg Capsule.) 20 mg PO DAILY@0630 [facility] Last Admin: 12/03/23 06:10 Dose: Not Given Documented By: AMBAR Non-Admin Reason: Patient Refused Ondansetron HCl (Ondansetron Hcl 4 Mg/2 Ml Vial) 4 mg IVPUSH Q8H PRN PRN Reason: Nausea and Vomiting Sodium Biphosphate/Sodium Phosphate (Sodium Phosphate,[place]-Dibasic 133 Ml Enema) 118 ml [place] DAILY PRN PRN Reason: Constipation Sodium Chloride (0.9 % Sodium Chloride Flush 3 Ml Syringe) 3 ml IVFLUSH QSHIFT [facility] Last Admin: 12/03/23 10:43 Dose: 3 ml Documented By: URSZULA Zinc Oxide (Zinc Oxide (Triple Paste) 56.7 Gm Oint) 1 appl TOPICAL BID [facility] Last Admin: 12/03/23 10:48 Dose: Not Given Documented By: URSZULA Non-Admin Reason: Med Not Available Labs 12/02/23 05:22 12/03/23 06:22 Labs: Laboratory Results - last 24 hr 12/03/23 06:22 Hold Purple Top SEE NOTE Anion Gap 8 L Estim Creat Clear Calc 129.5 Estimated GFR > 60 Fasting Glucose 99 Calcium 8.6 Total Bilirubin 0.3 AST 21 ALT 11 Alkaline Phosphatase 109 Total Protein 5.1 L Albumin 2.5 L Microbiology Microbiology Results: Microbiology 11/30/23 08:44 Blood Culture - Preliminary Blood - Venous No growth after 48 hours. 11/30/23 08:52 Blood Culture - Preliminary Blood - Venous No growth after 48 hours. Assessment and Plan (1) Encephalopathy: Status: Acute (2) Pneumonia: Status: Acute Plan 78yo M LTC resident of [facility] with HTN, HLD, chronic bilateral leg lymphedema, chronic AF on apixaban, RLE DVT in 2022, HFpEF, morbid obesity sent in with lethargy, AMS, weakness admitted for encephalopathy due to hypernatremia + pneumonia. 1.Encephalopathy, multifactorial (metabolic, infection, medication/toxic) -sodium at 01:45; calculated free water deficit improving -will correct with D5W -abnormal EEG. Will discuss with neuro -follow renals/divalents 2.Bradycardia -asymptomatic -follow clinically 3.Acute hypoxic resp failure due to pneumonia... Resolved -5d of cefepime/4d of vancomycin; 4.Drug rash -asymptomatic/improving - stopped vancomycin + cefepime. 5.Paroxysmal AF -acceptable rate control - continue apixaban 6.Chronic HFpEF -stable and well compensated -continue current therapies Full code Eliquis Requires ongoing hospitalization for IV D5W to correct recurrent free water deficit causing recurrent metabolic encephalopathy. Given recurrence; high outpatient risk at this time without free water repletion Quality Stroke Does the patient have a stroke diagnosis?: No VTE Prior VTE?: Yes VTE Risk Level:: Medical - moderate - high VTE Device Contraindication: Treatment Not Indicated VTE Drug Contraindication: N/A - Med Ordered
[2023-12-03] MEDS: Ammonium Lactate 12 % Cream 140 GM TUBE 1 APPL TOPICAL ×2 (15:36→22:27)
--- NOTE | 2023-12-03 18:39 | PM.EVENT ---
Event Note Date of Service: 12/03/23 Event Note: Called by nurse patient noted to have rectal temp 90.2 degrees, heart rate 37 on tele monitor On examination patient awake alert feels fine and Dandy, denies feeling cold, denies lightheadedness Reviewed patient record seems patient has intermittent hypothermia and bradycardia Workup so far negative , CT head showed no acute intracranial finding is stable moderate ventriculomegaly, moderate chronic white matter microangiopathic changes , CT cervical spine showed diffuse cervical spondylosis ,normal free T 4, normal random cortisol, sodium improved 144, normal renal function, blood sugar 99, low albumin EEG showed right hemispheric epileptic discharges Assessment plan Recurrent hypothermia/bradycardia Placed on bear hugger/DC IV fluid/placed on ensure t.i.d. Not on beta-blockers Monitor electrolytes Follow-up with neurology regarding abnormal EEG Follow cortisone stimulation test Time Spent With Patient Time: Total time managing care of this patient today ____ minutes.
[2023-12-03] MEDS: Zinc Oxide (Triple Paste) 56.7 GM OINT 1 APPL TOPICAL (22:26)
[2023-12-03] MEDS: Docusate Sodium 100 MG CAPSULE PO (22:26)
[2023-12-03] MEDS: Mineral Oil/Petrolatum,White 106 GM Tube 1 APPL TOPICAL (22:27)
[2023-12-04] VITALS (12 sets, daily range): BP systolic 71–140; BP diastolic 44–83; PULSE 52–101; RESP 16–20; TEMP 32.1–36.2; O2SAT 91–100
[2023-12-04 07:16] LABS: Alanine Aminotransferase 11 U/L (0-40); Albumin Level 2.3 g/dL (3.5-5.0); Alkaline Phosphatase 99 U/L (39-117); Anion Gap 9 (12-20); Aspartate Amino Transferase 19 U/L (5-37); Bilirubin Total 0.4 mg/dL (0.0-1.0); Blood Urea Nitrogen 15 mg/dL (9-16); Calcium 8.2 mg/dL (8.4-10.2); Carbon Dioxide 32 mmol/L (22-29); Chloride 106 mmol/L (96-108); Creatinine Clr Calc Pharmacy 125.9; Estimated Glomerular Filt Rate > 60; Glucose Fasting 73 mg/dL (60-99); Potassium 3.4 mmol/L (3.3-5.1); Sodium 144 mmol/L (135-145); Total Protein 4.6 g/dL (6.5-8.0)
[2023-12-04] MEDS: Thiamine HCL 250 MG in 0.9 % Sodium Chloride 100 ML 202 MG IV (08:37)
[2023-12-04] MEDS: 0.9 % Sodium Chloride Flush 3 ML SYRINGE IVFLUSH ×3 (08:37→20:27)
[2023-12-04] MEDS: Aspirin 81 MG TAB.CHEW PO (08:41)
[2023-12-04] MEDS: Docusate Sodium 100 MG CAPSULE PO ×2 (08:41→20:27)
[2023-12-04] MEDS: Apixaban 5 MG TABLET PO ×2 (08:41→20:27)
[2023-12-04] MEDS: Furosemide 40 MG TABLET PO (08:41)
[2023-12-04] MEDS: Folic Acid 1 MG TABLET PO (08:41)
[2023-12-04] MEDS: Atorvastatin Calcium 10 MG TABLET PO (08:41)
[2023-12-04] MEDS: Ammonium Lactate 12 % Cream 140 GM TUBE 1 APPL TOPICAL ×3 (10:09→20:28)
[2023-12-04] MEDS: Zinc Oxide (Triple Paste) 56.7 GM OINT 1 APPL TOPICAL ×2 (10:10→20:28)
--- NOTE | 2023-12-04 12:15 | MHC.SLORD ---
Speech Language Pathology Order Status: CLAY TEMPERER attempted to evaluate patient's swallow this morning. Patient was swinging his arms and attempting to punch CLAY TEMPERER. Attempted feeding with assistance of RN, patient blowing at liquid and spitting out food. Unable to perform BDE. Per RN, patient has been tolerating a chopped diet without difficulty. Will re-attempt exam tomorrow morning. RD and MD notified.
[2023-12-04] MEDS: levETIRAcetam 500 MG TABLET PO ×2 (13:16→20:27)
--- NOTE | 2023-12-04 14:53 | P.PNIM_ITS ---
Subjective Subjective Date of Service: 12/04/23 Interval History: No acute issues overall. EEG results back suggestive of right hemispheric epileptic discharge. No obvious seizures noted has intermittent bradycardia /hypothermia event note -noted. Review of Systems denies new c/o Physical Exam 2 Vital Signs: Vital Signs: Last Vital Signs Temp 96.5 F L 12/04/23 11:08 Pulse 101 H 12/04/23 11:08 Resp 20 12/04/23 11:08 BP 132/51 L 12/04/23 11:08 Pulse Ox 95 12/04/23 11:08 O2 Del Method Nasal Cannula 12/04/23 11:08 O2 Flow Rate 2 12/04/23 11:08 BMI result Body Mass Index 43.3 Appearance: Alert.?awake ,no cvs: rrr, [id number]. res: clear to auscultation ,no rhonchii or wheezing abd: no rebound or guarding ,nt, bs present. ext pulses present , no cyanosis . neuro: moves extemities. Objective Data Active Medications Acetaminophen (Acetaminophen 325 Mg Tablet) 650 mg PO Q6H PRN PRN Reason: Pain, Mild (Pain Scale 1-3) Last Admin: 11/24/23 12:36 Dose: 650 mg Documented By: PAT Acetaminophen/Butalbital/Caffeine (Butalb/Acetamin/Caff 50/325/40 Tablet) 1 tab PO Q4H PRN PRN Reason: Headache Last Admin: 11/24/23 17:09 Dose: 1 tab Documented By: DAVID Al Hydroxide/Mg Hydroxide (Magnesium Hydrox/Alum Hydrox 30 Ml Oral.Susp) 30 ml PO Q6H PRN PRN Reason: Heartburn Apixaban (Apixaban 5 Mg Tablet) 5 mg PO BID [facility] Last Admin: 12/04/23 08:41 Dose: 5 mg Documented By: JAISON Aspirin (Aspirin 81 Mg Tab.Chew) 81 mg PO DAILY [facility] Last Admin: 12/04/23 08:41 Dose: 81 mg Documented By: JAISON Atorvastatin Calcium (Atorvastatin Calcium 10 Mg Tablet) 10 mg PO DAILY [facility] Last Admin: 12/04/23 08:41 Dose: 10 mg Documented By: JAISON Bisacodyl (Bisacodyl 10 Mg Supp.Rect) 10 mg [place] DAILY PRN PRN Reason: Constipation Docusate Sodium (Docusate Sodium 100 Mg Capsule) 100 mg PO BID [facility] Last Admin: 12/04/23 08:41 Dose: 100 mg Documented By: JAISON Folic Acid (Folic Acid 1 Mg Tablet) 1 mg PO DAILY [facility] Last Admin: 12/04/23 08:41 Dose: 1 mg Documented By: JAISON Furosemide (Furosemide 40 Mg Tablet) 40 mg PO DAILY [facility]; Protocol Last Admin: 12/04/23 08:41 Dose: 40 mg Documented By: JAISON Guaifenesin (Guaifenesin 100 Mg/5 Ml Liquid) 10 ml PO Q4H PRN PRN Reason: Cough Thiamine HCl 250 mg/ Sodium (Chloride) 102.5 mls @ 202 mls/hr IV DAILY [facility] Last Infusion: 12/04/23 10:13 Dose: Infused Documented By: JAISON Lactic Acid (Ammonium Lactate 12 % Cream 140 Gm Tube) 1 appl TOPICAL TID [facility]; Protocol Last Admin: 12/04/23 10:09 Dose: 1 appl Documented By: JAISON Lactulose (Lactulose 20 Gm/30 Ml Solution) 20 gm PO DAILY PRN PRN Reason: Constipation Levetiracetam (Levetiracetam 500 Mg Tablet) 500 mg PO BID [facility] Last Admin: 12/04/23 13:16 Dose: 500 mg Documented By: JAISON Magnesium Hydroxide (Milk Of Magnesia 30 Ml Oral.Susp) 30 ml PO DAILY PRN PRN Reason: Constipation Melatonin (Melatonin 3 Mg Tablet) 6 mg PO BEDTIME PRN PRN Reason: Insomnia Last Admin: 11/26/23 21:12 Dose: 6 mg Documented By: CHELY Multi-Ingred Cream/Lotion/Oil/Oint (Mineral Oil/Petrolatum,White 106 Gm Tube) 1 appl TOPICAL BEDTIME [facility]; Protocol Last Admin: 12/03/23 22:27 Dose: 1 appl Documented By: CHELY Omeprazole (Omeprazole 20 Mg Capsule.) 20 mg PO DAILY@0630 [facility] Last Admin: 12/04/23 05:43 Dose: Not Given Documented By: CHELY Non-Admin Reason: Patient Refused Ondansetron HCl (Ondansetron Hcl 4 Mg/2 Ml Vial) 4 mg IVPUSH Q8H PRN PRN Reason: Nausea and Vomiting Sodium Biphosphate/Sodium Phosphate (Sodium Phosphate,[place]-Dibasic 133 Ml Enema) 118 ml [place] DAILY PRN PRN Reason: Constipation Sodium Chloride (0.9 % Sodium Chloride Flush 3 Ml Syringe) 3 ml IVFLUSH QSHIFT [facility] Last Admin: 12/04/23 08:37 Dose: 3 ml Documented By: JAISON Zinc Oxide (Zinc Oxide (Triple Paste) 56.7 Gm Oint) 1 appl TOPICAL BID [facility] Last Admin: 12/04/23 10:10 Dose: 1 appl Documented By: JAISON Labs 12/02/23 05:22 12/04/23 06:40 Labs: Laboratory Results - last 24 hr 12/04/23 06:40 Hold Purple Top SEE NOTE Anion Gap 9 L Estim Creat Clear Calc 125.9 Estimated GFR > 60 Fasting Glucose 73 Calcium 8.2 L Total Bilirubin 0.4 AST 19 ALT 11 Alkaline Phosphatase 99 Total Protein 4.6 L Albumin 2.3 L Assessment and Plan (1) Encephalopathy: Status: Acute (2) Pneumonia: Status: Acute Plan 78yo M LTC resident of [facility] with HTN, HLD, chronic bilateral leg lymphedema, chronic AF on apixaban, RLE DVT in 2022, HFpEF, morbid obesity sent in with lethargy, AMS, weakness admitted for encephalopathy due to hypernatremia + pneumonia. Encephalopathy, multifactorial (metabolic, infection, medication/toxic) sodium seems to be improved. not hypoxic ,ua negative , repsiratory viral panel negative ,ct head no acute a bnormality seen. -abnormal EEG. 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 patient received hydration-hyponatremia seems to be improved, patient was treated for pneumonia with antibiotics, EEG abnormal as above-added keppra 500 mg po bid. Hypothermia: Workup-not hypoxic ,ua negative , repsiratory viral panel negative ,ct head no acute abnormality seen. Already received antibiotic for pneumonia also. blood culture negative @48 hrs ( 11/29) improved with Dread Piña Follow cortisone stimulation test Bradycardia -asymptomatic,possible related to hypothermia no on rate control med -bb -follow clinically Acute hypoxic resp failure due to pneumonia... Resolved given 5d of cefepime/4d of vancomycin; no new repsiratory symptoms. Drug rash -asymptomatic/improving - stopped vancomycin + cefepime. Paroxysmal AF -acceptable rate control - continue apixaban Chronic HFpEF -stable and well compensated -continue current therapies Full code Stephanie Requires ongoing hospitalization for encephalopathy mulifcatorial -moniter for mental status and also started on seiszure medication for high risk for seizure and abnormal eeg. Given recurrence; high outpatient risk at this time without free water repletion, need expert follow up. Quality Stroke Does the patient have a stroke diagnosis?: No VTE Prior VTE?: Yes VTE Risk Level:: Medical - moderate - high VTE Device Contraindication: Treatment Not Indicated VTE Drug Contraindication: N/A - Med Ordered
[2023-12-04 15:18] LABS: Vitamin B1 <6 nmol/L (8-30)
[2023-12-04] MEDS: Dextrose 5 % and 0.9 % NaCl 1,000 ML 60 ML IVCONT (17:47)
[2023-12-04] MEDS: Melatonin 3 MG TABLET 6 MG PO (20:27)
[2023-12-04] MEDS: Mineral Oil/Petrolatum,White 106 GM Tube 1 APPL TOPICAL (20:28)
--- NOTE | 2023-12-04 20:49 | PC.NURSE ---
Addendum entered by Josie Oglesby RN 12/05/23 06:52: D5/NS paused after pt removed his IV in evening not restarted, written MD orders to continued to hold after IV access re-established per covering Dr. Faheem Vazquez as hypernatremia has resolved. Addendum entered by Josie Oglesby RN 12/05/23 04:07: At 23:43 PIT HOIST OPERATOR/Constant performance management consultant present at bedside alerted this sign writer letterer or painter that the patient was hypotensive 71/48 despite re-run BP on scheduled vitals. Cat Driver responded to pt?s bedside, attempted to obtain manual BP though difficulty encountered due to patient?s pitting edema and body habitus; manual SBP attempts with 68/palpation, unable to auscultate DBP. Patient also noted to be desatting mid to upper 80?s on 2L nc, increased to 5L nc before improvement to 91-93% was noted on continuous spo2 monitoring. Mentation maintained/ unchanged from sign writer letterer or painter?s initial assessment. Nursing slab lifting supervisor was already present in the room at this time and assisting with additional attempts to place an IV that had been unsuccessful due to reasons mentioned above. Of note, hypothermia requiring lc-hugger and related bradycardia have been ongoing issues for this patient this admission per chart review. Doppler for BP and rapid requested by sign writer letterer or painter and called. CAPACITY PLANNING ANALYST, Covering Dr. Faheem Vazquez, and covering ICU OIL AGENT Marisol Tavarez presented to bedside. A 22g to right wrist was placed by CAPACITY PLANNING ANALYST and 1L LR bolus initiated per Dr. Mayen verbal orders. +Effect, BP improved 94/44 with bolus running. Stat labs including lactic and BCx, CXR, U/A, empiric abx (zosyn q6h, vancomycin x1), and albumin ordered. During recheck pt BP was 90/53, temp was 92.2 rectal despite lc-hugger placed on max earlier in the evening. HR continues in the 40?s to 50?s; pacer pads present at bedside should they become necessary. Additional warm blanket applied over lc-hugger and Dr. Mayen notified of temp and BP recheck. Zosyn, albumin (first of two bottles) initiated while ICU OIL AGENT attempted to place a second ultrasound IV; successful at 01:20 and vancomycin initiated. Ngo catheter was inserted for accurate I+Os per MD as patient is incontinence and introverted anatomy does not accommodate a condom catheter. Ngo placed at 01:30 per MD order, patent of odorless cyu; U/A and UCx sent as ordered. Lactic and U/A negative, no leukocytosis. Constant performance management consultant remains in place. Patient resting in bed at this time in no apparent distress. Breathing is even and unlabored without distress 100% on 5L nc; will attempt to wean as tolerated per policy. Plan of care continues. 03:48: Routine vitals as follows: 93.2 rectal temp, still on max lc-hugger with additional blankets; 105/47 HR 58, RR 16, weaned back to 2L nc with spo2 98% tolerating. Dr. Faheem Vazquez updated. No new orders at this time. Patient resting comfortably in bed at this time without distress. Original Note: Assumed care of patient at 19:15. Pt is confused, A&Ox2 to self and year/month. Pt is impulsive, attempting to get OOB stating I want to leave . Pt reoriented and boosted back up into bed with nursing aid. Pt noted at this time to have pulled his IV out as evidenced by IV on the floor in a puddle of IV fluid. Pt's 2L nc and tele leads were also off as well as his blanket (pt had been hypothermic requiring bairhugger this morning per RN handoff report). Pt spo2 85% on RA on evening vitals; NC replaced with spo2 improved to 91%. No distress noted, breathing is even and unlabored without distress. Rectal temp obtained was 92.5; bairhugger was replaced. Covering Dr. Mayen and nursing slab lifting supervisor were notified with request for constant performance management consultant to assist with redirecting and maintaining lines/tubes/bairhugger for safety. Constant performance management consultant in place at this time. Pt also continues with in-room camera. Plan on care continues.
[2023-12-04 21:58] LABS: Free T4 (Free Thyroxine) 0.98 ng/dL (0.71-1.85); Thyroid Stimulating Hormone 2.98 uIU/mL (0.32-4.0)
[2023-12-04 23:40] LABS: Glucose, Whole Blood 104 mg/dL (60-115)
[2023-12-04] MEDS: Lactated Ringers 1,000 ML 999 ML IV (23:44)
[2023-12-05] VITALS (10 sets, daily range): BP systolic 80–115; BP diastolic 43–53; PULSE 45–65; RESP 16–22; TEMP 33.4–37.8; O2SAT 91–98
[2023-12-05 00:36] LABS: Basophils Percent Auto 0.2 % (0-2); Eosinophils Absolute Auto 1.7 X10*3/uL (0.0-0.4); Eosinophils Percent Auto 29.3 % (0-4); Hematocrit 26.1 % (42.0-52.0); Hemoglobin 8.4 g/dl (14.0-18.0); Imm Gran Abs Auto 0.04 X10*3/uL (0.00-0.03); Imm Gran Pct Auto 0.7 % (0.0-0.4); Lymphocytes Absolute Auto 0.7 X10*3/uL (1.2-4.9); Lymphocytes Percent Auto 11.8 % (20-40); MANUAL DIFF FLAG SCAN; Mean Corpuscular HGB Conc 32.2 g/dl (31.0-36.0); Mean Corpuscular Hemoglobin 30.8 pg (27.0-33.0); Mean Corpuscular Volume 95.6 fL (80.0-98.0); Mean Platelet Volume 11.4 fL (9.4-12.4); Monocytes Absolute Auto 0.4 X10*3/uL (0.1-1.2); Monocytes Percent Auto 7.4 % (2-11); Neutrophils Percent Auto 50.6 % (45-73); Platelet Count 173 X10*3/uL (160-400); Red Blood Count 2.73 X10*6/uL (4.60-5.80); Red Cell Distribution Width 19.8 % (11.0-16.0); SCAN SMEAR FLAG 1; White Blood Count 5.8 X10*3/uL (4.8-10.8)
[2023-12-05] MEDS: Piperacillin Sodium/Tazobactam 3.375 GM in 0.9 % Sodium Chloride 50 ML IV ×2 (00:36→06:09)
[2023-12-05 00:43] LABS: Lactic Acid 1.6 mmol/L (0.5-2.0)
[2023-12-05 00:48] LABS: Alanine Aminotransferase 6 U/L (0-40); Alkaline Phosphatase 89 U/L (39-117); Anion Gap 9 (12-20); Aspartate Amino Transferase 16 U/L (5-37); Bilirubin Total 0.4 mg/dL (0.0-1.0); Blood Urea Nitrogen 17 mg/dL (9-16); Carbon Dioxide 30 mmol/L (22-29); Chloride 109 mmol/L (96-108); Creatinine Clr Calc Pharmacy 114.7; Estimated Glomerular Filt Rate > 60; Glucose Random 102 mg/dL (60-115); Magnesium 1.6 mg/dL (1.6-2.6); Potassium 3.3 mmol/L (3.3-5.1); Sodium 145 mmol/L (135-145); Total Protein 4.1 g/dL (6.5-8.0)
[2023-12-05 00:53] LABS: SLIDE REVIEW VERIFIED
[2023-12-05] MEDS: Albumin Human 25 % 100 ML 133.33 ML IV ×2 (01:08→01:45)
[2023-12-05] MEDS: vancomycin/NS 2,000 MG/500 ML PLAST..BAG 250 MG IV (01:21)
--- NOTE | 2023-12-05 02:05 | PM.EVENT ---
Event Note Date of Service: 12/05/23 Event Note: 11:35 PM - rapid response activated due to hypotension 71/48. Also, patient has been hypothermic on and off since admission (this is an ongoing issue for this patient) requiring warming blankets and bradycardic. Paient was alert and responding to verbal stimuli. According to nursing patient removed his IV access and unable to obtain a new one. During the rapid response ICU nurse obtained a peripheral IV access. TSH and free T4 added on to today's am labs -normal. Glucose POC stat = 104. Bradycardia and hypotension likely physiological due to hypothermia, however, we will cover patient empirically with IV antibiotics Interventions: -Two liters LR stat. -Blood cultures X2, CMP, CBC, lactic acid, total CK and UA. -CXR stat -Empiric IV antibiotic tx with vancomycin and Zosyn. -Continue passive external rewarming therapy. -Adrenal insufficiency test previously ordered. Time Spent With Patient Time: Total time managing care of this patient today ____ minutes.
[2023-12-05 02:12] LABS: Appearance Urine Clear; Color Urine Yellow; Glucose Urine UA Negative (Negative); Leukocyte Esterase Urine Negative (Negative); Nitrite Urine Negative (Negative); UMIC TRIGGER UA YES; Urine Blood Trace (Negative); Urine Ketones Negative (Negative); Urine Protein Negative (Neg-Trace)
[2023-12-05 02:15] LABS: Bacteria Urine None Seen (None Seen); Hyaline Casts Urine 0-2 /LPF (0-2); RBC Urine 0-2 /HPF (0-2); Squamous Epithelial Cell Urine 0-2 /HPF (0-2); WBC Urine 0-5 /HPF (0-5)
[2023-12-05] MEDS: Omeprazole 20 MG CAPSULE.DR PO (06:09)
[2023-12-05 08:24] LABS: Alanine Aminotransferase 9 U/L (0-40); Albumin Level 2.7 g/dL (3.5-5.0); Alkaline Phosphatase 83 U/L (39-117); Anion Gap 10 (12-20); Aspartate Amino Transferase 15 U/L (5-37); Bilirubin Total 0.6 mg/dL (0.0-1.0); Blood Urea Nitrogen 16 mg/dL (9-16); Calcium 8.3 mg/dL (8.4-10.2); Carbon Dioxide 31 mmol/L (22-29); Chloride 109 mmol/L (96-108); Creatinine Clr Calc Pharmacy 113.3; Estimated Glomerular Filt Rate > 60; Glucose Fasting 72 mg/dL (60-99); Potassium 3.5 mmol/L (3.3-5.1); Sodium 146 mmol/L (135-145); Total Protein 4.7 g/dL (6.5-8.0)
[2023-12-05] MEDS: Thiamine HCL 250 MG in 0.9 % Sodium Chloride 100 ML 202 MG IV (09:02)
[2023-12-05] MEDS: Aspirin 81 MG TAB.CHEW PO (09:10)
[2023-12-05] MEDS: levETIRAcetam 500 MG TABLET PO ×2 (09:10→21:19)
[2023-12-05] MEDS: Apixaban 5 MG TABLET PO ×2 (09:10→21:19)
[2023-12-05] MEDS: Docusate Sodium 100 MG CAPSULE PO ×2 (09:10→21:19)
[2023-12-05] MEDS: Folic Acid 1 MG TABLET PO (09:10)
[2023-12-05] MEDS: Atorvastatin Calcium 10 MG TABLET PO (09:10)
[2023-12-05] MEDS: 0.9 % Sodium Chloride Flush 3 ML SYRINGE IVFLUSH ×2 (09:11→19:36)
[2023-12-05] MEDS: Furosemide 40 MG TABLET PO (09:11)
[2023-12-05] MEDS: Ammonium Lactate 12 % Cream 140 GM TUBE 1 APPL TOPICAL ×3 (12:11→21:54)
[2023-12-05] MEDS: Zinc Oxide (Triple Paste) 56.7 GM OINT 1 APPL TOPICAL ×2 (12:11→21:55)
[2023-12-05] MEDS: Dextrose 5 % and 0.9 % NaCl 1,000 ML 60 ML IVCONT (12:15)
[2023-12-05] MEDS: 0.9 % Sodium Chloride 1,000 ML 999 ML IVCONT ×2 (12:42→15:22)
--- NOTE | 2023-12-05 13:32 | MHC.CM.PN ---
Pt. has not been medically cleared for DC. 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 CM will follow and assist as needed with DC plan.
--- NOTE | 2023-12-05 13:50 | HO.PM.IMPN ---
Subjective Subjective Date of Service: 12/05/23 Interval History: encephalopathy and hypotension /bradycardia last night events noted Review of Systems seems general weak otherwise awake Physical Exam Vital Signs: Vital Signs: Last Vital Signs Temp 97.0 F 12/05/23 11:35 Pulse 56 12/05/23 11:35 Resp 22 H 12/05/23 11:35 BP 80/52 L 12/05/23 11:35 Pulse Ox 95 12/05/23 11:35 O2 Del Method Nasal Cannula 12/05/23 11:35 O2 Flow Rate 2 12/05/23 11:35 Oxygen Flow Rate 5 12/04/23 23:58 BMI result Body Mass Index 43.3 Appearance: Alert.awake Right eye enucleated. cvs: rrr, [id number] . res: air entery fair ,slightly diminshed at bases. abd: no rebound or guarding ,nt, bs present. ext pulses present , no cyanosis . neuro: axo3 , nonfocal. Objective Data Active Medications Acetaminophen (Acetaminophen 325 Mg Tablet) 650 mg PO Q6H PRN PRN Reason: Pain, Mild (Pain Scale 1-3) Last Admin: 11/24/23 12:36 Dose: 650 mg Documented By: PAT Acetaminophen/Butalbital/Caffeine (Butalb/Acetamin/Caff 50/325/40 Tablet) 1 tab PO Q4H PRN PRN Reason: Headache Last Admin: 11/24/23 17:09 Dose: 1 tab Documented By: DAVID Al Hydroxide/Mg Hydroxide (Magnesium Hydrox/Alum Hydrox 30 Ml Oral.Susp) 30 ml PO Q6H PRN PRN Reason: Heartburn Apixaban (Apixaban 5 Mg Tablet) 5 mg PO BID [facility] Last Admin: 12/05/23 09:10 Dose: 5 mg Documented By: JAISON Aspirin (Aspirin 81 Mg Tab.Chew) 81 mg PO DAILY [facility] Last Admin: 12/05/23 09:10 Dose: 81 mg Documented By: JAISON Atorvastatin Calcium (Atorvastatin Calcium 10 Mg Tablet) 10 mg PO DAILY [facility] Last Admin: 12/05/23 09:10 Dose: 10 mg Documented By: JAISON Bisacodyl (Bisacodyl 10 Mg Supp.Rect) 10 mg TN DAILY PRN PRN Reason: Constipation Docusate Sodium (Docusate Sodium 100 Mg Capsule) 100 mg PO BID [facility] Last Admin: 12/05/23 09:10 Dose: 100 mg Documented By: JAISON Folic Acid (Folic Acid 1 Mg Tablet) 1 mg PO DAILY [facility] Last Admin: 12/05/23 09:10 Dose: 1 mg Documented By: JAISON Furosemide (Furosemide 40 Mg Tablet) 40 mg PO DAILY [facility]; Protocol Last Admin: 12/05/23 09:11 Dose: 40 mg Documented By: JAISON Guaifenesin (Guaifenesin 100 Mg/5 Ml Liquid) 10 ml PO Q4H PRN PRN Reason: Cough Thiamine HCl 250 mg/ Sodium (Chloride) 102.5 mls @ 202 mls/hr IV DAILY [facility] Last Infusion: 12/05/23 12:09 Dose: Infused Documented By: JAISON Dextrose/Sodium Chloride (D5ns) 1,000 mls @ 60 mls/hr IVCONT .[id number] [facility] Last Admin: 12/05/23 12:15 Dose: 60 mls/hr Documented By: JAISON Linezolid (Zyvox/D5w) 600 mg in 300 mls @ 300 mls/hr IV Q12H JESSICA Meropenem 1 gm/ Sodium (Chloride) 100 mls @ 200 mls/hr IV Q8H JESSICA Sodium Chloride (Ns) 1,000 mls @ 999 mls/hr IVCONT .Q1H1M [facility] Stop: 12/05/23 14:30 Last Admin: 12/05/23 12:42 Dose: 999 mls/hr Documented By: JAISON Albumin Human (Kedbumin 25 %) 100 mls @ 100 mls/hr IV Q6H [facility] Stop: 12/06/23 08:14 Lactic Acid (Ammonium Lactate 12 % Cream 140 Gm Tube) 1 appl TOPICAL TID [facility]; Protocol Last Admin: 12/05/23 12:11 Dose: 1 appl Documented By: JAISON Lactulose (Lactulose 20 Gm/30 Ml Solution) 20 gm PO DAILY PRN PRN Reason: Constipation Levetiracetam (Levetiracetam 500 Mg Tablet) 500 mg PO BID [facility] Last Admin: 12/05/23 09:10 Dose: 500 mg Documented By: JAISON Magnesium Hydroxide (Milk Of Magnesia 30 Ml Oral.Susp) 30 ml PO DAILY PRN PRN Reason: Constipation Melatonin (Melatonin 3 Mg Tablet) 6 mg PO BEDTIME PRN PRN Reason: Insomnia Last Admin: 12/04/23 20:27 Dose: 6 mg Documented By: MANOLO Multi-Ingred Cream/Lotion/Oil/Oint (Mineral Oil/Petrolatum,White 106 Gm Tube) 1 appl TOPICAL BEDTIME JESSICA; Protocol Last Admin: 12/04/23 20:28 Dose: 1 appl Documented By: MANOLO Omeprazole (Omeprazole 20 Mg Capsule.Dr) 20 mg PO DAILY@0630 [facility] Last Admin: 12/05/23 06:09 Dose: 20 mg Documented By: MANOLO Ondansetron HCl (Ondansetron Hcl 4 Mg/2 Ml Vial) 4 mg IVPUSH Q8H PRN PRN Reason: Nausea and Vomiting Sodium Biphosphate/Sodium Phosphate (Sodium Phosphate,Angelina-Dibasic 133 Ml Enema) 118 ml TN DAILY PRN PRN Reason: Constipation Sodium Chloride (0.9 % Sodium Chloride Flush 3 Ml Syringe) 3 ml IVFLUSH QSHIFT [facility] Last Admin: 12/05/23 09:11 Dose: 3 ml Documented By: JAISON Zinc Oxide (Zinc Oxide (Triple Paste) 56.7 Gm Oint) 1 appl TOPICAL BID [facility] Last Admin: 12/05/23 12:11 Dose: 1 appl Documented By: JAISON Labs 12/05/23 00:27 12/05/23 07:55 Labs: Laboratory Results - last 24 hr 11/29/23 12/01/23 12/04/23 11:41 08:37 06:40 MCV MCH MCHC RDW Plt Count MPV Immature Gran % (Auto) Neut % (Auto) Lymph % (Auto) Angelina % (Auto) Eos % (Auto) Baso % (Auto) Lymph # (Auto) Angelina # (Auto) Eos # (Auto) Baso # (Auto) Abs Immat Gran (auto) Absolute Neuts (auto) Absolute Nucleated RBC Nucleated RBC % (auto) Smear Tech's Comments Anion Gap Estim Creat Clear Calc Estimated GFR POC Glucose Random Glucose Fasting Glucose Lactic Acid Calcium Magnesium Total Bilirubin AST ALT Alkaline Phosphatase Total Creatine Kinase Total Protein Albumin Vitamin B1 <6 L TSH 2.98 Free T4 0.98 Cortisol Baseline Cancelled Cortisol 30 Minute Cancelled Cortisol 60 Minute Cancelled ACTH Resp to Cosyntrop Cancelled Cortisol Hernesto Time 1 Cancelled Cortisol Hernesto Time 2 Cancelled Cortisol Hernesto Time 3 Cancelled ACTH Comment Cancelled Urine Color Urine Appearance Urine pH Ur Specific Swengel Urine Protein Urine Glucose (UA) Urine Ketones Urine Blood Urine Nitrite Ur Leukocyte Esterase Urine RBC Urine WBC Ur Squamous Epith Cells Urine Bacteria Hyaline Casts 12/04/23 12/05/23 12/05/23 23:36 00:27 01:30 MCV 95.6 MCH 30.8 MCHC 32.2 RDW 19.8 H Plt Count 173 MPV 11.4 Immature Gran % (Auto) 0.7 H Neut % (Auto) 50.6 Lymph % (Auto) 11.8 L Angelina % (Auto) 7.4 Eos % (Auto) 29.3 H Baso % (Auto) 0.2 Lymph # (Auto) 0.7 L Angelina # (Auto) 0.4 Eos # (Auto) 1.7 H Baso # (Auto) 0.0 Abs Immat Gran (auto) 0.04 H Absolute Neuts (auto) 3.0 Absolute Nucleated RBC 0.000 Nucleated RBC % (auto) 0.0 Smear Tech's Comments VERIFIED Anion Gap 9 L Estim Creat Clear Calc 114.7 Estimated GFR > 60 POC Glucose 104 Random Glucose 102 Fasting Glucose Lactic Acid 1.6 Calcium 8.0 L Magnesium 1.6 Total Bilirubin 0.4 AST 16 ALT 6 Alkaline Phosphatase 89 Total Creatine Kinase 30 L Total Protein 4.1 L Albumin 2.0 L Vitamin B1 TSH Free T4 Cortisol Baseline Cortisol 30 Minute Cortisol 60 Minute ACTH Resp to Cosyntrop Cortisol Hernesto Time 1 Cortisol Hernesto Time 2 Cortisol Hernesto Time 3 ACTH Comment Urine Color Yellow Urine Appearance Clear Urine pH 5.0 Ur Specific Swengel 1.010 Urine Protein Negative Urine Glucose (UA) Negative Urine Ketones Negative Urine Blood Trace H Urine Nitrite Negative Ur Leukocyte Esterase Negative Urine RBC 0-2 Urine WBC 0-5 Ur Squamous Epith Cells 0-2 Urine Bacteria None Seen Hyaline Casts 0-2 12/05/23 07:55 MCV MCH MCHC RDW Plt Count MPV Immature Gran % (Auto) Neut % (Auto) Lymph % (Auto) Angelina % (Auto) Eos % (Auto) Baso % (Auto) Lymph # (Auto) Angelina # (Auto) Eos # (Auto) Baso # (Auto) Abs Immat Gran (auto) Absolute Neuts (auto) Absolute Nucleated RBC Nucleated RBC % (auto) Smear Tech's Comments Anion Gap 10 L Estim Creat Clear Calc 113.3 Estimated GFR > 60 POC Glucose Random Glucose Fasting Glucose 72 Lactic Acid Calcium 8.3 L Magnesium Total Bilirubin 0.6 AST 15 ALT 9 Alkaline Phosphatase 83 Total Creatine Kinase Total Protein 4.7 L Albumin 2.7 L Vitamin B1 TSH Free T4 Cortisol Baseline Cortisol 30 Minute Cortisol 60 Minute ACTH Resp to Cosyntrop Cortisol Hernesto Time 1 Cortisol Hernesto Time 2 Cortisol Hernesto Time 3 ACTH Comment Urine Color Urine Appearance Urine pH Ur Specific Swengel Urine Protein Urine Glucose (UA) Urine Ketones Urine Blood Urine Nitrite Ur Leukocyte Esterase Urine RBC Urine WBC Ur Squamous Epith Cells Urine Bacteria Hyaline Casts Microbiology Microbiology Results: Microbiology 11/30/23 08:52 Blood Culture - Final Blood - Venous No growth after 5 days. 11/30/23 08:44 Blood Culture - Final Blood - Venous No growth after 5 days. Assessment and Plan (1) Encephalopathy: Status: Acute (2) Pneumonia: Status: Acute Plan 78yo M LTC resident of [facility] with HTN, HLD, chronic bilateral leg lymphedema, chronic AF on apixaban, RLE DVT in 2022, HFpEF, morbid obesity sent in with lethargy, AMS, weakness admitted for encephalopathy due to hypernatremia + pneumonia. overnight and day events noted boderline to 1 hypotension episode:bp chronically low to boderline range due to dec po intake ,dehydration and low albumin, less likely sepsis. also ch hypothermia possibly causing bradycardia -unclear etiology (please see hypothermia section) lactic acid last night normal given Iv fluids last night and given another 1 liter bolus today,added albumin added fludrocortisone trial(?may have hypothalamic/pituitary axis dysfunction). d/w [facility],official note to follow. possible penumonia: does not seems sob follow cultures on linezolid/meropenem( since has recently rash with vanco/cefepime). Id follow up Encephalopathy, multifactorial (metabolic, infection, medication/toxic) sodium flacuting due to dec po intake. not hypoxic ,ua negative , repsiratory viral panel negative ,ct head no acute abnormality seen,abnormal EEG. 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 Hypothermia: Workup-not hypoxic ,ua negative , repsiratory viral panel negative ,ct head no acute abnormality seen. Already received antibiotic for pneumonia also. blood culture negative @48 hrs ( 11/29) improved with Dread Hugger Follow cortisone stimulation test Bradycardia -asymptomatic,possible related to hypothermia no on rate control med -bb -follow clinically Acute hypoxic resp failure due to pneumonia... Resolved given 5d of cefepime/4d of vancomycin; no new repsiratory symptoms. Drug rash -asymptomatic/improving - stopped vancomycin + cefepime. Paroxysmal AF -acceptable rate control - continue apixaban Chronic HFpEF -stable and well compensated -continue current therapies Full code Eliquis Requires ongoing hospitalization for encephalopathy mulifcatorial -possible pneumonia ,hypothermia /hypotension,Given recurrence; high outpatient risk at this time without free water repletion, need expert follow up. Quality Stroke Does the patient have a stroke diagnosis?: No VTE Prior VTE?: Yes VTE Risk Level:: Medical - moderate - high VTE Device Contraindication: Treatment Not Indicated VTE Drug Contraindication: N/A - Med Ordered
--- NOTE | 2023-12-05 14:24 | MHC.SPEECHCO ---
Unable to see Pt today. Per RN and EQUAL OPPORTUNITY SPECIALIST report he is eating 25% of his meals with his previously discharged diet of Chopped/Advanced Solids (NDD3) and Thin Liquids. MEDICAL RECEPTION SPECIALIST will re-attempt tomorrow.
[2023-12-05] MEDS: Albumin Human 25 % 100 ML IV ×2 (15:00→19:31)
--- NOTE | 2023-12-05 15:04 | P.CONCC_ITS ---
History of Present Illness Data of Consult Service Date: 12/05/23 Requesting physician: Enio Rodriges Primary Care Provider: Arturo Hall MD HPI Reason for consult: Level of care 78-year-old gentleman with underlying history of enucleation of right eye, hypertension, AFib on anticoagulation, right lower extremity DVT, diastolic heart failure, morbid obesity admitted on 11/28/2023 with ?pneumonia and hypernatremia with hospital course complicated by recurrent episodes of nocturnal hypotension/hypothermia. Level of care evaluation was requested. On exam patient is alert and oriented, tries to answer appropriately, though difficult to understand, systolic blood pressure in the 90s, O2 saturation mid 90s on 2 L. Review of Systems 2 Review of Systems: Yes Other (Unable to obtain as patient is difficult to understand) [facility] Past Medical History Medical History (Updated 12/05/23 @ 15:10 by Raymond Bone MD) Rash Atrial fibrillation Dyslipidemia Hypertension Family History Family history: reviewed and not pertinent Surgical History Surgical History History of enucleation of right eyeball Social History Social History Household Members: None Housing: Assisted Living Facility Housing Other:: Lives in half-way care Do you presently have visiting nurse or other home services: Yes Alcohol intake: former Comment: constant packager head Patient Tobacco Use Status: Never used Tobacco e-Cigarette/Vaping Use: Never Used Second Hand Smoke Exposure: No Advance Directives Date on File: 12/26/22 service: Yes Current occupational status: disabled Meds Allergies Allergy/AdvReac Type Severity Reaction Status Date / Time No Known Allergies Allergy Verified 01/04/23 04:36 Active Medications: Current Medications Acetaminophen (Acetaminophen 325 Mg Tablet) 650 mg PO Q6H PRN PRN Reason: Pain, Mild (Pain Scale 1-3) Last Admin: 11/24/23 12:36 Dose: 650 mg Acetaminophen/Butalbital/Caffeine (Butalb/Acetamin/Caff 50/325/40 Tablet) 1 tab PO Q4H PRN PRN Reason: Headache Last Admin: 11/24/23 17:09 Dose: 1 tab Al Hydroxide/Mg Hydroxide (Magnesium Hydrox/Alum Hydrox 30 Ml Oral.Susp) 30 ml PO Q6H PRN PRN Reason: Heartburn Apixaban (Apixaban 5 Mg Tablet) 5 mg PO BID [facility] Last Admin: 12/05/23 09:10 Dose: 5 mg Aspirin (Aspirin 81 Mg Tab.Chew) 81 mg PO DAILY [facility] Last Admin: 12/05/23 09:10 Dose: 81 mg Atorvastatin Calcium (Atorvastatin Calcium 10 Mg Tablet) 10 mg PO DAILY [facility] Last Admin: 12/05/23 09:10 Dose: 10 mg Bisacodyl (Bisacodyl 10 Mg Supp.Rect) 10 mg SD DAILY PRN PRN Reason: Constipation Docusate Sodium (Docusate Sodium 100 Mg Capsule) 100 mg PO BID [facility] Last Admin: 12/05/23 09:10 Dose: 100 mg Fludrocortisone Acetate (Fludrocortisone Acetate 0.1 Mg Tablet) 0.1 mg PO DAILY JESSICA Folic Acid (Folic Acid 1 Mg Tablet) 1 mg PO DAILY [facility] Last Admin: 12/05/23 09:10 Dose: 1 mg Furosemide (Furosemide 40 Mg Tablet) 40 mg PO DAILY [facility]; Protocol Last Admin: 12/05/23 09:11 Dose: 40 mg Guaifenesin (Guaifenesin 100 Mg/5 Ml Liquid) 10 ml PO Q4H PRN PRN Reason: Cough Thiamine HCl 250 mg/ Sodium (Chloride) 102.5 mls @ 202 mls/hr IV DAILY [facility] Last Infusion: 12/05/23 12:09 Dose: Infused Linezolid (Zyvox/D5w) 600 mg in 300 mls @ 300 mls/hr IV Q12H [facility] Meropenem 1 gm/ Sodium (Chloride) 100 mls @ 200 mls/hr IV Q8H [facility] Last Admin: 12/05/23 14:17 Dose: 200 mls/hr Albumin Human (Kedbumin 25 %) 100 mls @ 100 mls/hr IV Q6H [facility] Stop: 12/06/23 08:14 Lactic Acid (Ammonium Lactate 12 % Cream 140 Gm Tube) 1 appl TOPICAL TID [facility]; Protocol Last Admin: 12/05/23 12:11 Dose: 1 appl Lactulose (Lactulose 20 Gm/30 Ml Solution) 20 gm PO DAILY PRN PRN Reason: Constipation Levetiracetam (Levetiracetam 500 Mg Tablet) 500 mg PO BID [facility] Last Admin: 12/05/23 09:10 Dose: 500 mg Magnesium Hydroxide (Milk Of Magnesia 30 Ml Oral.Susp) 30 ml PO DAILY PRN PRN Reason: Constipation Melatonin (Melatonin 3 Mg Tablet) 6 mg PO BEDTIME PRN PRN Reason: Insomnia Last Admin: 12/04/23 20:27 Dose: 6 mg Multi-Ingred Cream/Lotion/Oil/Oint (Mineral Oil/Petrolatum,White 106 Gm Tube) 1 appl TOPICAL BEDTIME [facility]; Protocol Last Admin: 12/04/23 20:28 Dose: 1 appl Omeprazole (Omeprazole 20 Mg Capsule.Dr) 20 mg PO DAILY@0630 [facility] Last Admin: 12/05/23 06:09 Dose: 20 mg Ondansetron HCl (Ondansetron Hcl 4 Mg/2 Ml Vial) 4 mg IVPUSH Q8H PRN PRN Reason: Nausea and Vomiting Sodium Biphosphate/Sodium Phosphate (Sodium Phosphate,[place]-Dibasic 133 Ml Enema) 118 ml SD DAILY PRN PRN Reason: Constipation Sodium Chloride (0.9 % Sodium Chloride Flush 3 Ml Syringe) 3 ml IVFLUSH QSHIFT [facility] Last Admin: 12/05/23 09:11 Dose: 3 ml Zinc Oxide (Zinc Oxide (Triple Paste) 56.7 Gm Oint) 1 appl TOPICAL BID [facility] Last Admin: 12/05/23 12:11 Dose: 1 appl Home Medications ?Medication ?Instructions ?Recorded ?Confirmed ?Last Taken ?Type acetaminophen 325 mg tablet 650 mg PO Q4H PRN Fever Or Pain 01/04/23 11/22/23 Unknown History ammonium lactate 12 % topical cream 1 appl topical TID 01/04/23 11/22/23 Unknown History aspirin 81 mg chewable tablet 81 mg PO DAILY 01/04/23 11/22/23 Unknown History docusate sodium 100 mg capsule 100 mg PO BID 01/04/23 11/22/23 Unknown History guaifenesin 100 mg/5 mL oral liquid 200 mg PO Q4H PRN Cough 01/04/23 11/22/23 Unknown History lactulose 10 gram/15 mL oral 30 ml PO DAILY PRN Constipation 01/04/23 11/22/23 Unknown History solution aluminum-mag hydroxide-simethicone 30 ml PO Q6H PRN Heartburn 09/13/23 11/22/23 Unknown History 225 mg-200 mg-25 mg/5 mL oral susp atorvastatin 10 mg tablet 10 mg PO DAILY 09/13/23 11/22/23 Unknown History folic acid 1 mg tablet 1 mg PO DAILY 09/13/23 11/22/23 Unknown History omeprazole 20 mg tablet,delayed 20 mg PO DAILY@0630 09/13/23 11/22/23 Unknown History release white petrolatum-mineral oil 1 appl topical BEDTIME 09/13/23 11/22/23 Unknown History topical cream apixaban 5 mg tablet (Eliquis) 5 mg PO BID 10/15/23 11/22/23 Unknown History bisacodyl 10 mg rectal suppository 10 mg SD DAILY PRN Constipation 10/15/23 11/22/23 Unknown History magnesium hydroxide 400 mg/5 mL 30 ml PO DAILY PRN Constipation 10/15/23 11/22/23 Unknown History oral suspension (Milk of Magnesia) sodium phosphates 19 gram-7 118 ml SD DAILY PRN Constipation 10/15/23 11/22/23 Unknown History gram/118 mL enema (Fleet Enema) zinc oxide 10 % topical ointment 1 appl topical BID 10/15/23 11/22/23 Unknown History zinc oxide 10 % topical ointment 1 appl topical DAILY PRN MASD 10/15/23 11/22/23 Unknown History Physical Exam 2 Vital Signs: Vital Signs: Last Vital Signs Temp 97.0 F 12/05/23 11:35 Pulse 56 12/05/23 11:35 Resp 22 H 12/05/23 11:35 BP 96/52 L 12/05/23 14:15 Pulse Ox 95 12/05/23 11:35 O2 Del Method Nasal Cannula 12/05/23 11:35 O2 Flow Rate 2 12/05/23 11:35 Oxygen Flow Rate 5 12/04/23 23:58 BMI result Body Mass Index 43.3 Const: General: no acute distress, alert and awake Nutritional Appearance: obese Eyes: Other: Right eye enucleated Neck: Neck: Yes no lymphadenopathy, Yes trachea midline and Yes supple Resp: Effort & Inspection: normal respiratory effort and no respiratory distress Auscultation: clear to auscultation bilaterally Cardio: Rate: regular rate Rhythm: regular rhythm Heart sounds: no gallops, no murmurs and no rubs GI: Palpation (GI): Soft to palpation and Other GI palpation findings present ( Nontender) Auscultation: normal bowel sounds Extrem: General: No clubbing, No cyanosis and Yes edema (3+ bilateral) Results Labs 12/05/23 00:27 12/05/23 07:55 Labs: Short CBC 12/05/23 Range/Units 00:27 WBC 5.8 (4.8-10.8) X10*3/uL Hgb 8.4 L (14.0-18.0) g/dl Hct 26.1 L (42.0-52.0) % Plt Count 173 (160-400) X10*3/uL BMP 12/05/23 12/05/23 00:27 07:55 Sodium 145 146 H Potassium 3.3 3.5 Chloride 109 H 109 H Carbon Dioxide 30 H 31 H BUN 17 H 16 Creatinine 0.79 0.80 Calcium 8.0 L 8.3 L Cardiac Enzymes 12/05/23 Range/Units 00:27 Total Creatine Kinase 30 L (38-174) U/L Liver Function 12/05/23 12/05/23 Range/Units 00:27 07:55 Total Bilirubin 0.4 0.6 (0.0-1.0) mg/dL AST 16 15 (5-37) U/L ALT 6 9 (0-40) U/L Alkaline Phosphatase 89 83 (39-117) U/L Albumin 2.0 L 2.7 L (3.5-5.0) g/dL Urine 12/05/23 Range/Units 01:30 Urine Color Yellow Urine Appearance Clear Urine pH 5.0 (5.0-9.0) Ur Specific [place] 1.010 (1.005-1.025) Urine Protein Negative (Neg-Trace) mg/dL Urine Glucose (UA) Negative (Negative) mg/dL Microbiology Microbiology Results: Microbiology 11/30/23 08:52 Blood - Venous Blood Culture - Final No growth after 5 days. 11/30/23 08:44 Blood - Venous Blood Culture - Final No growth after 5 days. 11/22/23 19:59 Blood - Venous Blood Culture - Final No growth after 5 days. 11/22/23 19:31 Blood - Venous Blood Culture - Final Assessment and Plan (1) Intravascular volume depletion: Status: Acute (2) Hypoalbuminemia: Status: Acute Plan Impression: 78-year-old gentleman with underlying morbid obesity admitted with pneumonia and hypernatremia, now with recurrent episodes of hypotension/hypothermia. Also, appears to be with significant intravascular volume depletion secondary to hypoalbuminemia with low oncotic pressure and tissue edema, increased bicarbonate and sodium levels. Does not appear to have septic etiology at this time, may nocturnal aspirations. Recommendations call agree with measures to improve oncotic pressure with albumin supplementation. Consider empiric Levaquin for possible aspiration component. May have hypothalamic/pituitary axis dysfunction, consider empiric fludrocortisone. At this time does not require intensive care level of service. Please notify for re-evaluation, if patient's condition changes.
[2023-12-05] MEDS: Linezolid/D5W 600 MG/300 ML PIGGYBACK 300 MG IV (15:19)
[2023-12-05] MEDS: Midodrine HCl 10 MG TABLET PO (21:19)
[2023-12-05] MEDS: Mineral Oil/Petrolatum,White 106 GM Tube 1 APPL TOPICAL (21:55)
[2023-12-06] VITALS (7 sets, daily range): BP systolic 98–165; BP diastolic 47–68; PULSE 36–68; RESP 16–20; TEMP 35.5–37.1; O2SAT 91–100
--- NOTE | 2023-12-06 | ECG_ITS ---
Test Reason : bradycardia Blood Pressure : / mmHG Vent. Rate : 037 BPM Atrial Rate : 000 BPM P-R Int : 000 ms QRS Dur : 098 ms QT Int : 560 ms P-R-T Axes : 000 004 008 degrees QTc Int : 439 ms Sinus bradycardia Low voltage QRS Abnormal ECG When compared with ECG of 01-DEC-2023 22:30, Vent. rate has decreased BY 25 BPM Referred By: Matteo Vazquez Electronically Signed By:RAYMUNDO MARTEL
[2023-12-06] MEDS: 0.9 % Sodium Chloride Flush 3 ML SYRINGE IVFLUSH ×4 (01:30→20:45)
[2023-12-06] MEDS: Linezolid/D5W 600 MG/300 ML PIGGYBACK 300 MG IV ×2 (01:31→12:10)
[2023-12-06] MEDS: Albumin Human 25 % 100 ML IV ×2 (01:42→07:20)
[2023-12-06] MEDS: Omeprazole 20 MG CAPSULE.DR PO ×2 (05:56→17:52)
[2023-12-06] MEDS: Docusate Sodium 100 MG CAPSULE PO (08:35)
[2023-12-06] MEDS: levETIRAcetam 500 MG TABLET PO (08:35)
[2023-12-06] MEDS: Fludrocortisone Acetate 0.1 MG TABLET PO (08:35)
[2023-12-06] MEDS: Atorvastatin Calcium 10 MG TABLET PO (08:35)
[2023-12-06] MEDS: Folic Acid 1 MG TABLET PO (08:35)
[2023-12-06] MEDS: Apixaban 5 MG TABLET PO (08:36)
[2023-12-06] MEDS: Midodrine HCl 10 MG TABLET PO ×3 (08:36→17:52)
[2023-12-06] MEDS: Aspirin 81 MG TAB.CHEW PO (08:36)
[2023-12-06] MEDS: Ammonium Lactate 12 % Cream 140 GM TUBE 1 APPL TOPICAL ×3 (08:36→20:46)
[2023-12-06] MEDS: Zinc Oxide (Triple Paste) 56.7 GM OINT 1 APPL TOPICAL ×2 (08:37→21:05)
[2023-12-06] MEDS: Thiamine HCL 250 MG in 0.9 % Sodium Chloride 100 ML 202 MG IV (09:10)
--- NOTE | 2023-12-06 09:44 | MHC.SLORD ---
Addendum entered and electronically signed by SKYLER Lees 12/06/23 09:49: During most recent CHRONIC DISEASE EPIDEMIOLOGIST visit during prior hospitalization on 10/20/2023, patient was recommended the following: CHOPPED/ADVANCED (NDD3) SOLIDS and UPGRADE to THIN liquids (NO STRAWS). MEDS WHOLE with PUREE. Supervise directly and monitor for any overt s/s of aspiration. Per TELEPHONE OPERATORS SUPERVISOR, patient was coughing during breakfast this morning w/ chopped/thin tray, however she reports he was coughing when not eating as well. Original Note: Speech Language Pathology Order Status: CHRONIC DISEASE EPIDEMIOLOGIST attempted swallow evaluation this morning w/ HCP and sitter in room. Patient yelling & irritable w/ CHRONIC DISEASE EPIDEMIOLOGIST presence. Did not participate in evaluation. Snow outside of room w/ HCP towards end of CHRONIC DISEASE EPIDEMIOLOGIST visit. Per MD, CHRONIC DISEASE EPIDEMIOLOGIST consultation to be cancelled at this time. MD to re-order consult if/when needed. Per RN, patient tolerating pills crushed/whole in applesauce.
--- NOTE | 2023-12-06 10:25 | MHC.CM.PN ---
Per MD in [facility], Patient is now a DNR & DNI. MD will discuss the possibility of Patient returning to [facility] on Hospice. CM left a detailed message for Radha, from [facility] @ [phone], informing her of this possible plan. CM will follow.
--- NOTE | 2023-12-06 11:11 | MHC.IC ---
No precautions needed for MRSA at this time. IC will reassess periodically.
--- NOTE | 2023-12-06 14:50 | P.PNIM_ITS ---
Subjective Subjective Date of Service: 12/06/23 Interval History: Continues to decline; discussed with guardian Review of Systems Unable to obtain Physical Exam 2 Vital Signs: Vital Signs: Last Vital Signs Temp 96.9 F 12/06/23 12:00 Pulse 48 L 12/06/23 12:00 Resp 20 12/06/23 12:00 BP 98/54 L 12/06/23 12:00 Pulse Ox 100 12/06/23 12:00 O2 Del Method Nasal Cannula 12/06/23 12:00 O2 Flow Rate 2 12/06/23 12:00 FiO2 90 12/05/23 23:13 Oxygen Flow Rate 5 12/04/23 23:58 BMI result Body Mass Index 43.3 Const: Other: Awake alert no acute distress Resp: Other: Diminished but clear throughout Cardio: Other: No S4; positive S1-S2; no S3 murmurs rubs or gallops GI: Other: Soft nontender nondistended normoactive bowel sounds Extrem: Other: No edema bilaterally Objective Data Active Medications Acetaminophen (Acetaminophen 325 Mg Tablet) 650 mg PO Q6H PRN PRN Reason: Pain, Mild (Pain Scale 1-3) Last Admin: 11/24/23 12:36 Dose: 650 mg Documented By: PAT Acetaminophen/Butalbital/Caffeine (Butalb/Acetamin/Caff 50/325/40 Tablet) 1 tab PO Q4H PRN PRN Reason: Headache Last Admin: 11/24/23 17:09 Dose: 1 tab Documented By: DAVID Al Hydroxide/Mg Hydroxide (Magnesium Hydrox/Alum Hydrox 30 Ml Oral.Susp) 30 ml PO Q6H PRN PRN Reason: Heartburn Apixaban (Apixaban 5 Mg Tablet) 5 mg PO BID [facility] Last Admin: 12/06/23 08:36 Dose: 5 mg Documented By: HOLLY Aspirin (Aspirin 81 Mg Tab.Chew) 81 mg PO DAILY [facility] Last Admin: 12/06/23 08:36 Dose: 81 mg Documented By: HOLLY Atorvastatin Calcium (Atorvastatin Calcium 10 Mg Tablet) 10 mg PO DAILY [facility] Last Admin: 12/06/23 08:35 Dose: 10 mg Documented By: HOLLY Bisacodyl (Bisacodyl 10 Mg Supp.Rect) 10 mg OR DAILY PRN PRN Reason: Constipation Docusate Sodium (Docusate Sodium 100 Mg Capsule) 100 mg PO BID [facility] Last Admin: 12/06/23 08:35 Dose: 100 mg Documented By: HOLLY Fludrocortisone Acetate (Fludrocortisone Acetate 0.1 Mg Tablet) 0.1 mg PO DAILY [facility] Last Admin: 12/06/23 08:35 Dose: 0.1 mg Documented By: HOLLY Folic Acid (Folic Acid 1 Mg Tablet) 1 mg PO DAILY [facility] Last Admin: 12/06/23 08:35 Dose: 1 mg Documented By: HOLLY Furosemide (Furosemide 40 Mg Tablet) 40 mg PO DAILY [facility]; Protocol Last Admin: 12/05/23 09:11 Dose: 40 mg Documented By: JAISON Guaifenesin (Guaifenesin 100 Mg/5 Ml Liquid) 10 ml PO Q4H PRN PRN Reason: Cough Thiamine HCl 250 mg/ Sodium (Chloride) 102.5 mls @ 202 mls/hr IV DAILY [facility] Last Infusion: 12/06/23 09:41 Dose: Infused Documented By: HOLLY Linezolid (Zyvox/D5w) 600 mg in 300 mls @ 300 mls/hr IV Q12H [facility] Last Infusion: 12/06/23 13:46 Dose: Infused Documented By: HOLLY Meropenem 1 gm/ Sodium (Chloride) 100 mls @ 200 mls/hr IV Q8H [facility] Last Admin: 12/06/23 14:26 Dose: 200 mls/hr Documented By: HOLLY Lactic Acid (Ammonium Lactate 12 % Cream 140 Gm Tube) 1 appl TOPICAL TID [facility]; Protocol Last Admin: 12/06/23 14:26 Dose: 1 appl Documented By: HOLLY Lactulose (Lactulose 20 Gm/30 Ml Solution) 20 gm PO DAILY PRN PRN Reason: Constipation Levetiracetam (Levetiracetam 500 Mg Tablet) 500 mg PO BID [facility] Last Admin: 12/06/23 08:35 Dose: 500 mg Documented By: HOLLY Magnesium Hydroxide (Milk Of Magnesia 30 Ml Oral.Susp) 30 ml PO DAILY PRN PRN Reason: Constipation Melatonin (Melatonin 3 Mg Tablet) 6 mg PO BEDTIME PRN PRN Reason: Insomnia Last Admin: 12/04/23 20:27 Dose: 6 mg Documented By: HO.PANAJIK Midodrine (Midodrine Hcl 10 Mg Tablet) 10 mg PO TIDWM [facility] Last Admin: 12/06/23 12:10 Dose: 10 mg Documented By: HOLLY Multi-Ingred Cream/Lotion/Oil/Oint (Mineral Oil/Petrolatum,White 106 Gm Tube) 1 appl TOPICAL BEDTIME [facility]; Protocol Last Admin: 12/05/23 21:55 Dose: 1 appl Documented By: JAISON Omeprazole (Omeprazole 20 Mg Capsule.Dr) 20 mg PO BID@0630,1630 [facility] Last Admin: 12/06/23 05:56 Dose: 20 mg Documented By: KARLI Ondansetron HCl (Ondansetron Hcl 4 Mg/2 Ml Vial) 4 mg IVPUSH Q8H PRN PRN Reason: Nausea and Vomiting Sodium Biphosphate/Sodium Phosphate (Sodium Phosphate,[place]-Dibasic 133 Ml Enema) 118 ml OR DAILY PRN PRN Reason: Constipation Sodium Chloride (0.9 % Sodium Chloride Flush 3 Ml Syringe) 3 ml IVFLUSH QSHIFT [facility] Last Admin: 12/06/23 14:26 Dose: 3 ml Documented By: HOLLY Zinc Oxide (Zinc Oxide (Triple Paste) 56.7 Gm Oint) 1 appl TOPICAL BID [facility] Last Admin: 12/06/23 08:37 Dose: 1 appl Documented By: HOLLY Labs 12/05/23 00:27 12/05/23 07:55 Microbiology Microbiology Results: Microbiology 12/05/23 11:08 Blood Culture - Preliminary Blood - Venous No growth after 24 hours. 12/05/23 07:55 Blood Culture - Preliminary Blood - Venous No growth after 24 hours. 11/30/23 08:52 Blood Culture - Final Blood - Venous No growth after 5 days. 11/30/23 08:44 Blood Culture - Final Blood - Venous No growth after 5 days. Assessment and Plan (1) Encephalopathy: Status: Acute (2) Weakness: Status: Acute Plan 78yo M LTC resident of [facility] SNF with HTN, HLD, chronic bilateral leg lymphedema, chronic AF on apixaban, RLE DVT in 2022, HFpEF, morbid obesity sent in with lethargy, AMS, weakness admitted for encephalopathy due to hypernatremia + pneumonia. 1.Encephalopathy, multifactorial (metabolic, infection, medication/toxic) -at baseline -conservative treatment at this time 2.Bradycardia -asymptomatic -follow clinically 3.Acute hypoxic resp failure due to pneumonia... Resolved -5d of cefepime/4d of vancomycin; 4. Question lower GI bleed -will discuss with guardian -hold Eliquis 5.Paroxysmal AF -acceptable rate control -hold apixaban 6.Chronic HFpEF -stable and well compensated -continue current therapies Full code Eliquis Requires ongoing hospitalization for likely GI bleed causing recurrent metabolic encephalopathy. Given recurrence; high outpatient risk at this time without free water repletion Quality Stroke Does the patient have a stroke diagnosis?: No VTE Prior VTE?: Yes VTE Risk Level:: Medical - moderate - high VTE Device Contraindication: Treatment Not Indicated VTE Drug Contraindication: N/A - Med Ordered
--- NOTE | 2023-12-06 14:54 | PC.NURSE ---
2 large maroon color stools today , HR 30's 40's , DR Baires notified
[2023-12-06] MEDS: Phytonadione (Vit K1) 10 MG in 0.9 % Sodium Chloride 50 ML 51 MG IV (15:42)
[2023-12-06] MEDS: Mineral Oil/Petrolatum,White 106 GM Tube 1 APPL TOPICAL (21:05)
[2023-12-06 22:05] LABS: VBG Base Excess 9.1 mmol/L; VBG HCO3 34 mmol/L (22-26); VBG pCO2 51 mmHg; VBG pH 7.42 (7.32-7.43); VBG pO2 83 mmHg
[2023-12-06 22:05] LABS: Venous Blood Gas Refer to POC result
[2023-12-06] MEDS: levETIRAcetam in NaCl (iso-os) 500 MG/100 ML PIGGYBACK 400 MG IV (23:06)
[2023-12-07] MEDS: Linezolid/D5W 600 MG/300 ML PIGGYBACK 300 MG IV ×2 (00:01→12:25)
[2023-12-07 03:34] VITALS: BP 146/63; PULSE 28; RESP 16; TEMP 33.8; O2SAT 97
--- NOTE | 2023-12-07 04:00 | PC.NURSE ---
RECTAL TEMP 90.2,MEDARDO HUGGER REAPPLIED,CONT TO MONITOR.
[2023-12-07 04:08] VITALS: PULSE 40; TEMP 32.3
[2023-12-07 06:20] VITALS: PULSE 27; TEMP 34.1
[2023-12-07 07:16] VITALS: BP 139/60; PULSE 42; RESP 20; TEMP 33.9; O2SAT 96
[2023-12-07] MEDS: Thiamine HCL 250 MG in 0.9 % Sodium Chloride 100 ML 202 MG IV (08:09)
[2023-12-07] MEDS: 0.9 % Sodium Chloride Flush 3 ML SYRINGE IVFLUSH (08:10)
[2023-12-07] MEDS: Ammonium Lactate 12 % Cream 140 GM TUBE 1 APPL TOPICAL (08:30)
[2023-12-07 11:21] VITALS: BP 145/67; PULSE 49; RESP 20; TEMP 35.6; O2SAT 96
[2023-12-07] MEDS: Zinc Oxide (Triple Paste) 56.7 GM OINT 1 APPL TOPICAL (11:50)
[2023-12-07] MEDS: levETIRAcetam in NaCl (iso-os) 500 MG/100 ML PIGGYBACK 400 MG IV (13:04)
--- NOTE | 2023-12-07 13:10 | PC.NURSE ---
Keppra IV given late , not available from the pharmacy at 10 AM
--- NOTE | 2023-12-07 13:11 | MHC.CM.PN ---
Patient is medically cleared for dc to return to [facility]. [facility]. CM will follow.
--- NOTE | 2023-12-07 14:21 | P.PNIM_ITS ---
Subjective Subjective Date of Service: 12/07/23 Interval History: Continues to decline. Passing multiple stools maroon in color likely GI bleed Review of Systems Unable to obtain Physical Exam 2 Vital Signs: Vital Signs: Last Vital Signs Temp 96.0 F L 12/07/23 11:21 Pulse 49 L 12/07/23 11:21 Resp 20 12/07/23 11:21 BP 145/67 H 12/07/23 11:21 Pulse Ox 96 12/07/23 11:21 O2 Del Method Nasal Cannula 12/07/23 11:21 O2 Flow Rate 2 12/07/23 11:21 FiO2 90 12/05/23 23:13 Oxygen Flow Rate 5 12/04/23 23:58 BMI result Body Mass Index 43.3 Const: Other: Awake alert no acute distress Resp: Other: Diminished but clear throughout Cardio: Other: No S4; positive S1-S2; no S3 murmurs rubs or gallops GI: Other: Soft nontender nondistended normoactive bowel sounds Extrem: Other: No edema bilaterally Objective Data Labs 12/05/23 00:27 12/05/23 07:55 Labs: Laboratory Results - last 24 hr 12/06/23 21:58 VBG pH 7.42 VBG pCO2 51 VBG pO2 83 VBG HCO3 34 H VBG O2 Saturation 98.0 VBG Base Excess 9.1 Microbiology Microbiology Results: Microbiology 12/05/23 11:08 Blood Culture - Preliminary Blood - Venous No growth after 48 hours. 12/05/23 07:55 Blood Culture - Preliminary Blood - Venous No growth after 48 hours. Assessment and Plan (1) Pneumonia: Status: Acute (2) Atrial fibrillation: Status: Acute Plan 78yo M LTC resident of [facility] with HTN, HLD, chronic bilateral leg lymphedema, chronic AF on apixaban, RLE DVT in 2022, HFpEF, morbid obesity sent in with lethargy, AMS, weakness admitted for encephalopathy due to hypernatremia + pneumonia. Patient has continued to decline despite aggressive therapies. Discussion with healthcare proxy and with patient; patient was very clear and lucid about his wishes. He was done with all this?.. When related the aspects of comfort care patient stated that is what he wanted. Proxy attempted to redirect and he stated ?I have to draw a line ?. Decision was made with patient proxy and this sports book writer that patient would be made comfort measures and transfer [facility] when bed available. All meds have been DC; morphine and Ativan orders are in [facility]. Will transfer as soon as bed available Quality Stroke Does the patient have a stroke diagnosis?: No VTE Prior VTE?: Yes VTE Risk Level:: Medical - moderate - high VTE Device Contraindication: Treatment Not Indicated VTE Drug Contraindication: N/A - Med Ordered
--- NOTE | 2023-12-07 14:23 | MHC.CM.PN ---
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
--- NOTE | 2023-12-07 14:38 | MHC.CM.PN ---
CM received a call from [facility], who indicated that they are contracted with [facility] and a referral was made to them via [facility]. CM will follow.
--- NOTE | 2023-12-07 14:43 | MHC.CM.PN ---
CM spoke with PEDRO/Leilani @ [phone] and informed her of the dc plan/goal(return to [facility] tomorrow, pending [facility] auth).
--- NOTE | 2023-12-07 15:56 | MHC.CM.PN ---
CM requested [facility] to evaluate Patient. CM will follow.
[2023-12-07 16:00] VITALS: RESP 18
--- NOTE | 2023-12-07 16:06 | MHC.CM.PN ---
STEVAN received a call from Luis from [facility] and informed him that [facility] has now indicated that they are waiting for DC auth for Patient to return to SNF under LTC (15 total day bed hold has ). 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 CM will follow.
[2023-12-08 08:01] VITALS: RESP 20
[2023-12-08 11:48] VITALS: RESP 16
--- NOTE | 2023-12-08 13:28 | PM.DS ---
DS: Providers Provider Date of Service: 12/08/23 Date of admission: 11/22/23 22:36 Date of discharge: 12/08/23 Primary care physician: Arturo Hall MD Consults: 11/27/23 15:59 Consult to Wound Care Routine Reason for consultation: Buttock, Left arm bilateral legs 11/28/23 07:54 Consult to Neurology Routine Consulting Provider: [facility] Reason for consultation: encephalopathy 11/28/23 08:38 Consult to Infectious Diseases Routine Consulting Provider: [facility] [place] Infectious Disease Reason for consultation: drug reaction? cefepime AMS, vancomycin rash? 11/29/23 13:37 Consult to Cardiology Routine Consulting Provider: [facility] [place] Cardiovascular Services Reason for consultation: Bradycardia. Sinus as low as 29. Encephlaopathic 12/05/23 12:23 Consult to Critical Care Routine Consulting Provider: Raymond Bone Reason for consultation: goal of care 12/06/23 21:50 Consult to Cardiology Routine Consulting Provider: [facility] [place] Cardiovascular Services Reason for consultation: Bradycardia Has provider been notified: No DS: Diagnosis Discharge Diagnosis (1) Pneumonia: Status: Acute (2) Atrial fibrillation: Status: Acute DS: Summary Hospital Course Hospital Course: 78-year-old male with a PMH significant for?HTN, HLD, chronic bilateral leg lymphedema with drainage, chronic AFib on Eliquis, RLE DVT in 2022, HFpEF, and morbid obesity who presents to the ED from [facility] for evaluation of lethargy, altered mental status, and generalized weakness for the past 1-2 days. Patient himself complains of neck pain from ?laying too flat and requests the head of bed be elevated. Otherwise has no acute medical complaints. Denies chest pain/pressure, palpitations. No shortness of breath or cough. Denies fever, chills, nausea, vomiting, abdominal pain. No headache or acute vision changes. Of note, patient has had multiple presentations to the hospital over the past few months. Was hospitalized on 09/13-09/20 and treated for AMS in the setting of hypothermia associated with bradycardia likely secondary to pneumonia in [facility]. Course was complicated by new onset AFib and hypernatremia. Patient was again hospitalized from 10/15-10/21 and treated for acute on chronic hypoxic respiratory failure secondary to RSV infection and aspiration pneumonia in the setting of ASHLEY and acute on chronic diastolic CHF. Hospital course complicated by hypothermia and hypernatremia. In the ED pt was afebrile but tachycardic up to 108. Labs were significant for sodium of 150, chloride 114, BNP 203, total protein 5.7, and albumin 2.9. Tested negative for RSV, COVID, influenza. CXR showed mild haziness in left lung base question of effusion/atelectasis/infiltrate. Pt was treated with cefepime and IVF. Pt will be admitted to the hospital for treatment and further evaluation of hypernatremia and acute encephalopathy in the setting of likely pneumonia. Hospital Course Patient admitted to telemetry and started on broad-spectrum antibiotics with vancomycin and Zosyn. Blood pressures remain labile and he remained encephalopathic with profound hyernatremia. His free water deficit was repleted twice with dextrose but despite these therapies continued to to be hypernatremic and encephalopathic. Patient was maintained on Eliquis; over the last 48 hours prior to discharge he developed maroon stools and Eliquis was DC. He also was noted to have a allergic reaction to vancomycin and this was stopped and he was attempted to be maintained on linezolid. He continued to be intermittently hypothermic and not responding to therapies. After a long discussion with patient and proxy the decision was made for [facility] with thoughts of hospice. At this point in time he will be discharged [facility] [address] with hospice eval and admission as appropriate Time Attestation Discharge Coordination Time (in mins): 35 Quality: Safe Use of Opioids Does Pt have an Active Cancer Diagnosis on the Problem List?: No Quality: Stroke Does the patient have a stroke diagnosis?: No Physical Exam Vital Signs: Vital Signs: Last Vital Signs Temp 96.0 F L 12/07/23 11:21 Pulse 49 L 12/07/23 11:21 Resp 16 12/08/23 11:48 BP 145/67 H 12/07/23 11:21 Pulse Ox 96 12/07/23 11:21 O2 Del Method Nasal Cannula 12/07/23 11:21 O2 Flow Rate 2 12/07/23 11:21 FiO2 90 12/05/23 23:13 Oxygen Flow Rate 5 12/04/23 23:58 BMI result Body Mass Index 43.3 Const: Other: Awake alert no acute distress Resp: Other: Diminished but clear throughout Cardio: Other: No S4; positive S1-S2; no S3 murmurs rubs or gallops GI: Other: Soft nontender nondistended normoactive bowel sounds Extrem: Other: No edema bilaterally DS: Data Data Completed and Pending Labs on day of discharge: Preliminary micro results at discharge 12/05/23 11:08 Blood Culture - Preliminary Blood - Venous No growth after 48 hours. 12/05/23 07:55 Blood Culture - Preliminary Blood - Venous No growth after 48 hours. Discharge Plan Discharge Anticipated Discharge Date/Time: 12/08/23 13:25 Patient Disposition: Xfer [facility] Discharge Diagnosis: Bilateral lower lobe pneumonia Referrals: Arturo Hall MD [Primary Care Provider] - 1 Week Discharge Medications: Discontinued acetaminophen 325 mg Tablet 650 mg PO Q4H PRN (Reason: Fever Or Pain) Rx Instructions: DNE 3 G / 24 HRS guaifenesin 100 mg/5 mL Liquid 200 mg PO Q4H PRN (Reason: Cough) docusate sodium 100 mg Capsule 100 mg PO BID aspirin 81 mg Tablet,Chewable 81 mg PO DAILY ammonium lactate 12 % Cream 1 appl TOPICAL TID lactulose 10 gram/15 mL Solution 30 ml PO DAILY PRN (Reason: Constipation) alum-mag hydroxide-simeth 225-200-25 mg/5 mL Suspension 30 ml PO Q6H PRN (Reason: Heartburn) atorvastatin 10 mg Tablet 10 mg PO DAILY folic acid 1 mg Tablet 1 mg PO DAILY white petrolatum-mineral oil Cream 1 appl TOPICAL BEDTIME Rx Instructions: APPLY TO BILATERAL LOWER EXTREMITIES omeprazole 20 mg Tablet,Delayed Release (Dr/Ec) 20 mg PO DAILY@0630 magnesium hydroxide [Milk of Magnesia] 400 mg/5 mL Suspension 30 ml PO DAILY PRN (Reason: Constipation) Rx Instructions: no bm in 3 days bisacodyl 10 mg Suppository [address] DAILY PRN (Reason: Constipation) Rx Instructions: if no result for MOM Fleet Enema 19-7 gram/118 mL Enema [address] DAILY PRN (Reason: Constipation) Rx Instructions: if no result from dulcolax within 2 hours zinc oxide 10 % Ointment 1 appl TOPICAL BID zinc oxide 10 % Ointment 1 appl TOPICAL DAILY PRN (Reason: MASD) Eliquis 5 mg Tablet 5 mg PO BID furosemide 40 mg tablet 40 mg PO DAILY Qty: 30 0RF Discharge Orders: Discharge Order (Routine); Ordered 12/08/23 Ordered By: Ramon Baires Diet: Advance to usual diet Activity on Discharge: As tolerated Stand Alone Forms: Patient Portal Discharge page Print Language: Danish Care Plan Goals: Transferred to [facility]. Eval and admit to hospice as appropriate. Health Concerns: Further plans as per hospice eval Plan of Treatment: Patient is [facility] [facility] Assessment: See discharge summary
[2023-12-10 21:04] LABS: Levetiracetam Keppra 20.1 mcg/mL (6.0-46.0)
== END 2023-12-08 14:47 | DRG 193 ==
LOC: HO.ED 20:27 → HO.EDOVER 22:56 → HO.IMC 11-23 17:47
PROVIDERS: Family Medicine; Internal Medicine; Admitting Provider Student in an Organized Health Care Education/Training Program; Emergency Provider Emergency Medicine; PCP Internal Medicine; Referring Provider Hospitalist; Visit Provider Hospitalist
DX: J18.9 Pneumonia, unspecified organism (principal); G93.41 Metabolic encephalopathy; J96.01 Acute respiratory failure with hypoxia; E87.0 Hyperosmolality and hypernatremia; Z68.41 Body mass index [BMI] 40.0-44.9, adult; I50.32 Chronic diastolic (congestive) heart failure; G93.49 Other encephalopathy; F05 Delirium due to known physiological condition; K92.1 Melena; J98.11 Atelectasis; L27.0 Generalized skin eruption due to drugs and medicaments taken internally; R94.01 Abnormal electroencephalogram [EEG]; Z51.5 Encounter for palliative care; E66.01 Morbid (severe) obesity due to excess calories; T36.8X5A Adverse effect of other systemic antibiotics, initial encounter; R68.0 Hypothermia, not associated with low environmental temperature; E86.0 Dehydration; I95.9 Hypotension, unspecified; I48.0 Paroxysmal atrial fibrillation; E78.5 Hyperlipidemia, unspecified; K21.9 Gastro-esophageal reflux disease without esophagitis; Z86.718 Personal history of other venous thrombosis and embolism; Z66 Do not resuscitate; Z20.822 Contact with and (suspected) exposure to COVID-19; Z79.01 Long term (current) use of anticoagulants; Z79.899 Other long term (current) drug therapy
CPT/HCPCS: 0241U; 36415; 70450; 71045; 72125; 80048; 80053; 80076; 80177; 80202; 81001; 81003; 82140; 82533; 82550; 82565; 82803; 82947; 83605; 83690; 83735; 83880; 84145; 84425; 84439; 84443; 84484; 85025; 85027; 86140; 87040; 87633; 87640; 87641; 92950; 93005; 93971; 95816; 99285; C1758; J0456; J0692; J0834; J1953; J2020; J2185; J2359; J2543; J3370; J3371; J3411; J3430; J7120; P9047

== ENCOUNTER → 2023-11-22 18:53 | Outpatient (BNV) | payer OTHER, SELFPAY | PROVIDERS: Admitting Provider Student in an Organized Health Care Education/Training Program; Emergency Provider Emergency Medicine; PCP Internal Medicine; Visit Provider Internal Medicine Cardiovascular Disease | DX: R94.31 Abnormal electrocardiogram [ECG] [EKG] (principal) | CPT/HCPCS: 93010 ==

== ENCOUNTER 2023-11-22 22:36 | Outpatient (BNV) | payer OTHER, SELFPAY | END 2023-12-01 22:30 | PROVIDERS: Admitting Provider Student in an Organized Health Care Education/Training Program; Emergency Provider Emergency Medicine; PCP Internal Medicine; Visit Provider Internal Medicine Cardiovascular Disease | DX: R07.9 Chest pain, unspecified (principal); I44.0 Atrioventricular block, first degree; I49.1 Atrial premature depolarization | CPT/HCPCS: 93010 ==

== ENCOUNTER 2023-11-22 22:36 | Outpatient (BNV) | payer OTHER, SELFPAY | END 2023-11-23 13:05 | PROVIDERS: Admitting Provider Student in an Organized Health Care Education/Training Program; Emergency Provider Emergency Medicine; PCP Internal Medicine; Visit Provider Internal Medicine Cardiovascular Disease | DX: R00.1 Bradycardia, unspecified (principal) | CPT/HCPCS: 93010 ==

== ENCOUNTER 2023-11-22 22:36 | Outpatient (BNV) | payer OTHER, SELFPAY | END 2023-12-06 21:20 | PROVIDERS: Admitting Provider Student in an Organized Health Care Education/Training Program; Emergency Provider Emergency Medicine; PCP Internal Medicine; Referring Provider Hospitalist; Visit Provider Internal Medicine | DX: R00.1 Bradycardia, unspecified (principal) | CPT/HCPCS: 93010 ==

== ENCOUNTER 2023-11-22 22:36 | Outpatient (BNV) | payer OTHER, SELFPAY | END 2023-11-29 10:42 | PROVIDERS: Admitting Provider Student in an Organized Health Care Education/Training Program; Emergency Provider Emergency Medicine; PCP Internal Medicine; Visit Provider Internal Medicine Cardiovascular Disease | DX: R00.1 Bradycardia, unspecified (principal) | CPT/HCPCS: 93010 ==

== ENCOUNTER → 2023-11-22 22:36 | Outpatient (BNV) | payer OTHER, SELFPAY | PROVIDERS: Admitting Provider Student in an Organized Health Care Education/Training Program; Emergency Provider Emergency Medicine; PCP Internal Medicine; Visit Provider Internal Medicine Cardiovascular Disease | DX: G93.40 Encephalopathy, unspecified (principal); R00.1 Bradycardia, unspecified | CPT/HCPCS: 99222; 99232 ==

== ENCOUNTER → 2023-11-22 22:36 | Outpatient (BNV) | payer OTHER, SELFPAY | PROVIDERS: Admitting Provider Student in an Organized Health Care Education/Training Program; Emergency Provider Emergency Medicine; PCP Internal Medicine; Visit Provider Psychiatry & Neurology Neurology | DX: G93.41 Metabolic encephalopathy (principal); J96.01 Acute respiratory failure with hypoxia; J18.9 Pneumonia, unspecified organism; E87.0 Hyperosmolality and hypernatremia | CPT/HCPCS: 99222 ==

== ENCOUNTER → 2023-11-22 22:36 | Outpatient (BNV) | payer OTHER, SELFPAY | PROVIDERS: Admitting Provider Student in an Organized Health Care Education/Training Program; Emergency Provider Emergency Medicine; PCP Internal Medicine; Visit Provider Internal Medicine | DX: G93.40 Encephalopathy, unspecified (principal); R21 Rash and other nonspecific skin eruption | CPT/HCPCS: 99222 ==

== ENCOUNTER → 2023-11-22 22:36 | Outpatient (BNV) | payer OTHER, SELFPAY | PROVIDERS: Admitting Provider Student in an Organized Health Care Education/Training Program; Emergency Provider Emergency Medicine; PCP Internal Medicine; Visit Provider Internal Medicine Pulmonary Disease | DX: J18.9 Pneumonia, unspecified organism (principal); E86.1 Hypovolemia; E88.09 Other disorders of plasma-protein metabolism, not elsewhere classified | CPT/HCPCS: 99222 ==

== ENCOUNTER → 2023-11-22 22:36 | Outpatient (BNV) | payer OTHER, SELFPAY | PROVIDERS: Admitting Provider Student in an Organized Health Care Education/Training Program; Emergency Provider Emergency Medicine; PCP Internal Medicine; Visit Provider Hospitalist | DX: J18.9 Pneumonia, unspecified organism (principal); I48.91 Unspecified atrial fibrillation | CPT/HCPCS: 99223; 99232; 99233; 99239; 99499 ==